=== PATIENT | female | born 1930 | race Caucasian/White ===

== ENCOUNTER → 2016-08-21 | Outpatient (CLI) | payer MEDICARE ==
[~2016-08-21] MED LIST: ALLO100T OR; EDARBI PO; FLON0.05; FOLITAB11 PO; GABAPOW41 PO; GLIMEPIRIDE PO; HYDROCORTISONE0.5 % EX; LASI40TA PO; LEVOTHYROID PO; METFORMIN PO; MULTIVIT PO; NIAC250T3 PO; OXYB5TAB5 PO; SPIRONOLACTONE/HCTZ PO; VIT D 2000 PO; VITAMIN B-12 PO; VITAMIN D PO; VITAMIN E PO; VITATAB38 PO; XALATAN OU
--- NOTE | 2016-08-21 17:20 | REPMRS ---
Patient History The patient states she had a clinical breast exam in 09/01 Patient has history of skin cancer at age 79. No known family history of cancer. Digital Woman Screen Mammo: August 21, 2016 - Exam #: [id number] Bilateral CC and MLO view(s) were taken. Technologist: Nila Bailey, Technologist Prior study comparison: August 21, 2015, digital woman screen mammo performed at [facility]. August 17, 2014, digital woman screen mammo performed at [facility]. August 16, 2013, digital woman screen mammo performed at [facility]. FINDINGS: There are scattered fibroglandular densities. There has been no change in the appearance of the mammogram from the prior studies. There is a mild amount of scattered fibroglandular density which is fairly symmetric. There is no interval development of dominant mass, architectural distortion, or clustered microcalcification suggestive of malignancy. ASSESSMENT: BI-RADS/ACR category 1 mammogram. Negative. Recommendation Routine screening mammogram in 1 year (for women over age 40). This mammogram was interpreted with the aid of an FDA-approved computer-aided dectection system. Electronically Signed By: Braulio Galarza MD 08/21/16 [id number]
== END ==
LOC: M WHC 12:45
PROVIDERS: ATTEND Nurse Practitioner Family
DX: Z01.419 Encounter for gynecological examination (general) (routine) without abnormal findings (principal); Z12.31 Encounter for screening mammogram for malignant neoplasm of breast; Z12.12 Encounter for screening for malignant neoplasm of rectum
CPT/HCPCS: 82270; G0101; G0202

== ENCOUNTER → 2016-11-30 | Outpatient (CLI) | payer MEDICARE ==
--- NOTE | 2016-11-30 12:56 | REP ---
CHEST, TWO VIEWS: HISTORY: Wheezing. COMPARISON: 09/03/2011 Peribronchial cuffing is present. The heart is upper limits of normal in size. The pulmonary vasculature is normal in appearance. The bony structure is intact. IMPRESSION: Findings consistent with asthma or bronchitis. Signed by Salinas Mancini MD 11/30/2016 12:57 P
== END ==
LOC: M WUC 11:52
PROVIDERS: ATTEND Physician Assistant
DX: R06.2 Wheezing (principal); R06.02 Shortness of breath

== ENCOUNTER → 2017-08-24 | Outpatient (CLI) | payer MEDICARE | LOC: M WHC 13:03 | DX: Z12.31 Encounter for screening mammogram for malignant neoplasm of breast (principal) | CPT/HCPCS: 77067 ==

== ENCOUNTER → 2018-08-13 | Outpatient (CLI) | payer MEDICARE ==
--- NOTE | 2018-08-13 11:04 | REP ---
Chest x-ray: Two views. History: Cough. Comparison study: November 30, 2016. Findings: Mitral annular calcification is noted. The heart is somewhat enlarged. The patient is status post its catheter aortic valve repair. The aorta is somewhat tortuous. There are degenerative changes in the thoracic spine. The lungs are symmetrically aerated and clear. Impression: No active disease. Electronically Signed by Maykel Galarza MD 08/13/2018 10:55 A
== END ==
LOC: M WUC 09:55
PROVIDERS: ATTEND Internal Medicine
DX: R05 Cough (principal); M51.24 Other intervertebral disc displacement, thoracic region

== ENCOUNTER → 2018-08-25 | Outpatient (CLI) | payer MEDICARE ==
--- NOTE | 2018-08-25 15:40 | REPMRS ---
Patient History The patient states she had a clinical breast exam in 08/2018. No known family history of cancer. Digital Woman Screen Mammo: August 25, 2018 - Exam #: [id number] Bilateral CC and MLO view(s) were taken. Technologist: Nila Bailey, Technologist Prior study comparison: August 24, 2017, digital woman screen mammo performed at [facility]. August 21, 2016, digital woman screen mammo performed at [facility]. August 21, 2015, digital woman screen mammo performed at [facility]. FINDINGS: There are scattered fibroglandular densities. There has been no change in the appearance of the mammogram from the prior studies. There is a mild amount of scattered fibroglandular density which is fairly symmetric. There is no interval development of dominant mass, architectural distortion, or clustered microcalcification suggestive of malignancy. 3-D tomosynthesis shows no additional findings. Assessment: BI-RADS/ACR category 1 mammogram. Negative Mammogram. Recommendation Routine screening mammogram of both breasts in 1 year (for women over age 40). This mammogram was interpreted with the aid of an FDA-approved computer-aided dectection system. Electronically Signed By: Braulio Galarza MD 08/25/18 [id number]
== END ==
LOC: M WHC 13:16
PROVIDERS: ATTEND Nurse Practitioner Family
DX: Z12.31 Encounter for screening mammogram for malignant neoplasm of breast (principal)
CPT/HCPCS: 77063; 77067; G0463

== ENCOUNTER → 2019-05-16 | Outpatient (CLI) | payer MEDICARE ==
--- NOTE | 2019-05-16 14:59 | REP ---
CT brain: 05/16/2019. Indication: Headache. Ataxia. Comparison: None. Technique: Unenhanced axial CT images of the brain were obtained from skull base to vertex with coronal reconstructions provided. Findings: There is no acute intracranial hemorrhage, acute cortical infarction, mass effect, hydrocephalus or acute calvarial fracture. Diffuse volume loss is present. Chronic-appearing left basal ganglia lacunar infarction is present. Intracranial atherosclerotic disease is present. Patchy areas of cerebral hemisphere white matter hypoattenuation are present. Impression: There is no acute intracranial process. Volume loss and sequelae of chronic microangiopathic ischemic disease. Electronically Signed by Flo Crews DO 05/16/2019 02:50 P
== END ==
LOC: M RAD 14:04
PROVIDERS: ATTEND Psychiatry & Neurology Neurology
DX: R29.6 Repeated falls (principal); R51 Headache; I67.2 Cerebral atherosclerosis

== ENCOUNTER → 2019-11-25 | Outpatient (CLI) | payer MEDICARE ==
[~2019-11-25] MED LIST changes: +**Note Patient Comment XX; +A-10CAP2 PO; +ACET650T61 PO; +ASPI-161 PO; +ATOR1TAB21 PO; +CALC1CAP31 PO; +COMB0.2S OU; +CYAN100050 PO; +D31000TA2 PO; +DICL1PAT6 TOP; +FLON1SPR; +FOLI0.4T PO; +FURO40TA2 PO; +GABA-845 PO; +GENT0.3S29 OU; +INSUNSD SC; +LATA0.0015 OU; +LEVO137T2 PO; +LIDO5DIS41 TD; +LIDO5DIS41 TOP; +LORA-622 PO; +LOSA100T50 PO; +MAGN400C2 PO; +MAGN400T3 PO; +META1POW PO; +MULT-90 PO; +OMEP-221 PO; +OXYB5TAB10 PO; +PHEN10TA PO; +PREDOPD OU; +PROAAER10 INH; +XALA0.007 OU; +ZYLO300T6 PO
== END ==
LOC: M LABSMTC 10:59
PROVIDERS: ATTEND Orthopaedic Surgery
DX: Z01.818 Encounter for other preprocedural examination (principal); Z11.59 Encounter for screening for other viral diseases

== ENCOUNTER 2020-03-07 16:07 | Observation (INO) | payer MEDICARE ==
[~2020-03-07] VITALS: Ht 157.5 cm; Wt 115.0 kg
[~2020-03-07 16:07] MED LIST changes: -**Note Patient Comment XX; -A-10CAP2 PO; -ACET650T61 PO; -ASPI-161 PO; -ATOR1TAB21 PO; -CALC1CAP31 PO; -COMB0.2S OU; -CYAN100050 PO; -D31000TA2 PO; -DICL1PAT6 TOP; -FLON1SPR; -FOLI0.4T PO; -FURO40TA2 PO; -GABA-845 PO; -GENT0.3S29 OU; -INSUNSD SC; -LATA0.0015 OU; -LEVO137T2 PO; -LIDO5DIS41 TD; -LIDO5DIS41 TOP; -LORA-622 PO; -LOSA100T50 PO; -MAGN400C2 PO; -MAGN400T3 PO; -META1POW PO; -MULT-90 PO; -OMEP-221 PO; -OXYB5TAB10 PO; -PHEN10TA PO; -PREDOPD OU; -PROAAER10 INH; -XALA0.007 OU; -ZYLO300T6 PO
[2020-03-07] MEDS ORDERED: LATA0.0015 OU (16:39)
[2020-03-07] MEDS ORDERED: OXYB5TAB10 PO (16:39)
[2020-03-07] MEDS ORDERED: LIDO5DIS41 TOP (16:39)
[2020-03-07] MEDS ORDERED: ATOR1TAB21 PO (16:39)
[2020-03-07] MEDS ORDERED: OMEP-221 PO (16:39)
[2020-03-07] MEDS ORDERED: PROAAER10 INH (16:39)
[2020-03-07] MEDS ORDERED: LOSA100T50 PO (16:39)
[2020-03-07] MEDS ORDERED: CALC1CAP31 PO (16:39)
[2020-03-07] MEDS ORDERED: COMB0.2S OU (16:39)
[2020-03-07] MEDS ORDERED: INSUNSD SC ×2 (16:39→19:05)
[2020-03-07] MEDS ORDERED: LEVO137T2 PO (16:39)
[2020-03-07] MEDS ORDERED: ZYLO300T6 PO (16:39)
[2020-03-07] MEDS ORDERED: FURO40TA2 PO ×2 (16:39→19:02)
[2020-03-07] MEDS ORDERED: GABA-845 PO (16:41)
[2020-03-07] MEDS ORDERED: MAGN400C2 PO (17:20)
--- NOTE | 2020-03-07 17:20 | REPVR ---
PROCEDURE INFORMATION: Exam: XR Chest, 1 View Exam date and time: 03/07/2020 5:12 PM Age: 89 years old Clinical indication: Chest pain; Additional info: Weakness TECHNIQUE: Imaging protocol: XR of the chest Views: Frontal portable sitting upright view of the chest. COMPARISON: CR CHEST 2 VIEW 11/30/2016 11:58 AM FINDINGS: Tubes, catheters and devices: EKG leads are present overlying the chest. Lungs: The lungs are clear bilaterally. The pulmonary vasculature is normal. Pleural space: No pleural effusion. No pneumothorax. Heart/Mediastinum: The heart is normal in size and contour. Mediastinum: Stable. Vasculature: Mild aortic arch atherosclerotic calcification without ectasia. Bones/joints: Stable. IMPRESSION: No acute cardiopulmonary abnormality identified. Electronically signed by: Malcom Spencer On 03/07/2020 17:20:08 PM
--- NOTE | 2020-03-07 17:21 | REPVR ---
PROCEDURE INFORMATION: Exam: CT Head Without Contrast Exam date and time: 03/07/2020 5:13 PM Age: 89 years old Clinical indication: Pain; Headache; Additional info: Slurred speech TECHNIQUE: Imaging protocol: Computed tomography of the head without contrast. Radiation optimization: All CT scans at this facility use at least one of these dose optimization techniques: automated exposure control; mA and/or kV adjustment per patient size (includes targeted exams where dose is matched to clinical indication); or iterative reconstruction. Other technique: STROKE PROTOCOL was implemented. COMPARISON: CT Head without contrast 05/16/2019 2:26 PM FINDINGS: Brain: Moderate hypoattenuating foci are noted in the posterior superior periatrial and anterior lateral ventricular periventricular white matter bilaterally. No intracranial hemorrhage. No mass or acute cortical infarction identified. Cerebral ventricles: Prominence of the ventricular system and subarachnoid spaces is consistent with the patient's age of 89 years. Bones/joints: No acute abnormality identified. No acute fracture. Paranasal sinuses: Visualized sinuses are unremarkable. No fluid levels. Mastoid air cells: Visualized mastoid air cells are well aerated. Orbital cavity: Bilateral prior cataract surgery with lens replacements. Vasculature: Atherosclerotic calcifications are present involving the carotid artery siphons bilaterally and the left vertebral artery. Soft tissues: Unremarkable. IMPRESSION: 1. Age appropriate supratentorial and infratentorial atrophy. 2. Moderate chronic white matter microvascular ischemic disease. 3. No acute intracranial abnormality identified. ASSESSMENT: ASPECTS ([place] Stroke Program Early CT Score) is 10. Electronically signed by: Malcom Spencer On 03/07/2020 17:21:50 PM
[2020-03-07 17:29] LABS: BASO % 0.3 % (0.0-1.0); EOS # 0.1 10^3/uL (0.0-0.5); EOS % 0.5 % (0.0-3.0); HEMATOCRIT 38.2 % (36.0-47.0); HEMOGLOBIN 12.4 g/dl (12.0-15.5); LYMPH # 1.6 10^3/uL (1.5-5.0); LYMPH % 13.8 % (24.0-44.0); MEAN CORPUSCULAR HEMOGLOBIN 35.5 pg (27.0-33.0); MEAN CORPUSCULAR HGB CONC 32.5 g/dl (32.0-36.5); MEAN CORPUSCULAR VOLUME 109.5 fl (80.0-96.0); MONO # 0.6 10^3/uL (0.0-0.8); MONO % 4.9 % (0.0-5.0); NEUTROPHILS # 9.1 10^3/uL (1.5-8.5); NEUTROPHILS % 79.9 % (36.0-66.0); PLATELET COUNT, AUTOMATED 163 10^3/uL (150-450); RED BLOOD COUNT 3.49 10^6/uL (4.00-5.40); WHITE BLOOD COUNT 11.3 10^3/uL (4.0-10.0)
[2020-03-07 17:44] LABS: CALCIUM LEVEL 8.9 MG/DL (8.8-10.2); CREATININE FOR GFR 1.49 MG/DL (0.55-1.30); GLOMERULAR FILTRATION RATE 35.2 (>32); POTASSIUM SERUM 3.8 MEQ/L (3.5-5.1)
[2020-03-07 17:45] LABS: CK-MB VALUE MASS 2.4 NG/ML (<3.6); MB/CK RELATIVE INDEX 1.68 (< OR =4); TROPONIN I 0.06 NG/ML (< 0.10)
[2020-03-07] MEDS ORDERED: DEXTROSE 50% 50 ML SYRINGE IV STA (17:51)
[2020-03-07] MEDS ORDERED: DEXTROSE 50% 50 ML SYRINGE As Ordered ONE (17:53)
[2020-03-07] MEDS ORDERED: DEXTROSE 50% 50 ML SYRINGE IV PRN (18:30)
[2020-03-07] MEDS ORDERED: GLUCAGON INJ 1MG VIAL SC PRN (18:30)
[2020-03-07] MEDS ORDERED: GLUCOSE 4GM CHEW TABLET PO PRN (18:30)
--- NOTE | 2020-03-07 18:58 | HPEPDOC ---
[facility] Medical History & Physical Date of Admission Mar 07, 2020 Date of Service: Mar 07, 2020 Attending Physician: CAMPBELL LYNN MD History and Physical CHIEF COMPLAINT: Hypoglycemia HISTORY OF PRESENT ILLNESS: Patient is an 89-year-old female who presents to the emergency department after being found down by a friend. Patient states that she woke up at about 11 AM this morning and took her thyroid medication and her eyedrops. About a half hour later, patient her blood sugar which was 93. Patient was cooking her breakfast in the microwave when she took her insulin. Patient says that she takes 90 units of her insulin in the morning and 30 units of insulin in the evening. Patient says that she was walking down the hallway with her walker and tried to reach down with a dustpan and ended up falling. Patient says that she slid down the wall. Patient was unable to get up and says that she fell asleep on the floor. Patient was trying to get up multiple times however, because she taken her insulin she believes that her blood sugar was low and was unable to get up. Patient says after being on the floor for a few hours, a friend came to check on her and found her where she was brought to the emergency department via EMS. Patient was found to have a low blood sugar and was given D50. Patient says that other than the pain in her upper back from the scrape, she does not have any other complaints. PAST MEDICAL HISTORY: 1. Diabetes. 2. Hypertension. 3. Hyperlipidemia. 4. Gout 5. Hypothyroidism PAST SURGICAL HISTORY: 1. Hysterectomy. 2. Toe surgery. 3. Tonsillectomy and adenoidectomy. 4. Multiple urolift surgeries SOCIAL HISTORY: Patient lives alone in an apartment. Patient smoked cigarettes for about 20 years but Back [place]. Patient occasionally drinks alcohol and does not use illicit drugs. 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 FAMILY HISTORY: Remote history of cancer ALLERGIES: Please see below. REVIEW OF SYSTEMS: General: Patient denies fevers HEENT: Patient denies headaches Cardiovascular: Patient denies chest pain Respiratory: Patient denies shortness of breath, cough GI: Patient denies abdominal pain, nausea, vomiting, diarrhea : Patient denies increased frequency or pain with urination Extremities: Patient denies swelling or pain in extremities Neurological: Patient denies numbness or tingling in legs Skin: Patient denies any new rashes or lesions. Hematologic: Patient denies any easy bruising. Lymphatic: Patient denies any lumps lumps or bumps in neck, axilla, or groin HOME MEDICATIONS: Please see below. PHYSICAL EXAMINATION: VITAL SIGNS: See below General: Alert and oriented female patient is sitting in a chair when I walked in. Patient did not appear to be in any acute distress. HEENT: Normocephalic, atraumatic, moist mucous membranes. Neck: No lymphadenopathy or thyromegaly Cardiac: Regular rate and rhythm, grade 2/6 systolic murmur heard loudest in the right second intercostal space, normal S1, normal S2 Pulm: Clear to auscultation bilaterally. No wheezes, rhonchi, rales Abd: Nondistended, nontender to palpation, normal bowel sounds Ext: Trace edema bilateral lower extremities. Skin: Patient has superficial abrasions in the midline of the upper back. No other rashes. LABORATORY DATA: See below. IMAGING: A CT head without contrast was performed on 03/07/2020 which is reported to show age-appropriate supratentorial and infratentorial atrophy, moderate chronic white matter microvascular ischemic disease, no acute intracranial abnormality identified Chest x-ray performed on 03/07/2020 was reported to show no acute cardiopulmonary abnormality identified. MICROBIOLOGY: Please see below. ASSESSMENT: 89-year-old female who presented to the hospital after a mechanical fall at home and was found to have hypoglycemia. PLAN: 1. Hypoglycemia, resolved at this time. Patient took her full dose of her morning insulin and was unable to get up after falling to eat. Patient was given an amp of D50 and was feeling better. Patient is coherent at this time. We will continue to monitor the patient's blood sugar I put her on a sliding scale. We can start the patient's insulin back on a lower dose than her home dose starting tomorrow morning. 2. Mechanical fall. Patient says that she was reaching down with a dustpan when she slid down the wall. Patient did not have any injury from her fall. We will work with physical therapy to evaluate her. Patient is also on gabapentin which we will hold at this time as this may be another cause for her fall/altered mental status. 3. Altered mental status, resolved. Patient is reported to have altered mental status when she arrived in the emergency department. This is most likely secondary to her hypoglycemia however, patient is also on gabapentin with chronic kidney disease which may also be the cause. 4. Type 2 diabetes. We'll continue to monitor the patient's blood sugars. We may have to adjust the patient's insulin regimen if she continues to have hypoglyce katherine. 5. Hypertension, patient's blood pressure is elevated and we will give her her hypertensive medications. Patient did not take her hypertensive medications at home due to what happened to her. 6. Hypothyroidism: Continue levothyroxine 7. DVT prophylaxis heparin subcutaneous. 8. CODE STATUS, full code Plan: Patient will be admitted to medical surgical floor with telemetry with plan to discharge in the next 24 hours Vital Signs Vital Signs Date Time Temp Pulse Resp B/P (MAP) Pulse Ox O2 Delivery O2 Flow Rate FiO2 03/07/20 16:52 57 97 03/07/20 16:37 Room Air 03/07/20 16:31 184/84 (117) 03/07/20 16:22 96.5 03/07/20 16:16 20 Laboratory Data Labs 24H Laboratory Tests 2 03/07/20 16:52: Immature Granulocyte % (Auto) 0.6, Neutrophils (%) (Auto) 79.9H, Lymphocytes (%) (Auto) 13.8L, Monocytes (%) (Auto) 4.9, Eosinophils (%) (Auto) 0.5, Basophils (%) (Auto) 0.3, Neutrophils # (Auto) 9.1H, Lymphocytes # (Auto) 1.6, Monocytes # (Auto) 0.6, Eosinophils # (Auto) 0.1, Basophils # (Auto) 0.0, Nucleated Red Blood Cells % (auto) 0.0, Anion Gap 6L, Glomerular Filtration Rate 35.2, Calcium Level 8.9, Total Creatine Kinase 143, Creatine Kinase MB 2.4, Creatine Kinase MB Relative Index 1.68, Troponin I 0.06 CBC/BMP Laboratory Tests 03/07/20 16:52 Home Medications Scheduled Acetaminophen (Tylenol Arthritis) 650 Mg Tablet.er, 650 MG PO BID Allopurinol (Zyloprim) 300 Mg Tablet, 300 MG PO DAILY Aspirin (Aspirin EC) 81 Mg Tablet.dr, 81 MG PO DAILY Atorvastatin Calcium (Atorvastatin Calcium) 20 Mg Tablet, 20 MG PO DAILY Brimonidine Tartrate/Timolol (Combigan 0.2%-0.5% Eye Drops) 5 Ml Drops, 1 DROP OU BID Calcitriol (Calcitriol) 0.25 Mcg Capsule, 0.25 MCG PO 5XW MON//THU//FRI Cholecalciferol (Vitamin D3) (Vitamin D3) 1,000 Unit Tablet, 1,000 UNITS PO QHS Cyanocobalamin (Vitamin B-12) (Vitamin B-12) 1,000 Mcg Tablet, 1,000 MCG PO QHS Furosemide (Furosemide) 40 Mg Tablet, 60 MG PO QAM Furosemide (Furosemide) 40 Mg Tablet, 40 MG PO QPM Gabapentin (Gabapentin) 400 Mg Capsule, 400 MG PO BID Gentamicin Sulfate (Gentamicin Sulfate) 0.3 % Drops, 1 DROP OU QID Insulin Human NPH (Humulin N) 100 Unit/1 Ml Vial, 70 UNITS SC QAM Insulin Human NPH (Humulin N) 100 Unit/1 Ml Vial, 20 UNITS SC QHS Latanoprost (Xalatan) 0.005% 2.5ML Drops, 1 DROP OU QHS Levothyroxine Sodium (Levothyroxine Sodium) 137 Mcg Tablet, 137 MCG PO DAILY Loratadine (Loratadine) 10 Mg Tablet, 10 MG PO DAILY Losartan Potassium (Losartan Potassium) 100 Mg Tablet, 50 MG PO DAILY Magnesium Oxide (Magnesium Oxide) 400 Mg Tablet, 400 MG PO QHS Multivitamin (Multivitamin) 1 Each Tablet, 1 TAB PO QHS Omeprazole (Omeprazole) 40 Mg Capsule.dr, 40 MG PO DAILY Oxybutynin Chloride (Oxybutynin Chloride) 5 Mg Tablet, 5 MG PO DAILY Prednisolone Acetate (Prednisolone Acetate 1% Opth Susp) 5 Ml Drops.susp, 1 DROP OU QID Vitamin A (Vitamin A) 10,000 Unit Capsule, 10,000 UNIT PO QHS Scheduled PRN Albuterol Sulfate (Proair Hfa) 8.5 Gm Hfa.aer.ad, 2 PUFFS INH QID PRN for SOB/WHEEZING Lidocaine (Lidoderm) 5% Adh..patch, 1 PATCH TD DAILY PRN for PAIN APPLIES TO KNEES/LOWER BACK Allergies Coded Allergies: butorphanol (Verified Allergy, Unknown, 03/07/20) GME ATTESTATION GME ATTESTATION My faculty preceptor for this patient encounter was physically present during the encounter and was fully available. All aspects of the patient interview, examination, medical decision making process, and medical care plan development were reviewed and approved by the faculty preceptor. The faculty preceptor is aware and concurs with the plan as stated in the body of this note and will at test to such by his/her cosignature. ATTENDING NOTE I, Campbell Lynn, have independently examined this patient and performed my own physical exam, as well as reviewed the documentation and edited where necessary. I have discussed in detail with the resident / student the findings and plan of treatment as documented by the resident / student and edited their note. I agree with their findings and treatment plan and have edited their documentation. I will continue to follow the patient during this hospital stay. GUILHERME MEHTA DO Mar 07, 2020 18:58 CAMPBELL LYNN MD Mar 09, 2020 07:47
[2020-03-07] MEDS ORDERED: XALA0.007 OU (19:05)
[2020-03-07] MEDS ORDERED: D31000TA2 PO (19:05)
[2020-03-07] MEDS ORDERED: ACET650T61 PO (19:05)
[2020-03-07] MEDS ORDERED: A-10CAP2 PO (19:05)
[2020-03-07] MEDS ORDERED: MAGN400T3 PO (19:05)
[2020-03-07] MEDS ORDERED: ALBUTEROL 90 MCG/ACT 8GM HFA INHALER INH PRN (19:15)
[2020-03-07] MEDS ORDERED: LIDOCAINE 5% (LIDODERM) PATCH TD PRN (19:15)
[2020-03-07] MEDS ORDERED: CYAN100050 PO (19:19)
[2020-03-07] MEDS ORDERED: MULT-90 PO (19:19)
[2020-03-07] MEDS ORDERED: LORA-622 PO (19:19)
[2020-03-07] MEDS ORDERED: ASPI-161 PO (19:19)
[2020-03-07] MEDS ORDERED: LIDO5DIS41 TD (19:19)
[2020-03-07] MEDS ORDERED: GENT0.3S29 OU (19:20)
[2020-03-07] MEDS ORDERED: PREDOPD OU (19:20)
[2020-03-07] MEDS: LOSARTAN 50MG TABLET PO SCH (20:50)
[2020-03-07] MEDS ORDERED: LATANOPROST 0.005% OPHTH SOLN 2.5 ML OU SCH (21:00)
[2020-03-07] MEDS ORDERED: HumaLOG INSULIN (NovoLOG) PER UNIT SC SCH (21:00)
[2020-03-07] MEDS ORDERED: **NOTE PATIENT COMMENT** MISC XX SCH (21:00)
[2020-03-07] MEDS ORDERED: VITAMIN A 10,000 INTERNATIONAL UNITS CAP PO SCH (21:00)
[2020-03-07] MEDS ORDERED: MAGNESIUM OXIDE 400 MG TAB (MAG-OX) PO SCH (21:00)
[2020-03-07] MEDS ORDERED: VITAMIN D 1,000 INTERNATIONAL UNITS TABLET PO SCH (21:00)
[2020-03-07] MEDS: GENTAMICIN 0.3% OPHTH SOL 5 ML BTL OU SCH (21:10)
[2020-03-07 22:17] VITALS: BP 152/83
[2020-03-07] MEDS: ACETAMINOPHEN 650MG ER TAB (TYLENOL ARTHRITIS) PO SCH (22:51)
[2020-03-07] MEDS: prednisoLONE ACET 1% OPHTH SUSP 5ML OU SCH (22:51)
--- NOTE | 2020-03-07 22:54 | ECGEPIP ---
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
[2020-03-08 06:00] VITALS: BP 156/62
[2020-03-08] MEDS ORDERED: LEVOTHYROXINE 137MCG TABLET (0.137MG) PO SCH (06:00)
[2020-03-08] MEDS: HEPARIN SOD (PORCINE) 5000UNITS/ML 1ML VIAL/SYRINGE SC SCH ×2 (06:19→13:54)
[2020-03-08 06:48] LABS: CREATININE FOR GFR 1.35 MG/DL (0.55-1.30); GLOMERULAR FILTRATION RATE 39.4 (>32); POTASSIUM SERUM 4.1 MEQ/L (3.5-5.1)
[2020-03-08 06:49] LABS: BILIRUBIN,TOTAL 0.4 MG/DL (0.2-1.0); TOTAL PROTEIN 7.2 GM/DL (6.4-8.2)
[2020-03-08 08:40] VITALS: BP 153/61
[2020-03-08] MEDS: LOSARTAN 50MG TABLET PO SCH (08:40)
[2020-03-08] MEDS: HumaLOG INSULIN (NovoLOG) PER UNIT SC SCH ×3 (08:42→12:30)
[2020-03-08] MEDS: ACETAMINOPHEN 650MG ER TAB (TYLENOL ARTHRITIS) PO SCH (08:43)
[2020-03-08] MEDS: prednisoLONE ACET 1% OPHTH SUSP 5ML OU SCH ×2 (08:43→12:29)
[2020-03-08] MEDS: GENTAMICIN 0.3% OPHTH SOL 5 ML BTL OU SCH ×2 (08:43→12:29)
[2020-03-08] MEDS ORDERED: HumuLIN N INSULIN (NovoLIN N) PER UNIT SC SCH ×2 (09:00→21:00)
[2020-03-08] MEDS ORDERED: ATORVASTATIN 20 MG TAB PO SCH (09:00)
[2020-03-08] MEDS ORDERED: allopurinoL 300 MG TAB PO SCH (09:00)
[2020-03-08] MEDS ORDERED: LORATADINE 10 MG TAB PO SCH (09:00)
[2020-03-08] MEDS ORDERED: oxyBUTYnin 5 MG TAB PO SCH (09:00)
[2020-03-08] MEDS ORDERED: ASPIRIN 81 MG ENTERIC TAB PO SCH (09:00)
[2020-03-08] MEDS ORDERED: FUROSEMIDE 20 MG TAB PO SCH (09:00)
[2020-03-08] MEDS ORDERED: GABA-845 PO (09:50)
[2020-03-08] MEDS ORDERED: INSUNSD SC ×2 (09:50)
--- NOTE | 2020-03-08 10:54 | DS.PDOC ---
Discharge Summary General Date of Admission Mar 07, 2020 at 16:08 Date of Discharge 03/08/2020 Attending Physician: CAMPBELL LYNN MD Discharge Summary PROCEDURES PERFORMED DURING STAY: None. ADMITTING/DISCHARGE DIAGNOSIS: 1. Hypoglycemia, resolved. 2. Mechanical fall. 3. Altered mental status, resolved. 4. Type 2 diabetes. 5. Hypertension 6. Hypothyroidism COMPLICATIONS/CHIEF COMPLAINT: Hypoglycemia. HISTORY OF PRESENT ILLNESS: Patient is an 89-year-old female who presented to the hospital after being found down for a couple hours. Patient says that she spilled some cornflakes on the ground while making breakfast and was on the way to go pick them up when she felt her knees get weak and she slowly lowered herself to the ground against a wall. Patient had taken her blood sugar early in the morning and found to be somewhat low however, she took her NPH insulin 90 units while making breakfast. Because patient fell, she was unable to get up off the ground to eat her breakfast so she became hypoglycemic. After a few hours, a friend came to check on her and found her on the ground. Patient was brought to the hospital via EMS. Patient received D50 while in the emergency room and her mentation and alertness was improved. Patient said that she had some pain in her lower back. Patient was admitted for observation overnight. HOSPITAL COURSE: Overnight patient did well. Patient has not had any more episodes of hypoglycemia. Patient's insulin was decreased to 70 units in the morning and 20 units at night. Patient did not receive any of her insulin overnight. Patient was placed on a sliding scale while here which manages her blood sugars. Patient worked with physical therapy and was at her baseline. Patient was deemed safe for discharge and was discharged home on 03/08/2020. DISCHARGE MEDICATIONS: Please see below. ALLERGIES: Please see below. PHYSICAL EXAMINATION ON DISCHARGE: VITAL SIGNS: Please see below. General: Alert and oriented female patient who is sitting in the chair when I walked into the room. Patient did not appear to be in any acute distress. HEENT: Normocephalic, atraumatic, moist mucous membranes. Neck: No lymphadenopathy or thyromegaly Cardiac: Regular rate and rhythm, grade 2/6 systolic murmur heard loudest at the right second intercostal space, normal S1, normal S2 Pulm: Clear to auscultation bilaterally. No wheezes, rhonchi, rales Abd: Nondistended, nontender to palpation, normal bowel sounds Ext: Trace pitting edema in the bilateral lower extremities LABORATORY DATA: Please see below. IMAGING: A CT of the head performed without contrast on 03/07/2020 was reported to show age-appropriate supratentorial and infratentorial atrophy. Moderate chronic white matter microvascular ischemic disease, no acute intracranial abnor mality identified. A chest x-ray performed on 03/07/2020 was reported to show no acute cardiopulmonary disease. PROGNOSIS: Fair ACTIVITY: As tolerated. DIET: Consistent carbohydrate DISCHARGE PLAN: Discharge home DISCHARGE INSTRUCTIONS: 1. Follow up with primary care provider within 3-5 days. 2. Decrease NPH insulin to 70 units in the morning and 20 units at night and 2 year follow-up with her primary care physician 3. Return to the ER if you experience any problems DISCHARGE CONDITION: Stable. TIME SPENT ON DISCHARGE: 20 minutes. Vital Signs/I&Os Vital Signs Date Time Temp Pulse Resp B/P (MAP) Pulse Ox O2 Delivery O2 Flow Rate FiO2 03/08/20 08:40 153/61 03/08/20 06:00 99.1 72 20 94 Room Air I&O- Last 24 Hours up to 6 AM 03/08/20 06:00 Intake Total 500 ml Output Total 300 ml Balance 200 ml Laboratory Data Labs 24H Laboratory Tests 2 03/07/20 16:52: Immature Granulocyte % (Auto) 0.6, Neutrophils (%) (Auto) 79.9H, Lymphocytes (%) (Auto) 13.8L, Monocytes (%) (Auto) 4.9, Eosinophils (%) (Auto) 0.5, Basophils (%) (Auto) 0.3, Neutrophils # (Auto) 9.1H, Lymphocytes # (Auto) 1.6, Monocytes # (Auto) 0.6, Eosinophils # (Auto) 0.1, Basophils # (Auto) 0.0, Nucleated Red Blood Cells % (auto) 0.0, Anion Gap 6L, Glomerular Filtration Rate 35.2, Calcium Level 8.9, Total Creatine Kinase 143, Creatine Kinase MB 2.4, Creatine Kinase MB Relative Index 1.68, Troponin I 0.06 03/07/20 18:49: Bedside Glucose (Misc Panel) 154H 03/07/20 22:36: Bedside Glucose (Misc Panel) 201H 03/08/20 06:15: Anion Gap 6L, Glomerular Filtration Rate 39.4, Calcium Level 9.0, Total Jose Alberto irubin 0.4, Aspartate Amino Transf (AST/SGOT) 26, Alanine Aminotransferase (ALT/SGPT) 26, Alkaline Phosphatase 74, Total Protein 7.2, Albumin 3.0L, Albumin/Globulin Ratio 0.7L CBC/BMP Laboratory Tests 03/07/20 16:52 03/08/20 06:15 FSBS Laboratory Tests Test 03/07/20 18:49 03/07/20 22:36 Range/Units Bedside Glucose (Misc Panel) 154 201 83-110 MG/DL Discharge Medications Scheduled Acetaminophen (Tylenol Arthritis) 650 Mg Tablet.er, 650 MG PO BID, (Reported) Allopurinol (Zyloprim) 300 Mg Tablet, 300 MG PO DAILY, (Reported) Aspirin (Aspirin EC) 81 Mg Tablet.dr, 81 MG PO DAILY, (Reported) Atorvastatin Calcium (Atorvastatin Calcium) 20 Mg Tablet, 20 MG PO DAILY, (Reported) Brimonidine Tartrate/Timolol (Combigan 0.2%-0.5% Eye Drops) 5 Ml Drops, 1 DROP OU BID, (Reported) Calcitriol (Calcitriol) 0.25 Mcg Capsule, 0.25 MCG PO 5XW, (Reported) THU//THU//FRI Cholecalciferol (Vitamin D3) (Vitamin D3) 1,000 Unit Tablet, 1,000 UNITS PO QHS, (Reported) Cyanocobalamin (Vitamin B-12) (Vitamin B-12) 1,000 Mcg Tablet, 1,000 MCG PO QHS, (Reported) Furosemide (Furosemide) 40 Mg Tablet, 60 MG PO QAM, (Reported) Furosemide (Furosemide) 40 Mg Tablet, 40 MG PO QPM, (Reported) Gabapentin (Gabapentin) 400 Mg Capsule, 400 MG PO BID Gentamicin Sulfate (Gentamicin Sulfate) 0.3 % Drops, 1 DROP OU QID, (Reported) Insulin Human NPH (Humulin N) 100 Unit/1 Ml Vial, 70 UNITS SC QAM Insulin Human NPH (Humulin N) 100 Unit/1 Ml Vial, 20 UNITS SC QHS Latanoprost (Xalatan) 0.005% 2.5ML Drops, 1 DROP OU QHS, (Reported) Levothyroxine Sodium (Levothyroxine Sodium) 137 Mcg Tablet, 137 MCG PO DAILY, (Reported) Loratadine (Loratadine) 10 Mg Tablet, 10 MG PO DAILY, (Reported) Losartan Potassium (Losartan Potassium) 100 Mg Tablet, 50 MG PO DAILY, (Reported) Magnesium Oxide (Magnesium Oxide) 400 Mg Tablet, 400 MG PO QHS, (Reported) Multivitamin (Multivitamin) 1 Each Tablet, 1 TAB PO QHS, (Reported) Omeprazole (Omeprazole) 40 Mg Capsule.dr, 40 MG PO DAILY, (Reported) Oxybutynin Chloride (Oxybutynin Chloride) 5 Mg Tablet, 5 MG PO DAILY, (Reported) Prednisolone Acetate (Prednisolone Acetate 1% Opth Susp) 5 Ml Drops.susp, 1 DROP OU QID, (Reported) Vitamin A (Vitamin A) 10,000 Unit Capsule, 10,000 UNIT PO QHS, (Reported) Scheduled PRN Albuterol Sulfate (Proair Hfa) 8.5 Gm Hfa.aer.ad, 2 PUFFS INH QID PRN for SOB/WHEEZING, (Reported) Lidocaine (Lidoderm) 5% Adh..patch, 1 PATCH TD DAILY PRN for PAIN, (Reported) APPLIES TO KNEES/LOWER BACK Allergies Coded Allergies: butorphanol (Verified Allergy, Unknown, 03/07/20) GME ATTESTATION GME ATTESTATION My faculty preceptor for this patient encounter was physically present during the encounter and was fully available. All aspects of the patient interview, examination, medical decision making process, and medical care plan development were reviewed and approved by the faculty preceptor. The faculty preceptor is aware and concurs with the plan as stated in the body of this note and will attest to such by his/her cosignature. ATTENDING NOTE I, Campbell Lynn, have independently examined this patient and performed my own physical exam, as well as reviewed the documentation and edited where necessary. I have discussed in detail with the resident / student the findings and plan of treatment as documented by the resident / student and edited their note. I agree with their findings and treatment plan and have edited their documentation. I will continue to follow the patient during this hospital stay. Time spent on discharge 20 minutes GUILHERME MEHTA DO Mar 08, 2020 10:54 CAMPBELL LYNN MD Mar 08, 2020 15:49
[2020-03-08] MEDS ORDERED: FUROSEMIDE 40 MG TAB PO SCH (17:00)
== END 2020-03-08 14:01 | disposition home or self-care (01) ==
LOC: EDBD 16:07 → M ED 16:07 → M ED INP 16:08 → ENRESERV 21:30 → M MSPAV 22:17
PROVIDERS: ADMIT Internal Medicine; ATTEND Internal Medicine
DX: E11.649 Type 2 diabetes mellitus with hypoglycemia without coma (principal); R41.82 Altered mental status, unspecified; Z91.81 History of falling; I10 Essential (primary) hypertension; E03.9 Hypothyroidism, unspecified; E78.5 Hyperlipidemia, unspecified; M10.9 Gout, unspecified; Z79.4 Long term (current) use of insulin; Z87.891 Personal history of nicotine dependence; Z79.899 Other long term (current) drug therapy; Z79.82 Long term (current) use of aspirin
CPT/HCPCS: 36415; 70450; 71045; 80048; 80053; 82550; 82553; 84484; 85025; 93005; 93041; 94760; 96374; 97161; 99285; G0378; J1644

== ENCOUNTER 2020-03-15 20:47 | Inpatient (IN) | payer MEDICARE ==
[~2020-03-15] VITALS: Ht 157.5 cm; Wt 113.2 kg
[~2020-03-15 20:47] MED LIST changes: +A-10CAP2 PO; +ACET650T61 PO; +ASPI-161 PO; +ATOR1TAB21 PO; +CALC1CAP31 PO; +COMB0.2S OU; +CYAN100050 PO; +D31000TA2 PO; +FURO40TA2 PO; +GABA-845 PO; +GENT0.3S29 OU; +INSUNSD SC; +LATA0.0015 OU; +LEVO137T2 PO; +LIDO5DIS41 TD; +LIDO5DIS41 TOP; +LORA-622 PO; +LOSA100T50 PO; +MAGN400C2 PO; +MAGN400T3 PO; +MULT-90 PO; +OMEP-221 PO; +OXYB5TAB10 PO; +PREDOPD OU; +PROAAER10 INH; +XALA0.007 OU; +ZYLO300T6 PO
[2020-03-15] MEDS ORDERED: DICLOFENAC EPOLAMINE 1.3 % PATCH TOP SCH (21:00)
--- NOTE | 2020-03-15 22:06 | REPVR ---
PROCEDURE INFORMATION: Exam: CT Head Without Contrast Exam date and time: 03/15/2020 9:25 PM Age: 89 years old Clinical indication: Injury or trauma; Fall; Blunt trauma (contusions or hematomas) TECHNIQUE: Imaging protocol: Computed tomography of the head without contrast. Radiation optimization: All CT scans at this facility use at least one of these dose optimization techniques: automated exposure control; mA and/or kV adjustment per patient size (includes targeted exams where dose is matched to clinical indication); or iterative reconstruction. COMPARISON: CT Head without contrast 03/07/2020 5:04 PM FINDINGS: Brain: There is mild to moderate age related parenchymal volume loss. White matter changes are demonstrated in the subcortical, centrum semiovale and periventricular white matter consistent with age related small vessel white matter ischemic changes. Diffuse cerebellar atrophy. Cerebral ventricles: The degree of ventricular dilatation is normal for age and/or degree of atrophy present. Bones/joints: Unremarkable. No acute fracture. Paranasal sinuses: Visualized sinuses are unremarkable. No fluid levels. Mastoid air cells: Visualized mastoid air cells are well aerated. Soft tissues: Unremarkable. IMPRESSION: 1. There is mild to moderate age related parenchymal volume loss. White matter changes are demonstrated in the subcortical, centrum semiovale and periventricular white matter consistent with age related small vessel white matter ischemic changes. 2. The degree of ventricular dilatation is normal for age and/or degree of atrophy present. 3. Diffuse cerebellar atrophy. 4. No acute intracranial findings. Electronically signed by: Jimi Guerrero On 03/15/2020 22:06:41 PM
[2020-03-15 22:08] LABS: HEMATOCRIT 37.9 % (36.0-47.0); MEAN CORPUSCULAR HEMOGLOBIN 34.7 pg (27.0-33.0); MEAN CORPUSCULAR HGB CONC 31.7 g/dl (32.0-36.5); MEAN CORPUSCULAR VOLUME 109.5 fl (80.0-96.0); PLATELET COUNT, AUTOMATED 167 10^3/uL (150-450); RED BLOOD COUNT 3.46 10^6/uL (4.00-5.40); WHITE BLOOD COUNT 7.6 10^3/uL (4.0-10.0)
--- NOTE | 2020-03-15 22:12 | REPVR ---
PROCEDURE INFORMATION: Exam: CT Cervical Spine Without Contrast Exam date and time: 03/15/2020 9:25 PM Age: 89 years old Clinical indication: Injury or trauma; Fall; Blunt trauma TECHNIQUE: Imaging protocol: Computed tomography images of the cervical spine without contrast. Radiation optimization: All CT scans at this facility use at least one of these dose optimization techniques: automated exposure control; mA and/or kV adjustment per patient size (includes targeted exams where dose is matched to clinical indication); or iterative reconstruction. COMPARISON: No relevant prior studies available. FINDINGS: Bones/joints: No acute fracture. Normal alignment. Discs/Spinal canal/Neural foramina: There are degenerative changes demonstrated in the atlantoaxial joint at C1-C2 with osteophytes and joint space narrowing. The transverse ligament is unremarkable. Disc space narrowing at C5-C6 and C6-C7 with intervertebral osteophytes. Moderate foraminal narrowing on the left at C2, moderate to severe foraminal narrowing on the right at C3, bilateral moderate foraminal narrowing at C4, severe bilateral foraminal narrowing at C5 and moderate bilateral foraminal narrowing at C6 secondary to uncinate joint hypertrophic changes. Posterior disc protrusion at C3-C4 and C4-C5 results in mild to moderate cord impingement, disc osteophyte complex at C5-C6 and C6-C7 effaces ventral subarachnoid space with moderate to severe cord impingement at C5-C6. Soft tissues: See "Discs/Spinal canal/Neural foramina" finding. Lungs: Lung apices are normal. IMPRESSION: Degenerative spondylosis. No acute findings. Electronically signed by: Jimi Guerrero On 03/15/2020 22:12:26 PM
--- NOTE | 2020-03-15 22:27 | REPVR ---
PROCEDURE INFORMATION: Exam: CT Chest Without Contrast Exam date and time: 03/15/2020 9:25 PM Age: 89 years old Clinical indication: Injury or trauma; Fall; Blunt trauma (contusions or hematomas); Additional info: Fall, left rib pain TECHNIQUE: Imaging protocol: Computed tomography of the chest without contrast. 3D rendering (Not supervised by radiologist): MIP and/or 3D reconstructed images were created by the technologist. Radiation optimization: All CT scans at this facility use at least one of these dose optimization techniques: automated exposure control; mA and/or kV adjustment per patient size (includes targeted exams where dose is matched to clinical indication); or iterative reconstruction. COMPARISON: CR Chest, 1 view 03/07/2020 5:12 PM FINDINGS: Lungs: Minimal bibasilar fibro-atelectatic change, greatest in the lower lobes. Pleural space: Unremarkable. No pneumothorax. No pleural effusion. Heart: Status post TAVR. Pulmonary arteries: The main pulmonary artery measures 32 mm. Aorta: The ascending thoracic aorta measures 33 mm. Lymph nodes: Calcified nodes are seen in the azygo-esophageal recess. Gallbladder and bile ducts: There is a gallstone in the gallbladder measuring 6 mm. Kidneys and ureters: Are right renal cysts measuring up to 5.2 cm with a Hounsfield measurement of -4 and a smaller hyperdense cyst measuring 2.0 cm. These appear to reflect simple cysts. No follow-up imaging is recommended. Small nonobstructing right renal calculus. Bones/joints: Mild degenerative changes of the thoracic spine with some areas of segmental ankylosis. Slightly displaced fracture of the left 11th rib posteriorly and nondisplaced fractures of the left transverse processes of L1-L3. Soft tissues: Unremarkable. IMPRESSION: 1. Fractures of the left 11th rib posteriorly and nondisplaced fractures of the left transverse processes of L1-L3. 2. Cholelithiasis. 3. Old granulomatous disease. 4. Small nonobstructing right renal calculus. 5. Status post TAVR. 6. Otherwise negative CT chest. Electronically signed by: Lalo Devine On 03/15/2020 22:26:56 PM
[2020-03-15 22:31] LABS: CALCIUM LEVEL 9.1 MG/DL (8.8-10.2); CREATININE FOR GFR 1.69 MG/DL (0.55-1.30); GLOMERULAR FILTRATION RATE 30.4 (>32); POTASSIUM SERUM 4.1 MEQ/L (3.5-5.1)
--- NOTE | 2020-03-15 23:16 | REPVR ---
PROCEDURE INFORMATION: Exam: CT Abdomen And Pelvis Without Contrast Exam date and time: 03/15/2020 11:00 PM Age: 89 years old Clinical indication: Injury or trauma; Fall; Blunt; Generalized; Additional info: Fall- l1, l2, l3 fracture TECHNIQUE: Imaging protocol: Computed tomography of the abdomen and pelvis without contrast. Radiation optimization: All CT scans at this facility use at least one of these dose optimization techniques: automated exposure control; mA and/or kV adjustment per patient size (includes targeted exams where dose is matched to clinical indication); or iterative reconstruction. COMPARISON: No relevant prior studies available. FINDINGS: Lungs: Minimal bibasilar fibro-atelectatic change. Calcified granuloma in the left lower lobe. Heart: Status post TAVR. Liver: The liver and spleen are grossly intact on this noncontrast scan. No perihepatic or perisplenic fluid collections are identified. Gallbladder and bile ducts: There is a gallstone in the gallbladder measuring 5 mm. Pancreas: Normal. No ductal dilation. Spleen: Normal. No splenomegaly. Adrenal glands: Normal. No mass. Kidneys and ureters: There are right renal cysts measuring up to 5.5 cm with a Hounsfield measurement of 31 which are likely benign. No follow-up imaging is recommended. Minimal nonobstructing right renal calculus in the lower pole. Stomach and bowel: Mild stool throughout much of the colon. Appendix: There are no changes of appendicitis. A normal appendix is not seen. Intraperitoneal space: Unremarkable. No free air. No significant fluid collection. Vasculature: There is mild calcification of the abdominal aorta with extension into the iliac arteries. Lymph nodes: Unremarkable. No enlarged lymph nodes. Urinary bladder: Unremarkable as visualized. Reproductive: Status post hysterectomy. Bones/joints: Slightly displaced fracture of the left 11th rib posteriorly. Nondisplaced or slightly displaced fractures of the left transverse processes of L1-L4. Soft tissues: Band of subcutaneous induration across left flank fat. IMPRESSION: 1. Fractures of the left 11th rib posteriorly and the left transverse processes of L1-L4 with overlying band of subcutaneous induration extending across the fat of the left flank. 2. Minimal cholelithiasis. 3. Minimal nonobstructing right renal calculus. 4. Status post hysterectomy. 5. Otherwise negative CT abdomen/pelvis. Electronically signed by: Lalo Devine On 03/15/2020 23:16:14 PM
[2020-03-16] MEDS ORDERED: ACETAMINOPHEN TAB 650MG DOSE (2X325MG) PO PRN (00:15)
[2020-03-16] MEDS ORDERED: MOM 30ML SUSPENSION UDC PO PRN (00:15)
[2020-03-16] MEDS ORDERED: MAALOX 30 ML SUSP *UDC PO PRN (00:15)
[2020-03-16] MEDS ORDERED: GLUCOSE 4GM CHEW TABLET PO PRN (00:15)
[2020-03-16] MEDS ORDERED: GLUCAGON INJ 1MG VIAL SC PRN (00:15)
[2020-03-16] MEDS ORDERED: DEXTROSE 50% 50 ML SYRINGE IV PRN (00:15)
--- NOTE | 2020-03-16 00:17 | HPEPDOC ---
[facility] Medical History & Physical Date of Admission Mar 16, 2020 Date of Service: Mar 16, 2020 Other Provider Igor Devine MD Attending Physician: SILAS WATSON MD History and Physical TIME OF SERVICE: 1200am CHIEF COMPLAINT: fall HISTORY OF PRESENT ILLNESS: This 89 year old female is admitted to the hospital on March 07 for management of hypoglycemia and discharged home on the . On March 15 she returned to the ER after having a fall. She reports catching her left toe on a recliner and falling into a magazine rack while walking to her living room with her walker. After falling, she was unable to get up on her own and her neighbor found her and called EMS for assistance. When EMS arrived she was c/o flank pain and and difficulties breathing when sitting up. At the time of my evaluation she her left flank pain was only present when she moved. She denied having low sugars over the last day, denied having chest pain, denied having shortness of breath that is worse than her baseline and denied having vomiting or diarrhea. 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 Chronic HTN DLP MITCH w periodic limb movement disorder CPAP 14 Gout CKD 3 Hypothyroidism Right sided hearing loss has hearing aid Vision loss uses glasses Nephrolithiasis Cholelithiasis Class 3 obesity Debility /unsteady gait, uses a walker TAVR Hysterectomy with ovarian preservation Toe surgery Tonsillectomy with adenoidectomy D&C Bladder suspension surgery Uterine suspension surgery Rectocele and cystocele repairs Cataract surgery Carpal tunnel surgery right wrist SOCIAL HISTORY: Former smoker Drink alcohol occasionally Lives on her own FAMILY HISTORY: Father - "fluid in the lungs" Mother - - septic shock Brother - Parkinson Daughter - DM ALLERGIES: Please see below. HOME MEDICATIONS: Please see below. PHYSICAL EXAMINATION: Vital Signs Date Time Temp Pulse Resp B/P (MAP) Pulse Ox O2 Delivery O2 Flow Rate FiO2 03/15/20 21:00 155/67 (96) 03/15/20 21:01 98.4 62 18 98 Room Air GEN: well-nourished / well developed/ NAD INTEGUMENT: mild bruising at the left flank HEENT: mask in place CVS: RRR/NMRG/ radial pulses intact / trance lower extremity edema LUNGS: able to speak full sentences without stopping to take a breath / no coug kwan / lungs are clear to auscultation bilaterally on room air ABDOMEN: Contour (obese ) /soft & not tender with palpation MSK/EXTREMITIES: NCAT / / she is able to reposition her self in the hospital bed without assistance / range of motion intact in all 4 extremities / left flank tender with palpation NEURO: CN 2-12 are grossly intact / speech is not dysarthric PSYCH: alert and oriented to person place and time/ able to understand and follow all commands LABORATORY DATA: 03/15/20 21:58 Nucleated Red Blood Cells % (auto) 0.0, Anion Gap 6L, Glomerular Filtration Rate 30.4L, Calcium Level 9.1 IMAGING: CT head "IMPRESSION: 1. There is mild to moderate age related parenchymal volume loss. White matter changes are demonstrated in the subcortical, centrum semiovale and periventricular white matter consistent with age related small vessel white matter ischemic changes. 2. The degree of ventricular dilatation is normal for age and/or degree of atrophy present. 3. Diffuse cerebellar atrophy. 4. No acute intracranial findings." CT chest " IMPRESSION: 1. Fractures of the left 11th rib posteriorly and nondisplaced fractures of the left transverse processes of L1-L3. 2. Cholelithiasis. 3. Old granulomatous disease. 4. Small nonobstructing right renal calculus. 5. Status post TAVR. 6. Otherwise negative CT chest." CT cervical spine "IMPRESSION: Degenerative spondylosis. No acute findings." CT abd/pelvis "IMPRESSION: 1. Fractures of the left 11th rib posteriorly and the left transverse processes of L1-L4 with overlying band of subcutaneous induration extending across the fat of the left flank. 2. Minimal cholelithiasis. 3. Minimal nonobstructing right renal calculus. 4. Status post hysterectomy. 5. Otherwise negative CT abdomen/pelvis. " MICROBIOLOGY: Please see below. ASSESSMENT: Ms. Brooke is an 89-year-old with IDDM with neuropathy, HTN, MITCH, gout, CKD 3, hypothyroidism, vision loss, unsteady gait that requires a walker who presented after having a fall resulting in 11th left rib and non-displaced fractures of the left transverse processes of L1-L3; she will be admitted for pain management and PT eval. PLAN: 1. Mechanical Fall Her poor vision, neuropathy, and unsteady gait (uses walker) predisposed her to tripping on recliner and falling CT of the head was unrevealing She already has home PT arranged Plan: Admit to medical floor/ fall precautions/ check orthostats / monitor sugars / PT consult to determine if she needs inpatient PT / hold loratadine which can cause drowsiness and somnolence 2. 11th left rib fx Plan: acetaminophen, Flector patch / incentive spirometry / unable to order opiates bc she has allergies to butorphanol 3. Non-displaced fractures of the left transverse processes of L1-L3 / Osteoporosis By definition bc of the vertebrae fx she has osteoporosis Plan: calcium w vitamin D / Flector patch & acetaminophen/ the day time team may consider consulting Ortho / she will need to f/u with her PCP to for a work- up to r/o secondary causes of osteoporosis, DEXA and start Prolia bc of her low GFR 4. 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 CKD 3 Plan: calcitriol / f/u BMP 6. Chronic HTN Plan: furosemide, losartan 7.Hypothyroidism Plan: levothyroxine 8. Gout Plan: allopurinol 9. MITCH w periodic limb movement disorder Plan: CPAP 14 cm H2O 10. Class 3 obesity She has a BMI of 46 with co-existing MITCH and DM which complicates care Plan: f/u w PCP to discuss diet and exercise recommendations DVT PROPHYLAXIS: lovenox DISPOSITION: home vs in pt rehab after more than 2 midnight's stay Home Medications Scheduled Acetaminophen (Tylenol Arthritis) 650 Mg Tablet.er, 650 MG PO BID Allopurinol (Zyloprim) 300 Mg Tablet, 300 MG PO DAILY Aspirin (Aspirin EC) 81 Mg Tablet.dr, 81 MG PO DAILY Atorvastatin Calcium (Atorvastatin Calcium) 20 Mg Tablet, 20 MG PO DAILY Brimonidine Tartrate/Timolol (Combigan 0.2%-0.5% Eye Drops) 5 Ml Drops, 1 DROP OU BID Calcitriol (Calcitriol) 0.25 Mcg Capsule, 0.25 MCG PO 5XW MON/TU/THU//THU Cholecalciferol (Vitamin D3) (Vitamin D3) 1,000 Unit Tablet, 1,000 UNITS PO QPM TAKES AT 1600 Cyanocobalamin (Vitamin B-12) (Vitamin B-12) 1,000 Mcg Tablet, 1,000 MCG PO QPM TAKES AT 1600 Folic Acid (Folic Acid) 0.4 Mg Tablet, 400 MCG PO QPM TAKES AT 1600 Furosemide (Furosemide) 40 Mg Tablet, 60 MG PO DAILY Furosemide (Furosemide) 40 Mg Tablet, 40 MG PO QPM TAKES AT 1600 Gabapentin (Gabapentin) 400 Mg Capsule, 400 MG PO BID Insulin Human NPH (Humulin N) 100 Unit/1 Ml Vial, 70 UNITS SC DAILY Insulin Human NPH (Humulin N) 100 Unit/1 Ml Vial, 20 UNITS SC QHS Latanoprost (Xalatan) 0.005% 2.5ML Drops, 1 DROP OU QHS Levothyroxine Sodium (Levothyroxine Sodium) 137 Mcg Tablet, 137 MCG PO DAILY Loratadine (Loratadine) 10 Mg Tablet, 10 MG PO DAILY Losartan Potassium (Losartan Potassium) 100 Mg Tablet, 50 MG PO DAILY Magnesium Oxide (Magnesium Oxide) 400 Mg Tablet, 400 MG PO QPM TAKES AT 1600 Multivitamin (Multivitamin) 1 Each Tablet, 1 TAB PO QPM TAKES AT 1600 Omeprazole (Omeprazole) 40 Mg Capsule.dr, 40 MG PO DAILY Oxybutynin Chloride (Oxybutynin Chloride) 5 Mg Tablet, 5 MG PO DAILY Prednisolone Acetate (Prednisolone Acetate 1% Opth Susp) 5 Ml Drops.susp, 1 DROP OU QID Vitamin A (Vitamin A) 10,000 Unit Capsule, 10,000 UNIT PO QPM TAKES AT 1600 Scheduled PRN Albuterol Sulfate (Proair Hfa) 8.5 Gm Hfa.aer.ad, 2 PUFFS INH Q4H PRN for SHORTNESS OF BREATH Fluticasone Propionate (Flonase Allergy Relief) 9.9 Ml [place].susp, 1 SPRAY NA QHS PRN for NASAL CONGESTION Lidocaine (Lidoderm) 5% Adh..patch, 1 PATCH TD DAILY PRN for PAIN APPLIES TO KNEES/LOWER BACK Phenylephrine HCl (Phenylephrine HCl) 10 Mg Tablet, 10 MG PO BID PRN for RUNNY NOSE Allergies Coded Allergies: butorphanol (Verified Allergy, Unknown, 03/07/20) A-FIB/CHADSVASC A-FIB History Current/History of A-Fib/PAF?: No Current PO Anticoag Therapy: No SILAS WATSON MD Mar 16, 2020 00:17
[2020-03-16] MEDS ORDERED: FLON1SPR (00:59)
[2020-03-16] MEDS ORDERED: FOLI0.4T PO (00:59)
[2020-03-16] MEDS ORDERED: GABA-845 PO (00:59)
[2020-03-16] MEDS ORDERED: INSUNSD SC ×2 (00:59)
[2020-03-16] MEDS ORDERED: PHEN10TA PO (00:59)
[2020-03-16 02:10] VITALS: BP 168/52
[2020-03-16] MEDS ORDERED: LIDOCAINE 5% (LIDODERM) PATCH TD PRN (02:45)
[2020-03-16] MEDS ORDERED: ALBUTEROL 90 MCG/ACT 8GM HFA INHALER INH PRN (02:45)
[2020-03-16] MEDS ORDERED: FLUTICASONE PROP 0.05% NASAL SPRAY 16 GM (FLONASE) PRN (02:45)
[2020-03-16 05:39] LABS: HEMATOCRIT 36.7 % (36.0-47.0); HEMOGLOBIN 12.2 g/dl (12.0-15.5); MEAN CORPUSCULAR HEMOGLOBIN 36.2 pg (27.0-33.0); MEAN CORPUSCULAR HGB CONC 33.2 g/dl (32.0-36.5); MEAN CORPUSCULAR VOLUME 108.9 fl (80.0-96.0); PLATELET COUNT, AUTOMATED 157 10^3/uL (150-450); RED BLOOD COUNT 3.37 10^6/uL (4.00-5.40); WHITE BLOOD COUNT 9.1 10^3/uL (4.0-10.0)
[2020-03-16 05:56] VITALS: BP 121/57
[2020-03-16 05:57] LABS: CALCIUM LEVEL 8.5 MG/DL (8.8-10.2); CREATININE FOR GFR 1.63 MG/DL (0.55-1.30); GLOMERULAR FILTRATION RATE 31.7 (>32); POTASSIUM SERUM 3.8 MEQ/L (3.5-5.1)
[2020-03-16] MEDS ORDERED: LEVOTHYROXINE 137MCG TABLET (0.137MG) PO SCH (06:00)
[2020-03-16 06:02] LABS: HEMOGLOBIN A1c 6.9 %
[2020-03-16] MEDS: HumaLOG INSULIN (NovoLOG) PER UNIT SC SCH ×2 (08:17→12:22)
[2020-03-16 08:18] VITALS: BP 121/57
[2020-03-16] MEDS: prednisoLONE ACET 1% OPHTH SUSP 5ML OU SCH ×2 (08:19→12:22)
[2020-03-16] MEDS ORDERED: oxyBUTYnin 5 MG TAB PO SCH (09:00)
[2020-03-16] MEDS ORDERED: LOSARTAN 50MG TABLET PO SCH (09:00)
[2020-03-16] MEDS ORDERED: ENTER DRUG NAME HERE (PATIENT'S OWN MED) OU SCH (09:00)
[2020-03-16] MEDS ORDERED: CALCIUM/VITAMIN D 500 MG TAB PO SCH (09:00)
[2020-03-16] MEDS ORDERED: OMEPRAZOLE 20 MG CAP PO SCH (09:00)
[2020-03-16] MEDS ORDERED: DICLOFENAC EPOLAMINE 1.3 % PATCH TOP SCH (09:00)
[2020-03-16] MEDS ORDERED: ASPIRIN 81 MG ENTERIC TAB PO SCH (09:00)
[2020-03-16] MEDS ORDERED: ENOXAPARIN 30MG/0.3ML SYRINGE (J1650 PER 10MG) SC SCH (09:00)
[2020-03-16] MEDS ORDERED: CALCITRIOL 0.25 MCG CAP (S0169) PO SCH (09:00)
[2020-03-16] MEDS ORDERED: FUROSEMIDE 20 MG TAB PO SCH (09:00)
[2020-03-16] MEDS ORDERED: BRIMONIDINE 0.15% OPHTH SOLN 5 ML OU SCH (09:00)
[2020-03-16] MEDS ORDERED: ENOXAPARIN 40MG/0.4ML SYRINGE (J1650 PER 10MG) SC SCH (09:00)
[2020-03-16] MEDS ORDERED: ATORVASTATIN 20 MG TAB PO SCH (09:00)
[2020-03-16] MEDS ORDERED: GABAPENTIN 400 MG CAP PO SCH (09:00)
[2020-03-16] MEDS ORDERED: TIMOLOL MALEATE 0.5% OPHTH SOLN 5 ML OU SCH (09:00)
[2020-03-16] MEDS ORDERED: allopurinoL 300 MG TAB PO SCH (09:00)
[2020-03-16] MEDS ORDERED: DICL1PAT6 TOP (12:56)
--- NOTE | 2020-03-16 13:21 | DS.PDOC ---
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 HOSPITAL COURSE: 89 year old female presented to the ER c/o mechanical fall at home, unable to get up with subsequent sob. EMS was called, and pt was evaluated in the ER. CT head neg ICH, CT abd/pelvis: 11th rib fracture, L1-L4 transverse processes fx, and CT Cervical Spine: negative for acute fracture. Pt was started on flector patch 2 patches q12hrs with tolerable pain. She ambulated and was found to be independent by physical therapy. Lab work was unremarkable. Pt requested to be discharge home with home services to be resumed. She is discharged in stable condition with pain controlled. DISCHARGE PHYSICAL EXAMINATION: VITAL SIGNS SEE BELOW GEN: obese no distress INTEGUMENT: mild bruising at the left flank HEENT: mask in place no racoon eyes CVS: S1S2 RRR no m/r/g LUNGS: lungs are clear to auscultation bilaterally on room air ABDOMEN: +BS ND obese soft & not tender with palpation EXT: left flank tender. b/l trace edema LE LABORATORY DATA: IMAGING STUDIES: CT ABD PELVIS Lungs: Minimal bibasilar fibro-atelectatic change. Calcified granuloma in the left lower lobe. Heart: Status post TAVR. Liver: The liver and spleen are grossly intact on this noncontrast scan. No perihepatic or perisplenic fluid collections are identified. Gallbladder and bile ducts: There is a gallstone in the gallbladder measuring 5 mm. Pancreas: Normal. No ductal dilation. Spleen: Normal. No splenomegaly. Adrenal glands: Normal. No mass. Kidneys and ureters: There are right renal cysts measuring up to 5.5 cm with a Hounsfield measurement of 31 which are likely benign. No follow-up imaging is recommended. Minimal nonobstructing right renal calculus in the lower pole. Stomach and bowel: Mild stool throughout much of the colon. Appendix: There are no changes of appendicitis. A normal appendix is not seen. Intraperitoneal space: Unremarkable. No free air. No significant fluid collection. Vasculature: There is mild calcification of the abdominal aorta with extension into the iliac arteries. Lymph nodes: Unremarkable. No enlarged lymph nodes. Urinary bladder: Unremarkable as visualized. Reproductive: Status post hysterectomy. Bones/joints: Slightly displaced fracture of the left 11th rib posteriorly. Nondisplaced or slightly displaced fractures of the left transverse processes of L1-L4. Soft tissues: Band of subcutaneous induration across left flank fat. IMPRESSION: 1. Fractures of the left 11th rib posteriorly and the left transverse processes of L1-L4 with overlying band of subcutaneous induration extending across the fat of the left flank. 2. Minimal cholelithiasis. 3. Minimal nonobstructing right renal calculus. 4. Status post hysterectomy. 5. Otherwise negative CT abdomen/pelvis. Electronically signed by: Lalo Devine On 03/15/2020 23:16:[address] CERVICAL SPINE Bones/joints: No acute fracture. Normal alignment. Discs/Spinal canal/Neural foramina: There are degenerative changes demonstrated in the atlantoaxial joint at C1-C2 with osteophytes and joint space narrowing. The transverse ligament is unremarkable. Disc space narrowing at C5-C6 and C6-C7 with intervertebral osteophytes. Moderate foraminal narrowing on the left at C2, moderate to severe foraminal narrowing on the right at C3, bilateral moderate foraminal narrowing at C4, severe bilateral foraminal narrowing at C5 and moderate bilateral foraminal narrowing at C6 secondary to uncinate joint hypertrophic changes. Posterior disc protrusion at C3-C4 and C4-C5 results in mild to moderate cord impingement, disc osteophyte complex at C5-C6 and C6-C7 effaces ventral subarachnoid space with moderate to severe cord impingement at C5-C6 Soft tissues: See "Discs/Spinal canal/Neural foramina" finding. Lungs: Lung apices are normal. IMPRESSION: Degenerative spondylosis. No acute findings. Electronically signed by: Jimi Guerrero On 03/15/2020 22:12:[address] CHEST Lungs: Minimal bibasilar fibro-atelectatic change, greatest in the lower lobes. Pleural space: Unremarkable. No pneumothorax. No pleural effusion. Heart: Status post TAVR. Pulmonary arteries: The main pulmonary artery measures 32 mm. Aorta: The ascending thoracic aorta measures 33 mm. Lymph nodes: Calcified nodes are seen in the azygo-esophageal recess. Gallbladder and bile ducts: There is a gallstone in the gallbladder measuring 6 mm. Kidneys and ureters: Are right renal cysts measuring up to 5.2 cm with a Hounsfield measurement of -4 and a smaller hyperdense cyst measuring 2.0 cm. These appear to reflect simple cysts. No follow-up imaging is recommended. Small nonobstructing right renal calculus. Bones/joints: Mild degenerative changes of the thoracic spine with some areas of segmental ankylosis. Slightly displaced fracture of the left 11th rib posteriorly and nondisplaced fractures of the left transverse processes of L1-L3. Soft tissues: Unremarkable. IMPRESSION: 1. Fractures of the left 11th rib posteriorly and nondisplaced fractures of the left transverse processes of L1-L3. 2. Cholelithiasis. 3. Old granulomatous disease. 4. Small nonobstructing right renal calculus. 5. Status post TAVR. 6. Otherwise negative CT chest. Electronically signed by: Lalo Devine On 03/15/2020 22:26:[address] HEAD WITHOUT CONTRAST Brain: There is mild to moderate age related parenchymal volume loss. White matter changes are demonstrated in the subcortical, centrum semiovale and periventricular white matter consistent with age related small vessel white matter ischemic changes. Diffuse cerebellar atrophy. Cerebral ventricles: The degree of ventricular dilatation is normal for age and/or degree of atrophy present. Bones/joints: Unremarkable. No acute fracture. Paranasal sinuses: Visualized sinuses are unremarkable. No fluid levels. Mastoid air cells: Visualized mastoid air cells are well aerated. Soft tissues: Unremarkable. IMPRESSION: 1. There is mild to moderate age related parenchymal volume loss. White matter changes are demonstrated in the subcortical, centrum semiovale and periventricular white matter consistent with age related small vessel white matter ischemic changes. 2. The degree of ventricular dilatation is normal for age and/or degree of atrophy present. 3. Diffuse cerebellar atrophy. 4. No acute intracranial findings. TIME SPENT ON DISCHARGE: 30 MIN. Vital Signs/I&Os Vital Signs Date Time Temp Pulse Resp B/P (MAP) Pulse Ox O2 Delivery O2 Flow Rate FiO2 03/16/20 08:18 121/57 03/16/20 05:56 97.0 68 20 96 Room Air I&O- Last 24 Hours up to 6 AM 03/16/20 06:00 Intake Total 300 ml Output Total 200 ml Balance 100 ml Laboratory Data Labs 24H Laboratory Tests 2 03/15/20 21:58: Nucleated Red Blood Cells % (auto) 0.0, Anion Gap 6L, Glomerular Filtration Rate 30.4L, Calcium Level 9.1 03/16/20 01:33: Troponin I < 0.02 03/16/20 02:19: Bedside Glucose (Misc Panel) 118H 03/16/20 05:20: Nucleated Red Blood Cells % (auto) 0.0, Anion Gap 6L, Glomerular Filtration Rate 31.7L, Calcium Level 8.5L, Estimated Mean Plasma Glucose 151H, Hemoglobin A1c 6.9 03/16/20 11:48: Bedside Glucose (Misc Panel) 192H CBC/BMP Laboratory Tests 03/15/20 21:58 03/16/20 05:20 FSBS Laboratory Tests Test 03/16/20 02:19 03/16/20 11:48 Range/Units Bedside Glucose (Misc Panel) 118 192 83-110 MG/DL Discharge Medications Scheduled Acetaminophen (Tylenol Arthritis) 650 Mg Tablet.er, 650 MG PO BID, (Reported) Allopurinol (Zyloprim) 300 Mg Tablet, 300 MG PO DAILY, (Reported) Aspirin (Aspirin EC) 81 Mg Tablet.dr, 81 MG PO DAILY, (Reported) Atorvastatin Calcium (Atorvastatin Calcium) 20 Mg Tablet, 20 MG PO DAILY, (R eported) Brimonidine Tartrate/Timolol (Combigan 0.2%-0.5% Eye Drops) 5 Ml Drops, 1 DROP OU BID, (Reported) Calcitriol (Calcitriol) 0.25 Mcg Capsule, 0.25 MCG PO 5XW, (Reported) MON//THU//FRI Cholecalciferol (Vitamin D3) (Vitamin D3) 1,000 Unit Tablet, 1,000 UNITS PO QPM, (Reported) TAKES AT 1600 Cyanocobalamin (Vitamin B-12) (Vitamin B-12) 1,000 Mcg Tablet, 1,000 MCG PO QPM, (Reported) TAKES AT 1600 Diclofenac Epolamine (Diclofenac Epolamine) 1 Each Patch.td12, 2 PATCH TOP Q12H Folic Acid (Folic Acid) 0.4 Mg Tablet, 400 MCG PO QPM, (Reported) TAKES AT 1600 Furosemide (Furosemide) 40 Mg Tablet, 60 MG PO DAILY, (Reported) Furosemide (Furosemide) 40 Mg Tablet, 40 MG PO QPM, (Reported) TAKES AT 1600 Gabapentin (Gabapentin) 400 Mg Capsule, 400 MG PO BID, (Reported) Insulin Human NPH (Humulin N) 100 Unit/1 Ml Vial, 70 UNITS SC DAILY, (Reported) Insulin Human NPH (Humulin N) 100 Unit/1 Ml Vial, 20 UNITS SC QHS, (Reported) Latanoprost (Xalatan) 0.005% 2.5ML Drops, 1 DROP OU QHS, (Reported) Levothyroxine Sodium (Levothyroxine Sodium) 137 Mcg Tablet, 137 MCG PO DAILY, (Reported) Loratadine (Loratadine) 10 Mg Tablet, 10 MG PO DAILY, (Reported) Losartan Potassium (Losartan Potassium) 100 Mg Tablet, 50 MG PO DAILY, (Reported) Magnesium Oxide (Magnesium Oxide) 400 Mg Tablet, 400 MG PO QPM, (Reported) TAKES AT 1600 Multivitamin (Multivitamin) 1 Each Tablet, 1 TAB PO QPM, (Reported) TAKES AT 1600 Omeprazole (Omeprazole) 40 Mg Capsule.dr, 40 MG PO DAILY, (Reported) Oxybutynin Chloride (Oxybutynin Chloride) 5 Mg Tablet, 5 MG PO DAILY, (Reported) Prednisolone Acetate (Prednisolone Acetate 1% Opth Susp) 5 Ml Drops.susp, 1 DROP OU QID, (Reported) Vitamin A (Vitamin A) 10,000 Unit Capsule, 10,000 UNIT PO QPM, (Reported) TAKES AT 1600 Scheduled PRN Albuterol Sulfate (Proair Hfa) 8.5 Gm Hfa.aer.ad, 2 PUFFS INH Q4H PRN for SHORTNESS OF BREATH, (Reported) Fluticasone Propionate (Flonase Allergy Relief) 9.9 Ml [place].susp, 1 SPRAY NA QHS PRN for NASAL CONGESTION, (Reported) Lidocaine (Lidoderm) 5% Adh..patch, 1 PATCH TD DAILY PRN for PAIN, (Reported) APPLIES TO KNEES/LOWER BACK Phenylephrine HCl (Phenylephrine HCl) 10 Mg Tablet, 10 MG PO BID PRN for RUNNY NOSE, (Reported) Allergies Coded Allergies: butorphanol (Verified Allergy, Unknown, 03/07/20) RICKI LANDA MD Mar 16, 2020 13:12
[2020-03-16] MEDS ORDERED: VITAMIN D 1,000 INTERNATIONAL UNITS TABLET PO SCH (16:00)
[2020-03-16] MEDS ORDERED: MAGNESIUM OXIDE 400 MG TAB (MAG-OX) PO SCH (16:00)
[2020-03-16] MEDS ORDERED: VITAMIN A 10,000 INTERNATIONAL UNITS CAP PO SCH (16:00)
[2020-03-16] MEDS ORDERED: FUROSEMIDE 40 MG TAB PO SCH (16:00)
[2020-03-16] MEDS ORDERED: HumaLOG INSULIN (NovoLOG) PER UNIT SC SCH (21:00)
[2020-03-16] MEDS ORDERED: LATANOPROST 0.005% OPHTH SOLN 2.5 ML OU SCH (21:00)
[2020-03-16] MEDS ORDERED: **NOTE PATIENT COMMENT** MISC XX SCH (21:00)
== END 2020-03-16 14:35 | disposition home health service (06) | DRG 206 ==
LOC: M ED 20:47 → M ED INP 03-16 00:04 → ENRESERV 03-16 01:29 → M MS5PR 03-16 02:00
PROVIDERS: ADMIT Internal Medicine; ATTEND General Practice
DX: S22.31XA Fracture of one rib, right side, initial encounter for closed fracture (principal); Z68.42 Body mass index [BMI] 45.0-49.9, adult; S32.029A Unspecified fracture of second lumbar vertebra, initial encounter for closed fracture; S32.049A Unspecified fracture of fourth lumbar vertebra, initial encounter for closed fracture; S32.039A Unspecified fracture of third lumbar vertebra, initial encounter for closed fracture; S32.019A Unspecified fracture of first lumbar vertebra, initial encounter for closed fracture; N18.30 Chronic kidney disease, stage 3 unspecified; E66.9 Obesity, unspecified; E11.40 Type 2 diabetes mellitus with diabetic neuropathy, unspecified; E03.9 Hypothyroidism, unspecified; M10.9 Gout, unspecified; G47.33 Obstructive sleep apnea (adult) (pediatric); I12.9 Hypertensive chronic kidney disease with stage 1 through stage 4 chronic kidney disease, or unspecified chronic kidney disease; N20.0 Calculus of kidney; K80.20 Calculus of gallbladder without cholecystitis without obstruction; R26.89 Other abnormalities of gait and mobility; W18.30XA Fall on same level, unspecified, initial encounter; Y92.009 Unspecified place in unspecified non-institutional (private) residence as the place of occurrence of the external cause; Z79.899 Other long term (current) drug therapy; Z79.82 Long term (current) use of aspirin; Z79.4 Long term (current) use of insulin; Z88.8 Allergy status to other drugs, medicaments and biological substances

== ENCOUNTER 2020-03-18 10:25 | Inpatient (IN) | payer MEDICARE ==
[~2020-03-18] VITALS: Ht 157.5 cm; Wt 113.2 kg
[~2020-03-18 10:25] MED LIST changes: +DICL1PAT6 TOP; +FLON1SPR; +FOLI0.4T PO; +PHEN10TA PO
[2020-03-18 11:27] LABS: BASO % 0.4 % (0.0-1.0); EOS # 0.2 10^3/uL (0.0-0.5); EOS % 1.9 % (0.0-3.0); HEMATOCRIT 36.6 % (36.0-47.0); HEMOGLOBIN 11.8 g/dl (12.0-15.5); LYMPH # 1.2 10^3/uL (1.5-5.0); MEAN CORPUSCULAR HEMOGLOBIN 34.9 pg (27.0-33.0); MEAN CORPUSCULAR HGB CONC 32.2 g/dl (32.0-36.5); MEAN CORPUSCULAR VOLUME 108.3 fl (80.0-96.0); MONO # 0.4 10^3/uL (0.0-0.8); MONO % 4.7 % (0.0-5.0); NEUTROPHILS # 7.1 10^3/uL (1.5-8.5); NEUTROPHILS % 79.7 % (36.0-66.0); PLATELET COUNT, AUTOMATED 160 10^3/uL (150-450); RED BLOOD COUNT 3.38 10^6/uL (4.00-5.40); WHITE BLOOD COUNT 8.9 10^3/uL (4.0-10.0)
--- NOTE | 2020-03-18 11:54 | REP ---
INDICATION: recent fall. COMPARISON: 03/15/2020, 03/07/2020 TECHNIQUE: Standard noncontrast CT brain protocol FINDINGS: Lateral ventricles are midline, symmetric and show [id number] dilatation without displacement. This is proportionate to the moderate diffuse cerebral atrophy. There are chronic periventricular subcortical and centrum semiovale white matter changes consistent with chronic small vessel white matter ischemic disease. There is no extra-axial mass or fluid collection. No intracranial hemorrhage evident. Single calcification in the right basal ganglia unchanged and normal for this age. Cerebellar hemispheres show diffuse stable atrophy with no posterior fossa mass or bleed. Basal cisterns are intact. Mastoids and IAC's symmetric and unremarkable his deviated septum towards the right and some minor mucosal thickening in some of the anterior ethmoid air cells the sphenoid maxillary sinuses invisible frontal sinuses are clear the calvarium is without fracture or focal lesion. IMPRESSION: 1. Chronic small-vessel white matter ischemic changes of aging with [id number] cerebral and cerebellar atrophy, all stable. No acute infarct, intracranial hemorrhage or mass 2. Skull base and calvarium without fracture or focal lesion. Only minor anterior ethmoid air cell mucosal thickening with the other visualized sinuses and mastoids clear. Stable exam. <Electronically signed by Hemant Tate > 03/18/20 [id number]
--- NOTE | 2020-03-18 11:55 | REP ---
INDICATION: fall. COMPARISON: Comparison is made with recent CT study of the cervical spine March 15, 2020.. TECHNIQUE: Helical scanning is acquired and overlapping 2 mm high resolution axial images were generated and reviewed at bone and soft tissue window settings. Coronal and sagittal multiplanar re-formations images are generated. FINDINGS: There is no evidence of cervical spine element fracture. No skull base fracture is seen. Cervical vertebral body heights are preserved. Alignment is normal. Facet joints are normally aligned bilaterally at each cervical level on multiplanar re-formations images. There is no evidence of intraspinal or paraspinal hematoma. No extra vertebral abnormality is seen. There is advanced degenerative disc disease at C5-6 and to a lesser extent C6-7. Some degenerative disc changes are seen at C4-5. Discogenic spurring is present at T1-2. Osteoarthritic facet changes are again noted in the mid cervical spine bilaterally. IMPRESSION: Degenerative spondylosis changes. Findings unchanged from March 15, 2020. No traumatic abnormality.. <Electronically signed by Braulio Galarza > 03/18/20 [id number]
[2020-03-18 12:20] LABS: ALBUMIN 3.5 GM/DL (3.2-5.2); ALT/SGPT 24 U/L (12-78); BILIRUBIN,DIRECT 0.2 MG/DL (0.0-0.2); BILIRUBIN,TOTAL 0.6 MG/DL (0.2-1.0); BLOOD UREA NITROGEN 40 MG/DL (7-18); CALCIUM LEVEL 8.9 MG/DL (8.8-10.2); CARBON DIOXIDE LEVEL 32 MEQ/L (21-32); CHLORIDE LEVEL 104 MEQ/L (98-107); CK-MB VALUE MASS 2.4 NG/ML (<3.6); CPK CREATINE PHOSPHOKINASE 196 U/L (26-192); CREATININE FOR GFR 1.44 MG/DL (0.55-1.30); GLOMERULAR FILTRATION RATE 36.6 (>32); GLUCOSE, FASTING 127 MG/DL (70-100); LIPASE 60 U/L (73-393); MB/CK RELATIVE INDEX 1.22 (< OR =4); POTASSIUM SERUM 4.1 MEQ/L (3.5-5.1); SODIUM LEVEL 140 MEQ/L (136-145); TOTAL PROTEIN 7.6 GM/DL (6.4-8.2); TROPONIN I < 0.02 NG/ML (< 0.10)
--- NOTE | 2020-03-18 13:08 | REP ---
INDICATION: rib fracture. COMPARISON: Comparison chest x-ray March 07, 2020.. TECHNIQUE: Single upright AP radiograph. FINDINGS: Monitoring electrodes are seen. The lungs are well inflated and no infiltrate is seen. Pleural angles are sharp. There is evidence of an aortic valve replacement. Heart size is borderline. Pulmonary vasculature is not increased. Pleural angles are sharp. IMPRESSION: Borderline heart size dad is post aortic valve replacement. No infiltrate, effusion, or edema seen. <Electronically signed by Braulio Galarza > 03/18/20 [id number]
--- NOTE | 2020-03-18 14:10 | HPEPDOC ---
[facility] Medical History & Physical Date of Admission Mar 18, 2020 Date of Service: Mar 18, 2020 History and Physical CHIEF COMPLAINT: fall HISTORY OF PRESENT ILLNESS: 89 yo F with a hx of IDDM, neuropathy, chronic HTN, MITCH on CPAP, CKD 3, gout, hypothryoid, TAVR, vision loss, presented to [facility] ED after sliding off her bed while reaching for remote and being unable to get up. She spent ~ 30 min on floor,managed to lift herself on one knee but was unable to rise. She requires a walker for ambulation, She has 2 recent prior admissions involving a form of fall. On 03/15 she was admitted for mechanical fall resulting in L rib 11 fracture, and fractures of L transverse processes of L1- L4. She lives alone, and has a son and zmvfzait-st-doc moving closer. She is hesitant to live alone and is worried about continued falls. In the ED CT head and c-spine showed no acute findings. EKG showed no ischemic changes or arrhythmias. Hgb 11.8. Hct 36.6. Cr 144. GFR 36.6. CK 196. PAST MEDICAL/SURGIAL HISTORY IDDM complicated by neuropathy Chronic HTN DLP MITCH w periodic limb movement disorder CPAP 14 Gout CKD 3 Hypothyroidism Right sided hearing loss has hearing aid Vision loss uses glasses Nephrolithiasis Cholelithiasis Class 3 obesity Debility /unsteady gait, uses a walker TAVR Hysterectomy with ovarian preservation Toe surgery Tonsillectomy with adenoidectomy D&C Bladder suspension surgery Uterine suspension surgery Rectocele and cystocele repairs Cataract surgery Carpal tunnel surgery right wrist Rib fracture 03/15/20 SOCIAL HISTORY: Former smoker Occasional etoh use Lives alone, daughter-in law moving close FAMILY HISTORY: Father - "fluid in the lungs" Mother - - septic shock Brother - Parkinson Daughter - DM ALLERGIES: Please see below. REVIEW OF SYSTEMS: CONSTITUTIONAL: patient denies fevers, chills HEENT: patient denies blurred vision, loss of vision, headache,. CARDIOVASCULAR: patient denies chest pain, palpitations. RESPIRATORY: patient denies shortness of breath, cough, hemoptysis. GASTROINTESTINAL: patient denies abdominal pain, n/v/d, blood in stool. GENITOURINARY: patient denies dysuria, discharge. SKIN: patient denies rashes. MUSCULOSKELETAL: patient denies joint pain, neck pain. NEUROLOGICAL: patient denies focal weakness, numbness, seizures. PSYCHIATRIC: patient denies SI/HI. ENDOCRINE: patient denies polyuria, heat intolerance, cold intolerance. HEMATOLOGIC/LYMPHATIC: patient denies easy bruising. HOME MEDICATIONS: Please see below. PHYSICAL EXAMINATION: VITAL SIGNS: please see below General: NAD, comfortable, obese HEENT: PERRLA, EOMI, sclerae clear Neck: supple, normal ROM, no JVD Respiratory: lungs CTAB, no wheeze, no rales, no crackles Skin: purple ecchymosies noted on left flank, left scapula, anterior lower abdomen CVS: RRR, normal S1, S2, no murmurs Abdo: soft, obese, no hepatosplenomegaly, BS+, no rebound tenderness Extremities: no edema, pulses 2+ MSK: no joint deformities, normal ROM Neuro: no focal neuro deficits, moving all 4 extremities, CN2-12 intact. Strength 5/5 in all 4 extremities. No nystagmus. Psych: calm, cooperative, AAO x 3 LABORATORY DATA: See below. IMAGING: CT head wo contrast 03/18/20: 1. Chronic small-vessel white matter ischemic changes of aging with [id number] cerebral and cerebellar atrophy, all stable. No acute infarct, intracranial hemorrhage or mass 2. Skull base and calvarium without fracture or focal lesion. Only minor anterior ethmoid air cell mucosal thickening with the other visualized sinuses and mastoids clear. Stable exam. CT C-spine 03/18/20: Degenerative spondylosis changes. Findings unchanged from March 15, 2020. No traumatic abnormality. CXR 03/18/20: Borderline heart size dad is post aortic valve replacement. No infiltrate, effusion, or edema seen. MICROBIOLOGY: Please see below. ASSESSMENT: 89-year-old with IDDM with neuropathy, HTN, MITCH, gout, CKD 3, hypothyroidism, vision loss, unsteady gait that requires a walker . PLAN: Mechanical fall: hx of frequent falls recent, sustained L 11th rib fx 03/15, non displaced L transverse process fx L1-L4. Has vision loss. Usnteady gait. walker for ambulation. Has home PT. Patient is concerned about ongoing falls. Consult PT/OT for possible subacute rehab. case management assistance appreciated. 11th L Rib fx: acetaminophen prn. avoid opiates. lidocaine patch, avoid PO NSAIDs given CKD3 L transverse process (nondisplaced) fx L1-L4: osteoporosis. calcitriol. calcium carbonate 500 mg bid. lidocaine patch. PT/OT. IDDM with neuropathy: last a1c. ISS. FSBS AC and HS. hypoglycemia precautions. Home insulin. Gabapentin. C/w ARB, asa, statin. CKD III: Cr appears at baseline. Calcitriol. Chronic HTN: c/w home meds, losartan. furosemide Hypothyroidism: c/w levothyroxine 137 mcg daily Gout: c/w allopurinol MITCH with periodic limb movement disorder: CPAP 14 cm H20 Class 3 obesity: BMI 45.8 and IDDM. Complicating care. Condominium Manager ra. Dispo: likely candidate for subacute rehab. Admission likely to span 2 midnights. Vital Signs Vital Signs Date Time Temp Pulse Resp B/P (MAP) Pulse Ox O2 Delivery O2 Flow Rate FiO2 03/18/20 13:25 93 96 03/18/20 11:25 134/62 (86) 03/18/20 10:39 97.2 18 Room Air Laboratory Data Labs 24H Laboratory Tests 2 03/18/20 11:11: Immature Granulocyte % (Auto) 0.3, Neutrophils (%) (Auto) 79.7H, Lymphocytes (%) (Auto) 13.0L, Monocytes (%) (Auto) 4.7, Eosinophils (%) (Auto) 1.9, Basophils (%) (Auto) 0.4, Neutrophils # (Auto) 7.1, Lymphocytes # (Auto) 1.2L, Monocytes # (Auto) 0.4, Eosinophils # (Auto) 0.2, Basophils # (Auto) 0.0, Nucleated Red Blood Cells % (auto) 0.0, Anion Gap 4L, Glomerular Filtration Rate 36.6, Calcium Level 8.9, Total Bilirubin 0.6, Direct Bilirubin 0.2, Aspartate Amino Transf (AST/SGOT) 27, Alanine Aminotransferase (ALT/SGPT) 24, Alkaline Phosphatase 72, Total Creatine Kinase 196H, Creatine Kinase MB 2.4, Creatine Kinase MB Relative Index 1.22, Troponin I < 0.02, Total Protein 7.6, Albumin 3.5, Albumin/Globulin Ratio 0.9L, Lipase 60L CBC/BMP Laboratory Tests 03/18/20 11:11 Microbiology Microbiology 03/18/20 Blood Culture, Received Pending Home Medications Scheduled Acetaminophen (Tylenol Arthritis) 650 Mg Tablet.er, 650 MG PO BID Allopurinol (Zyloprim) 300 Mg Tablet, 300 MG PO DAILY Aspirin (Aspirin EC) 81 Mg Tablet.dr, 81 MG PO DAILY Atorvastatin Calcium (Atorvastatin Calcium) 20 Mg Tablet, 20 MG PO DAILY Brimonidine Tartrate/Timolol (Combigan 0.2%-0.5% Eye Drops) 5 Ml Drops, 1 DROP OU BID Calcitriol (Calcitriol) 0.25 Mcg Capsule, 0.25 MCG PO 5XW MON//THU//FRI Cholecalciferol (Vitamin D3) (Vitamin D3) 1,000 Unit Tablet, 1,000 UNITS PO QPM TAKES AT 1600 Cyanocobalamin (Vitamin B-12) (Vitamin B-12) 1,000 Mcg Tablet, 1,000 MCG PO QPM TAKES AT 1600 Diclofenac Epolamine (Diclofenac Epolamine) 1 Each Patch.td12, 2 PATCH TOP Q12H Folic Acid (Folic Acid) 0.4 Mg Tablet, 400 MCG PO QPM TAKES AT 1600 Furosemide (Furosemide) 40 Mg Tablet, 60 MG PO DAILY Furosemide (Furosemide) 40 Mg Tablet, 40 MG PO QPM TAKES AT 1600 Gabapentin (Gabapentin) 400 Mg Capsule, 400 MG PO BID Insulin Human NPH (Humulin N) 100 Unit/1 Ml Vial, 70 UNITS SC DAILY Insulin Human NPH (Humulin N) 100 Unit/1 Ml Vial, 20 UNITS SC QHS Latanoprost (Xalatan) 0.005% 2.5ML Drops, 1 DROP OU QHS Levothyroxine Sodium (Levothyroxine Sodium) 137 Mcg Tablet, 137 MCG PO DAILY Loratadine (Loratadine) 10 Mg Tablet, 10 MG PO DAILY Losartan Potassium (Losartan Potassium) 100 Mg Tablet, 50 MG PO DAILY Magnesium Oxide (Magnesium Oxide) 400 Mg Tablet, 400 MG PO QPM TAKES AT 1600 Multivitamin (Multivitamin) 1 Each Tablet, 1 TAB PO QPM TAKES AT 1600 Omeprazole (Omeprazole) 40 Mg Capsule.dr, 40 MG PO DAILY Oxybutynin Chloride (Oxybutynin Chloride) 5 Mg Tablet, 5 MG PO DAILY Prednisolone Acetate (Prednisolone Acetate 1% Opth Susp) 5 Ml Drops.susp, 1 DROP OU QID Vitamin A (Vitamin A) 10,000 Unit Capsule, 10,000 UNIT PO QPM TAKES AT 1600 Scheduled PRN Albuterol Sulfate (Proair Hfa) 8.5 Gm Hfa.aer.ad, 2 PUFFS INH Q4H PRN for SHORTNESS OF BREATH Fluticasone Propionate (Flonase Allergy Relief) 9.9 Ml [place].susp, 1 SPRAY NA QHS PRN for NASAL CONGESTION Lidocaine (Lidoderm) 5% Adh..patch, 1 PATCH TD DAILY PRN for PAIN APPLIES TO RIBS/LOWER BACK Phenylephrine HCl (Phenylephrine HCl) 10 Mg Tablet, 10 MG PO BID PRN for RUNNY NOSE Allergies Coded Allergies: butorphanol (Verified Allergy, Unknown, 03/07/20) A-FIB/CHADSVASC A-FIB History Current/History of A-Fib/PAF?: No Current PO Anticoag Therapy: No JUAN JOSE DAVIES MD Mar 18, 2020 14:10
[2020-03-18] MEDS ORDERED: DICLOFENAC EPOLAMINE 1.3 % PATCH TOP SCH (14:15)
[2020-03-18 14:35] VITALS: BP 104/55
[2020-03-18] MEDS ORDERED: GLUCOSE 4GM CHEW TABLET PO PRN (15:00)
[2020-03-18] MEDS ORDERED: ALBUTEROL 90 MCG/ACT 8GM HFA INHALER INH PRN (15:00)
[2020-03-18] MEDS ORDERED: GLUCAGON INJ 1MG VIAL SC PRN (15:00)
[2020-03-18] MEDS ORDERED: DEXTROSE 50% 50 ML SYRINGE IV PRN (15:00)
[2020-03-18] MEDS: FOLIC ACID 1 MG TAB PO SCH (16:36)
[2020-03-18] MEDS: prednisoLONE ACET 1% OPHTH SUSP 5ML OU SCH ×2 (16:36→20:48)
[2020-03-18] MEDS: HumaLOG INSULIN (NovoLOG) PER UNIT SC SCH ×2 (18:13→20:48)
[2020-03-18] MEDS: ACETAMINOPHEN TAB 650MG DOSE (2X325MG) PO PRN (18:15)
[2020-03-18 18:19] LABS: CALCIUM LEVEL 9.2 MG/DL (8.8-10.2); CREATININE FOR GFR 1.42 MG/DL (0.55-1.30); GLOMERULAR FILTRATION RATE 37.2 (>32)
[2020-03-18] MEDS: MAGNESIUM OXIDE 400 MG TAB (MAG-OX) PO SCH (20:47)
[2020-03-18] MEDS: LATANOPROST 0.005% OPHTH SOLN 2.5 ML OU SCH (20:47)
[2020-03-18] MEDS: VITAMIN D 1,000 INTERNATIONAL UNITS TABLET PO SCH (20:47)
[2020-03-18] MEDS: DOCUSATE SODIUM 100 MG CAP PO SCH (20:47)
[2020-03-18] MEDS: GABAPENTIN 400 MG CAP PO SCH (20:47)
[2020-03-18] MEDS: VITAMIN A 10,000 INTERNATIONAL UNITS CAP PO SCH (20:47)
[2020-03-18] MEDS: CYANOCOBALAMIN 500 MCG TAB PO SCH (20:47)
[2020-03-18] MEDS: BRIMONIDINE 0.15% OPHTH SOLN 5 ML OU SCH (20:48)
[2020-03-18] MEDS: TIMOLOL MALEATE 0.5% OPHTH SOLN 5 ML OU SCH (20:48)
[2020-03-18] MEDS ORDERED: FLUTICASONE PROP 0.05% NASAL SPRAY 16 GM (FLONASE) PRN (21:00)
[2020-03-18] MEDS ORDERED: CALCIUM CARBONATE 500 MG CHEW U/D PO PRN (21:00)
[2020-03-18] MEDS: LIDOCAINE 5% (LIDODERM) PATCH TD PRN (21:32)
[2020-03-18 22:00] VITALS: BP 133/73
[2020-03-19 01:48] LABS: CALCIUM LEVEL 8.6 MG/DL (8.8-10.2); CREATININE FOR GFR 1.38 MG/DL (0.55-1.30); GLOMERULAR FILTRATION RATE 38.4 (>32); POTASSIUM SERUM 3.8 MEQ/L (3.5-5.1)
[2020-03-19] MEDS: LEVOTHYROXINE 137MCG TABLET (0.137MG) PO SCH (05:33)
[2020-03-19 06:00] VITALS: BP 150/57
[2020-03-19 06:28] LABS: BASO % 0.4 % (0.0-1.0); EOS # 0.2 10^3/uL (0.0-0.5); EOS % 2.9 % (0.0-3.0); HEMATOCRIT 35.3 % (36.0-47.0); HEMOGLOBIN 11.7 g/dl (12.0-15.5); LYMPH # 2.4 10^3/uL (1.5-5.0); LYMPH % 29.8 % (24.0-44.0); MEAN CORPUSCULAR HEMOGLOBIN 36.1 pg (27.0-33.0); MEAN CORPUSCULAR HGB CONC 33.1 g/dl (32.0-36.5); MONO # 0.7 10^3/uL (0.0-0.8); MONO % 8.1 % (0.0-5.0); NEUTROPHILS # 4.8 10^3/uL (1.5-8.5); NEUTROPHILS % 58.1 % (36.0-66.0); PLATELET COUNT, AUTOMATED 151 10^3/uL (150-450); RED BLOOD COUNT 3.24 10^6/uL (4.00-5.40); WHITE BLOOD COUNT 8.2 10^3/uL (4.0-10.0)
[2020-03-19 06:50] LABS: CALCIUM LEVEL 9.3 MG/DL (8.8-10.2); CREATININE FOR GFR 1.34 MG/DL (0.55-1.30); GLOMERULAR FILTRATION RATE 39.7 (>32); POTASSIUM SERUM 3.7 MEQ/L (3.5-5.1)
--- NOTE | 2020-03-19 07:49 | ECGEPIP ---
[facility] - ED Test Date: 2020-03-18 Pat Name: JAY BEGUM Department: Room: - Gender: Female Pick Up Man: : 1930 Requested By: NOLBERTO Hamilton Order Number: [id number] Reading MD: Kristina Adan Measurements Intervals Gerber Rate: 81 P: -41 IA: 264 QRS: -45 QRSD: 123 T: 66 QT: 410 QTc: 476 Interpretive Statements ATRIAL RHYTHM WITH FIRST DEGREE AV BLOCK WITH OCCASIONAL VENTRICULAR PREMATURE COMPLEXES MARKED LEFT AXIS DEVIATION MODERATE INTRAVENTRICULAR CONDUCTION DELAY PROLOMGED QTC INCREASED RATE 03/07/20 Electronically Signed on 03-19-2020 7:48:55 EST by Kristina Adan
[2020-03-19 08:18] VITALS: BP 154/88
--- NOTE | 2020-03-19 08:41 | IPNPDOC ---
Date Seen The patient was seen on 03/19/20. Progress Note SUBJECTIVE: Patient was seen and examined at bedside this morning. Doing well, no acute events overnight. Sitting upright in chair eating breakfast. This generalized weakness. Denies chest pain, shortness of breath, palpitations, nausea, vomiting, diarrhea or subjective fevers. OBJECTIVE PHYSICAL EXAMINATION: VITAL SIGNS: please see below General: NAD, comfortable, obese HEENT: PERRLA, EOMI, sclerae clear Neck: supple, normal ROM, no JVD Respiratory: lungs CTAB, no wheeze, no rales, no crackles Skin: purple ecchymosies noted on left flank, left scapula, anterior lower abdomen CVS: RRR, normal S1, S2, no murmurs Abdo: soft, obese, no hepatosplenomegaly, BS+, no rebound tenderness Extremities: no edema, pulses 2+ MSK: no joint deformities, normal ROM Neuro: no focal neuro deficits, moving all 4 extremities, CN2-12 intact. Strength 5/5 in all 4 extremities. No nystagmus. Psych: calm, cooperative, AAO x 3 LABORATORY DATA, IMAGING STUDIES, MICROBIOLOGY: Please see below. DVT prophylaxis ordered?: Yes, Lovenox Mechanical fall: hx of frequent falls recent, sustained L 11th rib fx 03/15, non displaced L transverse process fx L1-L4. Has vision loss. Usnteady gait. walker for ambulation. Has home PT. Patient is concerned about ongoing falls. Consult PT/OT for possible subacute rehab. case management assistance appreciated. 11th L Rib fx: acetaminophen prn. avoid opiates. lidocaine patch, avoid PO NSAIDs given CKD3 L transverse process (nondisplaced) fx L1-L4: osteoporosis. calcitriol. calcium carbonate 500 mg bid. lidocaine patch. PT/OT. IDDM with neuropathy: last a1c. ISS. FSBS AC and HS. hypoglycemia precautions. Home insulin. Gabapentin. C/w ARB, asa, statin. CKD III: Cr appears at baseline. Calcitriol. Chronic HTN: c/w home meds, losartan. furosemide Hypothyroidism: c/w levothyroxine 137 mcg daily Gout: c/w allopurinol MITCH with periodic limb movement disorder: CPAP 14 cm H20 Class 3 obesity: BMI 45.8 and IDDM. Complicating care. Epidemiology Internship ra. DVT ppx: lovenox. Dispo: likely candidate for subacute rehab. Admission likely to span 2 midnights. VS, I&O, 24H, [facility] Vital Signs/I&O Vital Signs Date Time Temp Pulse Resp B/P (MAP) Pulse Ox O2 Delivery O2 Flow Rate FiO2 03/19/20 06:00 97.2 67 18 150/57 (88) 95 Room Air I&O- Last 24 Hours up to 6 AM 03/19/20 06:00 Intake Total 1560 ml Output Total 750 ml Balance 810 ml Laboratory Data 24H LABS Laboratory Tests 2 03/18/20 11:11: Immature Granulocyte % (Auto) 0.3, Neutrophils (%) (Auto) 79.7H, Lymphocytes (%) (Auto) 13.0L, Monocytes (%) (Auto) 4.7, Eosinophils (%) (Auto) 1.9, Basophils (%) (Auto) 0.4, Neutrophils # (Auto) 7.1, Lymphocytes # (Auto) 1.2L, Monocytes # (Auto) 0.4, Eosinophils # (Auto) 0.2, Basophils # (Auto) 0.0, Nucleated Red Blood Cells % (auto) 0.0, Anion Gap 4L, Glomerular Filtration Rate 36.6, Calcium Level 8.9, Total Bilirubin 0.6, Direct Bilirubin 0.2, Aspartate Amino Transf (AST/SGOT) 27, Alanine Aminotransferase (ALT/SGPT) 24, Alkaline Phosphatase 72, Total Creatine Kinase 196H, Creatine Kinase MB 2.4, Creatine Kinase MB Relative Index 1.22, Troponin I < 0.02, Total Protein 7.6, Albumin 3.5, Albumin/Globulin Ratio 0.9L, Lipase 60L 03/18/20 13:43: Urine Color YELLOW, Urine Appearance HAZY, Urine pH 5.0, Urine Specific [place] 1.017, Urine Protein NEGATIVE, Urine Glucose (UA) NEGATIVE, Urine Ketones NEGATIVE, Urine Blood NEGATIVE, Urine Nitrite NEGATIVE, Urine Bilirubin NEGAT YOHANNES, Urine Urobilinogen 0.2, Urine Leukocyte Esterase NEGATIVE, Urine WBC (Auto) 2, Urine RBC (Auto) 0, Urine Hyaline Casts (Auto) 4, Urine Bacteria (Auto) 1+H, Urine Squamous Epithelial Cells 2, Urine Mucus (Auto) SMALL, Urine Sperm (Auto) 03/18/20 17:33: Anion Gap 4L, Glomerular Filtration Rate 37.2, Calcium Level 9.2 03/18/20 18:01: Bedside Glucose (Misc Panel) 157H 03/18/20 19:37: Bedside Glucose (Misc Panel) 205H 03/19/20 01:08: Anion Gap 7L, Glomerular Filtration Rate 38.4, Calcium Level 8.6L 03/19/20 05:46: Anion Gap 6L, Glomerular Filtration Rate 39.7, Calcium Level 9.3, Immature G ranulocyte % (Auto) 0.7, Neutrophils (%) (Auto) 58.1, Lymphocytes (%) (Auto) 29.8, Monocytes (%) (Auto) 8.1H, Eosinophils (%) (Auto) 2.9, Basophils (%) (Auto) 0.4, Neutrophils # (Auto) 4.8, Lymphocytes # (Auto) 2.4, Monocytes # (Auto) 0.7, Eosinophils # (Auto) 0.2, Basophils # (Auto) 0.0, Nucleated Red Blood Cells % (auto) 0.0, Magnesium Level 2.3 CBC/BMP Laboratory Tests 03/18/20 11:11 03/18/20 17:33 03/19/20 01:08 03/19/20 05:46 Microbiology Microbiology 03/18/20 Blood Culture, Received Pending 03/18/20 Blood Culture, Received Pending JUAN JOSE DAVIES MD Mar 19, 2020 08:41
[2020-03-19] MEDS: HumaLOG INSULIN (NovoLOG) PER UNIT SC SCH ×4 (08:49→20:59)
[2020-03-19] MEDS: HumuLIN N INSULIN (NovoLIN N) PER UNIT SC SCH (08:50)
[2020-03-19] MEDS: oxyBUTYnin 5 MG TAB PO SCH (08:50)
[2020-03-19] MEDS: PANTOPRAZOLE 40MG TAB (PROTONIX) PO SCH (08:50)
[2020-03-19] MEDS: ASPIRIN 81 MG ENTERIC TAB PO SCH (08:50)
[2020-03-19] MEDS: FUROSEMIDE 40 MG TAB PO SCH (08:51)
[2020-03-19] MEDS: LORATADINE 10 MG TAB PO SCH (08:51)
[2020-03-19] MEDS: GABAPENTIN 400 MG CAP PO SCH ×2 (08:51→20:10)
[2020-03-19] MEDS: LOSARTAN 50MG TABLET PO SCH (08:51)
[2020-03-19] MEDS: allopurinoL 300 MG TAB PO SCH (08:51)
[2020-03-19] MEDS: DOCUSATE SODIUM 100 MG CAP PO SCH ×2 (08:51→20:11)
[2020-03-19] MEDS: CALCITRIOL 0.25 MCG CAP (S0169) PO SCH (08:51)
[2020-03-19] MEDS: ATORVASTATIN 20 MG TAB PO SCH (08:51)
[2020-03-19] MEDS: BRIMONIDINE 0.15% OPHTH SOLN 5 ML OU SCH ×2 (08:52→20:08)
[2020-03-19] MEDS: prednisoLONE ACET 1% OPHTH SUSP 5ML OU SCH ×4 (08:52→20:08)
[2020-03-19] MEDS: ENOXAPARIN 30MG/0.3ML SYRINGE (J1650 PER 10MG) SC SCH (08:53)
[2020-03-19] MEDS: TIMOLOL MALEATE 0.5% OPHTH SOLN 5 ML OU SCH ×2 (08:54→20:09)
[2020-03-19] MEDS ORDERED: MAALOX 30 ML SUSP *UDC PO PRN (09:00)
[2020-03-19] MEDS ORDERED: MOM 30ML SUSPENSION UDC PO PRN (09:00)
[2020-03-19 14:00] VITALS: BP 138/53
[2020-03-19 15:38] LABS: CALCIUM LEVEL 9.5 MG/DL (8.8-10.2); CREATININE FOR GFR 1.35 MG/DL (0.55-1.30); GLOMERULAR FILTRATION RATE 39.4 (>32); POTASSIUM SERUM 3.7 MEQ/L (3.5-5.1)
[2020-03-19] MEDS: FOLIC ACID 1 MG TAB PO SCH (16:17)
[2020-03-19] MEDS: ACETAMINOPHEN TAB 650MG DOSE (2X325MG) PO PRN (16:18)
[2020-03-19] MEDS: LIDOCAINE 5% (LIDODERM) PATCH TD PRN (16:18)
[2020-03-19 20:08] LABS: CALCIUM LEVEL 8.4 MG/DL (8.8-10.2); CREATININE FOR GFR 1.5 MG/DL (0.55-1.30); GLOMERULAR FILTRATION RATE 34.9 (>32); POTASSIUM SERUM 3.7 MEQ/L (3.5-5.1)
[2020-03-19] MEDS: LATANOPROST 0.005% OPHTH SOLN 2.5 ML OU SCH (20:08)
[2020-03-19] MEDS: VITAMIN A 10,000 INTERNATIONAL UNITS CAP PO SCH (20:11)
[2020-03-19] MEDS: MAGNESIUM OXIDE 400 MG TAB (MAG-OX) PO SCH (20:11)
[2020-03-19] MEDS: VITAMIN D 1,000 INTERNATIONAL UNITS TABLET PO SCH (20:11)
[2020-03-19] MEDS: CYANOCOBALAMIN 500 MCG TAB PO SCH (20:12)
[2020-03-19] MEDS ORDERED: **NOTE PATIENT COMMENT** MISC XX SCH (21:00)
[2020-03-19 22:00] VITALS: BP 153/57
[2020-03-20 01:47] LABS: CALCIUM LEVEL 8.3 MG/DL (8.8-10.2); CREATININE FOR GFR 1.58 MG/DL (0.55-1.30); GLOMERULAR FILTRATION RATE 32.9 (>32); POTASSIUM SERUM 3.9 MEQ/L (3.5-5.1)
[2020-03-20] MEDS: ACETAMINOPHEN TAB 650MG DOSE (2X325MG) PO PRN (04:36)
[2020-03-20] MEDS: LEVOTHYROXINE 137MCG TABLET (0.137MG) PO SCH (05:32)
[2020-03-20 06:00] VITALS: BP 138/54
[2020-03-20 06:52] LABS: BASO % 0.5 % (0.0-1.0); EOS # 0.3 10^3/uL (0.0-0.5); EOS % 4.9 % (0.0-3.0); HEMATOCRIT 34.6 % (36.0-47.0); LYMPH % 30.7 % (24.0-44.0); MEAN CORPUSCULAR HGB CONC 31.8 g/dl (32.0-36.5); MEAN CORPUSCULAR VOLUME 110.2 fl (80.0-96.0); MONO # 0.6 10^3/uL (0.0-0.8); MONO % 9.3 % (0.0-5.0); NEUTROPHILS # 3.6 10^3/uL (1.5-8.5); NEUTROPHILS % 54.3 % (36.0-66.0); PLATELET COUNT, AUTOMATED 136 10^3/uL (150-450); RED BLOOD COUNT 3.14 10^6/uL (4.00-5.40); WHITE BLOOD COUNT 6.6 10^3/uL (4.0-10.0)
[2020-03-20 07:09] LABS: CALCIUM LEVEL 8.6 MG/DL (8.8-10.2); CREATININE FOR GFR 1.47 MG/DL (0.55-1.30); GLOMERULAR FILTRATION RATE 35.7 (>32)
[2020-03-20] MEDS: HumaLOG INSULIN (NovoLOG) PER UNIT SC SCH ×3 (08:37→17:09)
[2020-03-20] MEDS: HumuLIN N INSULIN (NovoLIN N) PER UNIT SC SCH (08:37)
[2020-03-20 08:38] VITALS: BP 138/54
[2020-03-20] MEDS: PANTOPRAZOLE 40MG TAB (PROTONIX) PO SCH (08:38)
[2020-03-20] MEDS: DOCUSATE SODIUM 100 MG CAP PO SCH (08:38)
[2020-03-20] MEDS: oxyBUTYnin 5 MG TAB PO SCH (08:38)
[2020-03-20] MEDS: allopurinoL 300 MG TAB PO SCH (08:38)
[2020-03-20] MEDS: LOSARTAN 50MG TABLET PO SCH (08:38)
[2020-03-20] MEDS: FUROSEMIDE 40 MG TAB PO SCH (08:39)
[2020-03-20] MEDS: LORATADINE 10 MG TAB PO SCH (08:39)
[2020-03-20] MEDS: CALCITRIOL 0.25 MCG CAP (S0169) PO SCH (08:39)
[2020-03-20] MEDS: ATORVASTATIN 20 MG TAB PO SCH (08:39)
[2020-03-20] MEDS: GABAPENTIN 400 MG CAP PO SCH (08:39)
[2020-03-20] MEDS: ASPIRIN 81 MG ENTERIC TAB PO SCH (08:39)
[2020-03-20] MEDS: prednisoLONE ACET 1% OPHTH SUSP 5ML OU SCH ×3 (08:41→16:19)
[2020-03-20] MEDS: TIMOLOL MALEATE 0.5% OPHTH SOLN 5 ML OU SCH (08:41)
[2020-03-20] MEDS: BRIMONIDINE 0.15% OPHTH SOLN 5 ML OU SCH (08:41)
[2020-03-20] MEDS: ENOXAPARIN 30MG/0.3ML SYRINGE (J1650 PER 10MG) SC SCH (08:42)
--- NOTE | 2020-03-20 12:19 | DS.PDOC ---
Discharge Summary General Date of Admission Mar 18, 2020 at 13:27 Date of Discharge 03/20/20 Attending Physician: Izabel Marin MD Discharge Summary HISTORY OF PRESENT ILLNESS: 89 yo F with a hx of IDDM, neuropathy, chronic HTN, MITCH on CPAP, CKD 3, gout, hypothryoid, TAVR, vision loss, presented to [facility] ED after sliding off her bed while reaching for remote and being unable to get up. She spent ~ 30 min on floor,managed to lift herself on one knee but was unable to rise. She requires a walker for ambulation, She has 2 recent prior admissions involving a form of fall. On 03/15 she was admitted for mechanical fall resulting in L rib 11 fracture, and fractures of L transverse processes of L1- L4. She lives alone, and has a son and lfokeihj-av-lwd moving closer. She is hesitant to live alone and is worried about continued falls. In the ED CT head and c-spine showed no acute findings. EKG showed no ischemic changes or arrhythmias. Hgb 11.8. Hct 36.6. Cr 144. GFR 36.6. CK 196. HOSPITAL COURSE: Pain was controlled with multiple fractures. Patient was evaluated further and PT recommended continued rehabilitation. Labs were unremarkable and appeared to be at baseline, she remained hemodynamically stable. On 03/20/20, patient was evaluated for ARU and found to be good candidate. Prior to discharge, patient denied chest pain, n/v/d, fevers, chills, shortness of breath. 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 Chronic HTN DLP MITCH w periodic limb movement disorder CPAP 14 Gout CKD 3 Hypothyroidism Right sided hearing loss has hearing aid Vision loss uses glasses Nephrolithiasis Cholelithiasis Class 3 obesity Debility /unsteady gait, uses a walker TAVR Hysterectomy with ovarian preservation Toe surgery Tonsillectomy with adenoidectomy D&C Bladder suspension surgery Uterine suspension surgery Rectocele and cystocele repairs Cataract surgery Carpal tunnel surgery right wrist Rib fracture 03/15/20 SOCIAL HISTORY: Former smoker Occasional etoh use Lives alone, daughter-in law moving close FAMILY HISTORY: Father - "fluid in the lungs" Mother - - septic shock Brother - Parkinson Daughter - DM ALLERGIES: Please see below. DISCHARGE MEDICATIONS: Please see below. PHYSICAL EXAMINATION: VITAL SIGNS: please see below General: NAD, comfortable, obese HEENT: PERRLA, EOMI, sclerae clear Neck: supple, normal ROM, no JVD Respiratory: lungs CTAB, no wheeze, no rales, no crackles Skin: purple ecchymosies noted on left flank, left scapula, anterior lower abdomen CVS: RRR, normal S1, S2, no murmurs Abdo: soft, obese, no hepatosplenomegaly, BS+, no rebound tenderness Extremities: no edema, pulses 2+ MSK: no joint deformities, normal ROM Neuro: no focal neuro deficits, moving all 4 extremities, CN2-12 intact. Strength 5/5 in all 4 extremities. No nystagmus. Psych: calm, cooperative, AAO x 3 LABORATORY DATA, IMAGING STUDIES, MICROBIOLOGY: CT head wo contrast 03/18/20: 1. Chronic small-vessel white matter ischemic changes of aging with [id number]-wbnbgfbi cerebral and cerebellar atrophy, all stable. No acute infarct, intracranial hemorrhage or mass 2. Skull base and calvarium without fracture or focal lesion. Only minor anterior ethmoid air cell mucosal thickening with the other visualized sinuses and mastoids clear. Stable exam. CT C-spine 03/18/20: Degenerative spondylosis changes. Findings unchanged from March 15, 2020. No traumatic abnormality. CXR 03/18/20: Borderline heart size dad is post aortic valve replacement. No infiltrate, effusion, or edema seen. ASSESSMENT: 89 y/o F with PMH of recurrent mechanical falls, rib fx to be discharged today to ARU to continue rehabilitation. PLAN: #Mechanical fall, hx of frequent falls. Most recent 03/15/2020. L 11th rib fx 03/15, non displaced L transverse process fx L1-L4. Has vision loss. Unsteady gait. walker for ambulation. Had home PT previously. PT suggesting continued rehab currently. ARU today. #11th L Rib fx s/p fall. Acetaminophen prn. Avoid opiates. lidocaine patch, avoid PO NSAIDs given CKD Stage III #L transverse process (nondisplaced) fx L1-L4: osteoporosis. calcitriol. calcium carbonate 500 mg bid. lidocaine patch. PT/OT. #IDDM with neuropathy: last a1c. ISS. FSBS AC and HS. hypoglycemia precautions. Home insulin. Gabapentin. C/w ARB, asa, statin. #CKD III: Cr appears at baseline. Calcitriol. #Chronic HTN: c/w home meds, losartan. furosemide #Hypothyroidism: c/w levothyroxine 137 mcg daily #Gout: c/w allopurinol #MITCH with periodic limb movement disorder: CPAP 14 cm H20 #Class 3 obesity: BMI 45.8 and IDDM. Complicating care. DISPOSITION: Discharge from inpatient today to ARU. TIME SPENT ON DISCHARGE: Greater than 30 minutes. Vital Signs/I&Os Vital Signs Date Time Temp Pulse Resp B/P (MAP) Pulse Ox O2 Delivery O2 Flow Rate FiO2 03/20/20 08:38 138/54 03/20/20 06:00 98.4 66 18 94 Room Air I&O- Last 24 Hours up to 6 AM 03/20/20 06:00 Intake Total 1290 ml Output Total 400 ml Balance 890 ml Laboratory Data Labs 24H Laboratory Tests 2 03/19/20 13:18: Anion Gap 6L, Glomerular Filtration Rate 39.4, Calcium Level 9.5 03/19/20 17:08: Bedside Glucose (Misc Panel) 208H 03/19/20 19:26: Anion Gap 7L, Glomerular Filtration Rate 34.9, Calcium Level 8.4L 03/19/20 20:03: Bedside Glucose (Misc Panel) 207H 03/20/20 01:00: Anion Gap 7L, Glomerular Filtration Rate 32.9, Calcium Level 8.3L 03/20/20 06:32: Anion Gap 4L, Glomerular Filtration Rate 35.7, Calcium Level 8.6L, Immature Granulocyte % (Auto) 0.3, Neutrophils (%) (Auto) 54.3, Lymphocytes (%) (Auto) 30.7, Monocytes (%) (Auto) 9.3H, Eosinophils (%) (Auto) 4.9H, Basophils (%) (Auto) 0.5, Neutrophils # (Auto) 3.6, Lymphocytes # (Auto) 2.0, Monocytes # (Auto) 0.6, Eosinophils # (Auto) 0.3, Basophils # (Auto) 0.0, Nucleated Red Blood Cells % (auto) 0.0, Magnesium Level 2.0 03/20/20 11:46: Bedside Glucose (Misc Panel) 132H CBC/BMP Laboratory Tests 03/19/20 13:18 03/19/20 19:26 03/20/20 01:00 03/20/20 06:32 FSBS Laboratory Tests Test 03/19/20 17:08 03/19/20 20:03 03/20/20 11:46 Range/Units Bedside Glucose (Misc Panel) 208 207 132 83-110 MG/DL Microbiology Microbiology 03/19/20 Blood Culture, Received Pending 03/18/20 Blood Culture - Preliminary, Resulted No growth after 24 hours . All specim... 03/18/20 Blood Culture - Preliminary, Resulted Discharge Medications Scheduled Acetaminophen (Tylenol Arthritis) 650 Mg Tablet.er, 650 MG PO BID, (Reported) Allopurinol (Zyloprim) 300 Mg Tablet, 300 MG PO DAILY, (Reported) Aspirin (Aspirin EC) 81 Mg Tablet.dr, 81 MG PO DAILY, (Reported) Atorvastatin Calcium (Atorvastatin Calcium) 20 Mg Tablet, 20 MG PO DAILY, (Reported) Brimonidine Tartrate/Timolol (Combigan 0.2%-0.5% Eye Drops) 5 Ml Drops, 1 DROP OU BID, (Reported) Calcitriol (Calcitriol) 0.25 Mcg Capsule, 0.25 MCG PO 5XW, (Reported) MON//THU//FRI Cholecalciferol (Vitamin D3) (Vitamin D3) 1,000 Unit Tablet, 1,000 UNITS PO QPM, (Reported) TAKES AT 1600 Cyanocobalamin (Vitamin B-12) (Vitamin B-12) 1,000 Mcg Tablet, 1,000 MCG PO QPM, (Reported) TAKES AT 1600 Diclofenac Epolamine (Diclofenac Epolamine) 1 Each Patch.td12, 2 PATCH TOP Q12H Folic Acid (Folic Acid) 0.4 Mg Tablet, 400 MCG PO QPM, (Reported) TAKES AT 1600 Furosemide (Furosemide) 40 Mg Tablet, 60 MG PO DAILY, (Reported) Furosemide (Furosemide) 40 Mg Tablet, 40 MG PO QPM, (Reported) TAKES AT 1600 Gabapentin (Gabapentin) 400 Mg Capsule, 400 MG PO BID, (Reported) Insulin Human NPH (Humulin N) 100 Unit/1 Ml Vial, 70 UNITS SC DAILY, (Reported) Insulin Human NPH (Humulin N) 100 Unit/1 Ml Vial, 20 UNITS SC QHS, (Reported) Latanoprost (Xalatan) 0.005% 2.5ML Drops, 1 DROP OU QHS, (Reported) Levothyroxine Sodium (Levothyroxine Sodium) 137 Mcg Tablet, 137 MCG PO DAILY, (Reported) Loratadine (Loratadine) 10 Mg Tablet, 10 MG PO DAILY, (Reported) Losartan Potassium (Losartan Potassium) 100 Mg Tablet, 50 MG PO DAILY, (Reported) Magnesium Oxide (Magnesium Oxide) 400 Mg Tablet, 400 MG PO QPM, (Reported) TAKES AT 1600 Multivitamin (Multivitamin) 1 Each Tablet, 1 TAB PO QPM, (Reported) TAKES AT 1600 Omeprazole (Omeprazole) 40 Mg Capsule.dr, 40 MG PO DAILY, (Reported) Oxybutynin Chloride (Oxybutynin Chloride) 5 Mg Tablet, 5 MG PO DAILY, (Reported) Prednisolone Acetate (Prednisolone Acetate 1% Opth Susp) 5 Ml Drops.susp, 1 DROP OU QID, (Reported) Vitamin A (Vitamin A) 10,000 Unit Capsule, 10,000 UNIT PO QPM, (Reported) TAKES AT 1600 Scheduled PRN Albuterol Sulfate (Proair Hfa) 8.5 Gm Hfa.aer.ad, 2 PUFFS INH Q4H PRN for SHORTNESS OF BREATH, (Reported) Fluticasone Propionate (Flonase Allergy Relief) 9.9 Ml [place].susp, 1 SPRAY NA QHS PRN for NASAL CONGESTION, (Reported) Lidocaine (Lidoderm) 5% Adh..patch, 1 PATCH TD DAILY PRN for PAIN, (Reported) APPLIES TO RIBS/LOWER BACK Phenylephrine HCl (Phenylephrine HCl) 10 Mg Tablet, 10 MG PO BID PRN for RUNNY NOSE, (Reported) Allergies Coded Allergies: butorphanol (Verified Allergy, Unknown, 03/07/20) Izabel Marin MD Mar 20, 2020 12:19
[2020-03-20 14:00] VITALS: BP 132/49
[2020-03-20] MEDS: FOLIC ACID 1 MG TAB PO SCH (16:18)
== END 2020-03-20 17:25 | disposition home or self-care (01) | DRG 92 ==
LOC: M ED 10:25 → EDBD 10:25 → M ED INP 13:27 → ENRESERV 14:00 → M MSPAV 14:25
PROVIDERS: ADMIT Family Medicine; ATTEND Internal Medicine
DX: R29.6 Repeated falls (principal); Z68.42 Body mass index [BMI] 45.0-49.9, adult; N18.30 Chronic kidney disease, stage 3 unspecified; E11.40 Type 2 diabetes mellitus with diabetic neuropathy, unspecified; I11.0 Hypertensive heart disease with heart failure; G47.33 Obstructive sleep apnea (adult) (pediatric); E03.9 Hypothyroidism, unspecified; M10.9 Gout, unspecified; E66.9 Obesity, unspecified; Z87.891 Personal history of nicotine dependence; Z79.899 Other long term (current) drug therapy; Z79.82 Long term (current) use of aspirin; Z79.4 Long term (current) use of insulin; Z88.8 Allergy status to other drugs, medicaments and biological substances; R26.89 Other abnormalities of gait and mobility

== ENCOUNTER 2020-03-20 15:27 | Inpatient (IN) | payer MEDICARE ==
[~2020-03-20] VITALS: Ht 157.5 cm; Wt 118.7 kg
[2020-03-20] MEDS: CALCITRIOL 0.25 MCG CAP (S0169) PO SCH (09:00)
[2020-03-20 18:00] VITALS: BP 164/38
[2020-03-20 20:00] VITALS: BP 148/58
[2020-03-20] MEDS: DICLOFENAC EPOLAMINE 1.3 % PATCH TOP SCH (20:16)
[2020-03-20] MEDS ORDERED: ALBUTEROL 90 MCG/ACT 8GM HFA INHALER INH PRN (21:00)
[2020-03-20] MEDS ORDERED: FLUTICASONE PROP 0.05% NASAL SPRAY 16 GM (FLONASE) PRN (21:00)
[2020-03-20] MEDS: VITAMIN A 10,000 INTERNATIONAL UNITS CAP PO SCH (22:16)
[2020-03-20] MEDS: VITAMIN D 1,000 INTERNATIONAL UNITS TABLET PO SCH (22:16)
[2020-03-20] MEDS: MAGNESIUM OXIDE 400 MG TAB (MAG-OX) PO SCH (22:16)
[2020-03-20] MEDS: ACETAMINOPHEN 650MG ER TAB (TYLENOL ARTHRITIS) PO SCH (22:16)
[2020-03-20] MEDS: DOCUSATE SODIUM 100 MG CAP PO SCH (22:16)
[2020-03-20] MEDS: GABAPENTIN 400 MG CAP PO SCH (22:16)
[2020-03-20] MEDS: HumuLIN N INSULIN (NovoLIN N) PER UNIT SC SCH (22:18)
[2020-03-20] MEDS: LATANOPROST 0.005% OPHTH SOLN 2.5 ML OU SCH (22:19)
[2020-03-20] MEDS: **NOTE PATIENT COMMENT** MISC XX SCH (22:19)
[2020-03-20] MEDS: prednisoLONE ACET 1% OPHTH SUSP 5ML OU SCH (22:19)
[2020-03-20 23:20] LABS: APPEARANCE, URINE CLEAR (CLEAR); BACTERIA, URINE AUTO NEGATIVE (NEGATIVE); BILIRUBIN, URINE AUTO NEGATIVE (NEGATIVE); BLOOD, URINE BLOOD NEGATIVE (NEGATIVE); COLOR, URINE YELLOW (YELLOW); GLUCOSE, URINE (UA) AUTO NEGATIVE (NEGATIVE); KETONE, URINE AUTO NEGATIVE (NEGATIVE); LEUKOCYTE ESTERASE, URINE AUTO TRACE (NEGATIVE); NITRITE, URINE AUTO NEGATIVE (NEGATIVE); PROTEIN, URINE AUTO NEGATIVE (NEGATIVE); RBC, URINE AUTO 0 /HPF (0-3); SPECIFIC GRAVITY URINE AUTO 1.011 (1.002-1.035); SQUAMOUS EPITHELIAL CELL UR AU 1 /HPF (0-6); UROBILINOGEN, URINE AUTO 0.2 mg/dL (0.0-2.0); WBC, URINE AUTO 4 /HPF (0-3)
[2020-03-21] MEDS ORDERED: PNEUMOCOCCAL VACCINE 0.5ML SYRINGE (PNEUMOVAX 23) IM ONE (06:00)
[2020-03-21] MEDS: LEVOTHYROXINE 137MCG TABLET (0.137MG) PO SCH (06:02)
[2020-03-21 06:05] VITALS: BP 146/68
[2020-03-21 06:26] LABS: BASO % 0.6 % (0.0-1.0); EOS # 0.4 10^3/uL (0.0-0.5); EOS % 5.6 % (0.0-3.0); HEMATOCRIT 35.4 % (36.0-47.0); HEMOGLOBIN 11.7 g/dl (12.0-15.5); LYMPH # 2.2 10^3/uL (1.5-5.0); LYMPH % 31.4 % (24.0-44.0); MEAN CORPUSCULAR HEMOGLOBIN 36.4 pg (27.0-33.0); MEAN CORPUSCULAR HGB CONC 33.1 g/dl (32.0-36.5); MEAN CORPUSCULAR VOLUME 110.3 fl (80.0-96.0); MONO # 0.5 10^3/uL (0.0-0.8); MONO % 7.6 % (0.0-5.0); NEUTROPHILS # 3.9 10^3/uL (1.5-8.5); NEUTROPHILS % 54.7 % (36.0-66.0); PLATELET COUNT, AUTOMATED 141 10^3/uL (150-450); RED BLOOD COUNT 3.21 10^6/uL (4.00-5.40); WHITE BLOOD COUNT 7.1 10^3/uL (4.0-10.0)
--- NOTE | 2020-03-21 08:15 | HPEPDOC ---
Computational Geneticist Note DATE OF ADMISSION: 03.20.2020 DATE OF SERVICE: 03.20.2020 TIME OF ADMISSION: Please refer to physician's admission order. SOURCE OF ADMISSION INFORMATION: patient and chart ADMITTING DIAGNOSES: Left #11 rib fracture. Left transverse process nondisplaced fractures L1-4. Osteoporosis. ID DM with neuropathy. Class III obesity. Glaucoma with Visual impairment CHIEF COMPLAINT: . 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 She was admitted to hospital 03/15 with finding of rib fracture #11 on the left, fracture of the left transverse processes L1-4. Patient lives alone with family nearby. She has a history of repeated falls, including one where she hit her head previously, and one where she fractured her left fibula previously. 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 Workup this most recent admission included CT head and C- spine negative. EKG negative. Vital signs and labs remained stable and patient is being referred for comprehensive rehabilitation to work on gait training, balance retraining, safety issues and pain management. REVIEW OF SYSTEMS: The following is a completed review of systems and has been reviewed. PAIN: back pain. EYES: Visual impairment. EARS, NOSE, & THROAT: No throat pain, or dysphagia, or rhinorrhea. CARDIOVASCULAR: Denies chest pain or palpitations. PULMONARY: Denies shortness of breath. GASTROINTESTINAL: Moved bowels 3 times today after 5 days of no movement GENITOURINARY: s/p bladder suspension surgeries MUSCULOSKELETAL: back pain NEUROLOGICAL:.peripheral neuropathy, numbness distal extremities with altered sensation HEMATOLOGICAL: . SKIN: intact PSYCHIATRIC: Unremarkable. All other review of systems found to be negative. 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 MEDICATIONS: Please see below. SOCIAL HISTORY: Former smoker Occasional etoh use Lives alone FAMILY HISTORY: Father - "fluid in the lungs" Mother - - septic shock Brother - Parkinson Daughter - DM DIET: regular. PHYSICAL EXAMINATION: VITAL SIGNS: Please see below. GENERAL: Pleasant and cooperative. No acute distress. Alert and oriented times three. HEENT: PERRL. Extraocular movements intact. Clear conjunctiva, no adenopathy or thyromegaly. Full cervical range of motion without tenderness or spasm. CARDIOVASCULAR: S1,S2 III/ SM CHEST: Lungs clear to auscultation bilaterally. No wheezes. No rhonchi. Large tangential linear ecchymoses encircling mid and lower thoracic regions on left with tenderness on bilateral chest wall compression, no tenderness on AP compression. Minimal tenderness thoracolumbar lumbosacral regions. ABDOMEN: Soft, obese. Positive normal active bowel sounds. NEUROLOGICAL: Alert and oriented times three. Cranial nerves II through XII intact hearing aids with decreased hearing, left worse than right. Sensation diminished stocking glove distribution bilateral lower extremities below knee, intact above knee, intact hands. Reflexes 1 + bilateral brachial radialis, absent bilateral biceps, triceps, patellar, Achilles tendon jerks. 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 SKIN: intact, ecchymoses around trunk as described . LABORATORY DATA: Please see below. IMAGING: CT head wo contrast 03/18/20: 1. Chronic small-vessel white matter ischemic changes of aging with [id number] cerebral and cerebellar atrophy, all stable. No acute infarct, intracranial hemorrhage or mass 2. Skull base and calvarium without fracture or focal lesion. Only minor anterior ethmoid air cell mucosal thickening with the other visualized sinuses and mastoids clear. Stable exam. CT C-spine 03/18/20: Degenerative spondylosis changes. Findings unchanged from March 15, 2020. No traumatic abnormality. CXR 03/18/20: Borderline heart size dad is post aortic valve replacement. No infiltrate, effusion, or edema seen. FUNCTIONAL STATUS: Premorbid: Independent with all activities of daily life as well as mobility. On Admission: Ambulated 25 feet with CGA and RW, complains of weakness in lower extremities. GOALS: Optimal safe mobility and self-care skills ASSESSMENT this is an 89-year-old hypertensive diabetic lady with past medical history of polyneuropathy, visual impairment, repeated falls, who is status post mechanical fall March 15 2020 with fracture, left #11 rib, L1-4 transverse processes, severe pain, increased risk of repeated falls. She is medical complex needing coordination and management of hypertension, diabetes, hypothyroidism, gout, MITCH with periodic limb movement disorder, class III obesity. PLAN: Rehab- PT/OT advance gait and ADls, strengthen/stretch/maintain ROM all 4 limbs, We'll continue to work on timing pain medication with therapy interventions to optimize possible capacity to participate. MSK-proper bracing or taping to keep area stabilized and reduce pain while working on mobility training, optimal pain medication management Continue Gout medication allopurinol Ca Vit D Mg for osteoporosis Endo-NIDDM, optimize medications, hypothyroid continue usual home regimen c/w levothyroxine 137 mcg daily CVD-S/P prior TAVR, HTN, HLD, monitor BP, maintain optimal medication management, cw , losartan. furosemide Neuro-MITCH with RLS, neuropathy, proprioceptive sensory abnormalities, pain, balance optimizing medication management with CKD -hx multiple procedures, CKD, monitor output, usual bladder training protocols GI-PPX, usual bowel program Class 3 obesity: BMI 45.8 and IDDM. Complicating care. Resp -incentive spirometry, monitor for infection, increased risk due to mm splinting related to rib fx. MITCH with periodic limb movement disorder: CPAP 14 cm H20 encouraged to have device brought in from home. POST ADMISSION PHYSICIAN EVALUATION: Medical and functional status: Description of medical status, medical assessment: As above. Rehabilitation diagnosis and current and prior cold morbid medical conditions as above. Risk of complications and plans to mitigate them as above. Description of functional status current status is as above. Prior status as above. Status compared to preadmission: There are no clinically significant differences between the patient's current status and the information described on the preadmission screening document. Treatment plan anticipated: Treatment plan is as described above. Required disciplines including physical therapy, occupational therapy, others as noted above. Intensity of services: 3 hours a day, 6-7 days a week. Special considerations: There are no specific special or safety considerations that would likely preclude immediate implementation of an intensive rehabilitation program or subsequently influence the plan of care. ATTESTATION: Considering all the information above, it is my best judgment that this patient requires intensive rehabilitation therapy as described above and an inpatient hospital environment due to the complexity of nursing, medical, and rehabilitation needs required by the patient. Furthermore, this patient can reasonably be expected to participate in and benefit from an inpatient rehabilitation stay with an interdisciplinary team approach to the delivery of rehabilitation care under the direction and supervision of rehabilitation physician. PROGNOSIS: Excellent. ESTIMATED LENGTH OF STAY:10-14 days. PROJECTED DISCHARGE DESTINATION: Home with family support and any durable medical equipment required to increase functional safety and mobility. TIME SPENT COUNSELING AND COORDINATING INITIAL CARE: Greater than 70 minutes. This document is generated using speech recognition software which may result in grammatical, typographical and individual word errors. Vital Signs BP 167/73 P 67 PAo2 100% on Room Air Home Medications Scheduled Acetaminophen (Tylenol Arthritis) 650 Mg Tablet.er, 650 MG PO BID, (Reported) Allopurinol (Zyloprim) 300 Mg Tablet, 300 MG PO DAILY, (Reported) Aspirin (Aspirin EC) 81 Mg Tablet.dr, 81 MG PO DAILY, (Reported) Atorvastatin Calcium (Atorvastatin Calcium) 20 Mg Tablet, 20 MG PO DAILY, (Reported) Brimonidine Tartrate/Timolol (Combigan 0.2%-0.5% Eye Drops) 5 Ml Drops, 1 DROP O U BID, (Reported) Calcitriol (Calcitriol) 0.25 Mcg Capsule, 0.25 MCG PO 5XW, (Reported) MON//THU//FRI Cholecalciferol (Vitamin D3) (Vitamin D3) 1,000 Unit Tablet, 1,000 UNITS PO QPM, (Reported) TAKES AT 1600 Cyanocobalamin (Vitamin B-12) (Vitamin B-12) 1,000 Mcg Tablet, 1,000 MCG PO QPM, (Reported) TAKES AT 1600 Diclofenac Epolamine (Diclofenac Epolamine) 1 Each Patch.td12, 2 PATCH TOP Q12H Folic Acid (Folic Acid) 0.4 Mg Tablet, 400 MCG PO QPM, (Reported) TAKES AT 1600 Furosemide (Furosemide) 40 Mg Tablet, 60 MG PO DAILY, (Reported) Furosemide (Furosemide) 40 Mg Tablet, 40 MG PO QPM, (Reported) TAKES AT 1600 Gabapentin (Gabapentin) 400 Mg Capsule, 400 MG PO BID, (Reported) Insulin Human NPH (Humulin N) 100 Unit/1 Ml Vial, 70 UNITS SC DAILY, (Reported) Insulin Human NPH (Humulin N) 100 Unit/1 Ml Vial, 20 UNITS SC QHS, (Reported) Latanoprost (Xalatan) 0.005% 2.5ML Drops, 1 DROP OU QHS, (Reported) Levothyroxine Sodium (Levothyroxine Sodium) 137 Mcg Tablet, 137 MCG PO DAILY, (Reported) Loratadine (Loratadine) 10 Mg Tablet, 10 MG PO DAILY, (Reported) Losartan Potassium (Losartan Potassium) 100 Mg Tablet, 50 MG PO DAILY, (Reported) Magnesium Oxide (Magnesium Oxide) 400 Mg Tablet, 400 MG PO QPM, (Reported) TAKES AT 1600 Multivitamin (Multivitamin) 1 Each Tablet, 1 TAB PO QPM, (Reported) TAKES AT 1600 Omeprazole (Omeprazole) 40 Mg Capsule.dr, 40 MG PO DAILY, (Reported) Oxybutynin Chloride (Oxybutynin Chloride) 5 Mg Tablet, 5 MG PO DAILY, (Reported) Prednisolone Acetate (Prednisolone Acetate 1% Opth Susp) 5 Ml Drops.susp, 1 DROP OU QID, (Reported) Vitamin A (Vitamin A) 10,000 Unit Capsule, 10,000 UNIT PO QPM, (Reported) TAKES AT 1600 Scheduled PRN Albuterol Sulfate (Proair Hfa) 8.5 Gm Hfa.aer.ad, 2 PUFFS INH Q4H PRN for SHORTNESS OF BREATH, (Reported) Fluticasone Propionate (Flonase Allergy Relief) 9.9 Ml [place].susp, 1 SPRAY NA QHS PRN for NASAL CONGESTION, (Reported) Lidocaine (Lidoderm) 5% Adh..patch, 1 PATCH TD DAILY PRN for PAIN, (Reported) APPLIES TO RIBS/LOWER BACK Phenylephrine HCl (Phenylephrine HCl) 10 Mg Tablet, 10 MG PO BID PRN for RUNNY NOSE, (Reported) Allergies Coded Allergies: butorphanol (Verified Allergy, Unknown, 03/07/20) A-FIB/CHADSVASC A-FIB History Current/History of A-Fib/PAF?: No Current PO Anticoag Therapy: Yes Age/Risk Factor Scoring CHADSVASC: CHADSVASC Response (Comments) Value Age Risk Factor Age >/= 75 years old 2 Total 2 CODY WALKER MD Mar 20, 2020 18:24
[2020-03-21] MEDS: DOCUSATE SODIUM 100 MG CAP PO SCH ×2 (08:18→20:44)
[2020-03-21] MEDS: MULTIVITAMINS/MINERALS THERAP 1 TAB PO SCH (08:18)
[2020-03-21] MEDS: CALCITRIOL 0.25 MCG CAP (S0169) PO SCH (08:18)
[2020-03-21] MEDS: FUROSEMIDE 40 MG TAB PO SCH (08:19)
[2020-03-21] MEDS: ATORVASTATIN 20 MG TAB PO SCH (08:19)
[2020-03-21] MEDS: LORATADINE 10 MG TAB PO SCH (08:19)
[2020-03-21] MEDS: allopurinoL 300 MG TAB PO SCH (08:19)
[2020-03-21] MEDS: oxyBUTYnin 5 MG TAB PO SCH (08:19)
[2020-03-21] MEDS: GABAPENTIN 400 MG CAP PO SCH ×2 (08:19→20:45)
[2020-03-21] MEDS: ASPIRIN 81 MG ENTERIC TAB PO SCH (08:19)
[2020-03-21] MEDS: HumuLIN N INSULIN (NovoLIN N) PER UNIT SC SCH ×2 (08:20→20:46)
[2020-03-21] MEDS: LOSARTAN 50MG TABLET PO SCH (08:20)
[2020-03-21] MEDS: PANTOPRAZOLE 40MG TAB (PROTONIX) PO SCH (08:20)
[2020-03-21] MEDS: prednisoLONE ACET 1% OPHTH SUSP 5ML OU SCH ×4 (08:20→20:48)
[2020-03-21] MEDS: ACETAMINOPHEN 650MG ER TAB (TYLENOL ARTHRITIS) PO SCH ×2 (08:20→20:45)
[2020-03-21] MEDS: DICLOFENAC EPOLAMINE 1.3 % PATCH TOP SCH ×2 (08:23→20:47)
--- NOTE | 2020-03-21 12:07 | HPEPDOC ---
[facility] Medical History & Physical Date of Admission Mar 20, 2020 Date of Service: Mar 21, 2020 Attending Physician: Izabel Marin MD History and Physical HISTORY OF PRESENT ILLNESS: Patient is an 89 yo F with a hx of IDDM, neuropathy, chronic HTN, MITCH on CPAP, CKD 3, gout, hypothryoid, TAVR, vision loss who initially presented to [facility] 03/15/20 after sliding off her bed while reaching for remote and being unable to get up. She spent ~ 30 min on floor, managed to lift herself on one knee but was unable to rise. She required a walker for ambulation at baseline and has 2 recent prior admissions involving a form of fall. On 03/15 she was admitted for mechanical fall with L rib 11 fracture, and fractures of L transverse processes of L1-L4. She is hesitant to live alone and is worried about continued falls. In the ED CT head and c-spine showed no acute findings. EKG showed no ischemic changes or arrhythmias. Hgb 11.8. Hct 36.6. Cr 144. GFR 36.6. CK 196. After admission, pain was controlled with multiple fractures. Patient was evaluated further and PT recommended continued rehabilitation. Labs were unremarkable and appeared to be at baseline, she remained hemodynamically stable. On 03/20/20, patient was evaluated for ARU and found to be good candidate. On assessment today for consult, patient denies any lightheadedness, increased pain, chest pain, shortness of breath, n/v/d. Stated that physical therapy went well this AM. She admits to increased weakness in the lower extremities but this is not new and states this is chronic. 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 Chronic HTN DLP MITCH w periodic limb movement disorder CPAP 14 Gout CKD 3 Hypothyroidism Right sided hearing loss has hearing aid Vision loss uses glasses Nephrolithiasis Cholelithiasis Class 3 obesity Debility /unsteady gait, uses a walker TAVR Hysterectomy with ovarian preservation Toe surgery Tonsillectomy with adenoidectomy D&C Bladder suspension surgery Uterine suspension surgery Rectocele and cystocele repairs Cataract surgery Carpal tunnel surgery right wrist Rib fracture 03/15/20 SOCIAL HISTORY: Former smoker Occasional etoh use Lives alone, daughter-in law moving close FAMILY HISTORY: Father - "fluid in the lungs" Mother - - septic shock Brother - Parkinson Daughter - DM ALLERGIES: Please see below. CURRENT MEDICATIONS: Please see below. PHYSICAL EXAMINATION: VITAL SIGNS: please see below General: NAD, comfortable, obese HEENT: PERRLA, EOMI, sclerae clear Neck: supple, normal ROM, no JVD Respiratory: lungs CTAB, no wheeze, no rales, no crackles Skin: purple ecchymosies noted on left flank, left scapula, anterior lower abdomen CVS: RRR, normal S1, S2, no murmurs Abdo: soft, obese, no hepatosplenomegaly, BS+, no rebound tenderness Extremities: no edema, pulses 2+ MSK: no joint deformities, normal ROM Neuro: no focal neuro deficits, moving all 4 extremities, CN2-12 intact. reflexes wnl in upper and lower ext. Strength 5/5 in all 4 extremities. No nystagmus. Psych: calm, cooperative, AAO x 3 LABORATORY DATA, IMAGING STUDIES: CT head wo contrast 03/18/20: 1. Chronic small-vessel white matter ischemic changes of aging with smgu-[id number] cerebral and cerebellar atrophy, all stable. No acute infarct, intracranial hemorrhage or mass 2. Skull base and calvarium without fracture or focal lesion. Only minor anterior ethmoid air cell mucosal thickening with the other visualized sinuses and mastoids clear. Stable exam. CT C-spine 03/18/20: Degenerative spondylosis changes. Findings unchanged from March 15, 2020. No traumatic abnormality. CXR 03/18/20: Borderline heart size dad is post aortic valve replacement. No infiltrate, e ffusion, or edema seen. ASSESSMENT: 89 y/o F with PMH of recurrent mechanical falls, rib fx admitted to ARU 03/20/20 to continue rehabilitation. PLAN: #Physical deconditioning with recent mechanical fall, hx of frequent falls. -Complicated by L 11th rib fx 03/15, non displaced L transverse process fx L1- L4, vision loss, baseline deconditioning with already existing peripheral neuropathy -C/w PT/OT, pain medication, nutritional optimization -Goal is home #11th L Rib fx s/p fall -Pain currently controlled. -C/w current pain regimen, avoid NSAIDS. #L transverse process (nondisplaced) fx L1-L4, likely 2/2 to osteoporosis -C/w current treatment -PT/OT calcitriol. #IDDM with neuropathy -C/w current treatment, FSBS AC and HS. -Hypoglycemia precaution -C/w insulin, gabapentin. C/w ARB, asa, statin. #CKD III -Cr appears at baseline. #Chronic HTN -Stable -c/w home meds #Hypothyroidism - c/w levothyroxine 137 mcg daily #Gout - c/w allopurinol #MITCH with periodic limb movement disorder - CPAP 14 cm H20 #Class 3 obesity - BMI 45.8 and IDDM. Complicating care. DISPOSITION: Thank you kindly for consult for this patient. Will continue to follow during her rehab stay. Please call at any time. Vital Signs Vital Signs Date Time Temp Pulse Resp B/P (MAP) Pulse Ox O2 Delivery O2 Flow Rate FiO2 03/21/20 08:20 146/68 03/21/20 06:05 97.8 66 17 95 Room Air Laboratory Data Labs 24H Laboratory Tests 2 03/20/20 20:50: Bedside Glucose (Misc Panel) 169H 03/20/20 23:08: Urine Color YELLOW, Urine Appearance CLEAR, Urine pH 5.0, Urine Specific [place] 1.011, Urine Protein NEGATIVE, Urine Glucose (Auto)(UA) NEGATIVE, Urine Ketones (Auto) NEGATIVE, Urine Blood NEGATIVE, Urine Nitrite NEGATIVE, Urine Bilirubin NEGATIVE, Urine Urobilinogen 0.2, Urine Leukocyte Esterase (Auto) TRACEH, Urine WBC (Auto) 4H, Urine RBC (Auto) 0, Urine Hyaline Casts (Auto) 8, Urine Bacteria (Auto) NEGATIVE, Urine Squamous Epithelial Cells 1, Urine Sperm (Auto) 03/21/20 05:24: Bedside Glucose (Misc Panel) 121H 03/21/20 06:09: Immature Granulocyte % (Auto) 0.1, Neutrophils (%) (Auto) 54.7, Lymphocytes (%) (Auto) 31.4, Monocytes (%) (Auto) 7.6H, Eosinophils (%) (Auto) 5.6H, Basophils (%) (Auto) 0.6, Neutrophils # (Auto) 3.9, Lymphocytes # (Auto) 2.2, Monocytes # (Auto) 0.5, Eosinophils # (Auto) 0.4, Basophils # (Auto) 0.0, Nucleated Red Blood Cells % (auto) 0.0 03/21/20 11:55: CBC/BMP Laboratory Tests 03/21/20 06:09 Home Medications Scheduled Acetaminophen (Tylenol Arthritis) 650 Mg Tablet.er, 650 MG PO BID Allopurinol (Zyloprim) 300 Mg Tablet, 300 MG PO DAILY Aspirin (Aspirin EC) 81 Mg Tablet.dr, 81 MG PO DAILY Atorvastatin Calcium (Atorvastatin Calcium) 20 Mg Tablet, 20 MG PO DAILY Brimonidine Tartrate/Timolol (Combigan 0.2%-0.5% Eye Drops) 5 Ml Drops, 1 DROP OU BID Calcitriol (Calcitriol) 0.25 Mcg Capsule, 0.25 MCG PO 5XW MON//THU//FRI Cholecalciferol (Vitamin D3) (Vitamin D3) 1,000 Unit Tablet, 1,000 UNITS PO QPM TAKES AT 1600 Cyanocobalamin (Vitamin B-12) (Vitamin B-12) 1,000 Mcg Tablet, 1,000 MCG PO QPM TAKES AT 1600 Diclofenac Epolamine (Diclofenac Epolamine) 1 Each Patch.td12, 2 PATCH TOP Q12H Folic Acid (Folic Acid) 0.4 Mg Tablet, 400 MCG PO QPM TAKES AT 1600 Furosemide (Furosemide) 40 Mg Tablet, 60 MG PO DAILY Furosemide (Furosemide) 40 Mg Tablet, 40 MG PO QPM TAKES AT 1600 Gabapentin (Gabapentin) 400 Mg Capsule, 400 MG PO BID Insulin Human NPH (Humulin N) 100 Unit/1 Ml Vial, 70 UNITS SC DAILY Insulin Human NPH (Humulin N) 100 Unit/1 Ml Vial, 20 UNITS SC QHS Latanoprost (Xalatan) 0.005% 2.5ML Drops, 1 DROP OU QHS Levothyroxine Sodium (Levothyroxine Sodium) 137 Mcg Tablet, 137 MCG PO DAILY Loratadine (Loratadine) 10 Mg Tablet, 10 MG PO DAILY Losartan Potassium (Losartan Potassium) 100 Mg Tablet, 50 MG PO DAILY Magnesium Oxide (Magnesium Oxide) 400 Mg Tablet, 400 MG PO QPM TAKES AT 1600 Multivitamin (Multivitamin) 1 Each Tablet, 1 TAB PO QPM TAKES AT 1600 Omeprazole (Omeprazole) 40 Mg Capsule.dr, 40 MG PO DAILY Oxybutynin Chloride (Oxybutynin Chloride) 5 Mg Tablet, 5 MG PO DAILY Prednisolone Acetate (Prednisolone Acetate 1% Opth Susp) 5 Ml Drops.susp, 1 DROP OU QID Vitamin A (Vitamin A) 10,000 Unit Capsule, 10,000 UNIT PO QPM TAKES AT 1600 Scheduled PRN Albuterol Sulfate (Proair Hfa) 8.5 Gm Hfa.aer.ad, 2 PUFFS INH Q4H PRN for SHORTNESS OF BREATH Fluticasone Propionate (Flonase Allergy Relief) 9.9 Ml [place].susp, 1 SPRAY NA QHS PRN for NASAL CONGESTION Lidocaine (Lidoderm) 5% Adh..patch, 1 PATCH TD DAILY PRN for PAIN APPLIES TO RIBS/LOWER BACK Phenylephrine HCl (Phenylephrine HCl) 10 Mg Tablet, 10 MG PO BID PRN for RUNNY NOSE Allergies Coded Allergies: butorphanol (Verified Allergy, Unknown, 03/07/20) A-FIB/CHADSVASC A-FIB History Current/History of A-Fib/PAF?: No Current PO Anticoag Therapy: No Age/Risk Factor Scoring CHADSVASC: CHADSVASC Response (Comments) Value Age Risk Factor Age >/= 75 years old 2 Gender Risk Factor Female 1 Hx of CHF No 0 Hx of HTN Yes 1 Hx of Stroke/TIA/or VTE No 0 Hx of Diabetes Yes 1 Hx of Vascular Disease Yes 1 Total 6 Treatment Treatment ordered: NONE Other anticoagulant ordered: teds, scd, ambulation Izabel Marin MD Mar 21, 2020 12:07
[2020-03-21 14:00] VITALS: BP 114/78
--- NOTE | 2020-03-21 14:21 | IPNPDOC ---
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 She was admitted to hospital 03/15 with finding of rib fracture #11 on the left, fracture of the left transverse processes L1-4. Patient lives alone with family nearby. She has a history of repeated falls, including one where she hit her head previously, and one where she fractured her left fibula previously. 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 Workup this most recent admission included CT head and C-spine negative. EKG negative. Vital signs and labs remained stable and patient now here for comprehensive rehabilitation to work on gait training, balance retraining, safety issues and pain management. She slept well her first night, concerned about finding her hearing aid batteries. REVIEW OF SYSTEMS: The following is a completed review of systems and has been reviewed. PAIN: back pain. EYES: Visual impairment. EARS, NOSE, & THROAT: No throat pain, or dysphagia, or rhinorrhea. CARDIOVASCULAR: Denies chest pain or palpitations. PULMONARY: Denies shortness of breath. GASTROINTESTINAL: Moved bowels 3 times today after 5 days of no movement GENITOURINARY: s/p bladder suspension surgeries MUSCULOSKELETAL: back pain NEUROLOGICAL:.peripheral neuropathy, numbness distal extremities with altered sensation HEMATOLOGICAL: . SKIN: intact PSYCHIATRIC: Unremarkable. All other review of systems found to be negative. 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 MEDICATIONS: Please see below. SOCIAL HISTORY: Former smoker Occasional etoh use Lives alone FAMILY HISTORY: Father - "fluid in the lungs" Mother - - septic shock Brother - Parkinson Daughter - DM DIET: regular. PHYSICAL EXAMINATION: VITAL SIGNS: Please see below. GENERAL: Pleasant and cooperative. No acute distress. Alert and oriented times three. HEENT: PERRL. Extraocular movements intact. Clear conjunctiva, no adenopathy or thyromegaly. Full cervical range of motion without tenderness or spasm. CARDIOVASCULAR: S1,S2 III/ SM CHEST: Lungs clear to auscultation bilaterally. No wheezes. No rhonchi. Large tangential linear ecchymoses encircling mid and lower thoracic regions on left with tenderness on bilateral chest wall compression, no tenderness on AP compression. Minimal tenderness thoracolumbar lumbosacral regions. ABDOMEN: Soft, obese. Positive normal active bowel sounds. NEUROLOGICAL: Alert and oriented times three. Cranial nerves II through XII intact hearing aids with decreased hearing, left worse than right. Sensation diminished stocking glove distribution bilateral lower extremities below knee, intact above knee, intact hands. Reflexes 1 + bilateral brachial radialis, absent bilateral biceps, triceps, patellar, Achilles tendon jerks. EXTREMITIES: 5/5 press tender incendiary grenade, bilatearl elbow flexion, elbow extension, knee extension, foot dorsiflexion, plantar flexion. SKIN: intact, ecchymoses around trunk as described . LABORATORY DATA: Please see below. FBS 151, H/H 11.7/35.4 IMAGING: CT head wo contrast 03/18/20: 1. Chronic small-vessel white matter ischemic changes of aging with mild-to- moderate cerebral and cerebellar atrophy, all stable. No acute infarct, intracranial hemorrhage or mass 2. Skull base and calvarium without fracture or focal lesion. Only minor anterior ethmoid air cell mucosal thickening with the other visualized sinuses and mastoids clear. Stable exam. CT C-spine 03/18/20: Degenerative spondylosis changes. Findings unchanged from March 15, 2020. No traumatic abnormality. CXR 03/18/20: Borderline heart size dad is post aortic valve replacement. No infiltrate, effusion, or edema seen. FUNCTIONAL STATUS: Premorbid: Independent with all activities of daily life as well as mobility. Today ambulated 100 feet with CGA and RW, complains of sense of weakness in lower extremities, needs cues and education for safety. Complains of increasing knee pain with increased weight bearing. GOALS: Optimal safe mobility and self-care skills ASSESSMENT Left #11 rib fracture. Left transverse process nondisplaced fractures L1-4 Contusions trunk and back Osteoporosis. ID DM with neuropathy. Class III obesity. Glaucoma with Visual impairment Hearing impairment This is an 89-year-old hypertensive diabetic lady with past medical history of polyneuropathy, visual impairment, repeated falls, who is status post mechanical fall March 15 2020 with fracture, left #11 rib, L1-4 transverse processes, severe pain, increased risk of repeated falls. She is medical complex needing coordination and management of hypertension, diabetes, hypothyroidism, gout, MITCH with periodic limb movement disorder, class III obesity. Pain management, safety, compensatory strategies for proprioceptive difficulties will be implemented as part of her rehabilitation program. PLAN: Rehab- PT/OT advance gait and ADls, strengthen/stretch/maintain ROM all 4 limbs, We'll continue to work on timing pain medication with therapy interventions to optimize possible capacity to participate. MSK-proper bracing or taping to keep area stabilized and reduce pain while working on mobility training, optimal pain medication management Continue Gout medication allopurinol Ca Vit D Mg for osteoporosis Endo-NIDDM, optimize medications, hypothyroid continue usual home regimen c/w levothyroxine 137 mcg daily CVD-S/P prior TAVR, HTN, HLD, monitor BP, maintain optimal medication management, c/w losartan. furosemide.ASA Neuro-MITCH with RLS, neuropathy, proprioceptive sensory abnormalities, pain, hearing loss, balance optimizing medication management with CKD, replace hearing aid batteries -hx multiple procedures, CKD, monitor output, usual bladder training protocols GI-PPX, usual bowel program Class 3 obesity: BMI 45.8 and IDDM. Complicating care. Resp -incentive spirometry, monitor for infection, increased risk due to mm splinting related to rib fx. MITCH with periodic limb movement disorder: CPAP 14 cm H20, encouraged to have device brought in from home. PROGNOSIS: Excellent. ESTIMATED LENGTH OF STAY:10-14 days. PROJECTED DISCHARGE DESTINATION: Home with family support and any durable medical equipment required to increase functional safety and mobility. TIME SPENT CHART REVIEW, EXAMINATION AND COORDINATING CARE: 35 minutes. This document is generated using speech recognition software which may result in grammatical, typographical and individual word errors. Allergies Coded Allergies: butorphanol (Verified Allergy, Unknown, 10/21/20) Vital Signs Vital Signs Date Time Temp Pulse Resp B/P (MAP) Pulse Ox O2 Delivery O2 Flow Rate FiO2 03/21/20 06:05 97.8 66 17 146/68 (94) 95 Room Air Laboratory Data CBC/BMP Laboratory Tests 03/21/20 06:09 Labs 24H Laboratory Tests 2 03/20/20 20:50: Bedside Glucose (Misc Panel) 169H 03/20/20 23:08: Urine Color YELLOW, Urine Appearance CLEAR, Urine pH 5.0, Urine Specific [place] 1.011, Urine Protein NEGATIVE, Urine Glucose (Auto)(UA) NEGATIVE, Urine Ketones (Auto) NEGATIVE, Urine Blood NEGATIVE, Urine Nitrite NEGATIVE, Urine Bilirubin NEGATIVE, Urine Urobilinogen 0.2, Urine Leukocyte Esterase (Auto) TRACEH, Urine WBC (Auto) 4H, Urine RBC (Auto) 0, Urine Hyaline Casts (Auto) 8, Urine Bacteria (Auto) NEGATIVE, Urine Squamous Epithelial Cells 1, Urine Sperm (Auto) 03/21/20 05:24: Bedside Glucose (Misc Panel) 121H 03/21/20 06:09: Immature Granulocyte % (Auto) 0.1, Neutrophils (%) (Auto) 54.7, Lymphocytes (%) (Auto) 31.4, Monocytes (%) (Auto) 7.6H, Eosinophils (%) (Auto) 5.6H, Basophils (%) (Auto) 0.6, Neutrophils # (Auto) 3.9, Lymphocytes # (Auto) 2.2, Monocytes # (Auto) 0.5, Eosinophils # (Auto) 0.4, Basophils # (Auto) 0.0, Nucleated Red Blood Cells % (auto) 0.0 Current Medications Current Medications Current Medications Medications (Trade) Dose Ordered Sig/Salo Route PRN Reason Start Time Stop Time Status Last Admin Dose Admin Acetaminophen (Tylenol Arthritis Er) 650 mg BID PO 03/20/20 21:00 03/20/20 22:16 Acetaminophen (Tylenol Tab) 1,000 mg Q6HP PRN PO MILD PAIN (PS 1-4) 03/20/20 15:45 Albuterol Sulfate (Proventil, Ventolin Hfa) 2 puff Q4H PRN INH SHORTNESS OF BREATH 03/20/20 21:00 Allopurinol (Zyloprim) 300 mg DAILY PO 03/21/20 09:00 Aspirin (Ecotrin) 81 mg DAILY PO 03/21/20 09:00 Atorvastatin Calcium (Lipitor) 20 mg DAILY PO 03/21/20 09:00 Calcitriol (Rocaltrol) 0.25 mcg MoTuWeThFr PO 03/20/20 09:00 Diclofenac Epolamine (Flector 1.3%) 2 patch Q12H TOP 03/20/20 19:30 03/20/20 20:16 Docusate Sodium (Colace) 100 mg BID PO 03/20/20 21:00 03/20/20 22:16 Fluticasone Propionate (Flonase 0.05% Nasal [place]) 1 spray QHS PRN NA NASAL CONGESTION 03/20/20 21:00 Furosemide (Lasix) 60 mg DAILY PO 03/21/20 09:00 Gabapentin (Neurontin) 400 mg BID PO 03/20/20 21:00 03/20/20 22:16 Home Med (Med Rec Complete!) ASDIRECTED XX 03/20/20 18:15 03/20/20 18:12 DC Insulin Human NPH (HumuLIN NPH INSULIN) 20 units QHS SC 03/20/20 21:00 03/20/20 22:18 Insulin Human NPH (HumuLIN NPH INSULIN) 70 units DAILY SC 03/21/20 09:00 Latanoprost (Xalatan 0.005% Op Soln) 1 drop QHS OU 03/20/20 21:00 03/20/20 22:19 Levothyroxine Sodium (Synthroid) 137 mcg DAILY@0600 PO 03/21/20 06:00 03/21/20 06:02 Lidocaine (Lidoderm Patch) 1 patch DAILY PRN TD PAIN 03/20/20 09:00 Loratadine (Claritin) 10 mg DAILY PO 03/21/20 09:00 Losartan Potassium (Cozaar) 50 mg DAILY PO 03/21/20 09:00 Magnesium Oxide (Mag-Ox) 400 mg QPM PO 03/20/20 21:00 03/20/20 22:16 Multivitamins (Theragram-M) 1 tab DAILY PO 03/21/20 09:00 Non-Formulary Medication ( See Comment Field Below ) REMOVE LIDODERM PATCH DAILY@21 XX 03/20/20 21:00 Oxybutynin Chloride (Ditropan) 5 mg DAILY PO 03/21/20 09:00 Pantoprazole Sodium (Protonix) 40 mg DAILY PO 03/21/20 09:00 Prednisolone Acetate (Predforte 1% Ophth Susp) 1 drop QID OU 03/20/20 21:00 03/20/20 22:19 Vitamin A (Vitamin A) 10,000 units QPM PO 03/20/20 21:00 03/20/20 22:16 Vitamin D (Vitamin D) 1,000 units QPM PO 03/20/20 21:00 03/20/20 22:16 CODY WALKER MD Mar 21, 2020 08:37
[2020-03-21 20:00] VITALS: BP 136/62
[2020-03-21] MEDS: MAGNESIUM OXIDE 400 MG TAB (MAG-OX) PO SCH (20:44)
[2020-03-21] MEDS: VITAMIN A 10,000 INTERNATIONAL UNITS CAP PO SCH (20:45)
[2020-03-21] MEDS: VITAMIN D 1,000 INTERNATIONAL UNITS TABLET PO SCH (20:45)
[2020-03-21] MEDS: **NOTE PATIENT COMMENT** MISC XX SCH ×2 (20:48→20:59)
[2020-03-21] MEDS: LATANOPROST 0.005% OPHTH SOLN 2.5 ML OU SCH (20:48)
[2020-03-21] MEDS: ACETAMINOPHEN 500 MG TAB PO PRN (22:51)
[2020-03-22] MEDS: LEVOTHYROXINE 137MCG TABLET (0.137MG) PO SCH (05:57)
[2020-03-22 06:00] VITALS: BP 147/63
[2020-03-22] MEDS: DICLOFENAC EPOLAMINE 1.3 % PATCH TOP SCH (07:30)
[2020-03-22] MEDS: DOCUSATE SODIUM 100 MG CAP PO SCH ×2 (09:00→21:18)
[2020-03-22] MEDS: HumuLIN N INSULIN (NovoLIN N) PER UNIT SC SCH ×2 (09:02→21:19)
[2020-03-22] MEDS: ASPIRIN 81 MG ENTERIC TAB PO SCH (09:03)
[2020-03-22] MEDS: FUROSEMIDE 40 MG TAB PO SCH (09:04)
[2020-03-22] MEDS: prednisoLONE ACET 1% OPHTH SUSP 5ML OU SCH ×4 (09:05→21:20)
[2020-03-22] MEDS: MULTIVITAMINS/MINERALS THERAP 1 TAB PO SCH (09:07)
[2020-03-22] MEDS: GABAPENTIN 400 MG CAP PO SCH ×2 (09:07→21:17)
[2020-03-22] MEDS: PANTOPRAZOLE 40MG TAB (PROTONIX) PO SCH (09:07)
[2020-03-22] MEDS: CALCITRIOL 0.25 MCG CAP (S0169) PO SCH (09:08)
[2020-03-22] MEDS: LORATADINE 10 MG TAB PO SCH (09:08)
[2020-03-22] MEDS: ATORVASTATIN 20 MG TAB PO SCH (09:08)
[2020-03-22] MEDS: allopurinoL 300 MG TAB PO SCH (09:08)
[2020-03-22] MEDS: ACETAMINOPHEN 650MG ER TAB (TYLENOL ARTHRITIS) PO SCH ×2 (09:08→21:17)
[2020-03-22] MEDS: oxyBUTYnin 5 MG TAB PO SCH (09:08)
[2020-03-22] MEDS: LOSARTAN 50MG TABLET PO SCH (09:09)
[2020-03-22] MEDS: ACETAMINOPHEN 500 MG TAB PO PRN (10:32)
[2020-03-22] MEDS: LIDOCAINE 5% (LIDODERM) PATCH TD PRN (10:33)
--- NOTE | 2020-03-22 13:48 | IPNPDOC ---
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 She was admitted to hospital 03/15 with finding of rib fracture #11 on the left, fracture of the left transverse processes L1-4. Patient lives alone with family nearby. She has a history of repeated falls, including one where she hit her head previously, and one where she fractured her left fibula previously. This is probably related to peripheral polyneuropathy, now possibly compounded by polyradiculopathy. Workup this most recent admission included CT head and C-spine negative. EKG negative. Vital signs and labs remained stable and patient now in comprehensive rehabilitation to work on gait training, balance retraining, safety issues and pain management. She has adjusted well, has concerns about finding her hearing aid batteries. REVIEW OF SYSTEMS: The following is a completed review of systems and has been reviewed. PAIN: back pain. EYES: Visual impairment. EARS, NOSE, & THROAT: No throat pain, or dysphagia, or rhinorrhea. CARDIOVASCULAR: Denies chest pain or palpitations. PULMONARY: Denies shortness of breath. GASTROINTESTINAL: Moving bowels regularly GENITOURINARY: s/p bladder suspension surgeries MUSCULOSKELETAL: back pain NEUROLOGICAL:.peripheral neuropathy, numbness distal extremities with altered sensory perception HEMATOLOGICAL: .bruising SKIN: intact PSYCHIATRIC: Unremarkable. All other review of systems found to be negative. 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 MEDICATIONS: Please see below. SOCIAL HISTORY: Former smoker Occasional etoh use Lives alone FAMILY HISTORY: Father - "fluid in the lungs" Mother - - septic shock Brother - Parkinson Daughter - DM DIET: regular. PHYSICAL EXAMINATION: VITAL SIGNS: Please see below. GENERAL: Pleasant and cooperative. No acute distress. Alert and oriented times three. HEENT: PERRL. Extraocular movements intact. Clear conjunctiva, no adenopathy or thyromegaly. Full cervical range of motion without tenderness or spasm. CARDIOVASCULAR: S1,S2 III/ SM CHEST: Lungs clear to auscultation bilaterally. No wheezes. No rhonchi. Large tangential linear ecchymoses encircling mid and lower thoracic regions on left with tenderness on bilateral chest wall compression, no tenderness on AP compression. Minimal tenderness thoracolumbar lumbosacral regions. ABDOMEN: Soft, obese. Positive normal active bowel sounds. NEUROLOGICAL: Alert and oriented times three. Cranial nerves II through XII intact hearing aids with decreased hearing, left worse than right. Sensation diminished stocking glove distribution bilateral lower extremities below knee, intact above knee, intact hands. Reflexes 1 + bilateral brachial radialis, absent bilateral biceps, triceps, patellar, Achilles tendon jerks. EXTREMITIES: 5/5 data processing auditor, bilatearl elbow flexion, elbow extension, knee extension, foot dorsiflexion, plantar flexion. SKIN: intact, ecchymoses around trunk as described . LABORATORY DATA: Please see below. IMAGING: CT head wo contrast 03/18/20: 1. Chronic small-vessel white matter ischemic changes of aging with [id number] cerebral and cerebellar atrophy, all stable. No acute infarct, intracranial hemorrhage or mass 2. Skull base and calvarium without fracture or focal lesion. Only minor anterior ethmoid air cell mucosal thickening with the other visualized sinuses and mastoids clear. Stable exam. CT C-spine 03/18/20: Degenerative spondylosis changes. Findings unchanged from March 15, 2020. No traumatic abnormality. CXR 03/18/20: Borderline heart size dad is post aortic valve replacement. No infiltrate, effusion, or edema seen. FUNCTIONAL STATUS: Premorbid: Independent with all activities of daily life as well as mobility. Today ambulated >100 feet with supervision and RW, complains of sense of weakness in lower extremities, needs cues and education for safety. Complains of increasing knee pain with increased weight bearing. PT did a variety of testing and visual deficits again noted. GOALS: Optimal safe mobility and self-care skills ASSESSMENT Left #11 rib fracture. Left transverse process nondisplaced fractures L1-4 Contusions trunk and back Osteoporosis. ID DM with neuropathy. Class III obesity. Glaucoma with Visual impairment Hearing impairment This is an 89-year-old hypertensive diabetic lady with past medical history of polyneuropathy, visual impairment, repeated falls, who is status post mechanical fall March 15 2020 with fracture, left #11 rib, L1-4 transverse processes, severe pain, increased risk of repeated falls. She is medically complex needing coordination and management of hypertension, diabetes, hypothyroidism, gout, MITCH with periodic limb movement disorder, class III obesity and visual impairment. Pain management, safety, compensatory strategies for proprioceptive difficulties implemented as part of her rehabilitation program. PLAN: Rehab- PT/OT advance gait and ADls, strengthen/stretch/maintain ROM all 4 limbs, We'll continue to work on timing pain medication with therapy interventions to optimize possible capacity to participate. MSK-proper bracing or taping to keep area stabilized and reduce pain while working on mobility training, optimal pain medication management Continue Gout medication allopurinol Ca Vit D Mg for osteoporosis Endo-NIDDM, optimize medications, hypothyroid continue usual home regimen c/w levothyroxine 137 mcg daily CVD-S/P prior TAVR, HTN, HLD, monitor BP, maintain optimal medication management, c/w losartan. furosemide. ASA Neuro-MITCH with RLS, neuropathy, proprioceptive sensory abnormalities, pain, hearing loss, balance optimizing medication management with CKD, replace hearing aid batteries -hx multiple procedures, CKD, monitor output, usual bladder training protocols GI-PPX, usual bowel program Class 3 obesity: BMI 45.8 and IDDM. Complicating care. Resp -incentive spirometry, monitor for infection, increased risk due to mm splinting related to rib fx. MITCH with periodic limb movement disorder: CPAP 14 cm H20, encouraged to have device brought in from home. PROGNOSIS: Excellent. ESTIMATED LENGTH OF STAY:10-14 days. PROJECTED DISCHARGE DESTINATION: Home with family support and any durable medical equipment required to increase functional safety and mobility. TIME SPENT CHART REVIEW, EXAMINATION AND COORDINATING CARE: 35 minutes. Allergies Coded Allergies: butorphanol (Verified Allergy, Unknown, 03/07/20) Vital Signs Vital Signs Date Time Temp Pulse Resp B/P (MAP) Pulse Ox O2 Delivery O2 Flow Rate FiO2 03/22/20 09:09 140/68 03/22/20 06:00 97.7 62 18 95 Room Air Laboratory Data Labs 24H Laboratory Tests 2 03/21/20 16:45: Bedside Glucose (Misc Panel) 130H 03/21/20 20:26: Bedside Glucose (Misc Panel) 208H 03/22/20 06:36: Bedside Glucose (Misc Panel) 91 03/22/20 11:12: Bedside Glucose (Misc Panel) 161H Current Medications Current Medications Current Medications Medications (Trade) Dose Ordered Sig/Salo Route PRN Reason Start Time Stop Time Status Last Admin Dose Admin Acetaminophen (Tylenol Arthritis Er) 650 mg BID PO 03/20/20 21:00 03/22/20 09:08 Acetaminophen (Tylenol Tab) 1,000 mg Q6HP PRN PO MILD PAIN (PS 1-4) 03/20/20 15:45 03/22/20 10:32 Albuterol Sulfate (Proventil, Ventolin Hfa) 2 puff Q4H PRN INH SHORTNESS OF BREATH 03/20/20 21:00 Allopurinol (Zyloprim) 300 mg DAILY PO 03/21/20 09:00 03/22/20 09:08 Aspirin (Ecotrin) 81 mg DAILY PO 03/21/20 09:00 03/22/20 09:03 Atorvastatin Calcium (Lipitor) 20 mg DAILY PO 03/21/20 09:00 03/22/20 09:08 Calcitriol (Rocaltrol) 0.25 mcg MoTuWeThFr PO 03/20/20 09:00 03/22/20 09:08 Diclofenac Epolamine (Flector 1.3%) 2 patch Q12H TOP 03/20/20 19:30 03/22/20 11:42 DC 03/21/20 20:47 Docusate Sodium (Colace) 100 mg BID PO 03/20/20 21:00 03/21/20 20:44 Fluticasone Propionate (Flonase 0.05% Nasal [place]) 1 spray QHS PRN NA NASAL CONGESTION 03/20/20 21:00 Furosemide (Lasix) 60 mg DAILY PO 03/21/20 09:00 03/22/20 09:04 Gabapentin (Neurontin) 400 mg BID PO 03/20/20 21:00 03/22/20 09:07 Home Med (Med Rec Complete!) ASDIRECTED XX 03/20/20 18:15 03/20/20 18:12 DC Insulin Human NPH (HumuLIN NPH INSULIN) 20 units QHS SC 03/20/20 21:00 03/21/20 20:46 Insulin Human NPH (HumuLIN NPH INSULIN) 70 units DAILY SC 03/21/20 09:00 03/22/20 09:02 Latanoprost (Xalatan 0.005% Op Soln) 1 drop QHS OU 03/20/20 21:00 03/21/20 20:48 Levothyroxine Sodium (Synthroid) 137 mcg DAILY@0600 PO 03/21/20 06:00 03/22/20 05:57 Lidocaine (Lidoderm Patch) 1 patch DAILY PRN TD PAIN 03/20/20 09:00 03/22/20 10:33 Loratadine (Claritin) 10 mg DAILY PO 03/21/20 09:00 03/22/20 09:08 Losartan Potassium (Cozaar) 50 mg DAILY PO 03/21/20 09:00 03/22/20 09:09 Magnesium Oxide (Mag-Ox) 400 mg QPM PO 03/20/20 21:00 03/21/20 20:44 Multivitamins (Theragram-M) 1 tab DAILY PO 03/21/20 09:00 03/22/20 09:07 Non-Formulary Medication ( See Comment Field Below ) REMOVE LIDODERM PATCH DAILY@21 XX 03/20/20 21:00 03/21/20 20:59 Oxybutynin Chloride (Ditropan) 5 mg DAILY PO 03/21/20 09:00 03/22/20 09:08 Pantoprazole Sodium (Protonix) 40 mg DAILY PO 03/21/20 09:00 03/22/20 09:07 Prednisolone Acetate (Predforte 1% Ophth Susp) 1 drop QID OU 03/20/20 21:00 03/22/20 13:14 Vitamin A (Vitamin A) 10,000 units QPM PO 03/20/20 21:00 03/21/20 20:45 Vitamin D (Vitamin D) 1,000 units QPM PO 03/20/20 21:00 03/21/20 20:45 CODY WALKER MD Mar 22, 2020 13:48
[2020-03-22 14:00] VITALS: BP 161/70
[2020-03-22 20:20] VITALS: BP 150/75
[2020-03-22] MEDS: VITAMIN A 10,000 INTERNATIONAL UNITS CAP PO SCH (21:17)
[2020-03-22] MEDS: VITAMIN D 1,000 INTERNATIONAL UNITS TABLET PO SCH (21:17)
[2020-03-22] MEDS: MAGNESIUM OXIDE 400 MG TAB (MAG-OX) PO SCH (21:18)
[2020-03-22] MEDS: **NOTE PATIENT COMMENT** MISC XX SCH (21:20)
[2020-03-22] MEDS: LATANOPROST 0.005% OPHTH SOLN 2.5 ML OU SCH (21:20)
[2020-03-23] MEDS: LEVOTHYROXINE 137MCG TABLET (0.137MG) PO SCH (05:21)
[2020-03-23 05:49] VITALS: BP 138/80
[2020-03-23] MEDS: ACETAMINOPHEN 650MG ER TAB (TYLENOL ARTHRITIS) PO SCH ×2 (07:33→21:52)
[2020-03-23] MEDS: ASPIRIN 81 MG ENTERIC TAB PO SCH (07:33)
[2020-03-23] MEDS: GABAPENTIN 400 MG CAP PO SCH ×2 (07:33→21:48)
[2020-03-23] MEDS: HumuLIN N INSULIN (NovoLIN N) PER UNIT SC SCH ×3 (07:33→22:03)
[2020-03-23] MEDS: LOSARTAN 50MG TABLET PO SCH (07:34)
[2020-03-23] MEDS: PANTOPRAZOLE 40MG TAB (PROTONIX) PO SCH (07:34)
[2020-03-23] MEDS: CALCITRIOL 0.25 MCG CAP (S0169) PO SCH (07:34)
[2020-03-23] MEDS: allopurinoL 300 MG TAB PO SCH (07:34)
[2020-03-23] MEDS: FUROSEMIDE 40 MG TAB PO SCH (07:35)
[2020-03-23] MEDS: oxyBUTYnin 5 MG TAB PO SCH (07:35)
[2020-03-23] MEDS: ATORVASTATIN 20 MG TAB PO SCH (07:35)
[2020-03-23] MEDS: LORATADINE 10 MG TAB PO SCH (07:35)
[2020-03-23] MEDS: MULTIVITAMINS/MINERALS THERAP 1 TAB PO SCH (07:36)
[2020-03-23] MEDS: prednisoLONE ACET 1% OPHTH SUSP 5ML OU SCH ×4 (07:36→21:00)
[2020-03-23] MEDS: DOCUSATE SODIUM 100 MG CAP PO SCH ×2 (07:37→21:48)
--- NOTE | 2020-03-23 08:58 | IPNPDOC ---
PM&R Progress Note DATE OF SERVICE: Mar 23, 2020 [employer] Progress Note DATE OF ADMISSION: Mar 20, 2020 at 17:25 INPATIENT REHABILITATION ADMISSION DAY: #4 CHIEF COMPLAINT: . 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 She was admitted to hospital 03/15 with finding of rib fracture #11 on the left, fracture of the left transverse processes L1-4. Patient lives alone with family nearby. She has a history of repeated falls, including one where she hit her head previously, and one where she fractured her left fibula previously. This is probably related to peripheral polyneuropathy, now possibly compounded by polyradiculopathy. Workup this most recent admission included CT head and C-spine negative. EKG negative. Vital signs and labs remained stable and patient now in comprehensive rehabilitation to work on gait training, balance retraining, safety issues and pain management. She has adjusted well, has concerns about finding her hearing aid batteries and now her eyedrops for visual challenges. She feels the addition of abdominal binder is helpful for transtional movements, may use as needed. REVIEW OF SYSTEMS: The following is a completed review of systems and has been reviewed. PAIN: back pain. EYES: Visual impairment. EARS, NOSE, & THROAT: No throat pain, or dysphagia, or rhinorrhea. CARDIOVASCULAR: Denies chest pain or palpitations. PULMONARY: Denies shortness of breath. GASTROINTESTINAL: Large hard BM, notes usually uses Fiber at home GENITOURINARY: s/p bladder suspension surgeries MUSCULOSKELETAL: back pain NEUROLOGICAL:.peripheral neuropathy, numbness distal extremities with altered sensory perception HEMATOLOGICAL: .bruising SKIN: intact PSYCHIATRIC: Unremarkable. All other review of systems found to be negative. 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 MEDICATIONS: Please see below. SOCIAL HISTORY: Former smoker Occasional etoh use Lives alone FAMILY HISTORY: Father - "fluid in the lungs" Mother - - septic shock Brother - Parkinson Daughter - DM DIET: regular. PHYSICAL EXAMINATION: VITAL SIGNS: Please see below. GENERAL: Pleasant and cooperative. No acute distress. Alert and oriented times three. HEENT: PERRL. Extraocular movements intact. Clear conjunctiva, no adenopathy or thyromegaly. Full cervical range of motion without tenderness or spasm. CARDIOVASCULAR: S1,S2 III/ SM CHEST: Lungs clear to auscultation bilaterally. No wheezes. No rhonchi. Large tangential linear ecchymoses encircling mid and lower thoracic regions on left. Minimal tenderness thoracolumbar lumbosacral regions. ABDOMEN: Soft, obese. Positive normal active bowel sounds. NEUROLOGICAL: Alert and oriented times three. EXTREMITIES: 5/5 grossly all 4 extremities SKIN: intact, ecchymoses around trunk as described . LABORATORY DATA: Please see below. FBS tight at 104 IMAGING: CT head wo contrast 03/18/20: 1. Chronic small-vessel white matter ischemic changes of aging with [id number] cerebral and cerebellar atrophy, all stable. No acute infarct, intracranial hemorrhage or mass 2. Skull base and calvarium without fracture or focal lesion. Only minor anterior ethmoid air cell mucosal thickening with the other visualized sinuses and mastoids clear. Stable exam. CT C-spine 03/18/20: Degenerative spondylosis changes. Findings unchanged from March 15, 2020. No traumatic abnormality. CXR 03/18/20: Borderline heart size dad is post aortic valve replacement. No infiltrate, effusion, or edema seen. FUNCTIONAL STATUS: Premorbid: Independent with all activities of daily life as well as mobility. Complains of sense of weakness in lower extremities, needs cues and education for safety, continue work on strength and endurance. Using binder as form of spine/msk stabilization. Complains of increasing knee pain with increased weight bearing. Working on compensatory strategies around visual and hearing impairments. GOALS: Optimal safe mobility and self-care skills ASSESSMENT Left #11 rib fracture. Left transverse process nondisplaced fractures L1-4 Contusions trunk and back Osteoporosis. ID DM with neuropathy. Class III obesity. Glaucoma with Visual impairment Hearing impairment This is an 89-year-old hypertensive diabetic lady with past medical history of polyneuropathy, visual impairment, repeated falls, who is status post mechanical fall March 15 2020 with fracture, left #11 rib, L1-4 transverse processes, severe pain, increased risk of repeated falls. She is medically complex needing coordination and management of hypertension, diabetes, hypothyroidism, gout, MITCH with periodic limb movement disorder, class III obesity and visual impairment. Pain management, safety, compensatory strategies for proprioceptive difficulties implemented as part of her rehabilitation program. PLAN: Rehab- PT/OT advance gait and ADls, strengthen/stretch/maintain ROM all 4 limbs, We'll continue to work on timing pain medication with therapy interventions to optimize possible capacity to participate. MSK-using abdominal binder to help keep area stabilized and reduce pain while working on mobility training, optimal pain medication management Continue Gout medication allopurinol Ca Vit D Mg for osteoporosis Endo-NIDDM, optimized medications, BS tight control, hypothyroid continue usual home regimen c/w levothyroxine 137 mcg daily CVD-S/P prior TAVR, HTN, HLD, monitor BP, maintain optimal medication management, c/w losartan. furosemide. ASA Neuro-MITCH with RLS, neuropathy, proprioceptive sensory abnormalities, pain, hearing loss, balance optimizing medication management with CKD, replace hearing aid batteries, added Brimonidine and timolol to med list, need clarity on prednisolone drops. -hx multiple procedures, CKD, monitor output, usual bladder training protocols GI-PPX, usual bowel program Class 3 obesity: BMI 45.8 and IDDM. Complicating care. Resp -incentive spirometry, monitor for infection, increased risk due to mm splinting related to rib fx. MITCH with periodic limb movement disorder: CPAP 14 cm H20, encouraged to use device from home. PROGNOSIS: Excellent. ESTIMATED LENGTH OF STAY:10-14 days. PROJECTED DISCHARGE DESTINATION: Home with family support and any durable medical equipment required to increase functional safety and mobility. TIME SPENT CHART REVIEW, EXAMINATION AND COORDINATING CARE: 35 minutes. Allergies Coded Allergies: butorphanol (Verified Allergy, Unknown, 03/07/20) Vital Signs Vital Signs Date Time Temp Pulse Resp B/P (MAP) Pulse Ox O2 Delivery O2 Flow Rate FiO2 03/23/20 07:34 132/68 03/23/20 05:49 97.9 62 17 96 Room Air Laboratory Data Labs 24H Laboratory Tests 2 03/22/20 11:12: Bedside Glucose (Misc Panel) 161H 11/5/20 16:08: Bedside Glucose (Misc Panel) 161H 03/22/20 20:43: Bedside Glucose (Misc Panel) 227H 03/23/20 05:10: Bedside Glucose (Misc Panel) 104 Current Medications Current Medications Current Medications Medications (Trade) Dose Ordered Sig/Salo Route PRN Reason Start Time Stop Time Status Last Admin Dose Admin Acetaminophen (Tylenol Arthritis Er) 650 mg BID PO 03/20/20 21:00 03/23/20 07:33 Acetaminophen (Tylenol Tab) 1,000 mg Q6HP PRN PO MILD PAIN (PS 1-4) 03/20/20 15:45 03/22/20 10:32 Albuterol Sulfate (Proventil, Ventolin Hfa) 2 puff Q4H PRN INH SHORTNESS OF BREATH 03/20/20 21:00 Allopurinol (Zyloprim) 300 mg DAILY PO 03/21/20 09:00 03/23/20 07:34 Aspirin (Ecotrin) 81 mg DAILY PO 03/21/20 09:00 03/23/20 07:33 Atorvastatin Calcium (Lipitor) 20 mg DAILY PO 03/21/20 09:00 03/23/20 07:35 Calcitriol (Rocaltrol) 0.25 mcg MoTuWeThFr PO 03/20/20 09:00 03/23/20 07:34 Diclofenac Epolamine (Flector 1.3%) 2 patch Q12H TOP 03/20/20 19:30 03/22/20 11:42 DC 03/21/20 20:47 Docusate Sodium (Colace) 100 mg BID PO 03/20/20 21:00 03/23/20 07:37 Fluticasone Propionate (Flonase 0.05% Nasal [place]) 1 spray QHS PRN NA NASAL CONGESTION 03/20/20 21:00 Furosemide (Lasix) 60 mg DAILY PO 03/21/20 09:00 03/23/20 07:35 Gabapentin (Neurontin) 400 mg BID PO 03/20/20 21:00 03/23/20 07:33 Home Med (Med Rec Complete!) ASDIRECTED XX 03/20/20 18:15 03/20/20 18:12 DC Insulin Human NPH (HumuLIN NPH INSULIN) 20 units QHS SC 03/20/20 21:00 11/5/20 21:19 Insulin Human NPH (HumuLIN NPH INSULIN) 70 units DAILY SC 03/21/20 09:00 03/23/20 07:33 Latanoprost (Xalatan 0.005% Op Soln) 1 drop QHS OU 03/20/20 21:00 03/22/20 21:20 Levothyroxine Sodium (Synthroid) 137 mcg DAILY@0600 PO 03/21/20 06:00 03/23/20 05:21 Lidocaine (Lidoderm Patch) 1 patch DAILY PRN TD PAIN 03/20/20 09:00 03/22/20 10:33 Loratadine (Claritin) 10 mg DAILY PO 03/21/20 09:00 03/23/20 07:35 Losartan Potassium (Cozaar) 50 mg DAILY PO 03/21/20 09:00 03/23/20 07:34 Magnesium Oxide (Mag-Ox) 400 mg QPM PO 03/20/20 21:00 03/22/20 21:18 Multivitamins (Theragram-M) 1 tab DAILY PO 03/21/20 09:00 03/23/20 07:36 Non-Formulary Medication ( See Comment Field Below ) REMOVE LIDODERM PATCH DAILY@21 XX 03/20/20 21:00 03/22/20 21:20 Oxybutynin Chloride (Ditropan) 5 mg DAILY PO 03/21/20 09:00 03/23/20 07:35 Pantoprazole Sodium (Protonix) 40 mg DAILY PO 03/21/20 09:00 03/23/20 07:34 Prednisolone Acetate (Predforte 1% Ophth Susp) 1 drop QID OU 03/20/20 21:00 03/23/20 07:36 Vitamin A (Vitamin A) 10,000 units QPM PO 03/20/20 21:00 03/22/20 21:17 Vitamin D (Vitamin D) 1,000 units QPM PO 03/20/20 21:00 03/22/20 21:17 CODY WALKER MD Mar 23, 2020 08:58
[2020-03-23] MEDS ORDERED: BRIMONIDINE 0.1% OPHTH SOLN 5 ML OU SCH (09:00)
[2020-03-23] MEDS: TIMOLOL MALEATE 0.5% OPHTH SOLN 5 ML OU SCH ×2 (09:53→21:49)
[2020-03-23] MEDS: BRIMONIDINE 0.15% OPHTH SOLN 5 ML OU SCH ×2 (11:08→21:50)
[2020-03-23] MEDS: METAMUCIL (PSYLLIUM) PACKET PO SCH (11:08)
[2020-03-23 14:00] VITALS: BP 118/53
[2020-03-23 21:00] VITALS: BP 131/66
[2020-03-23] MEDS: **NOTE PATIENT COMMENT** MISC XX SCH (21:00)
[2020-03-23] MEDS: VITAMIN D 1,000 INTERNATIONAL UNITS TABLET PO SCH (21:48)
[2020-03-23] MEDS: MAGNESIUM OXIDE 400 MG TAB (MAG-OX) PO SCH (21:48)
[2020-03-23] MEDS: LATANOPROST 0.005% OPHTH SOLN 2.5 ML OU SCH (21:50)
[2020-03-23] MEDS: VITAMIN A 10,000 INTERNATIONAL UNITS CAP PO SCH (21:52)
[2020-03-24] MEDS: LEVOTHYROXINE 137MCG TABLET (0.137MG) PO SCH (05:46)
[2020-03-24 06:00] VITALS: BP 156/82
[2020-03-24] MEDS: HumuLIN N INSULIN (NovoLIN N) PER UNIT SC SCH (08:31)
[2020-03-24] MEDS: METAMUCIL (PSYLLIUM) PACKET PO SCH (09:17)
[2020-03-24] MEDS: MULTIVITAMINS/MINERALS THERAP 1 TAB PO SCH (09:17)
[2020-03-24] MEDS: DOCUSATE SODIUM 100 MG CAP PO SCH ×2 (09:18→21:00)
[2020-03-24] MEDS: ACETAMINOPHEN 650MG ER TAB (TYLENOL ARTHRITIS) PO SCH ×2 (09:18→21:10)
[2020-03-24] MEDS: allopurinoL 300 MG TAB PO SCH (09:18)
[2020-03-24] MEDS: GABAPENTIN 400 MG CAP PO SCH ×2 (09:18→21:09)
[2020-03-24] MEDS: ASPIRIN 81 MG ENTERIC TAB PO SCH (09:18)
[2020-03-24] MEDS: oxyBUTYnin 5 MG TAB PO SCH (09:18)
[2020-03-24] MEDS: ATORVASTATIN 20 MG TAB PO SCH (09:18)
[2020-03-24] MEDS: LORATADINE 10 MG TAB PO SCH (09:18)
[2020-03-24] MEDS: PANTOPRAZOLE 40MG TAB (PROTONIX) PO SCH (09:19)
[2020-03-24] MEDS: FUROSEMIDE 40 MG TAB PO SCH (09:19)
[2020-03-24] MEDS: BRIMONIDINE 0.15% OPHTH SOLN 5 ML OU SCH ×2 (09:20→21:13)
[2020-03-24] MEDS: prednisoLONE ACET 1% OPHTH SUSP 5ML OU SCH ×4 (09:20→21:13)
[2020-03-24] MEDS: TIMOLOL MALEATE 0.5% OPHTH SOLN 5 ML OU SCH ×2 (09:20→21:13)
[2020-03-24] MEDS: LOSARTAN 50MG TABLET PO SCH (09:34)
[2020-03-24 14:00] VITALS: BP 130/59
[2020-03-24 19:57] VITALS: BP 165/76
[2020-03-24] MEDS: VITAMIN D 1,000 INTERNATIONAL UNITS TABLET PO SCH (21:09)
[2020-03-24] MEDS: **NOTE PATIENT COMMENT** MISC XX SCH (21:10)
[2020-03-24] MEDS: VITAMIN A 10,000 INTERNATIONAL UNITS CAP PO SCH (21:10)
[2020-03-24] MEDS: MAGNESIUM OXIDE 400 MG TAB (MAG-OX) PO SCH (21:10)
[2020-03-24] MEDS: LATANOPROST 0.005% OPHTH SOLN 2.5 ML OU SCH (21:13)
[2020-03-25] MEDS: LEVOTHYROXINE 137MCG TABLET (0.137MG) PO SCH (05:56)
[2020-03-25 06:36] VITALS: BP 152/84
[2020-03-25] MEDS: ASPIRIN 81 MG ENTERIC TAB PO SCH (08:54)
[2020-03-25] MEDS: GABAPENTIN 400 MG CAP PO SCH ×2 (08:54→20:39)
[2020-03-25] MEDS: LIDOCAINE 5% (LIDODERM) PATCH TD PRN (08:54)
[2020-03-25] MEDS: METAMUCIL (PSYLLIUM) PACKET PO SCH (08:54)
[2020-03-25] MEDS: MULTIVITAMINS/MINERALS THERAP 1 TAB PO SCH (08:58)
[2020-03-25] MEDS: allopurinoL 300 MG TAB PO SCH (08:58)
[2020-03-25] MEDS: HumuLIN N INSULIN (NovoLIN N) PER UNIT SC SCH (08:58)
[2020-03-25] MEDS: ACETAMINOPHEN 650MG ER TAB (TYLENOL ARTHRITIS) PO SCH ×2 (08:58→20:39)
[2020-03-25] MEDS: LORATADINE 10 MG TAB PO SCH (08:58)
[2020-03-25] MEDS: oxyBUTYnin 5 MG TAB PO SCH (08:58)
[2020-03-25] MEDS: PANTOPRAZOLE 40MG TAB (PROTONIX) PO SCH (08:59)
[2020-03-25] MEDS: DOCUSATE SODIUM 100 MG CAP PO SCH ×2 (08:59→20:39)
[2020-03-25] MEDS: ATORVASTATIN 20 MG TAB PO SCH (08:59)
[2020-03-25] MEDS: LOSARTAN 50MG TABLET PO SCH (08:59)
[2020-03-25] MEDS: FUROSEMIDE 40 MG TAB PO SCH (08:59)
[2020-03-25] MEDS: TIMOLOL MALEATE 0.5% OPHTH SOLN 5 ML OU SCH ×2 (09:00→20:40)
[2020-03-25] MEDS: prednisoLONE ACET 1% OPHTH SUSP 5ML OU SCH ×4 (09:00→20:41)
[2020-03-25] MEDS: BRIMONIDINE 0.15% OPHTH SOLN 5 ML OU SCH ×2 (09:00→20:40)
[2020-03-25 14:00] VITALS: BP 140/77
[2020-03-25] MEDS: VITAMIN D 1,000 INTERNATIONAL UNITS TABLET PO SCH (20:39)
[2020-03-25] MEDS: MAGNESIUM OXIDE 400 MG TAB (MAG-OX) PO SCH (20:39)
[2020-03-25] MEDS: VITAMIN A 10,000 INTERNATIONAL UNITS CAP PO SCH (20:39)
[2020-03-25] MEDS: LATANOPROST 0.005% OPHTH SOLN 2.5 ML OU SCH (20:40)
[2020-03-25] MEDS: **NOTE PATIENT COMMENT** MISC XX SCH (20:41)
[2020-03-25 21:00] VITALS: BP 162/67
[2020-03-25 22:32] VITALS: BP 142/58
[2020-03-26] MEDS: LEVOTHYROXINE 137MCG TABLET (0.137MG) PO SCH (05:22)
[2020-03-26 05:23] VITALS: BP 140/62
[2020-03-26] MEDS: HumuLIN N INSULIN (NovoLIN N) PER UNIT SC SCH (08:11)
[2020-03-26] MEDS: oxyBUTYnin 5 MG TAB PO SCH (08:11)
[2020-03-26] MEDS: FUROSEMIDE 40 MG TAB PO SCH (08:12)
[2020-03-26] MEDS: ACETAMINOPHEN 650MG ER TAB (TYLENOL ARTHRITIS) PO SCH ×2 (08:12→20:51)
[2020-03-26] MEDS: MULTIVITAMINS/MINERALS THERAP 1 TAB PO SCH (08:12)
[2020-03-26] MEDS: CALCITRIOL 0.25 MCG CAP (S0169) PO SCH (08:12)
[2020-03-26] MEDS: ASPIRIN 81 MG ENTERIC TAB PO SCH (08:12)
[2020-03-26] MEDS: DOCUSATE SODIUM 100 MG CAP PO SCH ×2 (08:12→20:52)
[2020-03-26] MEDS: allopurinoL 300 MG TAB PO SCH (08:12)
[2020-03-26] MEDS: PANTOPRAZOLE 40MG TAB (PROTONIX) PO SCH (08:13)
[2020-03-26] MEDS: LOSARTAN 50MG TABLET PO SCH (08:13)
[2020-03-26] MEDS: METAMUCIL (PSYLLIUM) PACKET PO SCH (08:13)
[2020-03-26] MEDS: LORATADINE 10 MG TAB PO SCH (08:13)
[2020-03-26] MEDS: ATORVASTATIN 20 MG TAB PO SCH (08:13)
[2020-03-26] MEDS: GABAPENTIN 400 MG CAP PO SCH ×2 (08:13→20:52)
[2020-03-26] MEDS: BRIMONIDINE 0.15% OPHTH SOLN 5 ML OU SCH ×2 (08:18→20:53)
[2020-03-26] MEDS: TIMOLOL MALEATE 0.5% OPHTH SOLN 5 ML OU SCH ×2 (08:19→20:53)
[2020-03-26] MEDS: prednisoLONE ACET 1% OPHTH SUSP 5ML OU SCH ×4 (08:19→20:53)
[2020-03-26 14:00] VITALS: BP 154/67
[2020-03-26] MEDS ORDERED: GLUCOSE 4GM CHEW TABLET PO PRN (15:45)
[2020-03-26] MEDS ORDERED: DEXTROSE 50% 50 ML SYRINGE IV PRN (15:45)
[2020-03-26] MEDS ORDERED: HumaLOG INSULIN (NovoLOG) PER UNIT SC SCH (15:45)
[2020-03-26] MEDS ORDERED: GLUCAGON INJ 1MG VIAL SC PRN (15:45)
[2020-03-26] MEDS: HumaLOG INSULIN (NovoLOG) PER UNIT SC SCH (17:12)
[2020-03-26 20:30] VITALS: BP 150/65
[2020-03-26] MEDS: VITAMIN D 1,000 INTERNATIONAL UNITS TABLET PO SCH (20:51)
[2020-03-26] MEDS: VITAMIN A 10,000 INTERNATIONAL UNITS CAP PO SCH (20:51)
[2020-03-26] MEDS: MAGNESIUM OXIDE 400 MG TAB (MAG-OX) PO SCH (20:52)
[2020-03-26] MEDS: LATANOPROST 0.005% OPHTH SOLN 2.5 ML OU SCH (20:53)
[2020-03-26] MEDS: **NOTE PATIENT COMMENT** MISC XX SCH (20:54)
[2020-03-27 05:48] VITALS: BP 140/77
[2020-03-27] MEDS: LEVOTHYROXINE 137MCG TABLET (0.137MG) PO SCH (06:12)
[2020-03-27] MEDS: ACETAMINOPHEN 650MG ER TAB (TYLENOL ARTHRITIS) PO SCH ×2 (07:23→20:16)
[2020-03-27] MEDS: CALCITRIOL 0.25 MCG CAP (S0169) PO SCH (07:23)
[2020-03-27] MEDS: FUROSEMIDE 40 MG TAB PO SCH (07:23)
[2020-03-27] MEDS: ASPIRIN 81 MG ENTERIC TAB PO SCH (07:23)
[2020-03-27] MEDS: GABAPENTIN 400 MG CAP PO SCH ×2 (07:24→20:16)
[2020-03-27] MEDS: DOCUSATE SODIUM 100 MG CAP PO SCH ×2 (07:24→20:15)
[2020-03-27] MEDS: allopurinoL 300 MG TAB PO SCH (07:24)
[2020-03-27] MEDS: MULTIVITAMINS/MINERALS THERAP 1 TAB PO SCH (07:24)
[2020-03-27] MEDS: METAMUCIL (PSYLLIUM) PACKET PO SCH (07:24)
[2020-03-27] MEDS: LOSARTAN 50MG TABLET PO SCH (07:24)
[2020-03-27] MEDS: PANTOPRAZOLE 40MG TAB (PROTONIX) PO SCH (07:24)
[2020-03-27] MEDS: ATORVASTATIN 20 MG TAB PO SCH (07:24)
[2020-03-27] MEDS: LORATADINE 10 MG TAB PO SCH (07:24)
[2020-03-27] MEDS: oxyBUTYnin 5 MG TAB PO SCH (07:24)
[2020-03-27] MEDS: HumaLOG INSULIN (NovoLOG) PER UNIT SC SCH ×2 (07:25→17:08)
[2020-03-27] MEDS: TIMOLOL MALEATE 0.5% OPHTH SOLN 5 ML OU SCH ×2 (07:29→20:18)
[2020-03-27] MEDS: HumuLIN N INSULIN (NovoLIN N) PER UNIT SC SCH (07:29)
[2020-03-27] MEDS: BRIMONIDINE 0.15% OPHTH SOLN 5 ML OU SCH ×2 (07:29→20:18)
[2020-03-27] MEDS: prednisoLONE ACET 1% OPHTH SUSP 5ML OU SCH ×4 (07:29→20:18)
--- NOTE | 2020-03-27 09:14 | IPNPDOC ---
PM&R Progress Note DATE OF SERVICE: Mar 27, 2020 [employer] Progress Note DATE OF ADMISSION: Mar 20, 2020 at 17:25 INPATIENT REHABILITATION ADMISSION DAY: #8 CHIEF COMPLAINT: . 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 She was admitted to hospital 03/15 with finding of rib fracture #11 on the left, fracture of the left transverse processes L1-4. Patient lives alone with family nearby. She has a history of repeated falls, including one where she hit her head previously, and one where she fractured her left fibula previously. Vital signs and labs remained stable and patient making excellent progress in comprehensive rehabilitation to work on gait training, balance retraining, safety issues and pain management. She feels the addition of abdominal binder is helpful for transtional movements, uses as needed. Desires additional education and suggestions on managing Diabetes, apparently has received variety of input regarding Insulin doses, and recent spike in BC warranted full sliding scale coverage Will encourage her participation in the process with nursing education to optimize carryover in the home environment. REVIEW OF SYSTEMS: The following is a completed review of systems. PAIN: back pain. EYES: Visual impairment. EARS, NOSE, & THROAT: No throat pain, or dysphagia, or rhinorrhea, notes hearing deficits. CARDIOVASCULAR: Denies chest pain or palpitations. PULMONARY: Denies shortness of breath. GASTROINTESTINAL: regular, inclusion of Fiber simulating dietary habits at home GENITOURINARY: s/p bladder suspension surgeries MUSCULOSKELETAL: back pain NEUROLOGICAL:.peripheral neuropathy, numbness distal upper and lower extremities with altered sensory perception HEMATOLOGICAL: .bruising SKIN: intact PSYCHIATRIC: Unremarkable. All other review of systems found to be negative. 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 MEDICATIONS: Please see below. SOCIAL HISTORY: Former smoker Occasional etoh use Lives alone FAMILY HISTORY: Father - "fluid in the lungs" Mother - - septic shock Brother - Parkinson Daughter - DM DIET: regular. PHYSICAL EXAMINATION: VITAL SIGNS: Please see below. GENERAL: Pleasant and cooperative. No acute distress. Alert and oriented times three. HEENT: PERRL. Extraocular movements intact. CARDIOVASCULAR: S1,S2 III/ SM CHEST: Lungs clear to auscultation bilaterally. No wheezes. No rhonchi. Fading tangential linear ecchymoses encircling mid and lower thoracic regions on left. Minimal tenderness thoracolumbar lumbosacral regions, less spasm. Symmetric expansion during respiratory cycle. ABDOMEN: Soft, obese. Positive normal active bowel sounds. NEUROLOGICAL: Alert and oriented times three. Sensation decreased to pinprick bilateral forelegs below knee worse L5, more intact S1 distribution. Decreased bilateral hands glove distribution. Proprioception equivocal right toes. EXTREMITIES: 5/5 all 4 extremities SKIN: intact, ecchymoses around trunk as described . LABORATORY DATA: Please see below. FBS 149 slight improvement over 184 yesterday IMAGING: CT head wo contrast 03/18/20: 1. Chronic small-vessel white matter ischemic changes of aging with [id number] cerebral and cerebellar atrophy, all stable. No acute infarct, intracranial hemorrhage or mass 2. Skull base and calvarium without fracture or focal lesion. Only minor anterior ethmoid air cell mucosal thickening with the other visualized sinuses and mastoids clear. Stable exam. CT C-spine 03/18/20: Degenerative spondylosis changes. Findings unchanged from March 15, 2020. No traumatic abnormality. CXR 03/18/20: Borderline heart size dad is post aortic valve replacement. No infiltrate, effusion, or edema seen. FUNCTIONAL STATUS: Premorbid: Independent with all activities of daily life as well as mobility. Case to be discussed in team rounds. Doing well with room privileges. Making excellent progress in building endurance, gait pattern, stability, speed, distance, now progressing to walk without assistive device. GOALS: Optimal safe mobility and self-care skills ASSESSMENT Left #11 rib fracture. Left transverse process nondisplaced fractures L1-4 Contusions trunk and back Osteoporosis. ID DM with neuropathy. Class III obesity. Glaucoma with Visual impairment Hearing impairment This is an 89-year-old hypertensive diabetic lady with past medical history of polyneuropathy, visual impairment, repeated falls, who is status post mechanical fall March 15 2020 with fracture, left #11 rib, L1-4 transverse processes, severe pain, increased risk of repeated falls. She is medically complex needing coordination and management of hypertension, diabetes, hypothyroidism, gout, MITCH with periodic limb movement disorder, class III obesity and visual impairment. Pain management, safety, compensatory strategies for proprioceptive difficulties implemented as part of her rehabilitation program. PLAN: Rehab- PT/OT advance gait and ADls, strengthen/stretch/maintain ROM all 4 limbs, We'll continue to work on timing pain medication with therapy interventions to optimize possible capacity to participate. MSK-using abdominal binder to help keep area stabilized and reduce pain while working on mobility training, optimal pain medication management Continue Gout medication allopurinol Ca Vit D Mg for osteoporosis Endo-NIDDM, optimized medications, BS losing prior tight control, patient education, adjustment of meds, hypothyroid continue usual home regimen c/w levothyroxine 137 mcg daily CVD-S/P prior TAVR, HTN, HLD, monitor BP, maintain optimal medication management, c/w losartan. furosemide. ASA Neuro-MITCH with RLS, neuropathy, proprioceptive sensory abnormalities, pain, hearing loss, balance optimizing medication management with CKD, replace hearing aid batteries, added Brimonidine and timolol to med list, need clarity on prednisolone drops. -hx multiple procedures, CKD, monitor output, usual bladder training protocols GI-PPX, usual bowel program Class 3 obesity: BMI 45.8 and IDDM. Complicating care. Resp -incentive spirometry, monitor for infection, increased risk due to mm splinting related to rib fx, stable thus far. MITCH with periodic limb movement disorder: CPAP 14 cm H20, encouraged to use device from home. PROGNOSIS: Excellent. ESTIMATED LENGTH OF STAY:10-14 days. PROJECTED DISCHARGE DESTINATION: Home with family support and any durable medical equipment required to increase functional safety and mobility. TIME SPENT CHART REVIEW, EXAMINATION AND COORDINATING CARE: 35 minutes. Allergies Coded Allergies: butorphanol (Verified Allergy, Unknown, 03/07/20) Vital Signs Vital Signs Date Time Temp Pulse Resp B/P (MAP) Pulse Ox O2 Delivery O2 Flow Rate FiO2 03/27/20 07:24 140/77 03/27/20 05:48 98.4 65 18 95 Room Air Laboratory Data Labs 24H Laboratory Tests 2 03/26/20 16:45: Bedside Glucose (Misc Panel) 137H 03/27/20 05:57: Bedside Glucose (Misc Panel) 149H Current Medications Current Medications Current Medications Medications (Trade) Dose Ordered Sig/Salo Route PRN Reason Start Time Stop Time Status Last Admin Dose Admin Acetaminophen (Tylenol Arthritis Er) 650 mg BID PO 03/20/20 21:00 03/27/20 07:23 Acetaminophen (Tylenol Tab) 1,000 mg Q6HP PRN PO MILD PAIN (PS 1-4) 03/20/20 15:45 03/22/20 10:32 Albuterol Sulfate (Proventil, Ventolin Hfa) 2 puff Q4H PRN INH SHORTNESS OF BREATH 03/20/20 21:00 Allopurinol (Zyloprim) 300 mg DAILY PO 03/21/20 09:00 03/27/20 07:24 Aspirin (Ecotrin) 81 mg DAILY PO 03/21/20 09:00 03/27/20 07:23 Atorvastatin Calcium (Lipitor) 20 mg DAILY PO 03/21/20 09:00 03/27/20 07:24 Brimonidine Tartrate (Alphagan P 0.15%) 1 drop BID OU 03/23/20 09:00 03/27/20 07:29 Brimonidine Tartrate (Alphagan P 0.1%) 1 drop DAILY OU 03/23/20 09:00 UNV Calcitriol (Rocaltrol) 0.25 mcg MoTuWeThFr PO 03/20/20 09:00 03/27/20 07:23 Dextrose (Dextrose 50%) 25 ml ASDIRECTED PRN IV SEE LABEL COMMENTS 03/26/20 15:45 Diclofenac Epolamine (Flector 1.3%) 2 patch Q12H TOP 03/20/20 19:30 03/22/20 11:42 DC 03/21/20 20:47 Docusate Sodium (Colace) 100 mg BID PO 03/20/20 21:00 03/27/20 07:24 Fluticasone Propionate (Flonase 0.05% Nasal [place]) 1 spray QHS PRN NA NASAL CONGESTION 03/20/20 21:00 Furosemide (Lasix) 60 mg DAILY PO 03/21/20 09:00 03/27/20 07:23 Gabapentin (Neurontin) 400 mg BID PO 03/20/20 21:00 03/27/20 07:24 Glucagon (Glucagon) 1 mg ASDIRECTED PRN SC SEE LABEL COMMENTS 03/26/20 15:45 Glucose (Glucose) 16 GM ASDIRECTED PRN PO SEE LABEL COMMENTS 03/26/20 15:45 Home Med (Med Rec Complete!) ASDIRECTED XX 03/20/20 18:15 03/20/20 18:12 DC Insulin Human Lispro (HumaLOG INSULIN) SEE PROTOCOL TAB... ASDIRECTED SC 03/26/20 15:45 03/26/20 16:16 DC Insulin Human Lispro (HumaLOG INSULIN) SEE PROTOCOL TAB... BID@[id number],[id number] DE 03/26/20 17:30 03/27/20 07:25 Insulin Human NPH (HumuLIN NPH INSULIN) 20 units QHS SC 03/20/20 21:00 03/24/20 10:39 DC 03/23/20 22:03 Insulin Human NPH (HumuLIN NPH INSULIN) 50 units DAILY SC 03/25/20 09:00 03/27/20 07:29 Insulin Human NPH (HumuLIN NPH INSULIN) 70 units DAILY SC 03/21/20 09:00 03/24/20 10:39 DC 03/23/20 07:33 Latanoprost (Xalatan 0.005% Op Soln) 1 drop QHS OU 03/20/20 21:00 03/26/20 20:53 Levothyroxine Sodium (Synthroid) 137 mcg DAILY@0600 PO 03/21/20 06:00 03/27/20 06:12 Lidocaine (Lidoderm Patch) 1 patch DAILY PRN TD PAIN 03/20/20 09:00 03/25/20 08:54 Loratadine (Claritin) 10 mg DAILY PO 03/21/20 09:00 03/27/20 07:24 Losartan Potassium (Cozaar) 50 mg DAILY PO 03/21/20 09:00 03/27/20 07:24 Magnesium Oxide (Mag-Ox) 400 mg QPM PO 03/20/20 21:00 03/26/20 20:52 Multivitamins (Theragram-M) 1 tab DAILY PO 03/21/20 09:00 03/27/20 07:24 Non-Formulary Medication ( See Comment Field Below ) REMOVE LIDODERM PATCH DAILY@21 XX 03/20/20 21:00 03/26/20 20:54 Oxybutynin Chloride (Ditropan) 5 mg DAILY PO 03/21/20 09:00 03/27/20 07:24 Pantoprazole Sodium (Protonix) 40 mg DAILY PO 03/21/20 09:00 03/27/20 07:24 Prednisolone Acetate (Predforte 1% Ophth Susp) 1 drop QID OU 03/20/20 21:00 03/27/20 07:29 Psyllium Hydrophilic Mucilloid (Metamucil) 1 pkt DAILY PO 03/23/20 09:00 03/27/20 07:24 Timolol Maleate (Timoptic 0.5% Ophth [place]) 1 drop BID OU 03/23/20 09:00 03/27/20 07:29 Vitamin A (Vitamin A) 10,000 units QPM PO 03/20/20 21:00 03/26/20 20:51 Vitamin D (Vitamin D) 1,000 units QPM PO 03/20/20 21:00 03/26/20 20:51 CODY WALKER MD Mar 27, 2020 09:14
[2020-03-27 11:11] LABS: CREATININE FOR GFR 1.4 MG/DL (0.55-1.30); GLOMERULAR FILTRATION RATE 37.8 (>32); POTASSIUM SERUM 4.9 MEQ/L (3.5-5.1)
[2020-03-27 11:12] LABS: CALCIUM LEVEL 9.2 MG/DL (8.8-10.2)
[2020-03-27 14:00] VITALS: BP 151/66
[2020-03-27 20:00] VITALS: BP 163/70
[2020-03-27] MEDS: VITAMIN A 10,000 INTERNATIONAL UNITS CAP PO SCH (20:15)
[2020-03-27] MEDS: MAGNESIUM OXIDE 400 MG TAB (MAG-OX) PO SCH (20:15)
[2020-03-27] MEDS: VITAMIN D 1,000 INTERNATIONAL UNITS TABLET PO SCH (20:16)
[2020-03-27] MEDS: **NOTE PATIENT COMMENT** MISC XX SCH (20:17)
[2020-03-27] MEDS: LATANOPROST 0.005% OPHTH SOLN 2.5 ML OU SCH (20:18)
[2020-03-28] MEDS: LEVOTHYROXINE 137MCG TABLET (0.137MG) PO SCH (05:15)
[2020-03-28 06:00] VITALS: BP 170/70
[2020-03-28] MEDS ORDERED: lisinopriL 5 MG TAB PO SCH (09:00)
[2020-03-28] MEDS: DOCUSATE SODIUM 100 MG CAP PO SCH ×2 (09:00→21:43)
[2020-03-28] MEDS: BRIMONIDINE 0.15% OPHTH SOLN 5 ML OU SCH ×2 (09:11→21:43)
[2020-03-28] MEDS: TIMOLOL MALEATE 0.5% OPHTH SOLN 5 ML OU SCH ×2 (09:12→21:43)
[2020-03-28] MEDS: prednisoLONE ACET 1% OPHTH SUSP 5ML OU SCH ×4 (09:12→21:44)
[2020-03-28] MEDS: HumaLOG INSULIN (NovoLOG) PER UNIT SC SCH ×2 (09:12→17:08)
[2020-03-28] MEDS: GABAPENTIN 400 MG CAP PO SCH ×2 (09:13→21:43)
[2020-03-28] MEDS: HumuLIN N INSULIN (NovoLIN N) PER UNIT SC SCH (09:13)
[2020-03-28] MEDS: FUROSEMIDE 40 MG TAB PO SCH (09:13)
[2020-03-28] MEDS: CALCITRIOL 0.25 MCG CAP (S0169) PO SCH (09:13)
[2020-03-28] MEDS: ATORVASTATIN 20 MG TAB PO SCH (09:13)
[2020-03-28] MEDS: ACETAMINOPHEN 650MG ER TAB (TYLENOL ARTHRITIS) PO SCH ×2 (09:14→21:43)
[2020-03-28] MEDS: MULTIVITAMINS/MINERALS THERAP 1 TAB PO SCH (09:14)
[2020-03-28] MEDS: allopurinoL 300 MG TAB PO SCH (09:14)
[2020-03-28] MEDS: LOSARTAN 50MG TABLET PO SCH (09:14)
[2020-03-28] MEDS: ASPIRIN 81 MG ENTERIC TAB PO SCH (09:14)
[2020-03-28] MEDS: oxyBUTYnin 5 MG TAB PO SCH (09:14)
[2020-03-28] MEDS: LORATADINE 10 MG TAB PO SCH (09:14)
[2020-03-28] MEDS: PANTOPRAZOLE 40MG TAB (PROTONIX) PO SCH (09:14)
[2020-03-28] MEDS: LIDOCAINE 5% (LIDODERM) PATCH TD PRN (09:16)
[2020-03-28] MEDS: METAMUCIL (PSYLLIUM) PACKET PO SCH (09:18)
[2020-03-28] MEDS ORDERED: **Note Patient Comment XX (09:28)
[2020-03-28] MEDS ORDERED: META1POW PO (09:28)
[2020-03-28] MEDS ORDERED: INSUNSD SC (09:28)
[2020-03-28 14:00] VITALS: BP 128/86
--- NOTE | 2020-03-28 15:03 | IPNPDOC ---
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 She was admitted to hospital 03/15 with finding of rib fracture #11 on the left, fracture of the left transverse processes L1-4. Patient lives alone with family nearby. She has a history of repeated falls, including one where she hit her head previously, and one where she fractured her left fibula previously. Vital signs and labs remained stable and patient making excellent progress in comprehensive rehabilitation to work on gait training, balance retraining, safety issues and pain management. She feels the addition of abdominal binder is helpful for transtional movements, uses as needed. Desires additional education and suggestions on managing Diabetes, apparently has received variety of input regarding Insulin doses, and recent spike in BC warranted full sliding scale coverage Will encourage her participation in the process with nursing education to optimize carryover in the home environment. REVIEW OF SYSTEMS: The following is a completed review of systems. PAIN: back pain. EYES: Visual impairment. EARS, NOSE, & THROAT: No throat pain, or dysphagia, or rhinorrhea, notes hearing deficits. CARDIOVASCULAR: Denies chest pain or palpitations. PULMONARY: Denies shortness of breath. GASTROINTESTINAL: regular, inclusion of Fiber simulating dietary habits at home GENITOURINARY: s/p bladder suspension surgeries MUSCULOSKELETAL: back pain NEUROLOGICAL:.peripheral neuropathy, numbness distal upper and lower extremities with altered sensory perception HEMATOLOGICAL: .bruising SKIN: intact PSYCHIATRIC: Unremarkable. All other review of systems found to be negative. ALLERGIES: Please see below. MEDICATIONS: Please see below. DIET: regular. PHYSICAL EXAMINATION: VITAL SIGNS: Please see below. BP slightly better this afternoon than this morning 1602-170s, dropped to 128. Need to monitor orthostatics. GENERAL: Pleasant and cooperative. No acute distress. Alert and oriented times three. HEENT: PERRL. Extraocular movements intact. CARDIOVASCULAR: S1,S2 III/ SM CHEST: Lungs clear to auscultation bilaterally. No wheezes. No rhonchi. Fading tangential linear ecchymoses encircling mid and lower thoracic regions on left. Minimal tenderness thoracolumbar lumbosacral regions, less spasm. Symmetric expansion during respiratory cycle. ABDOMEN: Soft, obese. Positive normal active bowel sounds. NEUROLOGICAL: Alert and oriented times three. EXTREMITIES: 5/5 all 4 extremities SKIN: intact, ecchymoses around trunk as described . LABORATORY DATA: Please see below. FBS 149 slight improvement over 184 yesterday IMAGING: CT head wo contrast 03/18/20: 1. Chronic small-vessel white matter ischemic changes of aging with [id number] cerebral and cerebellar atrophy, all stable. No acute infarct, intracranial hemorrhage or mass 2. Skull base and calvarium without fracture or focal lesion. Only minor anterior ethmoid air cell mucosal thickening with the other visualized sinuses and mastoids clear. Stable exam. CT C-spine 03/18/20: Degenerative spondylosis changes. Findings unchanged from March 15, 2020. No traumatic abnormality. CXR 03/18/20: Borderline heart size dad is post aortic valve replacement. No infiltrate, effusion, or edema seen. FUNCTIONAL STATUS: Premorbid: Independent with all activities of daily life as well as mobility. Doing well with room privileges. Making excellent progress in building endurance, gait pattern, stability, speed, distance, now progressing to walk without assistive device. Working on functional activities simulating grocery shopping, navigating uneven surfaces, thresholds and on and off curbs using the wheeled walker. Problem solving strategies rehearsed. GOALS: Optimal safe mobility and self-care skills ASSESSMENT Left #11 rib fracture. Left transverse process nondisplaced fractures L1-4 Contusions trunk and back Osteoporosis. ID DM with neuropathy. Class III obesity. Glaucoma with Visual impairment Hearing impairment This is an 89-year-old hypertensive diabetic lady with past medical history of polyneuropathy, visual impairment, repeated falls, who is status post mechanical fall March 15 2020 with fracture, left #11 rib, L1-4 transverse processes, severe pain, increased risk of repeated falls. She is medically complex needing coordination and management of hypertension, diabetes, hypothyroidism, gout, MITCH with periodic limb movement disorder, class III obesity and visual impairment. Pain management, safety, compensatory strategies for proprioceptive difficulties implemented as part of her rehabilitation program. PLAN: Rehab- PT/OT advance gait and ADls, strengthen/stretch/maintain ROM all 4 limbs, We'll continue to work on higher order ADLs and transition to complete independence in her home environment. MSK-work on consistently using abdominal binder to help keep area stabilized and reduce pain while working on mobility training, optimal pain medication management Continue Gout medication allopurinol Ca Vit D Mg for osteoporosis Endo-NIDDM, optimized medications, BS losing prior tight control, FBS 182, slight drop in sodium to 134, continue patient education, adjustment of meds, hypothyroid continue usual home regimen c/w levothyroxine 137 mcg daily CVD-S/P prior TAVR, HTN, HLD, monitor BP, maintain optimal medication management, c/w losartan. furosemide. ASA Neuro-MITCH with RLS, neuropathy, proprioceptive sensory abnormalities, pain, he aring loss, balance optimizing medication management with CKD, replace hearing aid batteries, added Brimonidine and timolol to med list, need clarity on prednisolone drops. Will need to follow up with operational trainer as an outpatient. -hx multiple procedures, CKD, monitor output, usual bladder training protocols GI-PPX, usual bowel program Class 3 obesity: BMI 45.8 and IDDM. Complicating care. Resp -incentive spirometry, monitor for infection, increased risk due to mm splinting related to rib fx, stable thus far. MITCH with periodic limb movement disorder: CPAP 14 cm H20, encouraged to use device from home. PROGNOSIS: Excellent. TOTAL ESTIMATED LENGTH OF STAY:10-14 days. PROJECTED DISCHARGE DESTINATION: Home with family support and any durable medica l equipment required to increase functional safety and mobility. TIME SPENT CHART REVIEW, EXAMINATION AND COORDINATING CARE: 35 minutes. Allergies Coded Allergies: butorphanol (Verified Allergy, Unknown, 03/07/20) Vital Signs Vital Signs Date Time Temp Pulse Resp B/P (MAP) Pulse Ox O2 Delivery O2 Flow Rate FiO2 03/28/20 14:00 97.7 71 18 128/86 (100) 96 Room Air Laboratory Data Labs 24H Laboratory Tests 2 03/27/20 16:28: Bedside Glucose (Misc Panel) 210H 03/28/20 06:58: Bedside Glucose (Misc Panel) 137H Current Medications Current Medications Current Medications Medications (Trade) Dose Ordered Sig/Salo Route PRN Reason Start Time Stop Time Status Last Admin Dose Admin Acetaminophen (Tylenol Arthritis Er) 650 mg BID PO 03/20/20 21:00 03/28/20 09:14 Acetaminophen (Tylenol Tab) 1,000 mg Q6HP PRN PO MILD PAIN (PS 1-4) 03/20/20 15:45 03/22/20 10:32 Albuterol Sulfate (Proventil, Ventolin Hfa) 2 puff Q4H PRN INH SHORTNESS OF BREATH 03/20/20 21:00 Allopurinol (Zyloprim) 300 mg DAILY PO 03/21/20 09:00 03/28/20 09:14 Aspirin (Ecotrin) 81 mg DAILY PO 03/21/20 09:00 03/28/20 09:14 Atorvastatin Calcium (Lipitor) 20 mg DAILY PO 03/21/20 09:00 03/28/20 09:13 Brimonidine Tartrate (Alphagan P 0.15%) 1 drop BID OU 03/23/20 09:00 03/28/20 09:11 Brimonidine Tartrate (Alphagan P 0.1%) 1 drop DAILY OU 03/23/20 09:00 UNV Calcitriol (Rocaltrol) 0.25 mcg MoTuWeThFr PO 03/20/20 09:00 03/28/20 09:13 Dextrose (Dextrose 50%) 25 ml ASDIRECTED PRN IV SEE LABEL COMMENTS 03/26/20 15:45 Diclofenac Epolamine (Flector 1.3%) 2 patch Q12H TOP 03/20/20 19:30 03/22/20 11:42 DC 03/21/20 20:47 Docusate Sodium (Colace) 100 mg BID PO 03/20/20 21:00 03/27/20 20:15 Fluticasone Propionate (Flonase 0.05% Nasal [place]) 1 spray QHS PRN NA NASAL CONGESTION 03/20/20 21:00 Furosemide (Lasix) 60 mg DAILY PO 03/21/20 09:00 03/28/20 09:13 Gabapentin (Neurontin) 400 mg BID PO 03/20/20 21:00 03/28/20 09:13 Glucagon (Glucagon) 1 mg ASDIRECTED PRN SC SEE LABEL COMMENTS 03/26/20 15:45 Glucose (Glucose) 16 GM ASDIRECTED PRN PO SEE LABEL COMMENTS 03/26/20 15:45 Home Med (Med Rec Complete!) ASDIRECTED XX 03/20/20 18:15 03/20/20 18:12 DC Insulin Human Lispro (HumaLOG INSULIN) SEE PROTOCOL TAB... ASDIRECTED [place] 03/26/20 15:45 03/26/20 16:16 DC Insulin Human Lispro (HumaLOG INSULIN) SEE PROTOCOL TAB... BID@5781,2810 [place] 03/26/20 17:30 03/28/20 09:12 Insulin Human NPH (HumuLIN NPH INSULIN) 20 units QHS SC 03/20/20 21:00 03/24/20 10:39 DC 03/23/20 22:03 Insulin Human NPH (HumuLIN NPH INSULIN) 50 units DAILY SC 03/25/20 09:00 03/28/20 09:13 Insulin Human NPH (HumuLIN NPH INSULIN) 70 units DAILY SC 03/21/20 09:00 03/24/20 10:39 DC 03/23/20 07:33 Latanoprost (Xalatan 0.005% Op Soln) 1 drop QHS OU 03/20/20 21:00 03/27/20 20:18 Levothyroxine Sodium (Synthroid) 137 mcg DAILY@0600 PO 03/21/20 06:00 03/28/20 05:15 Lidocaine (Lidoderm Patch) 1 patch DAILY PRN TD PAIN 03/20/20 09:00 03/28/20 09:16 Lisinopril (Prinivil) 5 mg DAILY PO 03/28/20 09:00 03/28/20 07:58 DC Loratadine (Claritin) 10 mg DAILY PO 03/21/20 09:00 03/28/20 09:14 Losartan Potassium (Cozaar) 50 mg DAILY PO 03/21/20 09:00 03/28/20 09:14 Magnesium Oxide (Mag-Ox) 400 mg QPM PO 03/20/20 21:00 03/27/20 20:15 Multivitamins (Theragram-M) 1 tab DAILY PO 03/21/20 09:00 03/28/20 09:14 Non-Formulary Medication ( See Comment Field Below ) REMOVE LIDODERM PATCH DAILY@21 XX 03/20/20 21:00 03/27/20 20:17 Oxybutynin Chloride (Ditropan) 5 mg DAILY PO 03/21/20 09:00 03/28/20 09:14 Pantoprazole Sodium (Protonix) 40 mg DAILY PO 03/21/20 09:00 03/28/20 09:14 Prednisolone Acetate (Predforte 1% Ophth Susp) 1 drop QID OU 03/20/20 21:00 03/28/20 12:53 Psyllium Hydrophilic Mucilloid (Metamucil) 1 pkt DAILY PO 03/23/20 09:00 03/28/20 09:18 Timolol Maleate (Timoptic 0.5% Ophth [place]) 1 drop BID OU 03/23/20 09:00 03/28/20 09:12 Vitamin A (Vitamin A) 10,000 units QPM PO 03/20/20 21:00 03/27/20 20:15 Vitamin D (Vitamin D) 1,000 units QPM PO 03/20/20 21:00 03/27/20 20:16 CODY WALKER MD Mar 28, 2020 15:03
[2020-03-28 19:24] VITALS: BP 134/56
[2020-03-28] MEDS: VITAMIN D 1,000 INTERNATIONAL UNITS TABLET PO SCH (21:43)
[2020-03-28] MEDS: VITAMIN A 10,000 INTERNATIONAL UNITS CAP PO SCH (21:43)
[2020-03-28] MEDS: LATANOPROST 0.005% OPHTH SOLN 2.5 ML OU SCH (21:43)
[2020-03-28] MEDS: MAGNESIUM OXIDE 400 MG TAB (MAG-OX) PO SCH (21:43)
[2020-03-28] MEDS: **NOTE PATIENT COMMENT** MISC XX SCH (21:44)
[2020-03-29] MEDS: LEVOTHYROXINE 137MCG TABLET (0.137MG) PO SCH (05:37)
[2020-03-29 06:00] VITALS: BP 165/70
[2020-03-29] MEDS: METAMUCIL (PSYLLIUM) PACKET PO SCH (09:01)
[2020-03-29] MEDS: DOCUSATE SODIUM 100 MG CAP PO SCH (09:02)
[2020-03-29] MEDS: FUROSEMIDE 40 MG TAB PO SCH (09:02)
[2020-03-29] MEDS: LORATADINE 10 MG TAB PO SCH (09:02)
[2020-03-29] MEDS: ASPIRIN 81 MG ENTERIC TAB PO SCH (09:02)
[2020-03-29] MEDS: GABAPENTIN 400 MG CAP PO SCH (09:02)
[2020-03-29] MEDS: CALCITRIOL 0.25 MCG CAP (S0169) PO SCH (09:02)
[2020-03-29] MEDS: PANTOPRAZOLE 40MG TAB (PROTONIX) PO SCH (09:02)
[2020-03-29] MEDS: ATORVASTATIN 20 MG TAB PO SCH (09:02)
[2020-03-29] MEDS: MULTIVITAMINS/MINERALS THERAP 1 TAB PO SCH (09:02)
[2020-03-29] MEDS: oxyBUTYnin 5 MG TAB PO SCH (09:02)
[2020-03-29 09:07] VITALS: BP 148/60
[2020-03-29] MEDS: LOSARTAN 50MG TABLET PO SCH (09:07)
[2020-03-29] MEDS: allopurinoL 300 MG TAB PO SCH (09:07)
[2020-03-29] MEDS: ACETAMINOPHEN 650MG ER TAB (TYLENOL ARTHRITIS) PO SCH (09:07)
[2020-03-29] MEDS: HumaLOG INSULIN (NovoLOG) PER UNIT SC SCH (09:08)
[2020-03-29] MEDS: HumuLIN N INSULIN (NovoLIN N) PER UNIT SC SCH (09:08)
[2020-03-29] MEDS: prednisoLONE ACET 1% OPHTH SUSP 5ML OU SCH ×2 (09:09→13:05)
[2020-03-29] MEDS: TIMOLOL MALEATE 0.5% OPHTH SOLN 5 ML OU SCH (09:09)
[2020-03-29] MEDS: BRIMONIDINE 0.15% OPHTH SOLN 5 ML OU SCH (09:09)
--- NOTE | 2020-03-29 09:17 | DS.PDOC ---
PM&R Discharge Summary Materials Tech Discharge Note DATE OF ADMISSION: Mar 20, 2020 at 17:25 DATE OF DISCHARGE: 03.29.2020 ADMITTING DIAGNOSES: Left #11 rib fracture. Left transverse process nondisplaced fractures L1-4. Osteoporosis. ID DM with neuropathy. Class III obesity. Glaucoma with Visual impairment CHIEF COMPLAINT: . 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 She was admitted to hospital 03/15 with finding of rib fracture #11 on the left, fracture of the left transverse processes L1-4. Patient lives alone with family nearby. She has a history of repeated falls, including one where she hit her head previously, and one where she fractured her left fibula previously. 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 Workup this most recent admission included CT head and C- spine negative. EKG negative. atient transferred for comprehensive rehabilitation on 03.20.2020 to work on gait training, balance retraining, safety issues and pain management. Diabetes remained loosely controlled, patient education and meal planning were part of overall rehabilitation interventions. Slight hyponatremia to 134 noted. Hospital course noted for some initial pain issues and balance issues, improved with education and repetition. REVIEW OF SYSTEMS: The following is a completed review of systems and has been reviewed. PAIN: back pain. EYES: Visual impairment. EARS, NOSE, & THROAT: No throat pain, or dysphagia, or rhinorrhea. CARDIOVASCULAR: Denies chest pain or palpitations. PULMONARY: Denies shortness of breath. GASTROINTESTINAL: Moved bowels 3 times today after 5 days of no movement GENITOURINARY: s/p bladder suspension surgeries MUSCULOSKELETAL: back pain NEUROLOGICAL:.peripheral neuropathy, numbness distal extremities with altered sensation HEMATOLOGICAL: . SKIN: intact PSYCHIATRIC: Unremarkable. All other review of systems found to be negative. 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 MEDICATIONS: Please see below. PHYSICAL EXAMINATION: VITAL SIGNS: Please see below. GENERAL: Pleasant and cooperative. No acute distress. Alert and oriented times three. HEENT: PERRL. Extraocular movements intact. Clear conjunctiva, no adenopathy or thyromegaly. Full cervical range of motion without tenderness or spasm. CARDIOVASCULAR: S1,S2 III/ SM CHEST: Lungs clear to auscultation bilaterally. No wheezes. No rhonchi. Large tangential linear ecchymoses encircling mid and lower thoracic regions on left with tenderness on bilateral chest wall compression, no tenderness on AP compression. Minimal tenderness thoracolumbar lumbosacral regions. ABDOMEN: Soft, obese. Positive normal active bowel sounds. NEUROLOGICAL: Alert and oriented times three. Cranial nerves II through XII intact hearing aids with decreased hearing, left worse than right. Sensation di minished stocking glove distribution bilateral lower extremities below knee, intact above knee, intact hands. Reflexes 1 + bilateral brachial radialis, absent bilateral biceps, triceps, patellar, Achilles tendon jerks. EXTREMITIES: 5/5 rod straightener, bilatearl elbow flexion, elbow extension, knee extension , foot dorsiflexion, plantar flexion. SKIN: intact, ecchymoses around trunk as described . LABORATORY DATA: Please see below. IMAGING: CT head wo contrast 03/18/20: 1. Chronic small-vessel white matter ischemic changes of aging with [id number] cerebral and cerebellar atrophy, all stable. No acute infarct, intracranial hemorrhage or mass 2. Skull base and calvarium without fracture or focal lesion. Only minor anterior ethmoid air cell mucosal thickening with the other visualized sinuses and mastoids clear. Stable exam. CT C-spine 03/18/20: Degenerative spondylosis changes. Findings unchanged from March 15, 2020. No traumatic abnormality. CXR 03/18/20: Borderline heart size dad is post aortic valve replacement. No infiltrate, effusion, or edema seen. FUNCTIONAL STATUS: Premorbid: Independent with all activities of daily life as well as mobility. Ambulated 25 feet with CGA and RW, Mod I with all self care activities and mobility with RW, needs to pay close attention to lock rolling seat walker. PROJECTED DISCHARGE DESTINATION: Home with family support and any durable medical equipment required to increase functional safety and mobility. TIME SPENT COUNSELING AND COORDINATING DC Plan: Greater than 70 minutes. This document is generated using speech recognition software which may result in grammatical, typographical and individual word errors. Vital Signs/I&O Vital Sign - Last 24 Hours 03/28/20 03/28/20 03/29/20 03/29/20 14:00 19:24 06:00 09:07 Temp 97.7 98.2 98.1 Pulse 71 66 18 Resp 18 18 60 B/P (MAP) 128/86 (100) 134/56 (82) 165/70 (101) 148/60 Pulse Ox 96 93 96 O2 Delivery Room Air Room Air Room Air I&O- Last 24 Hours up to 6 AM 03/29/20 06:00 Intake Total 1500 ml Balance 1500 ml Laboratory Data CBC/BMP Laboratory Tests 03/27/20 10:16 Labs 48H Laboratory Tests 03/27/20 10:16: Sodium Level 138, Potassium Level 4.9, Chloride Level 102, Carbon Dioxide Level 30, Anion Gap 6L, Blood Urea Nitrogen 35H, Creatinine 1.40H, Glomerular Filtration Rate 37.8, Fasting Glucose 154H, Calcium Level 9.2 03/27/20 16:28: Bedside Glucose (Misc Panel) 210H 03/28/20 06:58: Bedside Glucose (Misc Panel) 137H 03/28/20 16:42: Bedside Glucose (Misc Panel) 156H 03/29/20 06:14: Bedside Glucose (Misc Panel) 159H FSBS Laboratory Tests Test 03/28/20 16:42 03/29/20 06:14 Range/Units Bedside Glucose (Misc Panel) 156 159 83-110 MG/DL Medications Medications Current Medications Medications (Trade) Dose Ordered Sig/Salo Route PRN Reason Start Time Stop Time Status Last Admin Dose Admin Acetaminophen (Tylenol Arthritis Er) 650 mg BID PO 03/20/20 21:00 03/29/20 09:07 Acetaminophen (Tylenol Tab) 1,000 mg Q6HP PRN PO MILD PAIN (PS 1-4) 03/20/20 15:45 03/22/20 10:32 Albuterol Sulfate (Proventil, Ventolin Hfa) 2 puff Q4H PRN INH SHORTNESS OF BREATH 03/20/20 21:00 Allopurinol (Zyloprim) 300 mg DAILY PO 03/21/20 09:00 03/29/20 09:07 Aspirin (Ecotrin) 81 mg DAILY PO 03/21/20 09:00 03/29/20 09:02 Atorvastatin Calcium (Lipitor) 20 mg DAILY PO 03/21/20 09:00 03/29/20 09:02 Brimonidine Tartrate (Alphagan P 0.15%) 1 drop BID OU 03/23/20 09:00 03/29/20 09:09 Brimonidine Tartrate (Alphagan P 0.1%) 1 drop DAILY OU 03/23/20 09:00 UNV Calcitriol (Rocaltrol) 0.25 mcg MoTuWeThFr PO 03/20/20 09:00 03/29/20 09:02 Dextrose (Dextrose 50%) 25 ml ASDIRECTED PRN IV SEE LABEL COMMENTS 03/26/20 15:45 Diclofenac Epolamine (Flector 1.3%) 2 patch Q12H TOP 03/20/20 19:30 03/22/20 11:42 DC 03/21/20 20:47 Docusate Sodium (Colace) 100 mg BID PO 03/20/20 21:00 03/29/20 09:02 Fluticasone Propionate (Flonase 0.05% Nasal [place]) 1 spray QHS PRN NA NASAL CONGESTION 03/20/20 21:00 Furosemide (Lasix) 60 mg DAILY PO 03/21/20 09:00 03/29/20 09:02 Gabapentin (Neurontin) 400 mg BID PO 03/20/20 21:00 03/29/20 09:02 Glucagon (Glucagon) 1 mg ASDIRECTED PRN SC SEE LABEL COMMENTS 03/26/20 15:45 Glucose (Glucose) 16 GM ASDIRECTED PRN PO SEE LABEL COMMENTS 03/26/20 15:45 Home Med (Med Rec Complete!) ASDIRECTED XX 03/20/20 18:15 03/20/20 18:12 DC Insulin Human Lispro (HumaLOG INSULIN) SEE PROTOCOL TAB... ASDIRECTED [place] 03/26/20 15:45 03/26/20 16:16 DC Insulin Human Lispro (HumaLOG INSULIN) SEE PROTOCOL TAB... BID@5660,0361 [place] 03/26/20 17:30 03/29/20 09:08 Insulin Human NPH (HumuLIN NPH INSULIN) 20 units QHS SC 03/20/20 21:00 03/24/20 10:39 DC 03/23/20 22:03 Insulin Human NPH (HumuLIN NPH INSULIN) 50 units DAILY SC 03/25/20 09:00 03/29/20 09:08 Insulin Human NPH (HumuLIN NPH INSULIN) 70 units DAILY SC 03/21/20 09:00 03/24/20 10:39 DC 03/23/20 07:33 Latanoprost (Xalatan 0.005% Op Soln) 1 drop QHS OU 03/20/20 21:00 03/28/20 21:43 Levothyroxine Sodium (Synthroid) 137 mcg DAILY@0600 PO 03/21/20 06:00 03/29/20 05:37 Lidocaine (Lidoderm Patch) 1 patch DAILY PRN TD PAIN 03/20/20 09:00 03/28/20 09:16 Lisinopril (Prinivil) 5 mg DAILY PO 03/28/20 09:00 03/28/20 07:58 DC Loratadine (Claritin) 10 mg DAILY PO 03/21/20 09:00 03/29/20 09:02 Losartan Potassium (Cozaar) 50 mg DAILY PO 03/21/20 09:00 03/29/20 09:07 Magnesium Oxide (Mag-Ox) 400 mg QPM PO 03/20/20 21:00 03/28/20 21:43 Multivitamins (Theragram-M) 1 tab DAILY PO 03/21/20 09:00 03/29/20 09:02 Non-Formulary Medication ( See Comment Field Below ) REMOVE LIDODERM PATCH DAILY@21 XX 03/20/20 21:00 03/28/20 21:44 Oxybutynin Chloride (Ditropan) 5 mg DAILY PO 03/21/20 09:00 03/29/20 09:02 Pantoprazole Sodium (Protonix) 40 mg DAILY PO 03/21/20 09:00 03/29/20 09:02 Prednisolone Acetate (Predforte 1% Ophth Susp) 1 drop QID OU 03/20/20 21:00 03/29/20 09:09 Psyllium Hydrophilic Mucilloid (Metamucil) 1 pkt DAILY PO 11/6/20 09:00 03/29/20 09:01 Timolol Maleate (Timoptic 0.5% Ophth [place]) 1 drop BID OU 03/23/20 09:00 03/29/20 09:09 Vitamin A (Vitamin A) 10,000 units QPM PO 03/20/20 21:00 03/28/20 21:43 Vitamin D (Vitamin D) 1,000 units QPM PO 03/20/20 21:00 03/28/20 21:43 Scheduled Acetaminophen (Tylenol Arthritis) 650 Mg Tablet.er, 650 MG PO BID, (Reported) Allopurinol (Zyloprim) 300 Mg Tablet, 300 MG PO DAILY, (Reported) Aspirin (Aspirin EC) 81 Mg Tablet.dr, 81 MG PO DAILY, (Reported) Atorvastatin Calcium (Atorvastatin Calcium) 20 Mg Tablet, 20 MG PO DAILY, (Reported) Brimonidine Tartrate/Timolol (Combigan 0.2%-0.5% Eye Drops) 5 Ml Drops, 1 DROP OU BID, (Reported) Calcitriol (Calcitriol) 0.25 Mcg Capsule, 0.25 MCG PO 5XW, (Reported) MON//THU//FRI Cholecalciferol (Vitamin D3) (Vitamin D3) 1,000 Unit Tablet, 1,000 UNITS PO QPM, (Reported) TAKES AT 1600 Cyanocobalamin (Vitamin B-12) (Vitamin B-12) 1,000 Mcg Tablet, 1,000 MCG PO QPM, (Reported) TAKES AT 1600 Diclofenac Epolamine (Diclofenac Epolamine) 1 Each Patch.td12, 2 PATCH TOP Q12H Folic Acid (Folic Acid) 0.4 Mg Tablet, 400 MCG PO QPM, (Reported) TAKES AT 1600 Furosemide (Furosemide) 40 Mg Tablet, 60 MG PO DAILY, (Reported) Gabapentin (Gabapentin) 400 Mg Capsule, 400 MG PO BID, (Reported) Insulin Human NPH (Humulin N) 100 Unit/1 Ml Vial, 20 UNITS SC QHS, (Reported) Insulin Human NPH (Humulin N) 100 Unit/1 Ml Vial, 50 UNITS SC DAILY Latanoprost (Xalatan) 0.005% 2.5ML Drops, 1 DROP OU QHS, (Reported) Levothyroxine Sodium (Levothyroxine Sodium) 137 Mcg Tablet, 137 MCG PO DAILY, (Reported) Loratadine (Loratadine) 10 Mg Tablet, 10 MG PO DAILY, (Reported) Losartan Potassium (Losartan Potassium) 100 Mg Tablet, 50 MG PO DAILY, (Reported) Magnesium Oxide (Magnesium Oxide) 400 Mg Tablet, 400 MG PO QPM, (Reported) TAKES AT 1600 Multivitamin (Multivitamin) 1 Each Tablet, 1 TAB PO QPM, (Reported) TAKES AT 1600 Omeprazole (Omeprazole) 40 Mg Capsule.dr, 40 MG PO DAILY, (Reported) Oxybutynin Chloride (Oxybutynin Chloride) 5 Mg Tablet, 5 MG PO DAILY, (Reported) Prednisolone Acetate (Prednisolone Acetate 1% Opth Susp) 5 Ml Drops.susp, 1 DROP OU QID, (Reported) Psyllium Husk/Aspartame (Metamucil Fiber Singles Packet) 3.4 Gm Powd.pack, 1 PKT PO DAILY Vitamin A (Vitamin A) 10,000 Unit Capsule, 10,000 UNIT PO QPM, (Reported) TAKES AT 1600 [Note Patient Comment] MISC, 0 XX DAILY@21 Scheduled PRN Albuterol Sulfate (Proair Hfa) 8.5 Gm Hfa.aer.ad, 2 PUFFS INH Q4H PRN for SHORTNESS OF BREATH, (Reported) Fluticasone Propionate (Flonase Allergy Relief) 9.9 Ml [place].susp, 1 SPRAY NA QHS PRN for NASAL CONGESTION, (Reported) Lidocaine (Lidoderm) 5% Adh..patch, 1 PATCH TD DAILY PRN for PAIN, (Reported) APPLIES TO RIBS/LOWER BACK Phenylephrine HCl (Phenylephrine HCl) 10 Mg Tablet, 10 MG PO BID PRN for RUNNY NOSE, (Reported) Allergies Coded Allergies: butorphanol (Verified Allergy, Unknown, 03/07/20) CDOY WALKER MD Mar 29, 2020 09:17
== END 2020-03-29 13:45 | disposition home health service (06) | DRG 561 ==
LOC: M PM&R 17:25
PROVIDERS: ADMIT Physical Medicine & Rehabilitation; ATTEND Physical Medicine & Rehabilitation
DX: S22.32XD Fracture of one rib, left side, subsequent encounter for fracture with routine healing (principal); S32.018D Other fracture of first lumbar vertebra, subsequent encounter for fracture with routine healing; M81.0 Age-related osteoporosis without current pathological fracture; E11.40 Type 2 diabetes mellitus with diabetic neuropathy, unspecified; S32.028D Other fracture of second lumbar vertebra, subsequent encounter for fracture with routine healing; S32.038D Other fracture of third lumbar vertebra, subsequent encounter for fracture with routine healing; S32.048D Other fracture of fourth lumbar vertebra, subsequent encounter for fracture with routine healing; R26.9 Unspecified abnormalities of gait and mobility; E66.9 Obesity, unspecified; H40.9 Unspecified glaucoma; I12.9 Hypertensive chronic kidney disease with stage 1 through stage 4 chronic kidney disease, or unspecified chronic kidney disease; E78.5 Hyperlipidemia, unspecified; G47.33 Obstructive sleep apnea (adult) (pediatric); M10.9 Gout, unspecified; N18.30 Chronic kidney disease, stage 3 unspecified; E03.9 Hypothyroidism, unspecified; H54.7 Unspecified visual loss; H91.91 Unspecified hearing loss, right ear; R26.81 Unsteadiness on feet; R53.81 Other malaise; Z87.891 Personal history of nicotine dependence; Z79.82 Long term (current) use of aspirin; Z79.899 Other long term (current) drug therapy; Z79.4 Long term (current) use of insulin; Z79.52 Long term (current) use of systemic steroids; Z88.8 Allergy status to other drugs, medicaments and biological substances; W06.XXXD Fall from bed, subsequent encounter; Y92.013 Bedroom of single-family (private) house as the place of occurrence of the external cause; Z98.49 Cataract extraction status, unspecified eye

== ENCOUNTER → 2020-04-20 | Outpatient (CLI) | payer MEDICARE ==
[~2020-04-20] MED LIST changes: +**Note Patient Comment XX; -FOLI0.4T PO; +FOLI0.4T5 PO; +META1POW PO
== END ==
LOC: M LABSMTC 09:50
PROVIDERS: ATTEND Ophthalmology Retina Specialist
DX: Z20.828 Contact with and (suspected) exposure to other viral communicable diseases (principal)

== ENCOUNTER 2020-05-17 08:45 | Inpatient (IN) | payer MEDICARE ==
[~2020-05-17] VITALS: Ht 157.5 cm; Wt 117.5 kg
[2020-05-17] MEDS: ACETAMINOPHEN 650MG ER TAB (TYLENOL ARTHRITIS) PO SCH ×2 (09:00→20:57)
[2020-05-17] MEDS: METAMUCIL (PSYLLIUM) PACKET PO SCH (09:00)
[2020-05-17 10:09] LABS: ALBUMIN 3.3 GM/DL (3.2-5.2); BILIRUBIN,DIRECT 0.1 MG/DL (0.0-0.2); BILIRUBIN,TOTAL 0.6 MG/DL (0.2-1.0); CALCIUM LEVEL 8.9 MG/DL (8.8-10.2); CK-MB VALUE MASS 6.2 NG/ML (<3.6); CREATININE FOR GFR 1.44 MG/DL (0.55-1.30); GLOMERULAR FILTRATION RATE 36.5 (>32); MB/CK RELATIVE INDEX 0.82 (< OR =4); POTASSIUM SERUM 3.9 MEQ/L (3.5-5.1); THYROID STIMULATING HORMONE 1.02 uIU/ML (0.358-3.740); TOTAL PROTEIN 8.5 GM/DL (6.4-8.2); TROPONIN I 0.03 NG/ML (< 0.10)
[2020-05-17 10:46] LABS: INR 0.96
[2020-05-17 10:46] LABS: C REACTIVE PROTEIN QUANTITATIV 2.35 MG/DL (0.00-0.30); MAGNESIUM LEVEL 2.1 MG/DL (1.8-2.4)
[2020-05-17 10:47] LABS: FIBRINOGEN 273 MG/DL (221-452)
--- NOTE | 2020-05-17 11:04 | REP ---
INDICATION: DYSPNEA/COUGH COMPARISON: 03/18/2020 TECHNIQUE: Portable AP view of the chest FINDINGS: The mediastinum and cardiac silhouette are stable and within normal limits for portable technique. The lung nieto demonstrate chronic interstitial changes and superimposed elements of atelectasis cannot be excluded. No discrete focal consolidation. No effusion. No pneumothorax. Skeletal structures stable. IMPRESSION: Chronic stable changes. Cannot exclude subtle superimposed atelectasis. No focal consolidation or effusion. <Electronically signed by Pavan Orourke > 05/17/20 [id number]
[2020-05-17 11:08] LABS: D-DIMER QUANT > 4000.0 ng/ml (<500)
[2020-05-17] MEDS ORDERED: NS 1,000 ML IV SCH (11:15)
[2020-05-17 11:23] LABS: BASO % 0.3 % (0.0-1.0); EOS # 0.1 10^3/uL (0.0-0.5); EOS % 0.8 % (0.0-3.0); HEMATOCRIT 38.3 % (36.0-47.0); HEMOGLOBIN 12.2 g/dl (12.0-15.5); LYMPH # 1.5 10^3/uL (1.5-5.0); MEAN CORPUSCULAR HEMOGLOBIN 34.5 pg (27.0-33.0); MEAN CORPUSCULAR HGB CONC 31.9 g/dl (32.0-36.5); MEAN CORPUSCULAR VOLUME 108.2 fl (80.0-96.0); MONO # 0.5 10^3/uL (0.0-0.8); MONO % 8.8 % (0.0-5.0); NEUTROPHILS % 64.8 % (36.0-66.0); RED BLOOD COUNT 3.54 10^6/uL (4.00-5.40); WHITE BLOOD COUNT 6.2 10^3/uL (4.0-10.0)
[2020-05-17 11:44] LABS: PLATELET COUNT, AUTOMATED 96 10^3/uL (150-450)
[2020-05-17] MEDS ORDERED: DICL1PAT6 TD (12:23)
[2020-05-17] MEDS ORDERED: LOSA50TA88 PO (12:23)
[2020-05-17] MEDS ORDERED: FURO20TA2 PO (12:26)
[2020-05-17] MEDS ORDERED: DICLOFENAC EPOLAMINE 1.3 % PATCH TD PRN (12:30)
[2020-05-17] MEDS ORDERED: FLUTICASONE PROP 0.05% NASAL SPRAY 16 GM (FLONASE) PRN (12:30)
--- NOTE | 2020-05-17 13:37 | ECGEPIP ---
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
[2020-05-17 13:42] LABS: HEPATITIS B SURFACE ANTIGEN NEGATIVE (NEGATIVE); HIV 1&2 SCREEN CENTAUR NEGATIVE (NEGATIVE)
[2020-05-17] MEDS: ASPIRIN 81 MG ENTERIC TAB PO SCH (14:44)
[2020-05-17] MEDS: GABAPENTIN 400 MG CAP PO SCH ×2 (14:45→20:57)
[2020-05-17] MEDS: LOSARTAN 25 MG TAB PO SCH (14:46)
[2020-05-17] MEDS: MULTIVITAMINS/MINERALS THERAP 1 TAB PO SCH (14:47)
[2020-05-17] MEDS: OMEPRAZOLE 20 MG CAP PO SCH (14:47)
[2020-05-17] MEDS: methylPREDNISolone 40MG 1ML VIAL IV SCH ×2 (14:47→20:51)
[2020-05-17] MEDS: ATORVASTATIN 20 MG TAB PO SCH (14:47)
[2020-05-17] MEDS: CALCITRIOL 0.25 MCG CAP (S0169) PO SCH (14:47)
[2020-05-17] MEDS: ALBUTEROL 90 MCG/ACT 8GM HFA INHALER INH SCH ×2 (15:21→20:00)
[2020-05-17 16:00] VITALS: BP 169/78
[2020-05-17] MEDS: HumaLOG INSULIN (NovoLOG) PER UNIT SC SCH ×2 (17:41→21:24)
[2020-05-17] MEDS: oxyBUTYnin 5 MG TAB PO SCH (17:42)
[2020-05-17] MEDS: allopurinoL 300 MG TAB PO SCH (17:42)
[2020-05-17] MEDS: HumuLIN N INSULIN (NovoLIN N) PER UNIT SC SCH (17:42)
[2020-05-17] MEDS: LORATADINE 10 MG TAB PO SCH (17:42)
--- NOTE | 2020-05-17 18:26 | HPEPDOC ---
[facility] Medical History & Physical Date of Admission May 17, 2020 Date of Service: May 17, 2020 History and Physical Chief complaint: Who presented to the ER after she had slipped off her recliner and was unable to get up History of present illness: Patient is an 89-year-old female who presented to the emergency room brought in by EMS after she had slipped off her recliner and couldnt get up. Patient remain on the ground for proximally 2 hours until she was able to call 911. Patient denies any chest pain, shortness breath or palpitations. Does report a cough thats been going on for about 1 week. Reports some phlegm production described as clear, with some streaky blood. Patient has reported fevers at home. She noted that electric pile driver operator had measured her temperature at 101F. Patient denies any nausea, vomiting, abdominal pain, constipation, diarrhea, or urinary discomfort. Patient reports her appetite is been fairly normal, but does report a slight decrease in her weight. Patient lives alone; has reported that on 05/09 her family visited her on 05/11 she went to her grandsons home for breakfast. Patient was again visited by her family on 05/15. 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) HTN DLP IDDM2 Hypothyroidism MITCH on CPAP Gout CKD3 Neuropathy Cholelithiasis Obesity Past Surgical History: Hysterectomy with ovarian preservation Toe surgery Tonsillectomy with adenoidectomy D&C Bladder suspension surgery Uterine suspension surgery Rectocele and cystocele repairs Cataract surgery Carpal tunnel surgery right wrist Rib fracture 03/15/20 Allergies: See below Medications: See below Family History: - Father with a history of fluid in lungs and mother with a history of septic shock, both - No history of malignancies Social History: - Denies the use of alcohol or illicit drugs; patient reports that she was a quit smoking in the 1970s but was a smoker of 20 years at 1PPD - Denies recent travel or sick contacts - Lives alone - 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; 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 Review of Systems: 10 point review of systems complete, all negative otherwise stated in HPI Physical exam: - Vitals: BP , HR , RR , Sat , Temp - General: Lying in bed, No acute distress, Speaking in full sentences, AAOx3 - HEENT: NC, AT, PERRLA, EOMI - CVS: RRR, +S1S2, - Murmurs / rubs / gallops - Lungs: Fair air entry bilaterally, Clear to auscultation, No appreciable wheezing / rales / rhonchi - Abdomen: Soft, Non-distended, Non-tender, + Bowel sounds x 4 - Extremities: + PPx4, No lower extremity edema, No calf tenderness - Neuro: No focal motor or sensory deficit - Skin: No visible rashes Labs: See below Imaging: See below EKG: See below Assessment and Plan: Weakness / Debility - Patient reported that she had slid out of her recliner and couldnt get up because she was weak - Patient denied any trauma or loss of consciousness - Physical does not reveal any focal neurologic deficits - Patient was able to get up and move to commode, but required a lot of assistance - Will c/w PT and OT COVID19 infection - Patient was incidentally found to be COVID positive while in the emergency room - Patient is currently hemodialysis medically stable and saturating well on room air - Physical reveals mild wheezing; however patient uses inhaled therapy at home - Inflammatory markers are slightly elevated - CXR 04/17: Chronic stable changes. Cannot exclude subtle superimposed atelectasis. No focal consolidation or effusion. 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 HTN - BP well controlled - c/w Losartan - Will hold Furosemide DLP - c/w Atorvastatin IDDM2 - Will c/w NPH insulin and ISS Hypothyroidism - c/w Levothyroxine MITCH on CPAP - May allow home CPAP use while inpatient Gout - c/w Allopurinol CKD3 - Cr baseline of 1.3-1.5 - Cr currently is at baseline Neuropathy - c/w Gabapentin Cholelithiasis Overactive bladder - c/w Oxybutynin Obesity - BMI of 45.8 - Complicating medical care GERD - c/w Omeprazole from outpatient setting DVT prophylaxis - Will start TEDs/Sequentials (re: Thrombocytopenia) Vital Signs Vital Signs Date Time Temp Pulse Resp B/P (MAP) Pulse Ox O2 Delivery O2 Flow Rate FiO2 05/17/20 14:46 160/70 05/17/20 13:15 79 16 94 Room Air 05/17/20 09:00 100.4 Laboratory Data Labs 24H Laboratory Tests 2 05/17/20 08:52: Prothrombin Time 13.0, Prothromb Time International Ratio 0.96, Activated Partial Thromboplast Time 20.0L, Fibrinogen 273, D-Dimer, Quantitative > 4000.0H, Procalcitonin <0.05 05/17/20 09:00: Anion Gap 6L, Glomerular Filtration Rate 36.5, Lactic Acid Level 1.7, Calcium Level 8.9, Magnesium Level 2.1, Ferritin 318H, Total Bilirubin 0.6, Direct Bilirubin 0.1, Aspartate Amino Transf (AST/SGOT) 52H, Alanine Aminotransferase (ALT/SGPT) 29, Alkaline Phosphatase 84, Lactate Dehydrogenase 417H, Total Creatine Kinase 752H, Creatine Kinase MB 6.2H, Creatine Kinase MB Relative Index 0.82, Troponin I 0.03, C-Reactive Protein, Quantitative 2.35H, YT-Jug-K-Type Natriuretic Peptide 931H, Total Protein 8.5H, Albumin 3.3, Albumin/Globulin Ratio 0.6L, Thyroid Stimulating Hormone (TSH) 1.020, Hepatitis B Surface Antigen NEGATIVE, HIV Antigen/Antibody Combo Qual NEGATIVE 05/17/20 09:50: Urine Color YELLOW, Urine Appearance CLEAR, Urine pH 5.0, Urine Specific [place] 1.015, Urine Protein 1+H, Urine Glucose (UA) NEGATIVE, Urine Ketones NEGATIVE, Urine Blood NEGATIVE, Urine Nitrite NEGATIVE, Urine Bilirubin NEGATIVE, Urine Urobilinogen 0.2, Urine Leukocyte Esterase NEGATIVE, Urine WBC (Auto) 1, Urine RBC (Auto) 0, Urine Hyaline Casts (Auto) 1, Urine Bacteria (Auto) 1+H, Urine Squamous Epithelial Cells 0, Urine Sperm (Auto) 05/17/20 11:13: Immature Granulocyte % (Auto) 0.3, Neutrophils (%) (Auto) 64.8, Lymphocytes (%) (Auto) 25.0, Monocytes (%) (Auto) 8.8H, Eosinophils (%) (Auto) 0.8, Basophils (%) (Auto) 0.3, Neutrophils # (Auto) 4.0, Lymphocytes # (Auto) 1.5, Monocytes # (Auto) 0.5, Eosinophils # (Auto) 0.1, Basophils # (Auto) 0.0, Nucleated Red Blood Cells % (auto) 0.0, Immature Platelet Fraction 3.5 CBC/BMP Laboratory Tests 05/17/20 09:00 05/17/20 11:13 Microbiology Microbiology 05/17/20 Blood Culture, Received Pending 05/17/20 Respiratory Virus Panel (PCR) (TRISH) - Final, Complete SARS-CoV-2 (COVID 19) 05/17/20 Blood Culture, Received Pending Home Medications Scheduled Acetaminophen (Tylenol Arthritis) 650 Mg Tablet.er, 650 MG PO BID Allopurinol (Zyloprim) 300 Mg Tablet, 300 MG PO DAILY Aspirin (Aspirin EC) 81 Mg Tablet.dr, 81 MG PO DAILY Atorvastatin Calcium (Atorvastatin Calcium) 20 Mg Tablet, 20 MG PO DAILY Brimonidine Tartrate/Timolol (Combigan 0.2%-0.5% Eye Drops) 5 Ml Drops, 1 DROP OU BID Calcitriol (Calcitriol) 0.25 Mcg Capsule, 0.25 MCG PO 5XW MON//THU//FRI Cholecalciferol (Vitamin D3) (Vitamin D3) 1,000 Unit Tablet, 1,000 UNITS PO QPM TAKES AT 1600 Cyanocobalamin (Vitamin B-12) (Vitamin B-12) 1,000 Mcg Tablet, 1,000 MCG PO QPM TAKES AT 1600 Folic Acid (Folic Acid) 0.4 Mg Tablet, 400 MCG PO QPM TAKES AT 1600 Furosemide (Furosemide) 40 Mg Tablet, 60 MG PO DAILY Furosemide (Furosemide) 20 Mg Tablet, 20 MG PO QHS Gabapentin (Gabapentin) 400 Mg Capsule, 400 MG PO BID Insulin Human NPH (Humulin N) 100 Unit/1 Ml Vial, 20 UNITS SC QHS Insulin Human NPH (Humulin N) 100 Unit/1 Ml Vial, 50 UNITS SC DAILY Latanoprost (Xalatan) 0.005% 2.5ML Drops, 1 DROP OU QHS Levothyroxine Sodium (Levothyroxine Sodium) 137 Mcg Tablet, 137 MCG PO DAILY Loratadine (Loratadine) 10 Mg Tablet, 10 MG PO DAILY Losartan Potassium (Losartan Potassium) 50 Mg Tablet, 25 MG PO DAILY Magnesium Oxide (Magnesium Oxide) 400 Mg Tablet, 400 MG PO QPM TAKES AT 1600 Multivitamin (Multivitamin) 1 Each Tablet, 1 TAB PO QPM TAKES AT 1600 Omeprazole (Omeprazole) 40 Mg Capsule.dr, 40 MG PO DAILY Oxybutynin Chloride (Oxybutynin Chloride) 5 Mg Tablet, 5 MG PO DAILY Psyllium Husk/Aspartame (Metamucil Fiber Singles Packet) 3.4 Gm Powd.pack, 1 PKT PO DAILY Vitamin A (Vitamin A) 10,000 Unit Capsule, 10,000 UNIT PO QPM TAKES AT 1600 Scheduled PRN Albuterol Sulfate (Proair Hfa) 8.5 Gm Hfa.aer.ad, 2 PUFFS INH Q4H PRN for SHORTNESS OF BREATH Diclofenac Epolamine (Diclofenac Epolamine) 1 Each Patch.td12, 2 EACH TD Q12H PRN for PAIN Fluticasone Propionate (Flonase Allergy Relief) 9.9 Ml [place].susp, 1 SPRAY NA QHS PRN for NASAL CONGESTION Phenylephrine HCl (Phenylephrine HCl) 10 Mg Tablet, 10 MG PO BID PRN for RUNNY NOSE Allergies Coded Allergies: butorphanol (Verified Allergy, Unknown, 03/07/20) QIANA LYNN MD May 17, 2020 18:26
[2020-05-17 20:00] VITALS: BP 160/67
[2020-05-17] MEDS: BRIMONIDINE 0.15% OPHTH SOLN 5 ML OU SCH (20:54)
[2020-05-17] MEDS: LATANOPROST 0.005% OPHTH SOLN 2.5 ML OU SCH (20:54)
[2020-05-17] MEDS: TIMOLOL MALEATE 0.5% OPHTH SOLN 5 ML OU SCH (20:54)
[2020-05-17] MEDS: CYANOCOBALAMIN 500 MCG TAB PO SCH (20:56)
[2020-05-17] MEDS: VITAMIN A 10,000 INTERNATIONAL UNITS CAP PO SCH (20:56)
[2020-05-17] MEDS: VITAMIN D 1,000 INTERNATIONAL UNITS TABLET PO SCH (20:56)
[2020-05-17] MEDS: MAGNESIUM OXIDE 400 MG TAB (MAG-OX) PO SCH (20:57)
[2020-05-17] MEDS: FOLIC ACID 1 MG TAB PO SCH (20:57)
[2020-05-17] MEDS ORDERED: ENOXAPARIN 30MG/0.3ML SYRINGE (J1650 PER 10MG) SC SCH ×2 (21:00)
[2020-05-18 04:00] VITALS: BP 130/56
[2020-05-18] MEDS: LEVOTHYROXINE 137MCG TABLET (0.137MG) PO SCH (05:02)
[2020-05-18] MEDS: methylPREDNISolone 40MG 1ML VIAL IV SCH (05:02)
[2020-05-18 07:11] LABS: BASO % 0.2 % (0.0-1.0); HEMATOCRIT 35.9 % (36.0-47.0); HEMOGLOBIN 11.4 g/dl (12.0-15.5); LYMPH # 1.1 10^3/uL (1.5-5.0); LYMPH % 18.7 % (24.0-44.0); MEAN CORPUSCULAR HEMOGLOBIN 34.5 pg (27.0-33.0); MEAN CORPUSCULAR HGB CONC 31.8 g/dl (32.0-36.5); MEAN CORPUSCULAR VOLUME 108.8 fl (80.0-96.0); MONO # 0.2 10^3/uL (0.0-0.8); MONO % 2.7 % (0.0-5.0); NEUTROPHILS # 4.4 10^3/uL (1.5-8.5); NEUTROPHILS % 77.9 % (36.0-66.0); WHITE BLOOD COUNT 5.6 10^3/uL (4.0-10.0)
[2020-05-18] MEDS: ALBUTEROL 90 MCG/ACT 8GM HFA INHALER INH SCH ×4 (07:13→20:59)
[2020-05-18 07:22] LABS: PLATELET COUNT, AUTOMATED 94 10^3/uL (150-450)
[2020-05-18 07:42] LABS: INR 1.02; PARTIAL THROMBOPLASTIN TIME 30.9 SECONDS (24.2-38.5); PROTHROMBIN TIME 13.6 SECONDS (12.5-14.3)
[2020-05-18 07:51] LABS: ALBUMIN 2.8 GM/DL (3.2-5.2); BILIRUBIN,DIRECT 0.1 MG/DL (0.0-0.2); BILIRUBIN,TOTAL 0.4 MG/DL (0.2-1.0); CALCIUM LEVEL 8.7 MG/DL (8.8-10.2); CREATININE FOR GFR 1.64 MG/DL (0.55-1.30); GLOMERULAR FILTRATION RATE 31.4 (>32); MAGNESIUM LEVEL 2.2 MG/DL (1.8-2.4); POTASSIUM SERUM 4.4 MEQ/L (3.5-5.1)
[2020-05-18 08:00] VITALS: O2SAT 95
[2020-05-18 08:45] LABS: C REACTIVE PROTEIN QUANTITATIV 5.56 MG/DL (0.00-0.30)
[2020-05-18] MEDS ORDERED: FUROSEMIDE 40 MG TAB PO SCH (09:00)
[2020-05-18] MEDS: HumuLIN N INSULIN (NovoLIN N) PER UNIT SC SCH ×2 (09:27→17:33)
[2020-05-18] MEDS: LOSARTAN 25 MG TAB PO SCH (09:28)
[2020-05-18] MEDS: ASPIRIN 81 MG ENTERIC TAB PO SCH (09:28)
[2020-05-18] MEDS: OMEPRAZOLE 20 MG CAP PO SCH (09:28)
[2020-05-18] MEDS: CALCITRIOL 0.25 MCG CAP (S0169) PO SCH (09:28)
[2020-05-18] MEDS: HumaLOG INSULIN (NovoLOG) PER UNIT SC SCH ×4 (09:28→21:19)
[2020-05-18] MEDS: ATORVASTATIN 20 MG TAB PO SCH (09:29)
[2020-05-18] MEDS: GABAPENTIN 400 MG CAP PO SCH ×2 (09:29→21:16)
[2020-05-18] MEDS: ACETAMINOPHEN 650MG ER TAB (TYLENOL ARTHRITIS) PO SCH ×2 (09:29→21:16)
[2020-05-18] MEDS: oxyBUTYnin 5 MG TAB PO SCH (09:29)
[2020-05-18] MEDS: MULTIVITAMINS/MINERALS THERAP 1 TAB PO SCH (09:29)
[2020-05-18] MEDS: LORATADINE 10 MG TAB PO SCH (09:29)
[2020-05-18] MEDS: METAMUCIL (PSYLLIUM) PACKET PO SCH (09:29)
[2020-05-18] MEDS: allopurinoL 300 MG TAB PO SCH (09:29)
[2020-05-18] MEDS: TIMOLOL MALEATE 0.5% OPHTH SOLN 5 ML OU SCH ×2 (09:30→21:17)
[2020-05-18] MEDS: BRIMONIDINE 0.15% OPHTH SOLN 5 ML OU SCH ×2 (09:30→21:17)
[2020-05-18] MEDS: predniSONE 20 MG TAB PO SCH (11:10)
--- NOTE | 2020-05-18 11:38 | IPNPDOC ---
Text Note Date of Service The patient was seen on 05/18/20. NOTE Subjective: Patient is an 89-year-old female who presented to the emergency room brought in by EMS after she had slipped off her recliner and couldnt get up. Patient remain on the ground for proximally 2 hours until she was able to call 911. Patient denies any chest pain, shortness breath or palpitations. Does report a cough thats been going on for about 1 week. Reports some phlegm production described as clear, with some streaky blood. Patient has reported fevers at home. She noted that ambulance driver paramedic had measured her temperature at 101F. Patient was admitted to the hospital service for further evaluation and treatment. Patient was seen and examined at the bedside. Currently was sitting up in a chair and eating breakfast. She denied any CP, SOB or palpitations. Denies any abdominal pain, C/D or urinary discomfort. Patient was working with physical therapy today. Objective: Vitals (See below) General: Sitting up in chair is in no acute distress, is comfortable, AAOx3 HEENT: NC, AT CVS: +S1S2 Lungs: Fair air entry b/l, no auscultated rhonchi, crackles or wheezing Abdomen: Soft, nondistended and nontender Extremities: No edema of lower extremities, - Calf tenderness Assessment and plan: Weakness / Debility - Patient reported that she had slid out of her recliner and couldnt get up because she was weak - Patient denied any trauma or loss of consciousness - Will start PT and OT today COVID19 infection - Patient was incidentally found to be COVID positive while in the ER (Positive date of 05/17/2020) - Hemodynamically stable / Mild febrile episodes noted - Physical without any adventitious lung sounds - Inflammatory markers are slightly elevated - CXR 04/17: Chronic stable changes. Cannot exclude subtle superimposed atelectasis. No focal consolidation or effusion. 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 HTN - BP well controlled - c/w Losartan - Will resume Furosemide today DLP - c/w Atorvastatin IDDM2 with Hyperglycemia - likely 2/2 corticosteroids - c/w NPH insulin and ISS Hypothyroidism - c/w Levothyroxine MITCH on CPAP - May allow home CPAP use while inpatient Gout - c/w Allopurinol CKD3 - Cr baseline of 1.3-1.5 - Cr slightly elevated from baseline Neuropathy - c/w Gabapentin Cholelithiasis Overactive bladder - c/w Oxybutynin Obesity - BMI of 45.8 - Complicating medical care GERD - c/w Omeprazole from outpatient setting DVT prophylaxis - c/w TEDs/Sequentials (re: Thrombocytopenia) Disposition: - Anticipate DC within 24-48 hours VS,Fishbone, I+O VS, Fishbone, I+O Laboratory Tests 05/18/20 06:49 Vital Signs Date Time Temp Pulse Resp B/P (MAP) Pulse Ox O2 Delivery O2 Flow Rate FiO2 05/18/20 09:28 130/56 05/18/20 08:00 95 Room Air 05/18/20 04:00 96.3 65 18 I&O- Last 24 Hours up to 6 AM 05/18/20 06:00 Intake Total 1620 ml Output Total 900 ml Balance 720 ml QIANA LYNN MD May 18, 2020 11:38
[2020-05-18 12:00] VITALS: BP 142/62; O2SAT 94
[2020-05-18 16:00] VITALS: O2SAT 94
[2020-05-18 20:00] VITALS: O2SAT 94
[2020-05-18] MEDS: MAGNESIUM OXIDE 400 MG TAB (MAG-OX) PO SCH (21:16)
[2020-05-18] MEDS: VITAMIN A 10,000 INTERNATIONAL UNITS CAP PO SCH (21:16)
[2020-05-18] MEDS: VITAMIN D 1,000 INTERNATIONAL UNITS TABLET PO SCH (21:16)
[2020-05-18] MEDS: FOLIC ACID 1 MG TAB PO SCH (21:16)
[2020-05-18] MEDS: CYANOCOBALAMIN 500 MCG TAB PO SCH (21:17)
[2020-05-18] MEDS: LATANOPROST 0.005% OPHTH SOLN 2.5 ML OU SCH (21:17)
[2020-05-18 22:00] VITALS: BP 128/58
[2020-05-19] VITALS (14 sets, daily range): BP systolic 104–202; BP diastolic 56–93; O2SAT 87–95
[2020-05-19] MEDS: ALBUTEROL 90 MCG/ACT 8GM HFA INHALER INH PRN (04:28)
[2020-05-19] MEDS ORDERED: FUROSEMIDE 40MG/4ML VIAL (J1940) IV ONE ×2 (04:45→12:00)
[2020-05-19] MEDS ORDERED: IPRATROPIUM 0.5MG/ALBUTEROL 2.5MG INH SOL UD 3ML (DUONEB) NEB ONE (04:45)
--- NOTE | 2020-05-19 05:56 | REPVR ---
PROCEDURE INFORMATION: Exam: XR Chest, 1 View Exam date and time: 05/19/2020 5:05 AM Age: 89 years old Clinical indication: Shortness of breath TECHNIQUE: Imaging protocol: XR of the chest Views: 1 view. COMPARISON: CR PORTABLE CHEST X-RAY 2020-05-17 10:31 FINDINGS: Tubes, catheters and devices: Evidence of previous trans catheter aortic valve replacement. Lungs: There is a pulmonary parenchymal calcification consistent with remote granulomatous organism exposure. Slightly increased interstitial and airspace opacities, correlate for infection or edema. Pleural space: Unremarkable. No pleural effusion. No pneumothorax. Heart/Mediastinum: Cardiac enlargement. Bones/joints: Unremarkable. IMPRESSION: There is a pulmonary parenchymal calcification consistent with remote granulomatous organism exposure. Slightly increased interstitial and airspace opacities, correlate for infection or edema. Electronically signed by: Javi Sandoval On 05/19/2020 05:56:05 AM
[2020-05-19 06:16] LABS: ABG BASE EXCESS 1.9 (-2.0-2.0); ABG HCO3 26.6 MEQ/L (22.0-26.0); ABG O2 SATURATION 98.2 % (95.0-99.0); ABG PARTIAL PRESSURE CO2 41.9 mmHg (35.0-45.0); ABG PARTIAL PRESSURE O2 120.9 mmHg (75.0-100.0); ABG STANDARD HCO3 26.2 MEQ/L (22.0-26.0); ABG TOTAL CO2 27.9 MEQ/L (23.0-31.0)
[2020-05-19] MEDS ORDERED: hydrALAZINE 20MG/ML 1ML VIAL (J0360 PER 20MG) IV ONE (06:30)
[2020-05-19] MEDS: LEVOTHYROXINE 137MCG TABLET (0.137MG) PO SCH (06:59)
[2020-05-19 07:11] LABS: BASO % 0.1 % (0.0-1.0); EOS % 0.1 % (0.0-3.0); HEMATOCRIT 35.7 % (36.0-47.0); HEMOGLOBIN 11.5 g/dl (12.0-15.5); LYMPH # 0.9 10^3/uL (1.5-5.0); LYMPH % 8.2 % (24.0-44.0); MEAN CORPUSCULAR HEMOGLOBIN 34.4 pg (27.0-33.0); MEAN CORPUSCULAR HGB CONC 32.2 g/dl (32.0-36.5); MEAN CORPUSCULAR VOLUME 106.9 fl (80.0-96.0); MONO # 0.3 10^3/uL (0.0-0.8); MONO % 2.9 % (0.0-5.0); NEUTROPHILS # 9.4 10^3/uL (1.5-8.5); PLATELET COUNT, AUTOMATED 122 10^3/uL (150-450); RED BLOOD COUNT 3.34 10^6/uL (4.00-5.40); WHITE BLOOD COUNT 10.7 10^3/uL (4.0-10.0)
[2020-05-19 07:30] LABS: INR 1.02; PROTHROMBIN TIME 13.6 SECONDS (12.5-14.3)
[2020-05-19 07:31] LABS: PARTIAL THROMBOPLASTIN TIME 25.3 SECONDS (24.2-38.5)
[2020-05-19 07:44] LABS: ALBUMIN 3.1 GM/DL (3.2-5.2); BILIRUBIN,DIRECT 0.2 MG/DL (0.0-0.2); BILIRUBIN,TOTAL 0.4 MG/DL (0.2-1.0); C REACTIVE PROTEIN QUANTITATIV 4.1 MG/DL (0.00-0.30); CALCIUM LEVEL 8.9 MG/DL (8.8-10.2); CREATININE FOR GFR 1.47 MG/DL (0.55-1.30); GLOMERULAR FILTRATION RATE 35.6 (>32); POTASSIUM SERUM 4.1 MEQ/L (3.5-5.1); TOTAL PROTEIN 7.2 GM/DL (6.4-8.2)
[2020-05-19] MEDS: GABAPENTIN 400 MG CAP PO SCH ×2 (08:48→21:42)
[2020-05-19] MEDS: ACETAMINOPHEN 650MG ER TAB (TYLENOL ARTHRITIS) PO SCH ×2 (08:48→21:42)
[2020-05-19] MEDS: predniSONE 20 MG TAB PO SCH (08:49)
[2020-05-19] MEDS: ASPIRIN 81 MG ENTERIC TAB PO SCH (08:49)
[2020-05-19] MEDS: oxyBUTYnin 5 MG TAB PO SCH (08:49)
[2020-05-19] MEDS: ATORVASTATIN 20 MG TAB PO SCH (08:49)
[2020-05-19] MEDS: LORATADINE 10 MG TAB PO SCH (08:49)
[2020-05-19] MEDS: OMEPRAZOLE 20 MG CAP PO SCH (08:49)
[2020-05-19] MEDS: MULTIVITAMINS/MINERALS THERAP 1 TAB PO SCH (08:50)
[2020-05-19] MEDS: METAMUCIL (PSYLLIUM) PACKET PO SCH (08:50)
[2020-05-19] MEDS: allopurinoL 300 MG TAB PO SCH (08:50)
[2020-05-19] MEDS: LOSARTAN 25 MG TAB PO SCH (08:50)
[2020-05-19] MEDS: HumuLIN N INSULIN (NovoLIN N) PER UNIT SC SCH ×2 (08:51→18:16)
[2020-05-19] MEDS: HumaLOG INSULIN (NovoLOG) PER UNIT SC SCH ×4 (08:51→21:44)
[2020-05-19] MEDS: BRIMONIDINE 0.15% OPHTH SOLN 5 ML OU SCH ×2 (08:52→21:43)
[2020-05-19] MEDS: TIMOLOL MALEATE 0.5% OPHTH SOLN 5 ML OU SCH ×2 (08:52→21:43)
[2020-05-19] MEDS: ALBUTEROL 90 MCG/ACT 8GM HFA INHALER INH SCH ×4 (09:36→20:11)
--- NOTE | 2020-05-19 11:01 | REP ---
INDICATION: SOB COMPARISON: 05/17/2020, 05/19/2020 TECHNIQUE: Portable AP view of the chest FINDINGS: The mediastinum and cardiac silhouette are stable and within normal limits for portable technique. Aortic stent again noted. The lung nieto demonstrate chronic changes without focal consolidation, effusion, or pneumothorax. Subtle basilar atelectasis cannot be excluded. Skeletal structures are intact. IMPRESSION: Stable chronic changes. Subtle basilar atelectasis cannot be excluded. <Electronically signed by Pavan Orourke > 05/19/20 [id number]
--- NOTE | 2020-05-19 13:53 | IPNPDOC ---
Text Note Date of Service The patient was seen on 05/19/20. NOTE Subjective: Patient is an 89-year-old female who presented to the emergency room brought in by EMS after she had slipped off her recliner and couldnt get up. Patient remain on the ground for proximally 2 hours until she was able to call 911. Patient denies any chest pain, shortness breath or palpitations. Does report a cough thats been going on for about 1 week. Reports some phlegm production described as clear, with some streaky blood. Patient has reported fevers at home. She noted that fork truck driver had measured her temperature at 101F. Patient was admitted to the hospital service for further evaluation and treatment. Patient was seen and examined at the bedside. Overnight patient has had some difficulty with breathing and was placed on CPAP. Patient was noted to be hypertensive and transitioned to PCU; she was given IV Furosemide and IV hydralazine. She was started on telemetry monitoring. Currently patient denies any chest pain, palpitations, nausea, vomiting, abdominal pain, diarrhea, or urinary discomfort. Patient was able to be transitioned off of CPAP and placed on nasal cannula oxygen. Objective: Vitals (See below) General: Sitting up in bed, appears to be comfortable, is awake, alert and or iented 3 HEENT: NC, AT CVS: +S1S2 Lungs: There appears to be fair air entry bilaterally. There is no appreciable wheezing. Very faint crackles can be appreciated at bilateral lower bases Abdomen: Abdomen remains soft without any distention or tenderness Extremities: LE are without any edema, - Calf tenderness Assessment and plan: Acute hypoxic respirator failure - possibly 2/2 fluid overload - Currently patient reports that her breathing is doing relatively better than it was earlier this morning - A she was placed on a CPAP device early this morning - Saturating well on nasal cannula 1 L - CXR 1/2: There is a pulmonary parenchymal calcification consistent with remote granulomatous organism exposure. Slightly increased interstitial and airspace opacities, correlate for infection or edema. - CXR 1/2: Stable chronic changes. Subtle basilar atelectasis cannot be excluded. - s/p Furosemide IV; has been diuresing appropriately since that point - Will re-evaluate volume status and provide Lasix tomorrow morning COVID19 infection - Patient was incidentally found to be COVID positive while in the ER (Positive date of 05/17/2020) - Hemodynamically stable / Mild febrile episodes noted - Physical without any adventitious lung sounds - Inflammatory markers continue to be downtrending - CXR 04/17: Chronic stable changes. Cannot exclude subtle superimposed ate lectasis. No focal consolidation or effusion. 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 HTN - BP has improved - s/p Hydralazine IV - c/w Losartan / Furosemide DLP - c/w Atorvastatin IDDM2 with Hyperglycemia - likely 2/2 corticosteroids - c/w NPH insulin and ISS Hypothyroidism - c/w Levothyroxine MITCH on CPAP - May allow home CPAP use while inpatient Gout - c/w Allopurinol CKD3 - Cr baseline of 1.3-1.5 - Cr remains at baseline Neuropathy - c/w Gabapentin Cholelithiasis Overactive bladder - c/w Oxybutynin Obesity - BMI of 45.8 - Complicating medical care GERD - c/w Omeprazole from outpatient setting DVT prophylaxis - c/w TEDs/Sequentials (re: Thrombocytopenia) Disposition: - Anticipate DC within 24-48 hours VS,Fishbone, I+O VS, Fishbone, I+O Laboratory Tests 05/19/20 05:50 Vital Signs Date Time Temp Pulse Resp B/P (MAP) Pulse Ox O2 Delivery O2 Flow Rate FiO2 05/19/20 12:45 100.0 94 18 122/93 (103) 91 Nasal Cannula 1.0 05/19/20 04:30 50 I&O- Last 24 Hours up to 6 AM 05/19/20 06:00 Intake Total 1170 ml Output Total 1100 ml Balance 70 ml QIANA LYNN MD May 19, 2020 13:53
[2020-05-19] MEDS ORDERED: ACETAMINOPHEN TAB 650MG DOSE (2X325MG) PO PRN (14:15)
[2020-05-19] MEDS: VITAMIN A 10,000 INTERNATIONAL UNITS CAP PO SCH (21:41)
[2020-05-19] MEDS: CYANOCOBALAMIN 500 MCG TAB PO SCH (21:42)
[2020-05-19] MEDS: MAGNESIUM OXIDE 400 MG TAB (MAG-OX) PO SCH (21:42)
[2020-05-19] MEDS: FOLIC ACID 1 MG TAB PO SCH (21:42)
[2020-05-19] MEDS: LATANOPROST 0.005% OPHTH SOLN 2.5 ML OU SCH (21:43)
[2020-05-19] MEDS: VITAMIN D 1,000 INTERNATIONAL UNITS TABLET PO SCH (21:43)
[2020-05-20] VITALS (9 sets, daily range): BP systolic 122–171; BP diastolic 56–75; O2SAT 88–95
[2020-05-20] MEDS: LEVOTHYROXINE 137MCG TABLET (0.137MG) PO SCH (04:54)
[2020-05-20 07:52] LABS: BASO % 0.1 % (0.0-1.0); HEMOGLOBIN 11.4 g/dl (12.0-15.5); LYMPH # 0.9 10^3/uL (1.5-5.0); LYMPH % 9.6 % (24.0-44.0); MEAN CORPUSCULAR HEMOGLOBIN 34.4 pg (27.0-33.0); MEAN CORPUSCULAR HGB CONC 31.7 g/dl (32.0-36.5); MEAN CORPUSCULAR VOLUME 108.8 fl (80.0-96.0); MONO # 0.3 10^3/uL (0.0-0.8); MONO % 3.7 % (0.0-5.0); NEUTROPHILS # 7.8 10^3/uL (1.5-8.5); NEUTROPHILS % 85.6 % (36.0-66.0); PLATELET COUNT, AUTOMATED 129 10^3/uL (150-450); RED BLOOD COUNT 3.31 10^6/uL (4.00-5.40); WHITE BLOOD COUNT 9.2 10^3/uL (4.0-10.0)
[2020-05-20 08:07] LABS: INR 1.04; PARTIAL THROMBOPLASTIN TIME 27.8 SECONDS (24.2-38.5); PROTHROMBIN TIME 13.8 SECONDS (12.5-14.3)
[2020-05-20 08:28] LABS: ALBUMIN 3.1 GM/DL (3.2-5.2); BILIRUBIN,DIRECT 0.2 MG/DL (0.0-0.2); BILIRUBIN,TOTAL 0.7 MG/DL (0.2-1.0); C REACTIVE PROTEIN QUANTITATIV 13.4 MG/DL (0.00-0.30); CALCIUM LEVEL 8.8 MG/DL (8.8-10.2); CREATININE FOR GFR 1.52 MG/DL (0.55-1.30); GLOMERULAR FILTRATION RATE 34.3 (>32); MAGNESIUM LEVEL 2.2 MG/DL (1.8-2.4); POTASSIUM SERUM 4.4 MEQ/L (3.5-5.1); TOTAL PROTEIN 7.7 GM/DL (6.4-8.2)
[2020-05-20] MEDS: ALBUTEROL 90 MCG/ACT 8GM HFA INHALER INH SCH ×4 (08:42→18:59)
[2020-05-20] MEDS: ASPIRIN 81 MG ENTERIC TAB PO SCH (09:07)
[2020-05-20] MEDS: METAMUCIL (PSYLLIUM) PACKET PO SCH (09:07)
[2020-05-20] MEDS: oxyBUTYnin 5 MG TAB PO SCH (09:07)
[2020-05-20] MEDS: GABAPENTIN 400 MG CAP PO SCH ×2 (09:07→20:10)
[2020-05-20] MEDS: OMEPRAZOLE 20 MG CAP PO SCH (09:07)
[2020-05-20] MEDS: LORATADINE 10 MG TAB PO SCH (09:07)
[2020-05-20] MEDS: LOSARTAN 25 MG TAB PO SCH (09:07)
[2020-05-20] MEDS: predniSONE 20 MG TAB PO SCH (09:07)
[2020-05-20] MEDS: ACETAMINOPHEN 650MG ER TAB (TYLENOL ARTHRITIS) PO SCH ×2 (09:08→20:11)
[2020-05-20] MEDS: MULTIVITAMINS/MINERALS THERAP 1 TAB PO SCH (09:08)
[2020-05-20] MEDS: HumaLOG INSULIN (NovoLOG) PER UNIT SC SCH ×4 (09:08→20:13)
[2020-05-20] MEDS: ATORVASTATIN 20 MG TAB PO SCH (09:08)
[2020-05-20] MEDS: allopurinoL 300 MG TAB PO SCH (09:08)
[2020-05-20] MEDS: HumuLIN N INSULIN (NovoLIN N) PER UNIT SC SCH ×2 (09:09→17:26)
[2020-05-20] MEDS: TIMOLOL MALEATE 0.5% OPHTH SOLN 5 ML OU SCH ×2 (09:09→20:12)
[2020-05-20] MEDS: BRIMONIDINE 0.15% OPHTH SOLN 5 ML OU SCH ×2 (09:09→20:12)
[2020-05-20] MEDS ORDERED: FUROSEMIDE 20MG/2ML VIAL (J1940) IV ONE (10:00)
--- NOTE | 2020-05-20 10:26 | IPNPDOC ---
Text Note Date of Service The patient was seen on 05/20/20. NOTE Subjective: Patient is an 89-year-old female who presented to the emergency room brought in by EMS after she had slipped off her recliner and couldnt get up. Patient remain on the ground for proximally 2 hours until she was able to call 911. Patient denies any chest pain, shortness breath or palpitations. Does report a cough thats been going on for about 1 week. Reports some phlegm production described as clear, with some streaky blood. Patient has reported fevers at home. She noted that speedboat driver had measured her temperature at 101F. Patient was admitted to the hospital service for further evaluation and treatment. Patient was seen and examined at the bedside. Patient was seen sitting up in bed with nasal cannula oxygen. Patient denies any chest pain or palpitations. Patient is still noting a cough. Denies any significant shortness of breath. Reports some nausea without vomiting. Denies any abdominal pain, diarrhea, or urinary discomfort. Objective: Vitals (See below) General: Patient appears to be sitting up in bed, appears to be comfortable without any distress, is awake, alert and oriented 3 HEENT: NC, AT CVS: +S1S2 Lungs: Air entry appears to be fair bilaterally; faint crackles at bases, no a ppreciable rhonchi or wheezing Abdomen: Abdomen remains soft without any distention or tenderness Extremities: Lower extremities reveal trace edema, - Calf tenderness Assessment and plan: Acute hypoxic respirator failure - possibly 2/2 fluid overload - Patient is currently saturating well on nasal cannula 1 L; she has been using her CPAP device at night - Saturating well on nasal cannula 1 L - CXR 1/2: There is a pulmonary parenchymal calcification consistent with remote granulomatous organism exposure. Slightly increased interstitial and airspace opacities, correlate for infection or edema. - CXR 1/2: Stable chronic changes. Subtle basilar atelectasis cannot be excluded. - Will provide additional dose of Furosemide IV today - has had adequate diuresis yesterday COVID19 infection - Patient was incidentally found to be COVID positive while in the ER (Positive date of 05/17/2020) - Hemodynamically stable / Febrile episode this morning - Inflammatory markers are elevated today; will continue to follow - CXR 04/17: Chronic stable changes. Cannot exclude subtle superimposed atelectasis. No focal consolidation or effusion. 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 HTN - BP elevated this morning - s/p Hydralazine IV - c/w Losartan / Furosemide DLP - c/w Atorvastatin IDDM2 with Hyperglycemia - likely 2/2 corticosteroids - c/w NPH insulin and ISS Hypothyroidism - c/w Levothyroxine MITCH on CPAP - May allow home CPAP use while inpatient Gout - c/w Allopurinol CKD3 - Cr baseline of 1.3-1.5 - Cr remains at baseline - Will monitor closely with diuretic therapy Neuropathy - c/w Gabapentin Cholelithiasis Overactive bladder - c/w Oxybutynin Obesity - BMI of 45.8 - Complicating medical care GERD - c/w Omeprazole from outpatient setting DVT prophylaxis - c/w TEDs/Sequentials (re: Thrombocytopenia) Disposition: - Anticipate DC within 24-48 hours VS,Fishbone, I+O VS, Fishbone, I+O Laboratory Tests 05/20/20 07:11 Vital Signs Date Time Temp Pulse Resp B/P (MAP) Pulse Ox O2 Delivery O2 Flow Rate FiO2 05/20/20 09:07 171/75 05/20/20 08:00 88 Nasal Cannula 1.0 05/20/20 08:00 102.7 78 24 05/19/20 04:30 50 I&O- Last 24 Hours up to 6 AM 05/20/20 06:00 Intake Total 1360 ml Output Total 2300 ml Balance -940 ml QIANA LYNN MD May 20, 2020 10:26
[2020-05-20] MEDS: cefTRIAXone SOD 1 GM in D5W MINI-BAG PLUS 50 ML IV SCH (11:14)
--- NOTE | 2020-05-20 11:50 | REP ---
INDICATION: Fever COMPARISON: 05/19/2020 TECHNIQUE: Portable AP view of the chest FINDINGS: Mediastinum and cardiac silhouette are stable. Lung nieto demonstrate chronic changes and suspected subtle superimposed bilateral airspace disease. No discrete consolidation small right effusion cannot be excluded. No pneumothorax. Skeletal structures intact. IMPRESSION: Superimposed airspace disease and possible small right pleural effusion cannot be excluded. <Electronically signed by Pavan Orourke > 05/20/20 1140
[2020-05-20] MEDS: DOXYCYCLINE HYCLATE 100 MG in D5W MINI-BAG PLUS 100 ML IV SCH ×2 (12:10→22:00)
[2020-05-20] MEDS: MAGNESIUM OXIDE 400 MG TAB (MAG-OX) PO SCH (20:10)
[2020-05-20] MEDS: FOLIC ACID 1 MG TAB PO SCH (20:10)
[2020-05-20] MEDS: CYANOCOBALAMIN 500 MCG TAB PO SCH (20:11)
[2020-05-20] MEDS: LATANOPROST 0.005% OPHTH SOLN 2.5 ML OU SCH (20:12)
[2020-05-20] MEDS: VITAMIN D 1,000 INTERNATIONAL UNITS TABLET PO SCH (21:59)
[2020-05-20] MEDS: VITAMIN A 10,000 INTERNATIONAL UNITS CAP PO SCH (21:59)
[2020-05-21] VITALS (13 sets, daily range): BP systolic 124–190; BP diastolic 67–89; O2SAT 90–95
[2020-05-21] MEDS: LEVOTHYROXINE 137MCG TABLET (0.137MG) PO SCH (04:37)
[2020-05-21] MEDS: ALBUTEROL 90 MCG/ACT 8GM HFA INHALER INH SCH ×4 (07:39→20:13)
[2020-05-21 07:57] LABS: BASO % 0.2 % (0.0-1.0); EOS % 0.2 % (0.0-3.0); HEMATOCRIT 35.8 % (36.0-47.0); HEMOGLOBIN 11.4 g/dl (12.0-15.5); LYMPH # 0.7 10^3/uL (1.5-5.0); LYMPH % 8.3 % (24.0-44.0); MEAN CORPUSCULAR HEMOGLOBIN 34.1 pg (27.0-33.0); MEAN CORPUSCULAR HGB CONC 31.8 g/dl (32.0-36.5); MEAN CORPUSCULAR VOLUME 107.2 fl (80.0-96.0); MONO # 0.3 10^3/uL (0.0-0.8); MONO % 3.4 % (0.0-5.0); NEUTROPHILS # 7.1 10^3/uL (1.5-8.5); NEUTROPHILS % 86.7 % (36.0-66.0); PLATELET COUNT, AUTOMATED 129 10^3/uL (150-450); RED BLOOD COUNT 3.34 10^6/uL (4.00-5.40); WHITE BLOOD COUNT 8.2 10^3/uL (4.0-10.0)
[2020-05-21 08:09] LABS: INR 1.12; PROTHROMBIN TIME 14.6 SECONDS (12.5-14.3)
[2020-05-21 08:10] LABS: FIBRINOGEN 632 MG/DL (221-452); PARTIAL THROMBOPLASTIN TIME 30.5 SECONDS (24.2-38.5)
[2020-05-21 08:24] LABS: ALBUMIN 2.6 GM/DL (3.2-5.2); BILIRUBIN,DIRECT 0.2 MG/DL (0.0-0.2); BILIRUBIN,TOTAL 0.4 MG/DL (0.2-1.0); CALCIUM LEVEL 8.7 MG/DL (8.8-10.2); CREATININE FOR GFR 1.59 MG/DL (0.55-1.30); GLOMERULAR FILTRATION RATE 32.5 (>32); MAGNESIUM LEVEL 2.3 MG/DL (1.8-2.4); POTASSIUM SERUM 4.4 MEQ/L (3.5-5.1); TOTAL PROTEIN 7.8 GM/DL (6.4-8.2)
[2020-05-21] MEDS: HumuLIN N INSULIN (NovoLIN N) PER UNIT SC SCH ×2 (09:36→18:22)
[2020-05-21] MEDS: cefTRIAXone SOD 1 GM in D5W MINI-BAG PLUS 50 ML IV SCH (09:37)
[2020-05-21] MEDS: DOXYCYCLINE HYCLATE 100 MG in D5W MINI-BAG PLUS 100 ML IV SCH ×2 (09:37→21:33)
[2020-05-21] MEDS: HumaLOG INSULIN (NovoLOG) PER UNIT SC SCH ×4 (09:37→23:26)
[2020-05-21] MEDS: METAMUCIL (PSYLLIUM) PACKET PO SCH (09:38)
[2020-05-21] MEDS: ASPIRIN 81 MG ENTERIC TAB PO SCH (09:38)
[2020-05-21] MEDS: GABAPENTIN 400 MG CAP PO SCH ×2 (09:38→20:28)
[2020-05-21] MEDS: BRIMONIDINE 0.15% OPHTH SOLN 5 ML OU SCH ×2 (09:38→20:26)
[2020-05-21] MEDS: TIMOLOL MALEATE 0.5% OPHTH SOLN 5 ML OU SCH ×2 (09:38→20:26)
[2020-05-21] MEDS: LOSARTAN 25 MG TAB PO SCH (09:39)
[2020-05-21] MEDS: allopurinoL 300 MG TAB PO SCH (09:39)
[2020-05-21] MEDS: OMEPRAZOLE 20 MG CAP PO SCH (09:39)
[2020-05-21] MEDS: oxyBUTYnin 5 MG TAB PO SCH (09:39)
[2020-05-21] MEDS: MULTIVITAMINS/MINERALS THERAP 1 TAB PO SCH (09:39)
[2020-05-21] MEDS: ACETAMINOPHEN 650MG ER TAB (TYLENOL ARTHRITIS) PO SCH ×2 (09:39→20:28)
[2020-05-21] MEDS: dexameTHASONE 4 MG/ML 1ML VIAL (J1100 PER 1MG) IV SCH (09:40)
[2020-05-21] MEDS: ATORVASTATIN 20 MG TAB PO SCH (09:40)
[2020-05-21] MEDS: LORATADINE 10 MG TAB PO SCH (09:40)
[2020-05-21] MEDS: CALCITRIOL 0.25 MCG CAP (S0169) PO SCH (09:40)
[2020-05-21] MEDS: ALBUTEROL 90 MCG/ACT 8GM HFA INHALER INH PRN (09:54)
[2020-05-21 10:03] LABS: D-DIMER QUANT > 4000 ng/ml (<500)
[2020-05-21 12:15] LABS: ABG BASE EXCESS 3.1 (-2.0-2.0); ABG HCO3 27.4 MEQ/L (22.0-26.0); ABG O2 SATURATION 92.3 % (95.0-99.0); ABG PARTIAL PRESSURE CO2 40.8 mmHg (35.0-45.0); ABG PARTIAL PRESSURE O2 53.9 mmHg (75.0-100.0); ABG STANDARD HCO3 27.1 MEQ/L (22.0-26.0); ABG TOTAL CO2 28.7 MEQ/L (23.0-31.0); ABG pH (ARTERIAL) 7.445 UNITS (7.350-7.450)
--- NOTE | 2020-05-21 12:16 | REP ---
INDICATION: SOB COMPARISON: 05/20/2020 TECHNIQUE: Portable AP view of the chest FINDINGS: Perihilar and lower lobe opacities appear increased from prior examination. No effusion. No pneumothorax. Mediastinum and cardiac silhouette normal. IMPRESSION: Increased bilateral perihilar and lower lobe infiltrates. <Electronically signed by Pavan Orourke > 05/21/20 [id number]
[2020-05-21] MEDS ORDERED: FUROSEMIDE 20MG/2ML VIAL (J1940) IV ONE (12:30)
--- NOTE | 2020-05-21 12:36 | IPNPDOC ---
Text Note Date of Service The patient was seen on 05/21/20. NOTE Subjective: Patient is an 89-year-old female who presented to the emergency room brought in by EMS after she had slipped off her recliner and couldnt get up. Patient remain on the ground for proximally 2 hours until she was able to call 911. Patient denies any chest pain, shortness breath or palpitations. Does report a cough thats been going on for about 1 week. Reports some phlegm production described as clear, with some streaky blood. Patient has reported fevers at home. She noted that utility worker driver had measured her temperature at 101F. Patient was admitted to the hospital service for further evaluation and treatment. Patient was seen and examined at the bedside. Currently patient reports that she is fatigued. Denies any chest pain or palpitations. Reports that her breathing is doing relatively well. Reports a mild cough. Denies any nausea, abdominal pain, diarrhea. Patient has a Miranda catheter in place. Objective: Vitals (See below) General: Sitting up in bed, does not appear to be in any distress with NC in place, is awake, alert and oriented 3 HEENT: NC, AT CVS: +S1S2 Lungs: Air entry bilaterally, appears to be fair, crackles or bilaterally appreciated. No rhonchi or wheezing Abdomen: Soft without any distention or tenderness. Obese Extremities: Again, trace pitting edema is appreciated bilaterally, - Calf tenderness Imaging: CXR 1/2: There is a pulmonary parenchymal calcification consistent with remote granulomatous organism exposure. Slightly increased interstitial and airspace opacities, correlate for infection or edema. CXR 1/2: Stable chronic changes. Subtle basilar atelectasis cannot be excluded. CXR 1/3: Superimposed airspace disease and possible small right pleural effusion cannot be excluded. CXR 1/4: Increased bilateral perihilar and lower lobe infiltrates. Assessment and plan: Acute hypoxic respirator failure - possibly 2/2 fluid overload, possibly 2/2 bacterial pneumonia (coverage for aspiration), possibly 2/2 COVID19 infection - Has been on CPAP at night; will c/w nasal cannula oxygen during the day - Patient was incidentally found to be COVID19 positive while in the ER (Positive date of 05/17/2020) - Inflammatory markers continue to trend upward - Procalcitonin slightly elevated - Imaging noted above - Strict ins/outs, daily weights, fluid restriction - Will check duplex US of bilateral LE - Will check ECHO / EKG / Troponin trend - Will start Dexamethasone; will DC Prednisone - c/w Doxycycline (Atypical coverage); will stop Ceftriaxone and start Unasyn (Anaerobic coverage) - Will increase DVT prophylaxis to weight based prophylaxis - Will again provide a low dose Furosemide to induce more diuresis - Discussed with pulmonology Suspected history of COPD - c/w inhaled therapy as ordered Weakness / Debility - Patient reported that she had slid out of her recliner and couldnt get up because she was weak - Patient denied any trauma or loss of consciousness - c/w PT and OT as tolerated 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 HTN - BP elevated this morning - s/p Hydralazine IV - c/w Losartan / Furosemide DLP - c/w Atorvastatin IDDM2 with Hyperglycemia - likely 2/2 corticosteroids - c/w NPH insulin and ISS Hypothyroidism - c/w Levothyroxine MITCH on CPAP - May allow home CPAP use while inpatient Gout - c/w Allopurinol CKD3 - Cr baseline of 1.3-1.5 - Cr remains at baseline - Will monitor closely with diuretic therapy Neuropathy - c/w Gabapentin Cholelithiasis Overactive bladder - c/w Oxybutynin - Has Miranda Catheter in place now for critical monitoring Obesity - BMI of 45.8 - Complicating medical care GERD - c/w Omeprazole from outpatient setting DVT prophylaxis - Will start weight based Lovenox prophylactic dosing Disposition: - Awaiting clinical improvement VSAlcira, I+O VSAlcira I+O Laboratory Tests 05/21/20 06:54 Vital Signs Date Time Temp Pulse Resp B/P (MAP) Pulse Ox O2 Delivery O2 Flow Rate FiO2 05/21/20 09:39 190/81 05/21/20 08:00 103.2 89 36 92 Nasal Cannula 2.0 05/19/20 04:30 50 I&O- Last 24 Hours up to 6 AM 05/21/20 06:00 Intake Total 1020 ml Output Total 1475 ml Balance -455 ml QIANA LYNN MD May 21, 2020 12:36
[2020-05-21 12:37] LABS: CK-MB VALUE MASS 1.4 NG/ML (<3.6); MB/CK RELATIVE INDEX 0.83 (< OR =4); TROPONIN I 0.29 NG/ML (< 0.10)
[2020-05-21] MEDS ORDERED: VANCOMYCIN HCL 1,000 MG, VIAL MATE ADAPTER 1 EACH in D5W 250 ML IV ONE (13:00)
[2020-05-21 13:06] LABS: MYCOPLASMA PNEUMONIAE IgG 418 U/mL (0-99); MYCOPLASMA PNEUMONIAE IgM <770 U/mL (0-769)
[2020-05-21] MEDS: ENOXAPARIN 60MG/0.6ML SYRINGE (J1650 PER 10MG) SC SCH ×2 (13:07→20:27)
[2020-05-21] MEDS ORDERED: VANCOMYCIN HCL 500 MG in D5W MINI-BAG PLUS 100 ML IV ONE (14:00)
[2020-05-21] MEDS ORDERED: AMPICILLIN SOD/SULBACTAM SOD 3 GM in D5W MINI-BAG PLUS 100 ML IV SCH (14:00)
[2020-05-21 14:43] LABS: CK-MB VALUE MASS 1.2 NG/ML (<3.6); MB/CK RELATIVE INDEX 0.77 (< OR =4); TROPONIN I 0.33 NG/ML (< 0.10)
[2020-05-21] MEDS ORDERED: VANCOMYCIN INTERMITTENT/PULSE DOSING BY CLINICAL PHARMACIST PER DOSING PROTOCOL XX SCH (15:30)
[2020-05-21 18:10] LABS: BODY FLUID CULTURE Not indicated. (.); LEGIONELLA ANTIGEN URINE Negative (Negative); ORGANISM ID Not indicated. (.); SPECIMEN SOURCE Urine (.); URINE STREP PNEUMONIAE ANTIGEN Negative (Negative)
[2020-05-21] MEDS: AMPICILLIN SOD/SULBACTAM SOD 3 GM in D5W MINI-BAG PLUS 100 ML IV SCH (19:33)
[2020-05-21] MEDS: LATANOPROST 0.005% OPHTH SOLN 2.5 ML OU SCH (20:26)
[2020-05-21] MEDS: CYANOCOBALAMIN 500 MCG TAB PO SCH (20:28)
[2020-05-21] MEDS: VITAMIN D 1,000 INTERNATIONAL UNITS TABLET PO SCH (20:28)
[2020-05-21] MEDS: FOLIC ACID 1 MG TAB PO SCH (20:28)
[2020-05-21] MEDS: VITAMIN A 10,000 INTERNATIONAL UNITS CAP PO SCH (20:28)
[2020-05-21] MEDS: MAGNESIUM OXIDE 400 MG TAB (MAG-OX) PO SCH (20:28)
[2020-05-21 20:39] LABS: CK-MB VALUE MASS 1.6 NG/ML (<3.6); MB/CK RELATIVE INDEX 1.21 (< OR =4); TROPONIN I 0.25 NG/ML (< 0.10)
--- NOTE | 2020-05-21 20:42 | REPVR ---
PROCEDURE INFORMATION: Exam: US Duplex Lower Extremity Veins, Bilateral Exam date and time: 05/21/2020 8:24 PM Age: 89 years old Clinical indication: Abnormal findings; Abnormal lab test; Elevated d-dimer; Additional info: Persistently elevated d-dimers TECHNIQUE: Imaging protocol: Real-time duplex ultrasound of the extremities with 2-D hancock scale, color Doppler flow and spectral waveform analysis with image documentation. Complete exam focused on the bilateral lower extremity veins. COMPARISON: No relevant prior studies available. FINDINGS: Right deep veins: Unremarkable. The common femoral, femoral, proximal profunda femoral and popliteal veins are patent without thrombus. Normal Doppler waveforms. Normal compressibility and/or augmentation response. Right superficial veins: Saphenofemoral junction is patent without thrombus. Left deep veins: Unremarkable. The common femoral, femoral, proximal profunda femoral and popliteal veins are patent without thrombus. Normal Doppler waveforms. Normal compressibility and/or augmentation response. Left superficial veins: Saphenofemoral junction is patent without thrombus. Soft tissues: Unremarkable. IMPRESSION: No evidence of deep vein thrombosis. Electronically signed by: Jimi Guerrero On 05/21/2020 20:42:42 PM
--- NOTE | 2020-05-21 23:48 | ECGEPIP ---
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 No remarkable changes Electronically Signed on 05-21-2020 23:48:28 EST by Jaden Wells
[2020-05-22] VITALS (8 sets, daily range): BP systolic 135–177; BP diastolic 61–85; O2SAT 89–96
[2020-05-22] MEDS: LEVOTHYROXINE 137MCG TABLET (0.137MG) PO SCH (05:27)
[2020-05-22] MEDS: AMPICILLIN SOD/SULBACTAM SOD 3 GM in D5W MINI-BAG PLUS 100 ML IV SCH (05:27)
[2020-05-22] MEDS: HumaLOG INSULIN (NovoLOG) PER UNIT SC SCH ×4 (05:50→21:58)
[2020-05-22 06:30] LABS: BASO % 0.1 % (0.0-1.0); HEMATOCRIT 33.8 % (36.0-47.0); HEMOGLOBIN 10.9 g/dl (12.0-15.5); LYMPH # 0.5 10^3/uL (1.5-5.0); LYMPH % 5.1 % (24.0-44.0); MEAN CORPUSCULAR HEMOGLOBIN 34.3 pg (27.0-33.0); MEAN CORPUSCULAR HGB CONC 32.2 g/dl (32.0-36.5); MEAN CORPUSCULAR VOLUME 106.3 fl (80.0-96.0); MONO # 0.4 10^3/uL (0.0-0.8); MONO % 3.9 % (0.0-5.0); NEUTROPHILS % 89.8 % (36.0-66.0); PLATELET COUNT, AUTOMATED 151 10^3/uL (150-450); RED BLOOD COUNT 3.18 10^6/uL (4.00-5.40); WHITE BLOOD COUNT 8.9 10^3/uL (4.0-10.0)
[2020-05-22 06:57] LABS: INR 1.12; PROTHROMBIN TIME 14.6 SECONDS (12.5-14.3)
[2020-05-22 06:58] LABS: PARTIAL THROMBOPLASTIN TIME 36.3 SECONDS (24.2-38.5)
[2020-05-22 07:10] LABS: ALBUMIN 2.3 GM/DL (3.2-5.2); BILIRUBIN,DIRECT 0.2 MG/DL (0.0-0.2); BILIRUBIN,TOTAL 0.4 MG/DL (0.2-1.0); C REACTIVE PROTEIN QUANTITATIV 15.2 MG/DL (0.00-0.30); CALCIUM LEVEL 8.4 MG/DL (8.8-10.2); CREATININE FOR GFR 1.42 MG/DL (0.55-1.30); GLOMERULAR FILTRATION RATE 37.1 (>32); MAGNESIUM LEVEL 2.6 MG/DL (1.8-2.4); POTASSIUM SERUM 4.6 MEQ/L (3.5-5.1); TOTAL PROTEIN 6.6 GM/DL (6.4-8.2)
--- NOTE | 2020-05-22 07:38 | ECHO ---
DATE OF PROCEDURE: 05/21/2020 Age: 89 Gender: Female Height: 157 cm Weight: 108 kg REFERRING PHYSICIAN: Campbell Munroe M.D. INDICATION: Dyspnea. MEASUREMENTS: IVS 1.5 cm LV 3.4 cm LVPW 1.4 cm LA 4.4 cm RV 3.6 cm IVC 2.6 cm Mitral E wave velocity 166 cm/s Mitral A wave 191 cm/s E prime septal 8.1 cm/s E prime lateral 7.8 cm/s Left atrial volume index 40 FINDINGS: This study is of fair technical quality with challenging visualization. Underlying what appears to be sinus rhythm with very frequent ventricular ectopy and wide QRS complex. Left ventricle is normal size and likely hyperdynamic contractility. I estimate overall LVEF around 70%. I certainly cannot rule out segmental wall motion abnormality with any degree of certainty. Right ventricle appears dilated and hypokinetic. Left atrium is severely enlarged. Right atrium is enlarged as well. There is a bioprosthesis in the aortic position that was poorly visualized and I cannot comment on its structure. Mitral valve appears heavily sclerotic with very prominent mitral annular calcifications and some restrictions of mitral leaflet mobility. Tricuspid valve appears normal. Pulmonic valve was not well seen. No pericardial effusion is noted. Inferior vena cava is markedly dilated without appreciable collapse with inspiration indicative of very high central venous pressure. Aortic root is normal. Aortic arch and abdominal aorta were not well seen. Doppler interrogation of the aortic valve reveals no insufficiency and mean gradient 11 mmHg, which is within normal limits for bioprosthetic valve. There is [id number] mitral stenosis with mean gradient 5 mmHg and trace mitral insufficiency. Mild tricuspid insufficiency is seen. Calculated pulmonary artery pressure is in minimum in the 40s corresponding to moderate pulmonary hypertension. Evaluation of diastolic function is inconclusive due to underlying mitral valvular disease that skews mitral inflow velocities. CONCLUSIONS: 1. Study is of fair technical quality with difficult visualization. Underlying sinus rhythm with frequent ventricular ectopy and wide QRS complex. 2. Normal LV size with [id number]-[id number] LVH, hyperdynamic LV systolic function. 3. 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 4. Gsdg-[id number] mitral stenosis. 5. Very high central venous pressure and at least moderate pulmonary hypertension. MTDD
[2020-05-22] MEDS: ALBUTEROL 90 MCG/ACT 8GM HFA INHALER INH SCH ×4 (08:16→21:56)
[2020-05-22] MEDS: METAMUCIL (PSYLLIUM) PACKET PO SCH (08:17)
[2020-05-22] MEDS: BRIMONIDINE 0.15% OPHTH SOLN 5 ML OU SCH ×2 (08:17→20:00)
[2020-05-22] MEDS: TIMOLOL MALEATE 0.5% OPHTH SOLN 5 ML OU SCH ×2 (08:17→20:00)
[2020-05-22] MEDS: CALCITRIOL 0.25 MCG CAP (S0169) PO SCH (08:18)
[2020-05-22] MEDS: GABAPENTIN 400 MG CAP PO SCH ×2 (08:18→19:59)
[2020-05-22] MEDS: ASPIRIN 81 MG ENTERIC TAB PO SCH (08:18)
[2020-05-22] MEDS: ENOXAPARIN 60MG/0.6ML SYRINGE (J1650 PER 10MG) SC SCH ×2 (08:18→19:59)
[2020-05-22] MEDS: OMEPRAZOLE 20 MG CAP PO SCH (08:18)
[2020-05-22] MEDS: allopurinoL 300 MG TAB PO SCH (08:19)
[2020-05-22] MEDS: ATORVASTATIN 20 MG TAB PO SCH (08:19)
[2020-05-22] MEDS: LOSARTAN 25 MG TAB PO SCH (08:19)
[2020-05-22] MEDS: oxyBUTYnin 5 MG TAB PO SCH (08:19)
[2020-05-22] MEDS: dexameTHASONE 4 MG/ML 1ML VIAL (J1100 PER 1MG) IV SCH (08:20)
[2020-05-22] MEDS: ACETAMINOPHEN 650MG ER TAB (TYLENOL ARTHRITIS) PO SCH ×2 (08:20→20:00)
[2020-05-22] MEDS: MULTIVITAMINS/MINERALS THERAP 1 TAB PO SCH (08:21)
[2020-05-22] MEDS: LORATADINE 10 MG TAB PO SCH (08:21)
[2020-05-22] MEDS: DOXYCYCLINE HYCLATE 100 MG in D5W MINI-BAG PLUS 100 ML IV SCH (10:28)
[2020-05-22] MEDS: HumuLIN N INSULIN (NovoLIN N) PER UNIT SC SCH ×2 (10:29→18:43)
[2020-05-22] MEDS: LevoFLOXacin 750 MG TABLET PO SCH (18:42)
--- NOTE | 2020-05-22 19:51 | IPNPDOC ---
Text Note Date of Service The patient was seen on 05/22/20. NOTE Subjective: -Persistent mild cough. Denies any nausea, abdominal pain, diarrhea. Objective: Vitals: HDS, afebrile, on 3L NC this AM General: Sitting up in bed, does not appear to be in any distress with NC in place, is awake, alert and oriented 3 HEENT: NC, AT CVS: RRR, +S1S2 Lungs: Air entry bilaterally, appears to be fair, crackles or bilaterally appreciated. No rhonchi or wheezing Abdomen: Soft without any distention or tenderness. Obese Extremities: No LE edema appreciated, WWP Labs: Reviewed Imaging: CXR 1/2: There is a pulmonary parenchymal calcification consistent with remote granulomatous organism exposure. Slightly increased interstitial and airspace opacities, correlate for infection or edema. CXR 1/2: Stable chronic changes. Subtle basilar atelectasis cannot be excluded. CXR 1/3: Superimposed airspace disease and possible small right pleural effusion cannot be excluded. CXR 1/4: Increased bilateral perihilar and lower lobe infiltrates. Assessment and plan: Acute hypoxic respiratory failure - possibly 2/2 fluid overload, possibly 2/2 bacterial pneumonia (coverage for aspiration), possibly 2/2 COVID19 infection - Has been on CPAP at night; will c/w nasal cannula oxygen during the day, now down to 1L this afternoon - Patient was incidentally found to be COVID19 positive while in the ER (Positive date of 05/17/2020) - Inflammatory markers continue uptrending, however she is now clinically improving with improving O2 requirements - Procalcitonin mildly elevated - Imaging noted above - Strict ins/outs, daily weights, fluid restriction - no DVTs per LE doppler US - -Troponin negative - DVT prophylaxis to weight based prophylaxis given high Ddimer >4000 Suspected history of COPD - c/w inhaled therapy as ordered Weakness / Debility - Patient reported that she had slid out of her recliner and couldnt get up because she was weak - Patient denied any trauma or loss of consciousness - c/w PT and OT as tolerated 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 HTN - BP elevated this morning - s/p Hydralazine IV - c/w Losartan / Furosemide DLP - c/w Atorvastatin IDDM2 with Hyperglycemia - likely 2/2 corticosteroids - c/w NPH insulin and ISS Hypothyroidism - c/w Levothyroxine MITCH on CPAP - May allow home CPAP use while inpatient Gout - c/w Allopurinol CKD3 - Cr baseline of 1.3-1.5 - Cr remains at baseline - Will monitor closely with diuretic therapy Neuropathy - c/w Gabapentin Cholelithiasis Overactive bladder - c/w Oxybutynin - Has Miranda Catheter in place now for critical monitoring Obesity - BMI of 45.8 - Complicating medical care GERD - c/w Omeprazole from outpatient setting DVT prophylaxis - weight based Lovenox prophylactic dosing Disposition: - Pending clinical improvement VS,Alcira, I+O VS, Alcira, I+O Laboratory Tests 05/22/20 05:45 Vital Signs Date Time Temp Pulse Resp B/P (MAP) Pulse Ox O2 Delivery O2 Flow Rate FiO2 05/22/20 16:00 99.1 67 18 177/72 (107) 92 Nasal Cannula 1.0 05/19/20 04:30 50 I&O- Last 24 Hours up to 6 AM 05/22/20 06:00 Intake Total 1150 ml Output Total 1800 ml Balance -650 ml SHANTAL GOMEZ MD May 22, 2020 19:51
[2020-05-22] MEDS: CYANOCOBALAMIN 500 MCG TAB PO SCH (19:58)
[2020-05-22] MEDS: VITAMIN D 1,000 INTERNATIONAL UNITS TABLET PO SCH (19:59)
[2020-05-22] MEDS: VITAMIN A 10,000 INTERNATIONAL UNITS CAP PO SCH (19:59)
[2020-05-22] MEDS: FOLIC ACID 1 MG TAB PO SCH (20:00)
[2020-05-22] MEDS: MAGNESIUM OXIDE 400 MG TAB (MAG-OX) PO SCH (20:00)
[2020-05-22] MEDS: LATANOPROST 0.005% OPHTH SOLN 2.5 ML OU SCH (20:00)
[2020-05-22] MEDS ORDERED: GLUCOSE 4GM CHEW TABLET PO PRN (21:00)
[2020-05-22] MEDS ORDERED: GLUCAGON INJ 1MG VIAL SC PRN (21:00)
[2020-05-22] MEDS ORDERED: DEXTROSE 50% 50 ML SYRINGE IV PRN (21:00)
[2020-05-23] VITALS (7 sets, daily range): BP systolic 136–180; BP diastolic 68–81; O2SAT 90–93
[2020-05-23] MEDS: LEVOTHYROXINE 137MCG TABLET (0.137MG) PO SCH (05:02)
[2020-05-23] MEDS: ALBUTEROL 90 MCG/ACT 8GM HFA INHALER INH SCH ×4 (07:02→20:00)
[2020-05-23] MEDS: HumuLIN N INSULIN (NovoLIN N) PER UNIT SC SCH ×2 (07:30→17:56)
[2020-05-23 07:45] LABS: BASO % 0.1 % (0.0-1.0); EOS % 0.1 % (0.0-3.0); HEMATOCRIT 34.7 % (36.0-47.0); HEMOGLOBIN 11.1 g/dl (12.0-15.5); LYMPH # 0.5 10^3/uL (1.5-5.0); LYMPH % 5.6 % (24.0-44.0); MEAN CORPUSCULAR HEMOGLOBIN 34.2 pg (27.0-33.0); MEAN CORPUSCULAR VOLUME 106.8 fl (80.0-96.0); MONO # 0.4 10^3/uL (0.0-0.8); MONO % 4.6 % (0.0-5.0); NEUTROPHILS # 7.1 10^3/uL (1.5-8.5); NEUTROPHILS % 88.2 % (36.0-66.0); PLATELET COUNT, AUTOMATED 180 10^3/uL (150-450); RED BLOOD COUNT 3.25 10^6/uL (4.00-5.40); WHITE BLOOD COUNT 8.1 10^3/uL (4.0-10.0)
[2020-05-23 08:18] LABS: INR 1.16; PROTHROMBIN TIME 15.1 SECONDS (12.5-14.3)
[2020-05-23 08:19] LABS: PARTIAL THROMBOPLASTIN TIME 35.5 SECONDS (24.2-38.5)
[2020-05-23 08:22] LABS: D-DIMER QUANT 3200.84 ng/ml (<500)
[2020-05-23 08:31] LABS: ALBUMIN 2.2 GM/DL (3.2-5.2); BILIRUBIN,DIRECT 0.2 MG/DL (0.0-0.2); BILIRUBIN,TOTAL 0.5 MG/DL (0.2-1.0); C REACTIVE PROTEIN QUANTITATIV 13.3 MG/DL (0.00-0.30); CALCIUM LEVEL 8.7 MG/DL (8.8-10.2); CREATININE FOR GFR 1.28 MG/DL (0.55-1.30); GLOMERULAR FILTRATION RATE 41.8 (>32); POTASSIUM SERUM 4.7 MEQ/L (3.5-5.1); TOTAL PROTEIN 6.8 GM/DL (6.4-8.2); TROPONIN I 0.07 NG/ML (< 0.10)
[2020-05-23] MEDS: ENOXAPARIN 60MG/0.6ML SYRINGE (J1650 PER 10MG) SC SCH ×2 (09:20→21:08)
[2020-05-23] MEDS: METAMUCIL (PSYLLIUM) PACKET PO SCH (09:20)
[2020-05-23] MEDS: OMEPRAZOLE 20 MG CAP PO SCH (09:20)
[2020-05-23] MEDS: ACETAMINOPHEN 650MG ER TAB (TYLENOL ARTHRITIS) PO SCH ×2 (09:20→21:06)
[2020-05-23] MEDS: oxyBUTYnin 5 MG TAB PO SCH (09:21)
[2020-05-23] MEDS: GABAPENTIN 400 MG CAP PO SCH ×2 (09:21→21:06)
[2020-05-23] MEDS: dexameTHASONE 4 MG/ML 1ML VIAL (J1100 PER 1MG) IV SCH (09:21)
[2020-05-23] MEDS: allopurinoL 300 MG TAB PO SCH (09:22)
[2020-05-23] MEDS: LOSARTAN 25 MG TAB PO SCH (09:22)
[2020-05-23] MEDS: ATORVASTATIN 20 MG TAB PO SCH (09:22)
[2020-05-23] MEDS: MULTIVITAMINS/MINERALS THERAP 1 TAB PO SCH (09:22)
[2020-05-23] MEDS: TIMOLOL MALEATE 0.5% OPHTH SOLN 5 ML OU SCH ×2 (09:22→21:09)
[2020-05-23] MEDS: CALCITRIOL 0.25 MCG CAP (S0169) PO SCH (09:22)
[2020-05-23] MEDS: LORATADINE 10 MG TAB PO SCH (09:22)
[2020-05-23] MEDS: BRIMONIDINE 0.15% OPHTH SOLN 5 ML OU SCH ×2 (09:23→21:09)
[2020-05-23] MEDS: HumaLOG INSULIN (NovoLOG) PER UNIT SC SCH ×4 (09:24→21:08)
[2020-05-23] MEDS: ASPIRIN 81 MG ENTERIC TAB PO SCH (09:25)
--- NOTE | 2020-05-23 13:48 | IPNPDOC ---
Text Note Date of Service The patient was seen on 05/23/20. NOTE Subjective: Was doing ok this morning. On 1L. This afternoon having a low grade fever and mildly more hypoxic Denies any nausea, abdominal pain, diarrhea. Objective: Vitals: HDS, afebrile, on 3L NC this AM General: Sitting up in bed, does not appear to be in any distress with NC in place, is awake, alert and oriented 3 HEENT: NC, AT CVS: RRR, +S1S2 Lungs: Air entry bilaterally fair, trace bibasilar crackles appreciated. No rhonchi or wheezing Abdomen: Soft without any distention or tenderness. Obese Extremities: No LE edema appreciated, WWP Labs: Reviewed Imaging: CXR 1/2: There is a pulmonary parenchymal calcification consistent with remote granulomatous organism exposure. Slightly increased interstitial and airspace opacities, correlate for infection or edema. CXR 1/2: Stable chronic changes. Subtle basilar atelectasis cannot be excluded. CXR 3: Superimposed airspace disease and possible small right pleural effusion cannot be excluded. CXR 4: Increased bilateral perihilar and lower lobe infiltrates. Assessment and plan: Acute hypoxic respiratory failure - possibly 2/2 fluid overload, possibly 2/2 bacterial pneumonia (coverage for aspiration), possibly 2/2 COVID19 infection - Nocturnal CPAP and now on 3L nasal cannula while awake - Patient was incidentally found to be COVID19 positive while in the ER (Positive date of 05/17/2020) - Inflammatory markers now starting to downtrend - Procalcitonin mildly elevated - Imaging noted above - Strict ins/outs, daily weights, fluid restriction - no DVTs per LE doppler US - DVT prophylaxis to weight based prophylaxis given high Ddimer >4000 -f/u covid labs Suspected history of COPD - c/w inhaled therapy as ordered Weakness / Debility - Patient reported that she had slid out of her recliner and couldnt get up because she was weak - Patient denied any trauma or loss of consciousness - c/w PT and OT as tolerated --> back to [facility] with homecare services vs. 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 HTN - BP elevated this morning - s/p Hydralazine IV - c/w Losartan / Furosemide DLP - c/w Atorvastatin IDDM2 with Hyperglycemia - likely 2/2 corticosteroids - c/w NPH insulin and ISS Hypothyroidism - c/w Levothyroxine MITCH on CPAP - May allow home CPAP use while inpatient Gout - c/w Allopurinol CKD3 - Cr baseline of 1.3-1.5 - Cr remains at baseline - Will monitor closely with diuretic therapy Neuropathy - c/w Gabapentin Cholelithiasis Overactive bladder - c/w Oxybutynin - Has Miranda Catheter in place now for critical monitoring Obesity - BMI of 45.8 - Complicating medical care GERD - c/w Omeprazole from outpatient setting DVT prophylaxis - weight based Lovenox prophylactic dosing Disposition: - Pending clinical improvement. c/w PT and OT as tolerated --> back to [facility] with homecare services vs. STR per PFS rounds, will await final recs VS,Alcira, I+O VS, Alcira, I+O Laboratory Tests 05/23/20 07:31 Vital Signs Date Time Temp Pulse Resp B/P (MAP) Pulse Ox O2 Delivery O2 Flow Rate FiO2 05/23/20 08:00 100.2 74 16 180/77 (111) 90 Nasal Cannula 1.0 05/19/20 04:30 50 I&O- Last 24 Hours up to 6 AM 05/23/20 06:00 Intake Total 1090 ml Output Total 1425 ml Balance -335 ml SHANTAL GOMEZ MD May 23, 2020 09:55
--- NOTE | 2020-05-23 13:49 | IPNPDOC ---
Text Note Date of Service The patient was seen on 05/23/20. NOTE duplicate note, entered in error VS,Alcira, I+O VS, Alcira, I+O Laboratory Tests 05/23/20 07:31 Vital Signs Date Time Temp Pulse Resp B/P (MAP) Pulse Ox O2 Delivery O2 Flow Rate FiO2 05/23/20 04:16 99.3 74 17 152/81 (104) 93 Nasal Cannula 1.0 05/19/20 04:30 50 I&O- Last 24 Hours up to 6 AM 05/23/20 06:00 Intake Total 1090 ml Output Total 1425 ml Balance -335 ml SHANTAL GOMEZ MD May 23, 2020 11:21
[2020-05-23 14:59] LABS: D-DIMER QUANT 3279.75 ng/ml (<500)
[2020-05-23 15:13] LABS: C REACTIVE PROTEIN QUANTITATIV 11.1 MG/DL (0.00-0.30); CK-MB VALUE MASS 1.2 NG/ML (<3.6); MB/CK RELATIVE INDEX 1.62 (< OR =4); TROPONIN I 0.07 NG/ML (< 0.10)
[2020-05-23] MEDS: VITAMIN D 1,000 INTERNATIONAL UNITS TABLET PO SCH (21:06)
[2020-05-23] MEDS: CYANOCOBALAMIN 500 MCG TAB PO SCH (21:06)
[2020-05-23] MEDS: FOLIC ACID 1 MG TAB PO SCH (21:06)
[2020-05-23] MEDS: VITAMIN A 10,000 INTERNATIONAL UNITS CAP PO SCH (21:06)
[2020-05-23] MEDS: MAGNESIUM OXIDE 400 MG TAB (MAG-OX) PO SCH (21:07)
[2020-05-23] MEDS: LATANOPROST 0.005% OPHTH SOLN 2.5 ML OU SCH (21:09)
[2020-05-24] VITALS: O2SAT 92
[2020-05-24 02:05] LABS: BASO % 0.1 % (0.0-1.0); HEMATOCRIT 34.5 % (36.0-47.0); HEMOGLOBIN 10.8 g/dl (12.0-15.5); LYMPH # 0.5 10^3/uL (1.5-5.0); LYMPH % 7.1 % (24.0-44.0); MEAN CORPUSCULAR HEMOGLOBIN 34.1 pg (27.0-33.0); MEAN CORPUSCULAR HGB CONC 31.3 g/dl (32.0-36.5); MEAN CORPUSCULAR VOLUME 108.8 fl (80.0-96.0); MONO # 0.3 10^3/uL (0.0-0.8); MONO % 4.6 % (0.0-5.0); NEUTROPHILS # 6.5 10^3/uL (1.5-8.5); NEUTROPHILS % 86.5 % (36.0-66.0); PLATELET COUNT, AUTOMATED 194 10^3/uL (150-450); RED BLOOD COUNT 3.17 10^6/uL (4.00-5.40); WHITE BLOOD COUNT 7.5 10^3/uL (4.0-10.0)
[2020-05-24 02:30] LABS: INR 1.08; PROTHROMBIN TIME 14.2 SECONDS (12.5-14.3)
[2020-05-24 02:31] LABS: PARTIAL THROMBOPLASTIN TIME 34.9 SECONDS (24.2-38.5)
[2020-05-24 02:34] LABS: D-DIMER QUANT 2726.24 ng/ml (<500)
[2020-05-24 02:42] LABS: C REACTIVE PROTEIN QUANTITATIV 9.34 MG/DL (0.00-0.30); TROPONIN I 0.05 NG/ML (< 0.10)
[2020-05-24 04:00] VITALS: BP 140/60
[2020-05-24] MEDS: LEVOTHYROXINE 137MCG TABLET (0.137MG) PO SCH (06:12)
[2020-05-24] MEDS: LevoFLOXacin 750 MG TABLET PO SCH (06:12)
[2020-05-24 07:39] LABS: BASO % 0.1 % (0.0-1.0); EOS % 0.1 % (0.0-3.0); HEMATOCRIT 35.8 % (36.0-47.0); HEMOGLOBIN 11.7 g/dl (12.0-15.5); LYMPH # 0.6 10^3/uL (1.5-5.0); LYMPH % 7.2 % (24.0-44.0); MEAN CORPUSCULAR HGB CONC 32.7 g/dl (32.0-36.5); MEAN CORPUSCULAR VOLUME 107.2 fl (80.0-96.0); MONO # 0.4 10^3/uL (0.0-0.8); MONO % 4.6 % (0.0-5.0); NEUTROPHILS # 7.6 10^3/uL (1.5-8.5); NEUTROPHILS % 85.5 % (36.0-66.0); PLATELET COUNT, AUTOMATED 201 10^3/uL (150-450); RED BLOOD COUNT 3.34 10^6/uL (4.00-5.40); WHITE BLOOD COUNT 8.9 10^3/uL (4.0-10.0)
[2020-05-24] MEDS: ALBUTEROL 90 MCG/ACT 8GM HFA INHALER INH SCH ×4 (07:51→20:06)
[2020-05-24 07:55] LABS: INR 1.09; PROTHROMBIN TIME 14.3 SECONDS (12.5-14.3)
[2020-05-24 07:56] LABS: PARTIAL THROMBOPLASTIN TIME 34.3 SECONDS (24.2-38.5)
[2020-05-24 07:59] LABS: D-DIMER QUANT 2893.26 ng/ml (<500)
[2020-05-24 08:00] VITALS: O2SAT 93
[2020-05-24 08:08] LABS: ALBUMIN 2.3 GM/DL (3.2-5.2); BILIRUBIN,DIRECT 0.2 MG/DL (0.0-0.2); BILIRUBIN,TOTAL 0.5 MG/DL (0.2-1.0); CALCIUM LEVEL 8.8 MG/DL (8.8-10.2); CREATININE FOR GFR 1.25 MG/DL (0.55-1.30); MAGNESIUM LEVEL 2.5 MG/DL (1.8-2.4); POTASSIUM SERUM 4.8 MEQ/L (3.5-5.1); TOTAL PROTEIN 6.9 GM/DL (6.4-8.2)
[2020-05-24] MEDS ORDERED: FUROSEMIDE 40MG/4ML VIAL (J1940) IV ONE (09:00)
[2020-05-24] MEDS: METAMUCIL (PSYLLIUM) PACKET PO SCH (09:16)
[2020-05-24] MEDS: ENOXAPARIN 60MG/0.6ML SYRINGE (J1650 PER 10MG) SC SCH ×2 (09:17→21:28)
[2020-05-24] MEDS: dexameTHASONE 4 MG/ML 1ML VIAL (J1100 PER 1MG) IV SCH (09:17)
[2020-05-24] MEDS: HumuLIN N INSULIN (NovoLIN N) PER UNIT SC SCH ×2 (09:18→18:25)
[2020-05-24] MEDS: HumaLOG INSULIN (NovoLOG) PER UNIT SC SCH ×4 (09:19→21:29)
[2020-05-24] MEDS: ASPIRIN 81 MG ENTERIC TAB PO SCH (09:20)
[2020-05-24] MEDS: oxyBUTYnin 5 MG TAB PO SCH (09:20)
[2020-05-24] MEDS: LORATADINE 10 MG TAB PO SCH (09:20)
[2020-05-24] MEDS: GABAPENTIN 400 MG CAP PO SCH ×2 (09:20→21:34)
[2020-05-24] MEDS: ACETAMINOPHEN 650MG ER TAB (TYLENOL ARTHRITIS) PO SCH ×2 (09:20→21:29)
[2020-05-24] MEDS: allopurinoL 300 MG TAB PO SCH (09:20)
[2020-05-24] MEDS: ATORVASTATIN 20 MG TAB PO SCH (09:20)
[2020-05-24] MEDS: MULTIVITAMINS/MINERALS THERAP 1 TAB PO SCH (09:20)
[2020-05-24] MEDS: CALCITRIOL 0.25 MCG CAP (S0169) PO SCH (09:20)
[2020-05-24] MEDS: OMEPRAZOLE 20 MG CAP PO SCH (09:20)
[2020-05-24] MEDS: LOSARTAN 25 MG TAB PO SCH (09:23)
[2020-05-24] MEDS: TIMOLOL MALEATE 0.5% OPHTH SOLN 5 ML OU SCH ×2 (09:23→21:30)
[2020-05-24] MEDS: BRIMONIDINE 0.15% OPHTH SOLN 5 ML OU SCH ×2 (09:34→21:30)
[2020-05-24 12:00] VITALS: BP 158/72; O2SAT 92
--- NOTE | 2020-05-24 15:03 | IPNPDOC ---
Text Note Date of Service The patient was seen on 05/24/20. NOTE Subjective: Doing ok this morning. On 1L. Denies any nausea, abdominal pain, diarrhea. No acute issues overnight Objective: Vitals: HDS, afebrile, on 1L NC this AM General: Sitting up in bed, no acute distress with NC in place, is awake, alert and oriented 3 HEENT: NC, AT CVS: RRR, +S1S2 Lungs: Air entry bilaterally fair, trace bibasilar crackles appreciated. No rhonchi or wheezing Abdomen: Soft without any distention or tenderness. Obese Extremities: No LE edema appreciated, WWP Labs: Reviewed. See below for details AST 109 ALT 108 proBNP 3467 CRP 9.34 Imaging: CXR 1/2: There is a pulmonary parenchymal calcification consistent with remote granulomatous organism exposure. Slightly increased interstitial and airspace opacities, correlate for infection or edema. CXR 1/2: Stable chronic changes. Subtle basilar atelectasis cannot be excluded. CXR /3: Superimposed airspace disease and possible small right pleural effusion cannot be excluded. CXR /4: Increased bilateral perihilar and lower lobe infiltrates. Assessment and plan: Acute hypoxic respiratory failure - possibly 2/2 fluid overload as well as 2/2 COVID19 PNA - Nocturnal CPAP and now on 1L nasal cannula while awake - Patient was incidentally found to be COVID19 positive while in the ER (Po sitive date of 05/17/2020) - Inflammatory markers now starting to downtrend - f/u Procalcitonin - Imaging noted above - Strict ins/outs, daily weights, fluid restriction - no DVTs per LE doppler US - DVT prophylaxis to weight based prophylaxis given high Ddimer >4000 -f/u covid labs -will give 1 dose of lasix IV 40mg today given the elevated proBNP Suspected history of COPD - c/w inhaled therapy as ordered Weakness / Debility - Patient reported that she had slid out of her recliner and couldnt get up because she was weak - Patient denied any trauma or loss of consciousness - c/w PT and OT as tolerated --> back to [facility] with homecare services vs. 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 HTN - BP elevated this morning - s/p Hydralazine IV - c/w Losartan / Furosemide DLP - c/w Atorvastatin IDDM2 with Hyperglycemia - likely 2/2 corticosteroids - c/w NPH insulin and ISS Hypothyroidism - c/w Levothyroxine MITCH on CPAP - May allow home CPAP use while inpatient Gout - c/w Allopurinol CKD3 - Cr baseline of 1.3-1.5 - Cr remains at baseline - Will monitor closely with diuretic therapy Neuropathy - c/w Gabapentin Cholelithiasis Overactive bladder - c/w Oxybutynin - Has Miranda Catheter in place now for critical monitoring Obesity - BMI of 45.8 - Complicating medical care GERD - c/w Omeprazole from outpatient setting DVT prophylaxis - weight based Lovenox prophylactic dosing Disposition: - Pending clinical improvement. c/w PT and OT as tolerated --> back to [facility] with homecare services vs. STR per PFS rounds, will await final recs VS,Fishbone, I+O VS, Fishbone, I+O Laboratory Tests 05/24/20 01:47 05/24/20 07:14 Vital Signs Date Time Temp Pulse Resp B/P (MAP) Pulse Ox O2 Delivery O2 Flow Rate FiO2 05/24/20 04:00 98.9 68 20 140/60 (86) 98 Nasal Cannula 1.0 05/19/20 04:30 50 I&O- Last 24 Hours up to 6 AM 05/24/20 05:59 Intake Total 1850 ml Output Total 1800 ml Balance 50 ml SHANTAL GOMEZ MD May 24, 2020 08:43
[2020-05-24 15:25] LABS: C REACTIVE PROTEIN QUANTITATIV 8.15 MG/DL (0.00-0.30); TROPONIN I 0.04 NG/ML (< 0.10)
[2020-05-24 16:00] VITALS: O2SAT 91
[2020-05-24 20:00] VITALS: BP 150/67; O2SAT 94
[2020-05-24] MEDS: VITAMIN A 10,000 INTERNATIONAL UNITS CAP PO SCH (21:29)
[2020-05-24] MEDS: VITAMIN D 1,000 INTERNATIONAL UNITS TABLET PO SCH (21:29)
[2020-05-24] MEDS: MAGNESIUM OXIDE 400 MG TAB (MAG-OX) PO SCH (21:29)
[2020-05-24] MEDS: CYANOCOBALAMIN 500 MCG TAB PO SCH (21:29)
[2020-05-24] MEDS: FOLIC ACID 1 MG TAB PO SCH (21:30)
[2020-05-24] MEDS: LATANOPROST 0.005% OPHTH SOLN 2.5 ML OU SCH (21:30)
[2020-05-25 06:21] VITALS: BP 161/70
[2020-05-25] MEDS: LEVOTHYROXINE 137MCG TABLET (0.137MG) PO SCH (06:22)
[2020-05-25 07:22] LABS: BASO % 0.1 % (0.0-1.0); EOS % 0.1 % (0.0-3.0); HEMATOCRIT 34.6 % (36.0-47.0); HEMOGLOBIN 11.3 g/dl (12.0-15.5); LYMPH # 0.8 10^3/uL (1.5-5.0); LYMPH % 8.4 % (24.0-44.0); MEAN CORPUSCULAR HGB CONC 32.7 g/dl (32.0-36.5); MEAN CORPUSCULAR VOLUME 107.1 fl (80.0-96.0); MONO # 0.3 10^3/uL (0.0-0.8); MONO % 3.7 % (0.0-5.0); NEUTROPHILS # 7.5 10^3/uL (1.5-8.5); NEUTROPHILS % 83.7 % (36.0-66.0); PLATELET COUNT, AUTOMATED 195 10^3/uL (150-450); RED BLOOD COUNT 3.23 10^6/uL (4.00-5.40)
[2020-05-25 07:44] LABS: INR 1.12; PARTIAL THROMBOPLASTIN TIME 31.1 SECONDS (24.2-38.5); PROTHROMBIN TIME 14.6 SECONDS (12.5-14.3)
[2020-05-25 07:53] LABS: D-DIMER QUANT 2217.95 ng/ml (<500)
[2020-05-25 07:57] LABS: ALBUMIN 2.2 GM/DL (3.2-5.2); BILIRUBIN,DIRECT 0.1 MG/DL (0.0-0.2); BILIRUBIN,TOTAL 0.4 MG/DL (0.2-1.0); C REACTIVE PROTEIN QUANTITATIV 5.26 MG/DL (0.00-0.30); CALCIUM LEVEL 8.7 MG/DL (8.8-10.2); CREATININE FOR GFR 1.27 MG/DL (0.55-1.30); GLOMERULAR FILTRATION RATE 42.2 (>32); MAGNESIUM LEVEL 2.4 MG/DL (1.8-2.4); POTASSIUM SERUM 4.9 MEQ/L (3.5-5.1)
[2020-05-25] MEDS: ALBUTEROL 90 MCG/ACT 8GM HFA INHALER INH SCH ×4 (08:03→20:18)
[2020-05-25] MEDS: HumuLIN N INSULIN (NovoLIN N) PER UNIT SC SCH ×2 (09:08→17:28)
[2020-05-25] MEDS: ENOXAPARIN 60MG/0.6ML SYRINGE (J1650 PER 10MG) SC SCH ×2 (09:09→21:22)
[2020-05-25] MEDS: HumaLOG INSULIN (NovoLOG) PER UNIT SC SCH ×4 (09:09→21:29)
[2020-05-25] MEDS: dexameTHASONE 4 MG/ML 1ML VIAL (J1100 PER 1MG) IV SCH (09:09)
[2020-05-25] MEDS: ACETAMINOPHEN 650MG ER TAB (TYLENOL ARTHRITIS) PO SCH ×2 (09:09→21:22)
[2020-05-25] MEDS: oxyBUTYnin 5 MG TAB PO SCH (09:09)
[2020-05-25] MEDS: MULTIVITAMINS/MINERALS THERAP 1 TAB PO SCH (09:09)
[2020-05-25] MEDS: METAMUCIL (PSYLLIUM) PACKET PO SCH (09:09)
[2020-05-25] MEDS: ASPIRIN 81 MG ENTERIC TAB PO SCH (09:09)
[2020-05-25] MEDS: LORATADINE 10 MG TAB PO SCH (09:10)
[2020-05-25] MEDS: ATORVASTATIN 20 MG TAB PO SCH (09:10)
[2020-05-25] MEDS: GABAPENTIN 400 MG CAP PO SCH ×2 (09:10→21:21)
[2020-05-25] MEDS: allopurinoL 300 MG TAB PO SCH (09:10)
[2020-05-25] MEDS: OMEPRAZOLE 20 MG CAP PO SCH (09:10)
[2020-05-25] MEDS: CALCITRIOL 0.25 MCG CAP (S0169) PO SCH (09:10)
[2020-05-25] MEDS: LOSARTAN 25 MG TAB PO SCH (09:10)
[2020-05-25] MEDS: BRIMONIDINE 0.15% OPHTH SOLN 5 ML OU SCH ×2 (09:11→21:22)
[2020-05-25] MEDS: TIMOLOL MALEATE 0.5% OPHTH SOLN 5 ML OU SCH ×2 (09:11→21:23)
--- NOTE | 2020-05-25 13:20 | IPNPDOC ---
Text Note Date of Service The patient was seen on 05/25/20. NOTE Subjective: -Doing ok this morning. -Continues to be on 1L. -Denies any nausea, abdominal pain, diarrhea. -No acute issues overnight Objective: Vitals: HDS, afebrile, on 1L NC this AM General: Sitting up in bed, no acute distress with NC in place, is awake, alert and oriented 3 HEENT: NC, AT CVS: RRR, +S1S2 Lungs: Air entry bilaterally fair, trace bibasilar crackles continue to be appreciated. No rhonchi or wheezing Abdomen: Soft without any distention or tenderness. Obese Extremities: No LE edema appreciated, WWP Labs: Reviewed. See below for details Imaging: CXR 1/2: There is a pulmonary parenchymal calcification consistent with remote granulomatous organism exposure. Slightly increased interstitial and airspace opacities, correlate for infection or edema. CXR 1/2: Stable chronic changes. Subtle basilar atelectasis cannot be excluded. CXR 3: Superimposed airspace disease and possible small right pleural effusion cannot be excluded. CXR 4: Increased bilateral perihilar and lower lobe infiltrates. Assessment and plan: Acute hypoxic respiratory failure - possibly 2/2 fluid overload as well as 2/2 COVID19 PNA - Nocturnal CPAP and now on 1L nasal cannula while awake - Patient was incidentally found to be COVID19 positive while in the ER (Pos itive date of 05/17/2020) - Inflammatory markers now starting to downtrend - f/u Procalcitonin - Imaging noted above - Strict ins/outs, daily weights, fluid restriction - no DVTs per LE doppler US - DVT prophylaxis to weight based prophylaxis given high Ddimer >4000 -f/u covid labs Suspected history of COPD - c/w inhaled therapy as ordered Weakness / Debility - Patient reported that she had slid out of her recliner and couldnt get up because she was weak - Patient denied any trauma or loss of consciousness - c/w PT and OT as tolerated, otherwise at this time is medically stable for potential discharge with some supplemental O2 likely for the next few weeks --> per PFS rounds, likely to be discharged to [facility] on 05/27/2020 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 HTN - BP elevated this morning - s/p Hydralazine IV - c/w Losartan / Furosemide DLP - c/w Atorvastatin IDDM2 with Hyperglycemia - likely 2/2 corticosteroids - c/w NPH insulin and ISS Hypothyroidism - c/w Levothyroxine MITCH on CPAP - May allow home CPAP use while inpatient Gout - c/w Allopurinol CKD3 - Cr baseline of 1.3-1.5 - Cr remains at baseline - Will monitor closely with diuretic therapy Neuropathy - c/w Gabapentin Cholelithiasis Overactive bladder - c/w Oxybutynin - Has Miranda Catheter in place now for critical monitoring Obesity - BMI of 45.8 - Complicating medical care GERD - c/w Omeprazole from outpatient setting DVT prophylaxis - weight based Lovenox prophylactic dosing Disposition: c/w PT and OT as tolerated, otherwise at this time is medically stable for potential discharge with some supplemental O2 likely for the next few weeks --> per PFS rounds, likely to be discharged to [facility] on 05/27/2020 -Being transferred to regular medical floor VS,Alcira, I+O VS, Alcira, I+O Laboratory Tests 05/25/20 06:42 Vital Signs Date Time Temp Pulse Resp B/P (MAP) Pulse Ox O2 Delivery O2 Flow Rate FiO2 05/25/20 06:21 96.1 61 18 161/70 (100) 94 Nasal Cannula 1.0 05/19/20 04:30 50 I&O- Last 24 Hours up to 6 AM 05/25/20 06:00 Intake Total 1140 ml Output Total 850 ml Balance 290 ml SHANTAL GOMEZ MD May 25, 2020 09:15
[2020-05-25 16:56] VITALS: O2SAT 92
--- NOTE | 2020-05-25 18:41 | REP ---
INDICATION: right leg pain COMPARISON: None. TECHNIQUE: AP, lateral, bilateral oblique views. FINDINGS: Osteopenia and age-related degenerative changes are appreciated along with findings to suggest old malleolar fractures. Diffuse soft tissue swelling is appreciated. No subcutaneous emphysema or foreign body identified. IMPRESSION: Osteopenia and degenerative changes with evidence for old injuries. Soft tissue swelling. No acute fracture or dislocation. <Electronically signed by Pavan Orourke > 05/25/20 [id number]
--- NOTE | 2020-05-25 18:42 | REP ---
INDICATION: right foot pain COMPARISON: None. TECHNIQUE: AP, lateral, bilateral oblique views right. FINDINGS: Osteopenia and age-related degenerative changes are appreciated. Overlying soft tissue swelling. No acute fracture or dislocation. No subcutaneous emphysema or foreign body.. IMPRESSION: Soft tissue swelling. Osteopenia and degenerative changes. No acute fracture or dislocation. <Electronically signed by Pavan Orourke > 05/25/20 [id number]
[2020-05-25 21:16] VITALS: BP 177/75
[2020-05-25] MEDS: VITAMIN A 10,000 INTERNATIONAL UNITS CAP PO SCH (21:21)
[2020-05-25] MEDS: FOLIC ACID 1 MG TAB PO SCH (21:21)
[2020-05-25] MEDS: VITAMIN D 1,000 INTERNATIONAL UNITS TABLET PO SCH (21:21)
[2020-05-25] MEDS: MAGNESIUM OXIDE 400 MG TAB (MAG-OX) PO SCH (21:21)
[2020-05-25] MEDS: CYANOCOBALAMIN 500 MCG TAB PO SCH (21:22)
[2020-05-25] MEDS: LATANOPROST 0.005% OPHTH SOLN 2.5 ML OU SCH (21:23)
[2020-05-25 21:30] VITALS: BP 144/70; O2SAT 95
[2020-05-26 05:00] VITALS: BP 170/66
[2020-05-26] MEDS: LEVOTHYROXINE 137MCG TABLET (0.137MG) PO SCH (05:00)
[2020-05-26 06:00] VITALS: O2SAT 92
[2020-05-26 06:37] VITALS: BP 148/70
[2020-05-26 08:00] VITALS: BP 138/63
[2020-05-26] MEDS: ALBUTEROL 90 MCG/ACT 8GM HFA INHALER INH SCH ×4 (08:21→18:17)
[2020-05-26 09:49] LABS: BASO % 0.3 % (0.0-1.0); EOS % 0.4 % (0.0-3.0); HEMATOCRIT 36.4 % (36.0-47.0); HEMOGLOBIN 11.6 g/dl (12.0-15.5); LYMPH % 9.8 % (24.0-44.0); MEAN CORPUSCULAR HEMOGLOBIN 33.8 pg (27.0-33.0); MEAN CORPUSCULAR HGB CONC 31.9 g/dl (32.0-36.5); MEAN CORPUSCULAR VOLUME 106.1 fl (80.0-96.0); MONO # 0.3 10^3/uL (0.0-0.8); NEUTROPHILS # 8.6 10^3/uL (1.5-8.5); NEUTROPHILS % 81.8 % (36.0-66.0); PLATELET COUNT, AUTOMATED 252 10^3/uL (150-450); RED BLOOD COUNT 3.43 10^6/uL (4.00-5.40); WHITE BLOOD COUNT 10.6 10^3/uL (4.0-10.0)
[2020-05-26] MEDS: HumaLOG INSULIN (NovoLOG) PER UNIT SC SCH ×4 (09:59→20:41)
[2020-05-26] MEDS: dexameTHASONE 4 MG/ML 1ML VIAL (J1100 PER 1MG) IV SCH (10:00)
[2020-05-26] MEDS: ASPIRIN 81 MG ENTERIC TAB PO SCH (10:00)
[2020-05-26] MEDS: OMEPRAZOLE 20 MG CAP PO SCH (10:00)
[2020-05-26] MEDS: GABAPENTIN 400 MG CAP PO SCH ×2 (10:00→20:42)
[2020-05-26] MEDS: ENOXAPARIN 60MG/0.6ML SYRINGE (J1650 PER 10MG) SC SCH ×2 (10:00→20:42)
[2020-05-26] MEDS: oxyBUTYnin 5 MG TAB PO SCH (10:01)
[2020-05-26] MEDS: allopurinoL 300 MG TAB PO SCH (10:01)
[2020-05-26] MEDS: ACETAMINOPHEN 650MG ER TAB (TYLENOL ARTHRITIS) PO SCH ×2 (10:01→20:44)
[2020-05-26] MEDS: ATORVASTATIN 20 MG TAB PO SCH (10:01)
[2020-05-26] MEDS: LORATADINE 10 MG TAB PO SCH (10:01)
[2020-05-26] MEDS: MULTIVITAMINS/MINERALS THERAP 1 TAB PO SCH (10:01)
[2020-05-26] MEDS: TIMOLOL MALEATE 0.5% OPHTH SOLN 5 ML OU SCH ×2 (10:02→20:46)
[2020-05-26] MEDS: LOSARTAN 25 MG TAB PO SCH (10:02)
[2020-05-26] MEDS: BRIMONIDINE 0.15% OPHTH SOLN 5 ML OU SCH ×2 (10:02→20:46)
[2020-05-26] MEDS: METAMUCIL (PSYLLIUM) PACKET PO SCH (10:08)
[2020-05-26 10:10] LABS: INR 0.99; PROTHROMBIN TIME 13.3 SECONDS (12.5-14.3)
[2020-05-26 10:15] LABS: D-DIMER QUANT 1759.22 ng/ml (<500)
[2020-05-26 10:23] LABS: ALBUMIN 2.4 GM/DL (3.2-5.2); BILIRUBIN,DIRECT 0.2 MG/DL (0.0-0.2); BILIRUBIN,TOTAL 0.5 MG/DL (0.2-1.0); C REACTIVE PROTEIN QUANTITATIV 3.04 MG/DL (0.00-0.30); CALCIUM LEVEL 8.6 MG/DL (8.8-10.2); CREATININE FOR GFR 1.15 MG/DL (0.55-1.30); GLOMERULAR FILTRATION RATE 47.3 (>32); MAGNESIUM LEVEL 2.2 MG/DL (1.8-2.4); TOTAL PROTEIN 6.7 GM/DL (6.4-8.2)
[2020-05-26 12:23] VITALS: BP 154/60
[2020-05-26] MEDS: HumuLIN N INSULIN (NovoLIN N) PER UNIT SC SCH ×2 (12:46→18:57)
--- NOTE | 2020-05-26 14:59 | IPNPDOC ---
Text Note Date of Service The patient was seen on 05/26/20. NOTE Subjective: -Doing ok this morning. -Continues to be on 1L. -Denies any nausea, abdominal pain, diarrhea. -Yesterday Dr. Alegria had asked for her to be transferred to the general medical floor but on discussion with nursing and Zora Guerrier, decision was made to keep her on the covid floor because she is likely not yet out of the 14 day window since onset of symptoms, and the history was unfortunately vague because her covid-19 was incidentally found at admission 9 days ago. She then had a covid-19 rapid test, that remains positive at this time. Objective: Vitals: HDS, afebrile, on 1L NC this AM General: Sitting up in bed, no acute distress with NC in place, is awake, alert and oriented 3 HEENT: NC, AT CVS: RRR, +S1S2 Lungs: Air entry bilaterally fair, trace bibasilar crackles continue to be appreciated. No rhonchi or wheezing Abdomen: Soft without any distention or tenderness. Obese Extremities: No LE edema appreciated, WWP Labs: Reviewed. See below for details Imaging: CXR 1/2: There is a pulmonary parenchymal calcification consistent with remote granulomatous organism exposure. Slightly increased interstitial and airspace opacities, correlate for infection or edema. CXR 1/2: Stable chronic changes. Subtle basilar atelectasis cannot be excluded. CXR 1/3: Superimposed airspace disease and possible small right pleural effusion cannot be excluded. CXR 1/4: Increased bilateral perihilar and lower lobe infiltrates. Assessment and plan: Acute hypoxic respiratory failure - possibly 2/2 fluid overload as well as 2/2 COVID19 PNA - Nocturnal CPAP and now on 1L nasal cannula while awake - Patient was incidentally found to be COVID19 positive while in the ER (Positive date of 05/17/2020) - Inflammatory markers continue to downtrend - f/u Procalcitonin - Imaging noted above - Strict ins/outs, daily weights, fluid restriction - no DVTs per LE doppler US - DVT prophylaxis to weight based prophylaxis given high Ddimer >4000 -f/u covid labs Suspected history of COPD - c/w inhaled therapy as ordered Weakness / Debility - Patient reported that she had slid out of her recliner and couldnt get up because she was weak - Patient denied any trauma or loss of consciousness - c/w PT and OT as tolerated, otherwise at this time is medically stable for potential discharge with some supplemental O2 likely for the next few weeks --> per PFS rounds, likely to be discharged to [facility] on 05/27/2020 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 HTN - BP elevated this morning - s/p Hydralazine IV - c/w Losartan / Furosemide DLP - c/w Atorvastatin IDDM2 with Hyperglycemia - likely 2/2 corticosteroids - c/w NPH insulin and ISS Hypothyroidism - c/w Levothyroxine MITCH on CPAP - May allow home CPAP use while inpatient Gout - c/w Allopurinol CKD3 - Cr baseline of 1.3-1.5 - Cr remains at baseline - Will monitor closely with diuretic therapy Neuropathy - c/w Gabapentin Cholelithiasis Overactive bladder - c/w Oxybutynin - Has Miranda Catheter in place now for critical monitoring Obesity - BMI of 45.8 - Complicating medical care GERD - c/w Omeprazole from outpatient setting DVT prophylaxis - weight based Lovenox prophylactic dosing R ankle pain: -s/p ankle and foot XRs that showed osteopenia and degenerative changes without evidence of acute fractures. -pain management Disposition: c/w PT and OT as tolerated, otherwise at this time is medically stable for potential discharge with some supplemental O2 likely for the next few weeks --> per PFS rounds, likely to be discharged to [facility] on 05/28/2020 -Will make ALC with plan for discharge to [place] on Thursday05/28/2020 VS,Alcira, I+O VS, Fishbone, I+O Vital Signs Date Time Temp Pulse Resp B/P (MAP) Pulse Ox O2 Delivery O2 Flow Rate FiO2 05/26/20 06:37 148/70 (96) 05/26/20 06:00 92 Nasal Cannula 1.0 05/26/20 05:00 96.9 77 18 I&O- Last 24 Hours up to 6 AM 05/26/20 06:00 Intake Total 1500 ml Output Total 1600 ml Balance -100 ml SHANTAL GOMEZ MD May 26, 2020 08:07
[2020-05-26] MEDS: VITAMIN D 1,000 INTERNATIONAL UNITS TABLET PO SCH (20:43)
[2020-05-26] MEDS: FOLIC ACID 1 MG TAB PO SCH (20:44)
[2020-05-26] MEDS: MAGNESIUM OXIDE 400 MG TAB (MAG-OX) PO SCH (20:44)
[2020-05-26] MEDS: VITAMIN A 10,000 INTERNATIONAL UNITS CAP PO SCH (20:45)
[2020-05-26] MEDS: CYANOCOBALAMIN 500 MCG TAB PO SCH (20:45)
[2020-05-26] MEDS: LATANOPROST 0.005% OPHTH SOLN 2.5 ML OU SCH (20:46)
[2020-05-26 21:00] VITALS: O2SAT 96
[2020-05-27] VITALS: O2SAT 94
[2020-05-27 04:00] VITALS: O2SAT 96
[2020-05-27] MEDS: LEVOTHYROXINE 137MCG TABLET (0.137MG) PO SCH (05:48)
[2020-05-27 06:00] VITALS: BP 144/66
[2020-05-27 06:16] LABS: BASO % 0.2 % (0.0-1.0); EOS % 0.2 % (0.0-3.0); HEMATOCRIT 33.6 % (36.0-47.0); LYMPH # 0.8 10^3/uL (1.5-5.0); LYMPH % 7.5 % (24.0-44.0); MEAN CORPUSCULAR HEMOGLOBIN 34.6 pg (27.0-33.0); MEAN CORPUSCULAR HGB CONC 32.7 g/dl (32.0-36.5); MEAN CORPUSCULAR VOLUME 105.7 fl (80.0-96.0); MONO # 0.3 10^3/uL (0.0-0.8); MONO % 3.1 % (0.0-5.0); NEUTROPHILS # 9.5 10^3/uL (1.5-8.5); NEUTROPHILS % 85.3 % (36.0-66.0); PLATELET COUNT, AUTOMATED 234 10^3/uL (150-450); RED BLOOD COUNT 3.18 10^6/uL (4.00-5.40); WHITE BLOOD COUNT 11.1 10^3/uL (4.0-10.0)
[2020-05-27 06:27] LABS: INR 1.04; PROTHROMBIN TIME 13.9 SECONDS (12.5-14.3)
[2020-05-27 06:28] LABS: PARTIAL THROMBOPLASTIN TIME 27.1 SECONDS (24.2-38.5)
[2020-05-27 06:31] LABS: D-DIMER QUANT 1256.84 ng/ml (<500)
[2020-05-27 06:51] LABS: ALBUMIN 2.3 GM/DL (3.2-5.2); BILIRUBIN,DIRECT 0.1 MG/DL (0.0-0.2); BILIRUBIN,TOTAL 0.5 MG/DL (0.2-1.0); C REACTIVE PROTEIN QUANTITATIV 2.03 MG/DL (0.00-0.30); CALCIUM LEVEL 8.7 MG/DL (8.8-10.2); CREATININE FOR GFR 1.07 MG/DL (0.55-1.30); GLOMERULAR FILTRATION RATE 51.4 (>32); MAGNESIUM LEVEL 2.2 MG/DL (1.8-2.4); POTASSIUM SERUM 5.1 MEQ/L (3.5-5.1); TOTAL PROTEIN 6.4 GM/DL (6.4-8.2)
[2020-05-27] MEDS: ALBUTEROL 90 MCG/ACT 8GM HFA INHALER INH SCH ×4 (06:59→19:28)
[2020-05-27] MEDS: dexameTHASONE 4 MG/ML 1ML VIAL (J1100 PER 1MG) IV SCH (08:06)
[2020-05-27] MEDS: ENOXAPARIN 60MG/0.6ML SYRINGE (J1650 PER 10MG) SC SCH ×2 (08:07→21:08)
[2020-05-27] MEDS: HumaLOG INSULIN (NovoLOG) PER UNIT SC SCH ×4 (08:08→21:04)
[2020-05-27] MEDS: ASPIRIN 81 MG ENTERIC TAB PO SCH (08:08)
[2020-05-27] MEDS: oxyBUTYnin 5 MG TAB PO SCH (08:08)
[2020-05-27] MEDS: HumuLIN N INSULIN (NovoLIN N) PER UNIT SC SCH ×2 (08:08→17:50)
[2020-05-27] MEDS: ATORVASTATIN 20 MG TAB PO SCH (08:08)
[2020-05-27] MEDS: TIMOLOL MALEATE 0.5% OPHTH SOLN 5 ML OU SCH ×2 (08:09→21:03)
[2020-05-27] MEDS: METAMUCIL (PSYLLIUM) PACKET PO SCH (08:09)
[2020-05-27] MEDS: OMEPRAZOLE 20 MG CAP PO SCH (08:09)
[2020-05-27] MEDS: BRIMONIDINE 0.15% OPHTH SOLN 5 ML OU SCH ×2 (08:09→21:02)
[2020-05-27] MEDS: LORATADINE 10 MG TAB PO SCH (08:09)
[2020-05-27] MEDS: allopurinoL 300 MG TAB PO SCH (08:09)
[2020-05-27] MEDS: ACETAMINOPHEN 650MG ER TAB (TYLENOL ARTHRITIS) PO SCH ×2 (08:09→21:06)
[2020-05-27] MEDS: GABAPENTIN 400 MG CAP PO SCH ×2 (08:09→21:04)
[2020-05-27] MEDS: MULTIVITAMINS/MINERALS THERAP 1 TAB PO SCH (08:09)
[2020-05-27] MEDS: LOSARTAN 25 MG TAB PO SCH (08:11)
[2020-05-27 21:00] VITALS: O2SAT 95
[2020-05-27] MEDS: LATANOPROST 0.005% OPHTH SOLN 2.5 ML OU SCH (21:02)
[2020-05-27] MEDS: VITAMIN A 10,000 INTERNATIONAL UNITS CAP PO SCH (21:05)
[2020-05-27] MEDS: VITAMIN D 1,000 INTERNATIONAL UNITS TABLET PO SCH (21:05)
[2020-05-27] MEDS: MAGNESIUM OXIDE 400 MG TAB (MAG-OX) PO SCH (21:06)
[2020-05-27] MEDS: FOLIC ACID 1 MG TAB PO SCH (21:06)
[2020-05-27] MEDS: CYANOCOBALAMIN 500 MCG TAB PO SCH (21:07)
[2020-05-28] VITALS: O2SAT 96
[2020-05-28 04:00] VITALS: BP 157/58; O2SAT 96
[2020-05-28] MEDS: LEVOTHYROXINE 137MCG TABLET (0.137MG) PO SCH (05:36)
[2020-05-28 05:58] LABS: BASO % 0.2 % (0.0-1.0); EOS % 0.2 % (0.0-3.0); HEMATOCRIT 32.7 % (36.0-47.0); HEMOGLOBIN 10.8 g/dl (12.0-15.5); LYMPH % 8.2 % (24.0-44.0); MEAN CORPUSCULAR VOLUME 105.8 fl (80.0-96.0); MONO # 0.4 10^3/uL (0.0-0.8); MONO % 3.3 % (0.0-5.0); NEUTROPHILS # 10.1 10^3/uL (1.5-8.5); NEUTROPHILS % 84.6 % (36.0-66.0); PLATELET COUNT, AUTOMATED 223 10^3/uL (150-450); RED BLOOD COUNT 3.09 10^6/uL (4.00-5.40); WHITE BLOOD COUNT 11.9 10^3/uL (4.0-10.0)
[2020-05-28 06:27] LABS: ALBUMIN 2.3 GM/DL (3.2-5.2); BILIRUBIN,DIRECT 0.1 MG/DL (0.0-0.2); BILIRUBIN,TOTAL 0.4 MG/DL (0.2-1.0); C REACTIVE PROTEIN QUANTITATIV 1.4 MG/DL (0.00-0.30); CALCIUM LEVEL 8.5 MG/DL (8.8-10.2); CREATININE FOR GFR 1.17 MG/DL (0.55-1.30); GLOMERULAR FILTRATION RATE 46.4 (>32); MAGNESIUM LEVEL 2.2 MG/DL (1.8-2.4); POTASSIUM SERUM 4.9 MEQ/L (3.5-5.1); TOTAL PROTEIN 6.1 GM/DL (6.4-8.2)
[2020-05-28 06:39] LABS: INR 1.04; PROTHROMBIN TIME 13.8 SECONDS (12.5-14.3)
[2020-05-28 06:40] LABS: PARTIAL THROMBOPLASTIN TIME 30.4 SECONDS (24.2-38.5)
[2020-05-28 06:42] LABS: D-DIMER QUANT 946.94 ng/ml (<500)
[2020-05-28] MEDS: ALBUTEROL 90 MCG/ACT 8GM HFA INHALER INH SCH ×2 (07:09→10:59)
[2020-05-28 07:10] VITALS: O2SAT 94
[2020-05-28] MEDS: HumaLOG INSULIN (NovoLOG) PER UNIT SC SCH ×2 (08:49→11:44)
[2020-05-28] MEDS: HumuLIN N INSULIN (NovoLIN N) PER UNIT SC SCH (08:49)
[2020-05-28 08:50] VITALS: BP 140/49
[2020-05-28] MEDS: oxyBUTYnin 5 MG TAB PO SCH (08:50)
[2020-05-28] MEDS: CALCITRIOL 0.25 MCG CAP (S0169) PO SCH (08:50)
[2020-05-28] MEDS: GABAPENTIN 400 MG CAP PO SCH (08:50)
[2020-05-28] MEDS: METAMUCIL (PSYLLIUM) PACKET PO SCH (08:50)
[2020-05-28] MEDS: ATORVASTATIN 20 MG TAB PO SCH (08:50)
[2020-05-28] MEDS: allopurinoL 300 MG TAB PO SCH (08:50)
[2020-05-28] MEDS: LOSARTAN 25 MG TAB PO SCH (08:50)
[2020-05-28] MEDS: ASPIRIN 81 MG ENTERIC TAB PO SCH (08:50)
[2020-05-28] MEDS: OMEPRAZOLE 20 MG CAP PO SCH (08:50)
[2020-05-28] MEDS: ACETAMINOPHEN 650MG ER TAB (TYLENOL ARTHRITIS) PO SCH (08:50)
[2020-05-28] MEDS: LORATADINE 10 MG TAB PO SCH (08:50)
[2020-05-28] MEDS: MULTIVITAMINS/MINERALS THERAP 1 TAB PO SCH (08:50)
[2020-05-28] MEDS: dexameTHASONE 4 MG/ML 1ML VIAL (J1100 PER 1MG) IV SCH (08:51)
[2020-05-28] MEDS: BRIMONIDINE 0.15% OPHTH SOLN 5 ML OU SCH (08:51)
[2020-05-28] MEDS: TIMOLOL MALEATE 0.5% OPHTH SOLN 5 ML OU SCH (08:51)
[2020-05-28] MEDS: ENOXAPARIN 60MG/0.6ML SYRINGE (J1650 PER 10MG) SC SCH (08:52)
[2020-05-28 09:00] VITALS: O2SAT 94
--- NOTE | 2020-05-28 20:11 | DS.PDOC ---
Discharge Summary General Date of Admission May 17, 2020 at 12:06 Date of Discharge 05/28/20 Discharge Summary PROCEDURES PERFORMED DURING STAY: [None]. 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 HISTORY OF PRESENT ILLNESS: Patient is an 89-year-old female who presented to the emergency room brought in by EMS after she had slipped off her recliner and couldnt get up. Patient remain on the ground for proximally 2 hours until she was able to call 911. Patient denies any chest pain, shortness breath or palpitations. Does report a cough thats been going on for about 1 week. Reports some phlegm production described as clear, with some streaky blood. Patient has reported fevers at home. She noted that hi low truck driver had measured her temperature at 101F. Patient was admitted to the hospital service for further evaluation and treatment. 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 HTN - BP elevated this morning - s/p Hydralazine IV - c/w Losartan / Furosemide DLP - c/w Atorvastatin IDDM2 with Hyperglycemia - likely 2/2 corticosteroids - c/w NPH insulin and ISS Hypothyroidism - c/w Levothyroxine MITCH on CPAP - May allow home CPAP use while inpatient Gout - c/w Allopurinol CKD3 - Cr baseline of 1.3-1.5 - Cr remains at baseline - Will monitor closely with diuretic therapy Neuropathy - c/w Gabapentin Cholelithiasis Overactive bladder - c/w Oxybutynin - Has Miranda Catheter in place now for critical monitoring Obesity - BMI of 45.8 - Complicating medical care GERD - c/w Omeprazole from outpatient setting DVT prophylaxis - weight based Lovenox prophylactic dosing R ankle pain: -s/p ankle and foot XRs that showed osteopenia and degenerative changes without evidence of acute fractures. -pain management Disposition: c/w PT and OT as tolerated, otherwise at this time is medically stable for potential discharge with some supplemental O2 likely for the next few weeks --> per PFS rounds, likely to be discharged to [facility] on 05/28/2020 DISCHARGE MEDICATIONS: Please see below. ALLERGIES: Please see below. PHYSICAL EXAMINATION ON DISCHARGE: VITAL SIGNS: Please see below. General: Sitting up in bed, no acute distress with NC in place, is awake, alert and oriented 3 HEENT: NC, AT CVS: RRR, +S1S2 Lungs: Air entry bilaterally fair, trace bibasilar crackles continue to be appreciated. No rhonchi or wheezing Abdomen: Soft without any distention or tenderness. Obese Extremities: No LE edema appreciated, WWP LABORATORY DATA: Please see below. IMAGING: Portable AP view of the chest FINDINGS: Mediastinum and cardiac silhouette are stable. Lung nieto demonstrate chronic changes and suspected subtle superimposed bilateral airspace disease. No discrete consolidation small right effusion cannot be excluded. No pneumothorax. Skeletal structures intact. IMPRESSION: Superimposed airspace disease and possible small right pleural effusion cannot be excluded. PROGNOSIS: fair ACTIVITY: [As tolerated]. DIET: cardiac DISPOSITION: 62 D/T Rehab Facility. ITEMS TO FOLLOWUP ON ON OUTPATIENT: Follow-up with PCP in 3-5 days DISCHARGE CONDITION: [Stable]. TIME SPENT ON DISCHARGE: Greater than 40 minutes. Vital Signs/I&Os Vital Signs Date Time Temp Pulse Resp B/P (MAP) Pulse Ox O2 Delivery O2 Flow Rate FiO2 05/28/20 09:00 1.0 05/28/20 09:00 94 Nasal Cannula 05/28/20 08:50 140/49 05/28/20 04:00 96.7 61 20 I&O- Last 24 Hours up to 6 AM 05/28/20 06:00 Intake Total 1290 ml Output Total 0 ml Balance 1290 ml Laboratory Data Labs 24H Laboratory Tests 2 05/27/20 20:38: Bedside Glucose (Misc Panel) 349H 05/28/20 05:30: Immature Granulocyte % (Auto) 3.5H, Neutrophils (%) (Auto) 84.6H, Lymphocytes (%) (Auto) 8.2L, Monocytes (%) (Auto) 3.3, Eosinophils (%) (Auto) 0.2, Basophils (%) (Auto) 0.2, Neutrophils # (Auto) 10.1H, Lymphocytes # (Auto) 1.0L, Monocytes # (Auto) 0.4, Eosinophils # (Auto) 0.0, Basophils # (Auto) 0.0, Nucleated Red Blood Cells % (auto) 0.0, Prothrombin Time 13.8, Prothromb Time International Ratio 1.04, Activated Partial Thromboplast Time 30.4, Fibrinogen 454H, D-Dimer, Quantitative 946.94H, Anion Gap 5L, Glomerular Filtration Rate 46.4, Calcium Level 8.5L, Magnesium Level 2.2, Ferritin 869H, Total Bilirubin 0.4, Direct Bilirubin 0.1, Aspartate Amino Transf (AST/SGOT) 48H, Alanine Aminotransferase (ALT/SGPT) 93H, Alkaline Phosphatase 86, C-Reactive Protein, Quantitative 1.40H, UN-Qaz-S-Type Natriuretic Peptide 1332H, Total Protein 6.1L, Albumin 2.3L, Albumin/Globulin Ratio 0.6L, Procalcitonin <0.05 05/28/20 06:26: Bedside Glucose (Misc Panel) 216H 05/28/20 11:14: Bedside Glucose (Misc Panel) 264H CBC/BMP Laboratory Tests 05/28/20 05:30 FSBS Laboratory Tests Test 05/27/20 20:38 05/28/20 06:26 05/28/20 11:14 Range/Units Bedside Glucose (Misc Panel) 349 216 264 83-110 MG/DL Discharge Medications Scheduled Acetaminophen (Tylenol Arthritis) 650 Mg Tablet.er, 650 MG PO BID, (Reported) Allopurinol (Zyloprim) 300 Mg Tablet, 300 MG PO DAILY, (Reported) Aspirin (Aspirin EC) 81 Mg Tablet.dr, 81 MG PO DAILY, (Reported) Atorvastatin Calcium (Atorvastatin Calcium) 20 Mg Tablet, 20 MG PO DAILY, (Reported) Brimonidine Tartrate/Timolol (Combigan 0.2%-0.5% Eye Drops) 5 Ml Drops, 1 DROP OU BID, (Reported) Calcitriol (Calcitriol) 0.25 Mcg Capsule, 0.25 MCG PO 5XW, (Reported) MON//THU//THU Cholecalciferol (Vitamin D3) (Vitamin D3) 1,000 Unit Tablet, 1,000 UNITS PO QPM, (Reported) TAKES AT 1600 Cyanocobalamin (Vitamin B-12) (Vitamin B-12) 1,000 Mcg Tablet, 1,000 MCG PO QPM, (Reported) TAKES AT 1600 Folic Acid (Folic Acid) 0.4 Mg Tablet, 400 MCG PO QPM, (Reported) TAKES AT 1600 Furosemide (Furosemide) 40 Mg Tablet, 60 MG PO DAILY, (Reported) Furosemide (Furosemide) 20 Mg Tablet, 20 MG PO QHS, (Reported) Gabapentin (Gabapentin) 400 Mg Capsule, 400 MG PO BID, (Reported) Insulin Human NPH (Humulin N) 100 Unit/1 Ml Vial, 20 UNITS SC QHS, (Reported) Insulin Human NPH (Humulin N) 100 Unit/1 Ml Vial, 50 UNITS SC DAILY Latanoprost (Xalatan) 0.005% 2.5ML Drops, 1 DROP OU QHS, (Reported) Levothyroxine Sodium (Levothyroxine Sodium) 137 Mcg Tablet, 137 MCG PO DAILY, (Reported) Loratadine (Loratadine) 10 Mg Tablet, 10 MG PO DAILY, (Reported) Losartan Potassium (Losartan Potassium) 50 Mg Tablet, 25 MG PO DAILY, (Reported) Magnesium Oxide (Magnesium Oxide) 400 Mg Tablet, 400 MG PO QPM, (Reported) TAKES AT 1600 Multivitamin (Multivitamin) 1 Each Tablet, 1 TAB PO QPM, (Reported) TAKES AT 1600 Omeprazole (Omeprazole) 40 Mg Capsule.dr, 40 MG PO DAILY, (Reported) Oxybutynin Chloride (Oxybutynin Chloride) 5 Mg Tablet, 5 MG PO DAILY, (Reported) Psyllium Husk/Aspartame (Metamucil Fiber Singles Packet) 3.4 Gm Powd.pack, 1 PKT PO DAILY Vitamin A (Vitamin A) 10,000 Unit Capsule, 10,000 UNIT PO QPM, (Reported) TAKES AT 1600 Scheduled PRN Albuterol Sulfate (Proair Hfa) 8.5 Gm Hfa.aer.ad, 2 PUFFS INH Q4H PRN for SHORTNESS OF BREATH, (Reported) Diclofenac Epolamine (Diclofenac Epolamine) 1 Each Patch.td12, 2 EACH TD Q12H PRN for PAIN, (Reported) Fluticasone Propionate (Flonase Allergy Relief) 9.9 Ml [place].susp, 1 SPRAY NA QHS PRN for NASAL CONGESTION, (Reported) Phenylephrine HCl (Phenylephrine HCl) 10 Mg Tablet, 10 MG PO BID PRN for RUNNY NOSE, (Reported) Allergies Coded Allergies: butorphanol (Verified Allergy, Unknown, 03/07/20) KHADIJAH CARTY DO May 28, 2020 20:11
== END 2020-05-28 12:47 | DRG 177 ==
LOC: M ED 08:45 → EDBD 08:45 → M ED INP 12:06 → M 4MAIN 14:00 → M MSPAV 05-26 12:21
PROVIDERS: ADMIT Internal Medicine; ATTEND Internal Medicine
DX: U07.1 COVID-19 (principal); J96.01 Acute respiratory failure with hypoxia; J12.89 Other viral pneumonia; Z68.42 Body mass index [BMI] 45.0-49.9, adult; I12.9 Hypertensive chronic kidney disease with stage 1 through stage 4 chronic kidney disease, or unspecified chronic kidney disease; E66.9 Obesity, unspecified; E03.9 Hypothyroidism, unspecified; G47.33 Obstructive sleep apnea (adult) (pediatric); M10.9 Gout, unspecified; N18.30 Chronic kidney disease, stage 3 unspecified; E11.65 Type 2 diabetes mellitus with hyperglycemia; E11.40 Type 2 diabetes mellitus with diabetic neuropathy, unspecified; Z79.899 Other long term (current) drug therapy; Z79.82 Long term (current) use of aspirin; Z79.4 Long term (current) use of insulin; Z88.8 Allergy status to other drugs, medicaments and biological substances; K21.9 Gastro-esophageal reflux disease without esophagitis

== ENCOUNTER 2020-09-16 21:07 | Observation (INO) | payer MEDICARE ==
[~2020-09-16] VITALS: Ht 157.5 cm; Wt 110.9 kg
[~2020-09-16 21:07] MED LIST changes: +DICL1PAT6 TD; +FURO20TA2 PO; +LOSA50TA88 PO
--- NOTE | 2020-09-16 22:37 | REPVR ---
PROCEDURE INFORMATION: Exam: XR Right Knee Exam date and time: 09/16/2020 10:09 PM Age: 89 years old Clinical indication: Pain; Knee; Right; Additional info: Right knee pain; Twisting injury; ? Effusion TECHNIQUE: Imaging protocol: XR Right knee. Views: 4 or more views. COMPARISON: US Duplex, Ext LOWER veins, bilat 05/21/2020 8:06 PM FINDINGS: Bones/joints: Degenerative narrowing of the medial compartment of the joint with [id number] articulation. Degenerative spurring medially and to a lesser degree laterally. No fractures. Remodeling of the tibial spines. Mild joint effusion. Soft tissues: Normal. IMPRESSION: 1. Moderately severe degenerative osteoarthritis, greatest in the medial compartment with [id number]-[id number]-[id number] articulation. 2. Mild joint effusion. Electronically signed by: Lalo Devine On 09/16/2020 22:37:18 PM
[2020-09-16] MEDS ORDERED: traMADol 50 MG TAB PO ONE (22:55)
[2020-09-17 00:22] LABS: BASO # 0.1 10^3/uL (0.0-0.2); BASO % 0.6 % (0.0-1.0); EOS % 0.4 % (0.0-3.0); HEMATOCRIT 39.3 % (36.0-47.0); HEMOGLOBIN 12.9 g/dl (12.0-15.5); LYMPH # 2.3 10^3/uL (1.5-5.0); LYMPH % 21.6 % (24.0-44.0); MEAN CORPUSCULAR HGB CONC 32.8 g/dl (32.0-36.5); MEAN CORPUSCULAR VOLUME 103.7 fl (80.0-96.0); MONO # 1.1 10^3/uL (0.0-0.8); MONO % 10.2 % (2.0-8.0); NEUTROPHILS % 66.8 % (36.0-66.0); PLATELET COUNT, AUTOMATED 134 10^3/uL (150-450); RED BLOOD COUNT 3.79 10^6/uL (4.00-5.40); WHITE BLOOD COUNT 10.4 10^3/uL (4.0-10.0)
[2020-09-17 00:42] LABS: ERYTHROCYTE SEDIMENTATION RATE 63 mm/hr (0-30)
[2020-09-17 00:48] LABS: C REACTIVE PROTEIN QUANTITATIV 7.31 MG/DL (0.00-0.30); CALCIUM LEVEL 9.1 MG/DL (8.8-10.2); CREATININE FOR GFR 1.17 MG/DL (0.55-1.30); GLOMERULAR FILTRATION RATE 46.4 (>32); POTASSIUM SERUM 4.7 MEQ/L (3.5-5.1)
[2020-09-17 01:09] LABS: RSV AMPLIFICATION NEGATIVE (NEGATIVE)
[2020-09-17] MEDS ORDERED: MAALOX 30 ML SUSP *UDC PO PRN (02:50)
[2020-09-17] MEDS ORDERED: DEXTROSE 50% 50 ML SYRINGE IV PRN (02:50)
[2020-09-17] MEDS ORDERED: INSUNSD SC (02:50)
[2020-09-17] MEDS ORDERED: MOM 30ML SUSPENSION UDC PO PRN (02:50)
[2020-09-17] MEDS ORDERED: OXYB10TA23 PO (02:50)
[2020-09-17] MEDS ORDERED: GLUCAGON INJ 1MG VIAL SC PRN (02:50)
[2020-09-17] MEDS ORDERED: ACETAMINOPHEN TAB 650MG DOSE (2X325MG) PO PRN (02:50)
[2020-09-17] MEDS ORDERED: GLUCOSE 4GM CHEW TABLET PO PRN (02:50)
[2020-09-17] MEDS ORDERED: HORSE TAIL PO (02:56)
[2020-09-17] MEDS ORDERED: LIDO5DIS41 TD (02:56)
[2020-09-17] MEDS ORDERED: REFR0.5D8 OU (02:56)
[2020-09-17] MEDS ORDERED: PREDOPD OU (02:56)
[2020-09-17] MEDS ORDERED: BOSWELIA PO (02:56)
[2020-09-17] MEDS ORDERED: TIMO0.2529 OU (02:56)
--- NOTE | 2020-09-17 03:11 | HPEPDOC ---
[facility] Medical History & Physical Date of Admission September 17, 2020 Date of Service: September 17, 2020 Attending Physician: JUAN JOSE DAVIES MD History and Physical CHIEF COMPLAINT: [This is an 89 y/o female with a cc of right knee pain x4 days] HISTORY OF PRESENT ILLNESS: [This is an 89 y/o female with a pmh of morbid obesity, IDDM2, TAVR, MITCH, HTN, HLD, CKD3, hypothyroidism, arthritis who presents to the ed with daughter with a cc of right knee pain x4 days. Patient states that four days ago she was trying to climb some stairs when her knees buckled and she went down. Patient states that she was cherry her grandson was behind her and caught her from her fall. Patient never actually struck ground with the fall. Patient states that since this event, she has had increasing knee pain in the right knee. Patient states that the pain sometimes radiates to her groin and sometimes radiates to the ankle. Patient states that she presents to the ED because she can no longer bear weight and is concerned because she lives alone. At baseline, patient ambulates with a walker. Patient admits to associated weakness. Patient denies paresthesias, joint swelling, joint erythema, headaches, confusion, slurred speech, chest pain, sob, fevers, abd pain, n/v/d/c. ] PAST MEDICAL HISTORY: 1. [See HPI PAST SURGICAL HISTORY: 1. [B/L cataract removal 2. [Hysterectomy]. 3. [Uterine prolapse repair x2 4. Right sided carpal tunnel repair]. SOCIAL HISTORY: Resides in: [Home alone] Tobacco use:[Former, approx 20 pack years] ETOH: [Denies] Illicit drug use: [Denies] FAMILY HISTORY: Reviewed - none pertinent ALLERGIES: Please see below. REVIEW OF SYSTEMS: CONSTITUTIONAL: [Admits to occasional chills]. HEENT: [Denies uri sx]. CARDIOVASCULAR: [Denies cp, palpitations]. RESPIRATORY: [Denies sob, wheezing]. GASTROINTESTINAL: [See HPI]. GENITOURINARY: [Denies dysuria]. SKIN: [See HPI]. MUSCULOSKELETAL: [See HPI]. NEUROLOGICAL: [See HPI]. ENDOCRINE: [Hx of DM]. HEMATOLOGIC/LYMPHATIC: [Denies easy bruising]. HOME MEDICATIONS: Please see below. PHYSICAL EXAMINATION: VITAL SIGNS: Please see below. GENERAL APPEARANCE: [This is an obese 89 y/o female. She is laying in bed and appears uncomfortable.]. HEENT: [No mass or lesion. EOMI. No scleral icterus. Nares patent. Oral mucosa moist.]. CARDIOVASCULAR: [Regular rate, rhythm. 3/6 murmur appreciated. No rubs, gallops]. LUNGS: [Decreased breath sounds d/t body habitus. No wheezing, rales, rhonchi.]. ABDOMEN: [Soft, non-tender]. MUSCULOSKELETAL: [Tenderness to palpation of lateral right knee. No joint deformity, swelling, erythema.]. EXTREMITIES: [Petechiae noted on b/l wrists, left worse than right. Peripheral edema noted to b/l lower ankles. Non pitting. No overlying skin changes. Pulses palpable.]. NEUROLOGICAL: [Sensation intact. Speech clear. A+Ox3. No focal deficits]. PSYCHIATRIC: [Mood and affect appear appropriate]. LABORATORY DATA: See below. IMAGING: [FINDINGS: Bones/joints: Degenerative narrowing of the medial compartment of the joint with wobx-hd-[id number] articulation. Degenerative spurring medially and to a lesser degree laterally. No fractures. Remodeling of the tibial spines. Mild joint effusion. Soft tissues: Normal. IMPRESSION: 1. Moderately severe degenerative osteoarthritis, greatest in the medial compartment with zbrf-pb-[id number] articulation. 2. Mild joint effusion. ] MICROBIOLOGY: Please see below. ASSESSMENT: [This is an 89 y/o female with a pmh of morbid obesity, IDDM2, TAVR, MITCH, HTN, HLD, CKD3, hypothyroidism, arthritis who presents to the ED with complaint of increasing right knee pain 4 days after a fall that was intercepted. Patient presents as she has lost her mobility and was living independently. Patient had knee x-ray in the ED which revealed severe osteoarthritis with mild effusion, no fracture.]. . PLAN: 1. [Right knee pain - Likely sprain or strain on top of chronic severe osteoarthritis - arthritis likely cause of mildly elevated inflammatory markers - wbc of 10, esr 60, crp 7 - Will initiate pain control - ice, heat, lidocaine patch, tylenol, tramadol - Will consult pt/ot, patient likely a good candidate for acute rehab - Patient's degree of arthritis makes her a candidate for knee arthroplasty, however her weight and multiple chronic conditions should be considered before deciding this route of treatment. Day team can consider orthopedic consult for evaluation - Admit to med surg under obs 2. IDDM2 - Continue at home basal insulin, nph 60 units in the morning, 20 at night - Sliding scale, hypoglycemic protocol - continue gabapentin 3. CKD - cr at baseline. will monitor 4. HTN - continue furosemide 5. HLD - continue atorvastatin 6. s/p TAVR - continue asa 7. Glaucoma - continue timolol, prednisolone, latanoprost ophthalmic 8. Overactive bladder - Continue oxybutynin 9. Allergies - continue claritin, flonase 10. Gout - continue allopurinol 11. Hypothyroidism - Continue levothyroxine 12. Obesity - Unfortunately complicates care DVT prophylaxis - Lovenox, teds]. Vital Signs Vital Signs Date Time Temp Pulse Resp B/P (MAP) Pulse Ox O2 Delivery O2 Flow Rate FiO2 09/17/20 00:09 Room Air 09/16/20 23:02 18 09/16/20 21:37 75 96 09/16/20 21:23 98.8 162/70 (100) Laboratory Data Labs 24H Laboratory Tests 2 09/16/20 23:56: Coronavirus (COVID-19)(PCR) NEGATIVE, Influenza Type A (RT-PCR) NEGATIVE, Infl uenza Type B (RT-PCR) NEGATIVE, Respiratory Syncytial Virus (PCR) NEGATIVE 09/17/20 00:08: Immature Granulocyte % (Auto) 0.4, Neutrophils (%) (Auto) 66.8H, Lymphocytes (%) (Auto) 21.6L, Monocytes (%) (Auto) 10.2H, Eosinophils (%) (Auto) 0.4, Basophils (%) (Auto) 0.6, Neutrophils # (Auto) 7.0, Lymphocytes # (Auto) 2.3, Monocytes # (Auto) 1.1H, Eosinophils # (Auto) 0.0, Basophils # (Auto) 0.1, Nucleated Red Blood Cells % (auto) 0.0, Erythrocyte Sedimentation Rate 63H, Anion Gap 4L, Glomerular Filtration Rate 46.4, Calcium Level 9.1, C-Reactive Protein, Quantitative 7.31H CBC/BMP Laboratory Tests 09/17/20 00:08 Home Medications Scheduled Acetaminophen (Tylenol Arthritis) 650 Mg Tablet.er, 650 MG PO BID Allopurinol (Zyloprim) 300 Mg Tablet, 300 MG PO DAILY Aspirin (Aspirin EC) 81 Mg Tablet.dr, 81 MG PO DAILY Atorvastatin Calcium (Atorvastatin Calcium) 20 Mg Tablet, 20 MG PO DAILY Calcitriol (Calcitriol) 0.25 Mcg Capsule, 0.25 MCG PO 5XW MON/TU/THU/TH/FRI Cholecalciferol (Vitamin D3) (Vitamin D3) 1,000 Unit Tablet, 1,000 UNITS PO QPM TAKES AT 1600 Cyanocobalamin (Vitamin B-12) (Vitamin B-12) 1,000 Mcg Tablet, 1,000 MCG PO QPM TAKES AT 1600 Folic Acid (Folic Acid) 0.4 Mg Tablet, 400 MCG PO QPM TAKES AT 1600 Furosemide (Furosemide) 40 Mg Tablet, 60 MG PO DAILY Gabapentin (Gabapentin) 400 Mg Capsule, 400 MG PO BID Insulin Human NPH (Humulin N) 100 Unit/1 Ml Vial, 25 UNITS SC QHS Insulin Human NPH (Humulin N) 100 Unit/1 Ml Vial, 60 UNITS SC QAM Latanoprost (Xalatan) 0.005% 2.5ML Drops, 1 DROP OU QHS Levothyroxine Sodium (Levothyroxine Sodium) 137 Mcg Tablet, 137 MCG PO QAM Loratadine (Loratadine) 10 Mg Tablet, 10 MG PO DAILY Magnesium Oxide (Magnesium Oxide) 400 Mg Tablet, 400 MG PO QPM TAKES AT 1600 Multivitamin (Multivitamin) 1 Each Tablet, 1 TAB PO QPM TAKES AT 1600 Omeprazole (Omeprazole) 40 Mg Capsule.dr, 40 MG PO DAILY Oxybutynin Chloride (Oxybutynin Chloride ER) 10 Mg Tab.er.24, 10 MG PO DAILY Prednisolone Acetate (Prednisolone Acetate 1% Opth Susp) 5 Ml Drops.susp, 1 DROP OU DAILY Timolol Maleate (Timoptic) 0.25% 5ML Drops, 1 DROP OU BID Vitamin A (Vitamin A) 10,000 Unit Capsule, 10,000 UNIT PO QPM TAKES AT 1600 [boswelia] , 250 MG PO DAILY [horse tail] , 440 MG PO DAILY Scheduled PRN Albuterol Sulfate (Proair Hfa) 8.5 Gm Hfa.aer.ad, 2 PUFFS INH Q4H PRN for SHORTNESS OF BREATH Carboxymethylcellulose Sodium (Refresh Tears) 15 Ml Drops, 1 DROP OU TID PRN for DRY EYES Fluticasone Propionate (Flonase Allergy Relief) 9.9 Ml [place].susp, 1 SPRAY NA QHS PRN for NASAL CONGESTION Lidocaine (Lidoderm) 5% Adh..patch, 1 PATCH TD DAILY PRN for PAIN Apply to knees, Remove patch after 12 hours Phenylephrine HCl (Phenylephrine HCl) 10 Mg Tablet, 10 MG PO BID PRN for RUNNY NOSE Allergies Coded Allergies: butorphanol (Verified Allergy, Unknown, 03/07/20) A-FIB/CHADSVASC A-FIB History Current/History of A-Fib/PAF?: No LAUREN CHAVEZ September 17, 2020 03:11
[2020-09-17] MEDS ORDERED: POLYVINYL ALCOHOL OPHTH SOLN 15 ML(LIQUITEARS) OU PRN (03:15)
[2020-09-17] MEDS ORDERED: LIDOCAINE 5% (LIDODERM) PATCH TD PRN (03:15)
[2020-09-17] MEDS ORDERED: FLUTICASONE PROP 0.05% NASAL SPRAY 16 GM (FLONASE) PRN (03:15)
[2020-09-17] MEDS ORDERED: ALBUTEROL 90 MCG/ACT 8GM HFA INHALER INH PRN (03:15)
[2020-09-17] MEDS: traMADol 50 MG TAB PO PRN ×2 (04:47→21:40)
[2020-09-17] MEDS: LEVOTHYROXINE 137MCG TABLET (0.137MG) PO SCH (05:47)
[2020-09-17 06:35] LABS: BASO # 0.1 10^3/uL (0.0-0.2); BASO % 0.6 % (0.0-1.0); EOS # 0.1 10^3/uL (0.0-0.5); EOS % 1.2 % (0.0-3.0); HEMATOCRIT 36.6 % (36.0-47.0); HEMOGLOBIN 12.3 g/dl (12.0-15.5); LYMPH # 2.4 10^3/uL (1.5-5.0); MEAN CORPUSCULAR HEMOGLOBIN 35.3 pg (27.0-33.0); MEAN CORPUSCULAR HGB CONC 33.6 g/dl (32.0-36.5); MEAN CORPUSCULAR VOLUME 105.2 fl (80.0-96.0); MONO # 0.9 10^3/uL (0.0-0.8); MONO % 10.4 % (2.0-8.0); NEUTROPHILS # 5.4 10^3/uL (1.5-8.5); NEUTROPHILS % 60.5 % (36.0-66.0); PLATELET COUNT, AUTOMATED 137 10^3/uL (150-450); RED BLOOD COUNT 3.48 10^6/uL (4.00-5.40); WHITE BLOOD COUNT 8.9 10^3/uL (4.0-10.0)
[2020-09-17 06:38] LABS: ALBUMIN 3.1 GM/DL (3.2-5.2); BILIRUBIN,TOTAL 0.7 MG/DL (0.2-1.0); CALCIUM LEVEL 9.4 MG/DL (8.8-10.2); CREATININE FOR GFR 1.13 MG/DL (0.55-1.30); GLOMERULAR FILTRATION RATE 48.3 (>32); POTASSIUM SERUM 4.1 MEQ/L (3.5-5.1); TOTAL PROTEIN 7.7 GM/DL (6.4-8.2)
[2020-09-17 06:39] LABS: MAGNESIUM LEVEL 2.2 MG/DL (1.8-2.4)
[2020-09-17] MEDS ORDERED: ENOXAPARIN 30MG/0.3ML SYRINGE (J1650 PER 10MG) SC SCH (09:00)
[2020-09-17] MEDS: HumuLIN N INSULIN (NovoLIN N) PER UNIT SC SCH (09:00)
[2020-09-17] MEDS: prednisoLONE ACET 1% OPHTH SUSP 5ML OU SCH (09:00)
[2020-09-17] MEDS: TIMOLOL MALEATE 0.25% OPHTH SOLN 5 ML OU SCH ×2 (09:00→21:36)
[2020-09-17] MEDS: OMEPRAZOLE 20 MG CAP PO SCH (11:41)
[2020-09-17] MEDS: CALCITRIOL 0.25 MCG CAP (S0169) PO SCH (11:41)
[2020-09-17] MEDS: oxyBUTYnin *DITROPAN XL* 5 MG TABCR PO SCH (11:41)
[2020-09-17] MEDS: ATORVASTATIN 20 MG TAB PO SCH (11:41)
[2020-09-17] MEDS: FUROSEMIDE 20 MG TAB PO SCH (11:42)
[2020-09-17] MEDS: allopurinoL 300 MG TAB PO SCH (11:42)
[2020-09-17] MEDS: DOCUSATE SODIUM 100MG CAPSULE PO SCH ×2 (11:42→21:36)
[2020-09-17] MEDS: GABAPENTIN 400MG CAP PO SCH ×2 (11:42→21:36)
[2020-09-17] MEDS: HumaLOG INSULIN (NovoLOG) PER UNIT SC SCH ×3 (11:43→17:39)
[2020-09-17] MEDS: ASPIRIN 81MG ENTERIC TABLET PO SCH (11:43)
[2020-09-17] MEDS: LORATADINE 10 MG TAB PO SCH (11:43)
--- NOTE | 2020-09-17 13:56 | IPNPDOC ---
Text Note Date of Service The patient was seen on 09/17/20. NOTE S Patient reported pain is controlled at 2/10 now. Continues to be localized to R knee and described as sharp and worsens with movement, with occasional radiation up to the groin and down to R heel. She denied associated fever, N/V/D, abd pain, SAUNDERS and constipation. O VITAL SIGNS: See below GENERAL APPEARANCE: Revealed 89 y/o F obese, laying supine on ED cot, alert & oriented x3, in no Acute Distress. HEENT Exam: Normocephalic and atraumatic, PERRL, EOMI, without sclera icteric, mucous membr. moist/pink, pharynx normal, nares patent. NECK: Supple without lymphadenopathy, JVD, thyromegaly LUNGS: Clear to auscultation bilaterally with full breath sounds without rales, wheezing, and crackles. CARDIOVASCULAR: Regular rate and rhythm, normal S1 & S2 without gallops, rubs, 3/6 systolic murmur noted. ABDOMEN: Obese abd, soft, non-tender, non-distended with normal bowel sounds. No masses or ecchymosis or hepatosplenomegaly. EXTREMITIES: 2+ pulses in all extremities. No clubbing, cyanosis, edema. R knee tenderness on palpation. SKIN: Normal turgor and temperature. No rash, lesion MUSCULOSKELETAL: Strength +5/5 in all other extremities without tenderness except 4/5 strength with limited ROM on R knee flexion and R hip flexion. NEUROLOGICAL: Normal speech with intact sensation, No signs of gross focal neurological deficit. 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 Patient lives alone at home and has lost mobility since she has not been able to bear weight on her R k nee. Patient had knee x-ray in the ED which revealed severe osteoarthritis with mild effusion, no fracture. She has been followed by Dr. Gil (orthopedic surgery) for her arthritis. Her pain is now controlled at 2/10 and will need PT/OT eval and ARU screen for disposition to acute/subacute rehab. PLAN: 1. Right knee pain - Likely sprain or strain on top of chronic severe osteoarthritis - R knee XR negative for acute fracture, showed moderately severe degenerative OA, greatest in medial compartment with bone on bone articulation. - arthritis likely cause of mildly elevated inflammatory markers - wbc of 10, esr 60, crp 7 - Cont pain regimen - ice, heat, lidocaine patch, tylenol, tramadol - for pt's loss of mobility, pt/ot eval and treat and ARU screen for disposition - Patient's degree of arthritis makes her a candidate for knee arthroplasty, patient already followed by Dr. Gil (orthopedic surgery) outpatient and will pursue surgery with him. - F/u vitamin D level 2. IDDM2 - Continue at home basal insulin, nph 60 units in the morning, 20 at night - Sliding scale, hypoglycemic protocol - continue gabapentin 3. CKD - cr at baseline. will monitor 4. HTN - continue furosemide 5. HLD - continue atorvastatin 6. s/p TAVR - continue asa 7. Glaucoma - continue timolol, prednisolone, latanoprost ophthalmic 8. Overactive bladder - Continue oxybutynin 9. Allergies - continue claritin, flonase 10. Gout - continue allopurinol 11. Hypothyroidism - Continue levothyroxine 12. Obesity - Unfortunately complicates care DVT prophylaxis - Lovenox, increased dose to 40mg QD, CrCl of 61. teds. Disposition: will need PT/OT eval and ARU screen for disposition to acute/subac [facility]. VS,Fishbone, I+O VS, Fishbone, I+O Laboratory Tests 09/17/20 00:08 09/17/20 05:38 Vital Signs Date Time Temp Pulse Resp B/P (MAP) Pulse Ox O2 Delivery O2 Flow Rate FiO2 09/17/20 05:17 16 09/17/20 04:50 99.0 69 148/66 (93) 96 Room Air GME ATTESTATION GME ATTESTATION My faculty preceptor for this patient encounter was physically present during the encounter and was fully available. All aspects of the patient interview, examination, medical decision making process, and medical care plan development were reviewed and approved by the faculty preceptor. The faculty preceptor is aware and concurs with the plan as stated in the body of this note and will attest to such by his/her cosignature. ATTENDING NOTE I, Dajuan Alegria MD, have independently examined this patient and performed my own physical exam, as well as reviewed the documentation and edited where vic mccormack. I have discussed in detail with the resident / student the findings and plan of treatment as documented by the resident / student and edited their note. I agree with their findings and treatment plan and have edited their documentation. VIKAS WOLFE OMS-3 September 17, 2020 11:31 DAJUAN ALEGRIA MD September 18, 2020 12:41
[2020-09-17 14:30] VITALS: BP 140/58
[2020-09-17] MEDS: CYANOCOBALAMIN 500 MCG TAB PO SCH (17:39)
[2020-09-17] MEDS: MULTIVITAMINS/MINERALS THERAP 1 TAB PO SCH (17:39)
[2020-09-17] MEDS: VITAMIN D 1,000 INTERNATIONAL UNITS TABLET PO SCH (17:39)
[2020-09-17] MEDS: MAGNESIUM OXIDE 400MG TAB (MAG-OX) PO SCH (17:40)
[2020-09-17] MEDS: FOLIC ACID 1 MG TAB PO SCH (17:40)
[2020-09-17] MEDS: VITAMIN A 10,000 INTERNATIONAL UNITS CAP PO SCH (17:40)
[2020-09-17 20:17] VITALS: BP 142/88
[2020-09-17] MEDS ORDERED: **NOTE PATIENT COMMENT** MISC XX SCH (21:00)
[2020-09-17] MEDS ORDERED: HumuLIN N INSULIN (NovoLIN N) PER UNIT SC SCH (21:00)
[2020-09-17] MEDS ORDERED: HumaLOG INSULIN (NovoLOG) PER UNIT SC SCH (21:00)
[2020-09-17] MEDS ORDERED: LATANOPROST 0.005% OPHTH SOLN 2.5 ML OU SCH (21:00)
[2020-09-18] MEDS: LEVOTHYROXINE 137MCG TABLET (0.137MG) PO SCH (05:26)
[2020-09-18 05:27] VITALS: BP 169/77
[2020-09-18] MEDS: traMADol 50 MG TAB PO PRN ×2 (05:27→18:01)
[2020-09-18 06:33] LABS: HEMATOCRIT 38.9 % (36.0-47.0); HEMOGLOBIN 12.8 g/dl (12.0-15.5); MEAN CORPUSCULAR HEMOGLOBIN 34.2 pg (27.0-33.0); MEAN CORPUSCULAR HGB CONC 32.9 g/dl (32.0-36.5); PLATELET COUNT, AUTOMATED 148 10^3/uL (150-450); RED BLOOD COUNT 3.74 10^6/uL (4.00-5.40); WHITE BLOOD COUNT 8.6 10^3/uL (4.0-10.0)
[2020-09-18 07:00] LABS: CALCIUM LEVEL 9.7 MG/DL (8.8-10.2); CREATININE FOR GFR 1.2 MG/DL (0.55-1.30); POTASSIUM SERUM 4.1 MEQ/L (3.5-5.1)
[2020-09-18] MEDS: HumuLIN N INSULIN (NovoLIN N) PER UNIT SC SCH (08:30)
[2020-09-18] MEDS: HumaLOG INSULIN (NovoLOG) PER UNIT SC SCH ×3 (08:30→18:02)
[2020-09-18] MEDS: TIMOLOL MALEATE 0.25% OPHTH SOLN 5 ML OU SCH (08:31)
[2020-09-18] MEDS: ASPIRIN 81MG ENTERIC TABLET PO SCH (08:31)
[2020-09-18] MEDS: GABAPENTIN 400MG CAP PO SCH (08:32)
[2020-09-18] MEDS: FUROSEMIDE 20 MG TAB PO SCH (08:32)
[2020-09-18] MEDS: DOCUSATE SODIUM 100MG CAPSULE PO SCH (08:32)
[2020-09-18] MEDS: OMEPRAZOLE 20 MG CAP PO SCH (08:32)
[2020-09-18] MEDS: ATORVASTATIN 20 MG TAB PO SCH (08:32)
[2020-09-18] MEDS: LORATADINE 10 MG TAB PO SCH (08:32)
[2020-09-18] MEDS: CALCITRIOL 0.25 MCG CAP (S0169) PO SCH (08:32)
[2020-09-18] MEDS: allopurinoL 300 MG TAB PO SCH (08:32)
[2020-09-18] MEDS: oxyBUTYnin *DITROPAN XL* 5 MG TABCR PO SCH (08:33)
[2020-09-18] MEDS ORDERED: ENOXAPARIN 40MG/0.4ML SYRINGE (J1650 PER 10MG) SC SCH (09:00)
[2020-09-18] MEDS ORDERED: BISACODYL 5 MG TAB PO SCH (09:00)
[2020-09-18] MEDS: prednisoLONE ACET 1% OPHTH SUSP 5ML OU SCH (12:26)
[2020-09-18 14:00] VITALS: BP 144/86
--- NOTE | 2020-09-18 15:17 | DS.PDOC ---
Discharge Summary General Date of Admission September 16, 2020 at 21:08 Date of Discharge 09/18/20 Specialist/Consultants Involve Primary Care Provider: Igor Devine Discharge Summary PROCEDURES PERFORMED DURING STAY: [None]. ADMITTING DIAGNOSES: 1. Right Knee Pain 2. Chronic Kidney Disease 3. Hypertension 4. Diabetes Mellitus Type 2 DISCHARGE DIAGNOSES: 1. Right Knee Pain 2/2 osteoarthritis 2. Chronic Kidney Disease 3. Hypertension 4. Diabetes Mellitus Type 2 COMPLICATIONS/CHIEF COMPLAINT: Knee Pain. HISTORY OF PRESENT ILLNESS: Patient is an 89-year-old female with a past medical history significant for morbid obesity, type 2 diabetes mellitus hypertension, obstructive sleep apnea, chronic kidney disease and severe osteoarthritis of the knees who presented to the [facility] emergency department originally on 09/17/2020 with a complaint of severe pain in her right knee as well as inability to bear weight. Patient states that 4 days prior to her presentation to the emergency department. She had worsening right knee pain. She states that she had extreme difficulty getting up from a sitting to standing position. Patient denies any history of trauma. She denies any fall recently. She states that the pain does radiate sometimes down her leg into her ankle. Patient is followed outpatient with [facility]. She was planned to follow-up with them for possible knee arthroscopy, however, the surgery has not been scheduled. Patient stated that she presented to the emergency department as she was unable to ablate around her house as she lives alone. On presentation to the emergency department the patient was vitally stable. X- ray of the knee obtained did not demonstrate any acute process but rather demonstrated moderately severe osteoarthritis greatest in the medial compartment with [id number] articulation as well as mild joint effusion. HOSPITAL COURSE: On admission, the patient was given pain medication for adequate pain control.. She was seen by physical therapy with recommendations for continued rehabilitation at the acute rehabilitation unit. Her also say was rather uneventful. She did complain of some dysuria at one point however, urinalysis was negative. Patient was discharged to the acute rehabilitation unit. She is instructed to follow-up with orthopedic surgery outpatient for consideration for knee arthroscopy. DISCHARGE MEDICATIONS: Please see below. ALLERGIES: Please see below. PHYSICAL EXAMINATION ON DISCHARGE: VITAL SIGNS: Please see below. GENERAL: Awake, alert, oriented, appears in no acute distress, lying comfortably in bed HEENT: Atraumatic, normocephalic. Eyes nonicteric. Trachea is midline. Mucous membranes pink and moist NECK: No palpable cervical, axillary or subclavicular lymphadenopathy. Neck is méndez. No JVD CARDIOVASCULAR EXAMINATION: Normal S1, S2. Regular rate and rhythm, 2\6 systolic ejection murmur. No clicks or rubs RESPIRATORY EXAMINATION: Clear vesicular breath sounds bilaterally. Good respiratory effort. No wheezes rhonchi or rales. Symmetric chest expansion ABDOMINAL EXAMINATION: Morbidly obese, soft, nondistended, nontender. Normoactive bowel sounds throughout EXTREMITIES: No edema. Full equal pulses bilateral upper and lower extremities. Right knee with tenderness and flexion, extension, otherwise normal range of motion slightly decreased due to pain. SKIN: No rashes or lesions NEUROLOGICAL EXAMINATION:. No focal neurological deficits PSYCHIATRIC EXAMINATION: Mood and affect appear appropriate LABORATORY DATA: Please see below. IMAGING: PROCEDURE INFORMATION: Exam: XR Right Knee Exam date and time: 09/16/2020 10:09 PM Age: 89 years old Clinical indication: Pain; Knee; Right; Additional info: Right knee pain; Twisting injury; ? Effusion TECHNIQUE: Imaging protocol: XR Right knee. Views: 4 or more views. COMPARISON: US Duplex, Ext LOWER veins, bilat 05/21/2020 8:06 PM FINDINGS: Bones/joints: Degenerative narrowing of the medial compartment of the joint with [id number] articulation. Degenerative spurring medially and to a lesser degree laterally. No fractures. Remodeling of the tibial spines. Mild joint effusion. Soft tissues: Normal. IMPRESSION: 1. Moderately severe degenerative osteoarthritis, greatest in the medial compartment with [id number] articulation. 2. Mild joint effusion. Electronically signed by: Lalo Devine On 09/16/2020 22:37:18 PM PROGNOSIS: Fair ACTIVITY: [As tolerated]. DIET: Consistent carbohydrate, low-calorie DISCHARGE PLAN: Plan to discharge to acute rehabilitation unit for ongoing physical therapy and rehabilitation. Patient will need to follow up with her orthopedic surgeon for consideration of possible knee arthroscopy. DISPOSITION: Patient presenting with severe right knee osteoarthritis. She is followed outpatient with orthopedic surgery. Plan is to discharge to acute rehabilitation unit for ongoing therapy. Once discharged from acute rehabilitation unit. Patient will need to follow up with her orthopedic surgeon for consideration of possible knee arthroscopy. DISCHARGE CONDITION: [Stable]. TIME SPENT ON DISCHARGE: Greater than 35 minutes. Vital Signs/I&Os Vital Signs Date Time Temp Pulse Resp B/P (MAP) Pulse Ox O2 Delivery O2 Flow Rate FiO2 09/18/20 14:00 97.8 81 18 144/86 (105) 94 Room Air I&O- Last 24 Hours up to 6 AM 09/18/20 06:00 Intake Total 750 ml Output Total 1200 ml Balance -450 ml Laboratory Data Labs 24H Laboratory Tests 2 09/17/20 17:19: Bedside Glucose (Misc Panel) 204H 09/17/20 21:31: Bedside Glucose (Misc Panel) 210H 09/18/20 06:15: Nucleated Red Blood Cells % (auto) 0.0, Anion Gap 5L, Glomerular Filtration Rate 45.0, Calcium Level 9.7 09/18/20 10:06: Urine Color YELLOW, Urine Appearance HAZY, Urine pH 5.0, Urine Specific [place] 1.012, Urine Protein 1+H, Urine Glucose (UA) NEGATIVE, Urine Ketones NEGATIVE, Urine Blood 3+H, Urine Nitrite NEGATIVE, Urine Bilirubin NEGATIVE, Urine Urobilinogen 0.2, Urine Leukocyte Esterase NEGATIVE, Urine WBC (Auto) 1, Urine RBC (Auto) 138H, Urine Hyaline Casts (Auto) 1, Urine Bacteria (Auto) NEGATIVE, Urine Squamous Epithelial Cells 1, Urine Sperm (Auto) 09/18/20 11:20: Bedside Glucose (Misc Panel) 247H CBC/BMP Laboratory Tests 09/18/20 06:15 FSBS Laboratory Tests Test 09/17/20 17:19 09/17/20 21:31 09/18/20 11:20 Range/Units Bedside Glucose (Misc Panel) 204 210 247 83-110 MG/DL Discharge Medications Scheduled Acetaminophen (Tylenol Arthritis) 650 Mg Tablet.er, 650 MG PO BID, (Reported) Allopurinol (Zyloprim) 300 Mg Tablet, 300 MG PO DAILY, (Reported) Aspirin (Aspirin EC) 81 Mg Tablet.dr, 81 MG PO DAILY, (Reported) Atorvastatin Calcium (Atorvastatin Calcium) 20 Mg Tablet, 20 MG PO DAILY, (Reported) Calcitriol (Calcitriol) 0.25 Mcg Capsule, 0.25 MCG PO 5XW, (Reported) MON/TUES/WED/THURS/FRI Cholecalciferol (Vitamin D3) (Vitamin D3) 1,000 Unit Tablet, 1,000 UNITS PO QPM, (Reported) TAKES AT 1600 Cyanocobalamin (Vitamin B-12) (Vitamin B-12) 1,000 Mcg Tablet, 1,000 MCG PO QPM, (Reported) TAKES AT 1600 Folic Acid (Folic Acid) 0.4 Mg Tablet, 400 MCG PO QPM, (Reported) TAKES AT 1600 Furosemide (Furosemide) 40 Mg Tablet, 60 MG PO DAILY, (Reported) Gabapentin (Gabapentin) 400 Mg Capsule, 400 MG PO BID, (Reported) Insulin Human NPH (Humulin N) 100 Unit/1 Ml Vial, 25 UNITS SC QHS, (Reported) Insulin Human NPH (Humulin N) 100 Unit/1 Ml Vial, 60 UNITS SC QAM, (Reported) Latanoprost (Xalatan) 0.005% 2.5ML Drops, 1 DROP OU QHS, (Reported) Levothyroxine Sodium (Levothyroxine Sodium) 137 Mcg Tablet, 137 MCG PO QAM, (Reported) Loratadine (Loratadine) 10 Mg Tablet, 10 MG PO DAILY, (Reported) Magnesium Oxide (Magnesium Oxide) 400 Mg Tablet, 400 MG PO QPM, (Reported) TAKES AT 1600 Multivitamin (Multivitamin) 1 Each Tablet, 1 TAB PO QPM, (Reported) TAKES AT 1600 Omeprazole (Omeprazole) 40 Mg Capsule.dr, 40 MG PO DAILY, (Reported) Oxybutynin Chloride (Oxybutynin Chloride ER) 10 Mg Tab.er.24, 10 MG PO DAILY, (Reported) Prednisolone Acetate (Prednisolone Acetate 1% Opth Susp) 5 Ml Drops.susp, 1 DROP OU DAILY, (Reported) Timolol Maleate (Timoptic) 0.25% 5ML Drops, 1 DROP OU BID, (Reported) Vitamin A (Vitamin A) 10,000 Unit Capsule, 10,000 UNIT PO QPM, (Reported) TAKES AT 1600 [boswelia] , 250 MG PO DAILY, (Reported) [horse tail] , 440 MG PO DAILY, (Reported) Scheduled PRN Albuterol Sulfate (Proair Hfa) 8.5 Gm Hfa.aer.ad, 2 PUFFS INH Q4H PRN for SHORTNESS OF BREATH, (Reported) Carboxymethylcellulose Sodium (Refresh Tears) 15 Ml Drops, 1 DROP OU TID PRN for DRY EYES, (Reported) Fluticasone Propionate (Flonase Allergy Relief) 9.9 Ml [place].susp, 1 SPRAY NA QHS PRN for NASAL CONGESTION, (Reported) Lidocaine (Lidoderm) 5% Adh..patch, 1 PATCH TD DAILY PRN for PAIN, (Reported) Apply to knees, Remove patch after 12 hours Allergies Coded Allergies: butorphanol (Verified Allergy, Unknown, 03/07/20) HAWA CUENCA DO September 18, 2020 15:17
[2020-09-18] MEDS: MAGNESIUM OXIDE 400MG TAB (MAG-OX) PO SCH (16:06)
[2020-09-18] MEDS: VITAMIN A 10,000 INTERNATIONAL UNITS CAP PO SCH (16:06)
[2020-09-18] MEDS: FOLIC ACID 1 MG TAB PO SCH (16:07)
[2020-09-18] MEDS: VITAMIN D 1,000 INTERNATIONAL UNITS TABLET PO SCH (16:07)
[2020-09-18] MEDS: MULTIVITAMINS/MINERALS THERAP 1 TAB PO SCH (16:07)
[2020-09-18] MEDS: CYANOCOBALAMIN 500 MCG TAB PO SCH (16:07)
--- NOTE | 2020-09-19 14:07 | IPNPDOC ---
Text Note Date of Service The patient was seen on 09/19/20. NOTE Subjective: No any acute events overnight. Patient complains of mild right knee pain. Objective VITAL SIGNS: See below GENERAL APPEARANCE: NAD HEENT Exam: Normocephalic and atraumatic, PERRL, EOMI, without sclera icteric, mucous membr. moist/pink, pharynx normal, nares patent. NECK: Supple without lymphadenopathy, JVD, thyromegaly LUNGS: Clear to auscultation bilaterally with full breath sounds without rales, wheezing, and crackles. CARDIOVASCULAR: S1-S2 ABDOMEN: Obese abd, soft, non-tender, non-distended EXTREMITIES: 2+ pulses in all extremities. No clubbing, cyanosis, edema. R knee tenderness on palpation. SKIN: Normal turgor and temperature. No rash, lesion MUSCULOSKELETAL: Strength +5/5 in all other extremities without tenderness except 4/5 strength with limited ROM on R knee flexion and R hip flexion. NEUROLOGICAL: Normal speech with intact sensation, No signs of gross focal neurological deficit. 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 Right knee osteoarthritis Continue PT OT Follow-up with orthopedics surgical team in the outpatient settings IDDM2 Insulin sliding scale Labs diet CKD - cr at baseline Continue to monitor HTN Continue home cardioprotective medications HLD continue atorvastatin s/p TAVR continue asa Glaucoma - continue timolol, prednisolone, latanoprost ophthalmic Overactive bladder - Continue oxybutynin Allergies - continue claritin, flonase Gout continue allopurinol Hypothyroidism - Continue levothyroxine Obesity -complicates care VS,Fishbone, I+O VS, Fishbone, I+O Vital Signs Date Time Temp Pulse Resp B/P (MAP) Pulse Ox O2 Delivery O2 Flow Rate FiO2 09/18/20 18:01 18 09/18/20 14:00 97.8 81 144/86 (105) 94 Room Air I&O- Last 24 Hours up to 6 AM 09/19/20 06:00 Intake Total 450 ml Output Total 900 ml Balance -450 ml KHADIJAH CARTY DO September 19, 2020 14:07
== END 2020-09-18 17:55 | disposition other institution (70) ==
LOC: M ED 21:07 → M ED INP 21:08 → ENRESERV 09-17 12:46 → M MS5PR 09-17 14:30
PROVIDERS: ADMIT Family Medicine; ATTEND Internal Medicine
DX: M25.561 Pain in right knee (principal); M17.11 Unilateral primary osteoarthritis, right knee; N18.9 Chronic kidney disease, unspecified; I10 Essential (primary) hypertension; E11.9 Type 2 diabetes mellitus without complications; E66.01 Morbid (severe) obesity due to excess calories; G47.33 Obstructive sleep apnea (adult) (pediatric); Z95.2 Presence of prosthetic heart valve; E78.49 Other hyperlipidemia; M10.9 Gout, unspecified; N32.81 Overactive bladder; E03.9 Hypothyroidism, unspecified; Z79.82 Long term (current) use of aspirin; Z79.899 Other long term (current) drug therapy; Z88.8 Allergy status to other drugs, medicaments and biological substances
CPT/HCPCS: 73564; 80053; 82652; 83735; 85025; 85652; 86140; 87631; 96372; 97161; 99285; G0378; J1650

== ENCOUNTER 2020-09-18 11:51 | Inpatient (IN) | payer MEDICARE ==
[~2020-09-18] VITALS: Ht 157.5 cm; Wt 110.9 kg
[~2020-09-18 11:51] MED LIST changes: +BOSWELIA PO; +GABA-283 PO; -GABA-845 PO; +HORSE TAIL PO; +OXYB10TA23 PO; +REFR0.5D8 OU; +TIMO0.2529 OU
[2020-09-18] MEDS ORDERED: MIRALAX *UNIT DOSE* 17GM PACKET PO PRN (17:05)
[2020-09-18] MEDS ORDERED: BISACODYL 10 MG SUPP PR PRN (17:05)
[2020-09-18] MEDS ORDERED: traMADol 50 MG TAB PO PRN (17:05)
[2020-09-18] MEDS ORDERED: DEXTROSE 50% 50 ML SYRINGE IV PRN (17:05)
[2020-09-18] MEDS ORDERED: GLUCAGON INJ 1MG VIAL SC PRN (17:05)
[2020-09-18] MEDS ORDERED: GLUCOSE 4GM CHEW TABLET PO PRN (17:05)
--- NOTE | 2020-09-18 17:33 | HPEPDOC ---
Pharmacist Assistant Note DATE OF ADMISSION: 09-18-20 DATE OF SERVICE: 09-19-20 TIME OF ADMISSION: Please refer to physician's admission order. SOURCE OF ADMISSION INFORMATION: [facility] record and patient CHIEF COMPLAINT: right knee OA HISTORY OF PRESENT ILLNESS: 89F pmh morbid obesity, DM with peripheral polyneuropathy, aortic stenosis s/p TAVR, MITCH, HLD, CKD, hypothyroidism, osteoarthritis s/p fall with worsening right knee pain, presented to [facility] ED on 09-17-20 complaining of difficulty walking and worsening pain. Xray of knee showed, Moderately severe degenerative osteoarthritis, greatest in the medial compartment with [id number] articulation joint effusion. She was noted to have leukocytosis, low grade temperature, and difficulty ranging her knee. Discussion was had about future knee arthroplasty, but given patients poor mobility, multiple co-morbidities including elevated BPs, and new mobility impairments patient was deemed medically appropriate for discharge to ARU on 09-18-20. REVIEW OF SYSTEMS: The following is a completed review of systems and has been reviewed. Review of systems otherwise unremarkable. PAIN: Patient self reports bilat knee stringer and right groin pain EYES: No recent vision changes EARS, NOSE, & THROAT: No throat pain, or dysphagia, or rhinorrhea CARDIOVASCULAR: Denies chest pain or palpitations PULMONARY: Denies shortness of breath GASTROINTESTINAL: +constipation GENITOURINARY: +dysuria MUSCULOSKELETAL: bilat knee pain and right hip pain NEUROLOGICAL:+ peripheral polyneuropathy HEMATOLOGICAL: denies easy bruising SKIN: denies rash PSYCHIATRIC: Unremarkable All other review of systems found to be negative. PAST MEDICAL HISTORY: as per HPI PAST SURGICAL HISTORY: Right sided carpal tunnel, uterine prolapse s/p 2 surgeries, hysterectomy, bilat cataract removal ALLERGIES: Please see below. MEDICATIONS: Please see below. SOCIAL HISTORY: Former smoker, no etoh/illicit drugs DIET: consistent carb PHYSICAL EXAMINATION: VITAL SIGNS: Please see below. GENERAL: Pleasant and cooperative. No acute distress. HEENT: PERRL. Extraocular movements intact. Clear conjunctiva CARDIOVASCULAR: Regular rate and rhythm. No murmurs, rubs, or gallops LUNGS: Clear to auscultation bilaterally. No wheezes. No rhonchi ABDOMEN: Soft, nontender, nondistended. Positive bowel sounds. Normal active bowel sounds NEUROLOGICAL: Alert and oriented times three. Cranial nerves II through XII grossly intact. Sensation diminished o light touch in stocking/glove pattern EXTREMITIES: 5\5 strength bilateral upper extremities. 4\5 strength right lower extremity. 4/5 strength in left lower extremity. right knee- no varus/valgus instability, mild medial joint line tenderness, +mild effusion LABORATORY DATA: Please see below. IMAGING:Imaging documentation personally reviewed by record FUNCTIONAL STATUS: Premorbid: Independent with all activities of daily life as well as mobility On Admission: Min assist for ambulation, functional transfers, bed mobility, dressing, toileting GOALS: Mod-I for bed mobility, functional transfers, ambulation, dressing, toileting ASSESSMENT:89-year-old F with past medical history of obesity, DM who presents status post fall with right knee OA PLAN: 1. Rehab- PT/OT advance mobility and ADLs- strengthen/stretch/maintain ROM all 4 limbs 2. Neuro- hx of DM with peripheral polyneuropathy contributing to overall mobility impairments- c/u gabapentin 3. Ortho- s/p fall with severe right knee OA, c/u inpatient rehab, will w/u OA for left knee and right hips given complaints of pain 4. Cardiac- hx of HTN c/u PB meds and monitor 5. Resp- hx of MITCH, nocturnal 02, incentive spirometry -patient can use own cpap when brought up to unit 6. Endo- hx of DM c/u Insulin and ISS -hypothyroidism c/u synthroid 7. Renal- hx of CKD monitor, c/u calcitriol 8. Pain- tylenol, gabapentin, tramadol 9. dvt ppx- lovenox 10. GI ppx- prilosec -patient reporting hemorrhoids, will order preparation H suppository 11. - overactive bladder c/u oxybutynin -+dysuria- UA ordered 12. Dispo- TBD POST ADMISSION PHYSICIAN EVALUATION: Medical and functional status: Description of medical status, medical assessment: As above. Rehabilitation diagnosis and current and prior cold morbid medical conditions as above. Risk of complications and plans to mitigate them as above. Description of functional status current status is as above. Prior status as above. Status compared to preadmission: There are no clinically significant differences between the patient's current status and the information described on the preadmission screening document. Treatment plan anticipated: Treatment plan is as described above. Required disciplines including physical therapy, occupational therapy, others as noted above. Intensity of services: 3 hours a day, 6 days a week. Special considerations: There are no specific special or safety considerations that would likely preclude immediate implementation of an intensive rehabilitation program or subsequently influence the plan of care. ATTESTATION: Considering all the information above, it is my best judgment that this patient requires intensive rehabilitation therapy as described above and an inpatient hospital environment due to the complexity of nursing, medical, and rehabilitation needs required by the patient. Furthermore, this patient can reasonably be expected to participate in an benefit from an inpatient rehabilitation stay with an interdisciplinary team approach to the delivery of rehabilitation care under the direction and supervision of rehabilitation physician. PROGNOSIS: good ESTIMATED LENGTH OF STAY:10-14 days. PROJECTED DISCHARGE DESTINATION: Home with family support and any durable medical equipment required to increase functional safety and mobility. TIME SPENT COUNSELING AND COORDINATING INITIAL CARE: Greater than 70 minutes. Vital Signs Vital Signs Date Time Temp Pulse Resp B/P (MAP) Pulse Ox O2 Delivery O2 Flow Rate FiO2 09/18/20 18:10 98.6 73 22 143/67 (92) 95 Room Air Home Medications Scheduled Acetaminophen (Tylenol Arthritis) 650 Mg Tablet.er, 650 MG PO BID, (Reported) Allopurinol (Zyloprim) 300 Mg Tablet, 300 MG PO DAILY, (Reported) Aspirin (Aspirin EC) 81 Mg Tablet.dr, 81 MG PO DAILY, (Reported) Atorvastatin Calcium (Atorvastatin Calcium) 20 Mg Tablet, 20 MG PO DAILY, (Reported) Calcitriol (Calcitriol) 0.25 Mcg Capsule, 0.25 MCG PO 5XW, (Reported) MON//THU//FRI Cholecalciferol (Vitamin D3) (Vitamin D3) 1,000 Unit Tablet, 1,000 UNITS PO QPM, (Reported) TAKES AT 1600 Cyanocobalamin (Vitamin B-12) (Vitamin B-12) 1,000 Mcg Tablet, 1,000 MCG PO QPM, (Reported) TAKES AT 1600 Folic Acid (Folic Acid) 0.4 Mg Tablet, 400 MCG PO QPM, (Reported) TAKES AT 1600 Furosemide (Furosemide) 40 Mg Tablet, 60 MG PO DAILY, (Reported) Gabapentin (Gabapentin) 400 Mg Capsule, 400 MG PO BID, (Reported) Insulin Human NPH (Humulin N) 100 Unit/1 Ml Vial, 25 UNITS SC QHS, (Reported) Insulin Human NPH (Humulin N) 100 Unit/1 Ml Vial, 60 UNITS SC QAM, (Reported) Latanoprost (Xalatan) 0.005% 2.5ML Drops, 1 DROP OU QHS, (Reported) Levothyroxine Sodium (Levothyroxine Sodium) 137 Mcg Tablet, 137 MCG PO QAM, (Reported) Loratadine (Loratadine) 10 Mg Tablet, 10 MG PO DAILY, (Reported) Magnesium Oxide (Magnesium Oxide) 400 Mg Tablet, 400 MG PO QPM, (Reported) TAKES AT 1600 Multivitamin (Multivitamin) 1 Each Tablet, 1 TAB PO QPM, (Reported) TAKES AT 1600 Omeprazole (Omeprazole) 40 Mg Capsule.dr, 40 MG PO DAILY, (Reported) Oxybutynin Chloride (Oxybutynin Chloride ER) 10 Mg Tab.er.24, 10 MG PO DAILY, (Reported) Prednisolone Acetate (Prednisolone Acetate 1% Opth Susp) 5 Ml Drops.susp, 1 DROP OU DAILY, (Reported) Timolol Maleate (Timoptic) 0.25% 5ML Drops, 1 DROP OU BID, (Reported) Vitamin A (Vitamin A) 10,000 Unit Capsule, 10,000 UNIT PO QPM, (Reported) TAKES AT 1600 [boswelia] , 250 MG PO DAILY, (Reported) [horse tail] , 440 MG PO DAILY, (Reported) Scheduled PRN Albuterol Sulfate (Proair Hfa) 8.5 Gm Hfa.aer.ad, 2 PUFFS INH Q4H PRN for SHORTNESS OF BREATH, (Reported) Carboxymethylcellulose Sodium (Refresh Tears) 15 Ml Drops, 1 DROP OU TID PRN for DRY EYES, (Reported) Fluticasone Propionate (Flonase Allergy Relief) 9.9 Ml [place].susp, 1 SPRAY NA QHS PRN for NASAL CONGESTION, (Reported) Lidocaine (Lidoderm) 5% Adh..patch, 1 PATCH TD DAILY PRN for PAIN, (Reported) Apply to knees, Remove patch after 12 hours Allergies Coded Allergies: butorphanol (Verified Allergy, Unknown, 03/07/20) A-FIB/CHADSVASC A-FIB History Current/History of A-Fib/PAF?: No Current PO Anticoag Therapy: No ERROL SANDOVAL MD September 18, 2020 17:33
[2020-09-18 18:10] VITALS: BP 143/67
[2020-09-18 20:00] VITALS: BP 170/66
[2020-09-18] MEDS: HumaLOG INSULIN (NovoLOG) PER UNIT SC SCH (20:01)
[2020-09-18] MEDS: ACETAMINOPHEN 500 MG TAB PO SCH (20:18)
[2020-09-18] MEDS: POLYVINYL ALCOHOL OPHTH SOLN 15 ML(LIQUITEARS) OU SCH (20:18)
[2020-09-18] MEDS: FLUTICASONE PROP 0.05% NASAL SPRAY 16 GM (FLONASE) NARES SCH (20:18)
[2020-09-18] MEDS: GABAPENTIN 400MG CAP PO SCH (20:18)
[2020-09-18] MEDS: SENNA 8.6 MG TAB (SENOKOT) PO SCH (20:18)
[2020-09-18] MEDS: DOCUSATE SODIUM 100MG CAPSULE PO SCH (20:18)
[2020-09-18] MEDS: REMEDY PHYTOPLEX Z-GUARD PASTE 113GM TUBE (FROM STOREROOM PRODUCT) TOP SCH (20:22)
[2020-09-18] MEDS: **NOTE PATIENT COMMENT** MISC XX SCH (21:00)
[2020-09-18] MEDS: HumuLIN N INSULIN (NovoLIN N) PER UNIT SC SCH (22:17)
[2020-09-18] MEDS: TIMOLOL MALEATE 0.25% OPHTH SOLN 5 ML OU SCH (22:17)
[2020-09-18] MEDS: LATANOPROST 0.005% OPHTH SOLN 2.5 ML OU SCH (22:18)
[2020-09-19] MEDS: LEVOTHYROXINE 137MCG TABLET (0.137MG) PO SCH (05:18)
[2020-09-19 05:41] VITALS: BP 142/60
[2020-09-19 06:56] LABS: BASO # 0.1 10^3/uL (0.0-0.2); BASO % 0.5 % (0.0-1.0); EOS # 0.2 10^3/uL (0.0-0.5); EOS % 2.5 % (0.0-3.0); HEMATOCRIT 38.5 % (36.0-47.0); HEMOGLOBIN 12.6 g/dl (12.0-15.5); LYMPH # 2.6 10^3/uL (1.5-5.0); LYMPH % 27.5 % (24.0-44.0); MEAN CORPUSCULAR HEMOGLOBIN 33.8 pg (27.0-33.0); MEAN CORPUSCULAR HGB CONC 32.7 g/dl (32.0-36.5); MEAN CORPUSCULAR VOLUME 103.2 fl (80.0-96.0); MONO # 0.8 10^3/uL (0.0-0.8); NEUTROPHILS # 5.6 10^3/uL (1.5-8.5); NEUTROPHILS % 60.2 % (36.0-66.0); PLATELET COUNT, AUTOMATED 155 10^3/uL (150-450); RED BLOOD COUNT 3.73 10^6/uL (4.00-5.40); WHITE BLOOD COUNT 9.4 10^3/uL (4.0-10.0)
[2020-09-19 07:26] LABS: ALBUMIN 2.7 GM/DL (3.2-5.2); BILIRUBIN,TOTAL 0.4 MG/DL (0.2-1.0); CALCIUM LEVEL 9.3 MG/DL (8.8-10.2); CREATININE FOR GFR 1.21 MG/DL (0.55-1.30); GLOMERULAR FILTRATION RATE 44.6 (>32); POTASSIUM SERUM 3.9 MEQ/L (3.5-5.1); TOTAL PROTEIN 7.1 GM/DL (6.4-8.2)
[2020-09-19] MEDS: REMEDY PHYTOPLEX Z-GUARD PASTE 113GM TUBE (FROM STOREROOM PRODUCT) TOP SCH ×3 (09:00→21:59)
[2020-09-19] MEDS: LIDOCAINE 5% (LIDODERM) PATCH TD SCH (09:08)
[2020-09-19] MEDS: HumuLIN N INSULIN (NovoLIN N) PER UNIT SC SCH ×2 (09:08→21:57)
[2020-09-19] MEDS: ENOXAPARIN 40MG/0.4ML SYRINGE (J1650 PER 10MG) SC SCH (09:09)
[2020-09-19] MEDS: MAGNESIUM OXIDE 400MG TAB (MAG-OX) PO SCH (09:09)
[2020-09-19] MEDS: GABAPENTIN 400MG CAP PO SCH ×2 (09:09→21:56)
[2020-09-19] MEDS: HumaLOG INSULIN (NovoLOG) PER UNIT SC SCH ×4 (09:09→21:00)
[2020-09-19] MEDS: LORATADINE 10 MG TAB PO SCH (09:10)
[2020-09-19] MEDS: OMEPRAZOLE 20 MG CAP PO SCH (09:10)
[2020-09-19] MEDS: ASPIRIN 81MG ENTERIC TABLET PO SCH (09:10)
[2020-09-19] MEDS: oxyBUTYnin *DITROPAN XL* 5 MG TABCR PO SCH (09:10)
[2020-09-19] MEDS: ATORVASTATIN 20 MG TAB PO SCH (09:10)
[2020-09-19] MEDS: DOCUSATE SODIUM 100MG CAPSULE PO SCH ×2 (09:10→21:56)
[2020-09-19] MEDS: CALCITRIOL 0.25 MCG CAP (S0169) PO SCH (09:10)
[2020-09-19] MEDS: FUROSEMIDE 20 MG TAB PO SCH (09:11)
[2020-09-19] MEDS: prednisoLONE ACET 1% OPHTH SUSP 5ML OU SCH (09:11)
[2020-09-19] MEDS: ACETAMINOPHEN 500 MG TAB PO SCH ×3 (09:11→21:56)
[2020-09-19] MEDS: allopurinoL 300 MG TAB PO SCH (09:11)
[2020-09-19] MEDS: FLUTICASONE PROP 0.05% NASAL SPRAY 16 GM (FLONASE) NARES SCH ×2 (09:12→21:57)
[2020-09-19] MEDS: POLYVINYL ALCOHOL OPHTH SOLN 15 ML(LIQUITEARS) OU SCH ×3 (09:12→21:58)
[2020-09-19] MEDS: TIMOLOL MALEATE 0.25% OPHTH SOLN 5 ML OU SCH ×2 (09:13→21:58)
[2020-09-19 14:00] VITALS: BP 164/70
--- NOTE | 2020-09-19 14:09 | IPNPDOC ---
Text Note Date of Service The patient was seen on 09/19/20. NOTE Subjective: No any acute events overnight. Patient complains of mild right knee pain. Objective VITAL SIGNS: See below GENERAL APPEARANCE: NAD HEENT Exam: Normocephalic and atraumatic, PERRL, EOMI, without sclera icteric, mucous membr. moist/pink, pharynx normal, nares patent. NECK: Supple without lymphadenopathy, JVD, thyromegaly LUNGS: Clear to auscultation bilaterally with full breath sounds without rales, wheezing, and crackles. CARDIOVASCULAR: S1-S2 ABDOMEN: Obese abd, soft, non-tender, non-distended EXTREMITIES: 2+ pulses in all extremities. No clubbing, cyanosis, edema. R knee tenderness on palpation. SKIN: Normal turgor and temperature. No rash, lesion MUSCULOSKELETAL: Strength +5/5 in all other extremities without tenderness except 4/5 strength with limited ROM on R knee flexion and R hip flexion. NEUROLOGICAL: Normal speech with intact sensation, No signs of gross focal neurological deficit. 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 Right knee osteoarthritis Continue PT OT Follow-up with orthopedics surgical team in the outpatient settings IDDM2 Insulin sliding scale Labs diet CKD - cr at baseline Continue to monitor HTN Continue home cardioprotective medications HLD continue atorvastatin s/p TAVR continue asa Glaucoma - continue timolol, prednisolone, latanoprost ophthalmic Overactive bladder - Continue oxybutynin Allergies - continue claritin, flonase Gout continue allopurinol Hypothyroidism - Continue levothyroxine Obesity -complicates care VS,Fishbone, I+O VS, Fishbone, I+O Laboratory Tests 09/19/20 06:32 Vital Signs Date Time Temp Pulse Resp B/P (MAP) Pulse Ox O2 Delivery O2 Flow Rate FiO2 09/19/20 05:41 97.3 55 19 142/60 (87) 90 Room Air I&O- Last 24 Hours up to 6 AM 09/19/20 06:00 Intake Total 150 ml Balance 150 ml KHADIJAH CARTY DO September 19, 2020 14:09
--- NOTE | 2020-09-19 15:39 | REP ---
INDICATION: groin pain. COMPARISON: None. TECHNIQUE: AP and frogleg views of the right hip are provided. FINDINGS: There is diffuse osteopenia. Right femoral head is smooth and rounded hip joint space is preserved. There is minimal femoroacetabular spurring. No erosive changes seen. Periarticular soft tissues are unremarkable. IMPRESSION: Minimal right hip spurring. Diffuse osteopenia. No acute bony abnormality. <Electronically signed by Braulio Galarza > 09/19/20 [id number]
--- NOTE | 2020-09-19 15:40 | REP ---
INDICATION: left knee pain. COMPARISON: None. TECHNIQUE: Four views of the left knee are provided. No sunrise view. FINDINGS: Four views of the left knee demonstrate moderate 3 compartment osteoarthritis. There is joint space narrowing in the medial compartment. Patellofemoral, medial, and lateral compartment spurring is seen. There is diffuse osteopenia. There is no evidence of joint effusion. There is non articular spurring at the superior pole the patella at the quadriceps tendon insertion site as well. No erosive changes seen.. . . IMPRESSION: Moderate 3 compartment osteoarthritis. Diffuse osteopenia.. <Electronically signed by Braulio Galarza > 09/19/20 [id number]
[2020-09-19] MEDS: SALIVA SUBSTITUTE(MOUTHKOTE) BTL MT SCH ×2 (17:29→21:58)
[2020-09-19] MEDS: VITAMIN A 10,000 INTERNATIONAL UNITS CAP PO SCH (17:29)
[2020-09-19] MEDS: VITAMIN D 1,000 INTERNATIONAL UNITS TABLET PO SCH (17:29)
[2020-09-19] MEDS: FOLIC ACID 1 MG TAB PO SCH (17:29)
[2020-09-19] MEDS: CYANOCOBALAMIN 500 MCG TAB PO SCH (17:29)
[2020-09-19] MEDS: MULTIVITAMINS/MINERALS THERAP 1 TAB PO SCH (17:29)
[2020-09-19 20:15] VITALS: BP 145/66
[2020-09-19] MEDS: SENNA 8.6 MG TAB (SENOKOT) PO SCH (21:56)
[2020-09-19] MEDS: LATANOPROST 0.005% OPHTH SOLN 2.5 ML OU SCH (21:57)
[2020-09-19] MEDS: PREPARATION H SUPP (HEMORRHOID) PR SCH (21:59)
[2020-09-19] MEDS: **NOTE PATIENT COMMENT** MISC XX SCH (22:00)
[2020-09-20] MEDS: LEVOTHYROXINE 137MCG TABLET (0.137MG) PO SCH (05:43)
[2020-09-20 05:53] VITALS: BP 156/80
[2020-09-20] MEDS: HumuLIN N INSULIN (NovoLIN N) PER UNIT SC SCH ×2 (07:04→20:16)
[2020-09-20] MEDS: SALIVA SUBSTITUTE(MOUTHKOTE) BTL MT SCH ×4 (07:34→20:18)
[2020-09-20] MEDS: HumaLOG INSULIN (NovoLOG) PER UNIT SC SCH ×4 (07:34→20:17)
[2020-09-20] MEDS: MAGNESIUM OXIDE 400MG TAB (MAG-OX) PO SCH (07:35)
[2020-09-20] MEDS: LORATADINE 10 MG TAB PO SCH (07:35)
[2020-09-20] MEDS: CALCITRIOL 0.25 MCG CAP (S0169) PO SCH (07:35)
[2020-09-20] MEDS: ASPIRIN 81MG ENTERIC TABLET PO SCH (07:35)
[2020-09-20] MEDS: oxyBUTYnin *DITROPAN XL* 5 MG TABCR PO SCH (07:35)
[2020-09-20] MEDS: GABAPENTIN 400MG CAP PO SCH ×2 (07:35→20:17)
[2020-09-20] MEDS: OMEPRAZOLE 20 MG CAP PO SCH (07:36)
[2020-09-20] MEDS: allopurinoL 300 MG TAB PO SCH (07:36)
[2020-09-20] MEDS: ATORVASTATIN 20 MG TAB PO SCH (07:37)
[2020-09-20] MEDS: ACETAMINOPHEN 500 MG TAB PO SCH ×3 (07:37→20:17)
[2020-09-20] MEDS: DOCUSATE SODIUM 100MG CAPSULE PO SCH ×2 (07:37→20:17)
[2020-09-20] MEDS: FLUTICASONE PROP 0.05% NASAL SPRAY 16 GM (FLONASE) NARES SCH ×2 (07:38→20:17)
[2020-09-20] MEDS: ENOXAPARIN 40MG/0.4ML SYRINGE (J1650 PER 10MG) SC SCH (07:38)
[2020-09-20] MEDS: POLYVINYL ALCOHOL OPHTH SOLN 15 ML(LIQUITEARS) OU SCH ×3 (07:39→20:18)
[2020-09-20] MEDS: prednisoLONE ACET 1% OPHTH SUSP 5ML OU SCH (07:40)
[2020-09-20] MEDS: TIMOLOL MALEATE 0.25% OPHTH SOLN 5 ML OU SCH ×2 (07:40→20:14)
[2020-09-20] MEDS: LIDOCAINE 5% (LIDODERM) PATCH TD SCH (07:40)
[2020-09-20] MEDS: REMEDY PHYTOPLEX Z-GUARD PASTE 113GM TUBE (FROM STOREROOM PRODUCT) TOP SCH ×3 (07:41→20:15)
[2020-09-20] MEDS: PREPARATION H SUPP (HEMORRHOID) PR SCH ×2 (07:41→20:15)
[2020-09-20] MEDS: FUROSEMIDE 20 MG TAB PO SCH (07:42)
[2020-09-20 14:00] VITALS: BP 130/71
[2020-09-20] MEDS: VITAMIN A 10,000 INTERNATIONAL UNITS CAP PO SCH (16:31)
[2020-09-20] MEDS: CYANOCOBALAMIN 500 MCG TAB PO SCH (16:31)
[2020-09-20] MEDS: MULTIVITAMINS/MINERALS THERAP 1 TAB PO SCH (16:31)
[2020-09-20] MEDS: FOLIC ACID 1 MG TAB PO SCH (16:32)
[2020-09-20] MEDS: VITAMIN D 1,000 INTERNATIONAL UNITS TABLET PO SCH (16:32)
--- NOTE | 2020-09-20 18:01 | IPNPDOC ---
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 Denies fevers, chills, flank pain. REVIEW OF SYSTEMS: The following is a completed review of systems and has been reviewed. Review of systems otherwise unremarkable. PAIN: Patient self reports bilat knee stringer and right groin pain EYES: No recent vision changes EARS, NOSE, & THROAT: No throat pain, or dysphagia, or rhinorrhea CARDIOVASCULAR: Denies chest pain or palpitations PULMONARY: Denies shortness of breath GASTROINTESTINAL: +constipation GENITOURINARY: +dysuria MUSCULOSKELETAL: bilat knee pain and right hip pain NEUROLOGICAL:+ peripheral polyneuropathy HEMATOLOGICAL: denies easy bruising SKIN: denies rash PSYCHIATRIC: Unremarkable All other review of systems found to be negative. PHYSICAL EXAMINATION: VITAL SIGNS: Please see below. GENERAL: Pleasant and cooperative. No acute distress. HEENT: PERRL. Extraocular movements intact. Clear conjunctiva CARDIOVASCULAR: Regular rate and rhythm. No murmurs, rubs, or gallops LUNGS: Clear to auscultation bilaterally. No wheezes. No rhonchi ABDOMEN: Soft, nontender, nondistended. Positive bowel sounds. Normal active bowel sounds NEUROLOGICAL: Alert and oriented times three. Cranial nerves II through XII grossly intact. Sensation diminished o light touch in stocking/glove pattern EXTREMITIES: 5\5 strength bilateral upper extremities. 4\5 strength right lower extremity. 4/5 strength in left lower extremity. right knee- no varus/valgus instability, mild medial joint line tenderness, +mild effusion ASSESSMENT:89-year-old F with past medical history of obesity, DM who presents status post fall with right knee OA PLAN: 1. Rehab- PT/OT advance mobility and ADLs- strengthen/stretch/maintain ROM all 4 limbs- ambulating with RW 2. Neuro- hx of DM with peripheral polyneuropathy contributing to overall mo bility impairments- c/u gabapentin 3. Ortho- s/p fall with severe right knee OA, c/u inpatient rehab -left knee pain- Xray + tricompartmental OA -right Hip no significant joint space narrowing 4. Cardiac- hx of HTN c/u BP meds and monitor 5. Resp- hx of MITCH on cpap, incentive spirometry 6. Endo- hx of DM c/u Insulin and ISS -hypothyroidism c/u synthroid 7. Renal- hx of CKD monitor, c/u calcitriol 8. Pain- tylenol, gabapentin, tramadol 9. dvt ppx- lovenox 10. GI ppx- prilosec -patient reporting hemorrhoids, will order preparation H suppository 11. - overactive bladder c/u oxybutynin -+dysuria- UA negative, will start monistat-7 for possible yeast infection 12. Dispo- TBD Allergies Coded Allergies: butorphanol (Verified Allergy, Unknown, 03/07/20) Vital Signs Vital Signs Date Time Temp Pulse Resp B/P (MAP) Pulse Ox O2 Delivery O2 Flow Rate FiO2 09/20/20 14:00 97.0 77 16 130/71 (90) 95 Room Air Laboratory Data Labs 24H Laboratory Tests 2 09/19/20 20:09: Bedside Glucose (Misc Panel) 211H 09/19/20 22:25: Urine Color YELLOW, Urine Appearance CLEAR, Urine pH 5.0, Urine Specific [place] 1.011, Urine Protein NEGATIVE, Urine Glucose (UA) NEGATIVE, Urine Ketones NEGATIVE, Urine Blood NEGATIVE, Urine Nitrite NEGATIVE, Urine Bilirubin NEGATIVE, Urine Urobilinogen 0.2, Urine Leukocyte Esterase NEGATIVE, Urine WBC (Auto) 0, Urine RBC (Auto) 1, Urine Hyaline Casts (Auto) 0, Urine Bacteria (Auto) NEGATIVE, Urine Squamous Epithelial Cells 1, Urine Mucus (Auto) SMALL, Urine Sperm (Auto) 09/20/20 05:34: Bedside Glucose (Misc Panel) 110 09/20/20 11:35: Bedside Glucose (Misc Panel) 166H 09/20/20 16:28: Bedside Glucose (Misc Panel) 216H Current Medications Current Medications Current Medications Medications (Trade) Dose Ordered Sig/Salo Route PRN Reason Start Time Stop Time Status Last Admin Dose Admin Acetaminophen (Tylenol Tab) 1,000 mg TID PO 09/18/20 21:00 09/20/20 16:32 Allopurinol (Zyloprim) 300 mg DAILY PO 09/19/20 09:00 09/20/20 07:36 Artificial Tears (Akwa Tears) 2 drop TID OU 09/18/20 21:00 09/20/20 16:32 Aspirin (Ecotrin) 81 mg DAILY PO 09/19/20 09:00 09/20/20 07:35 Atorvastatin Calcium (Lipitor) 20 mg DAILY PO 09/19/20 09:00 09/20/20 07:37 Bisacodyl (Dulcolax Suppository) 10 mg DAILYPRN PRN [place] CONSTIPATION 09/18/20 17:05 Calcitriol (Rocaltrol) 0.25 mcg MoTuWeThFr@0900 PO 09/19/20 09:00 09/20/20 07:35 Cyanocobalamin (Vitamin B12) 1,000 mcg DAILY@1600 PO 09/19/20 16:00 09/20/20 16:31 Dextrose (Dextrose 50%) 25 ml ASDIRECTED PRN IV SEE LABEL COMMENTS 09/18/20 17:05 Docusate Sodium (Colace) 100 mg BID PO 09/18/20 21:00 09/20/20 07:37 Enoxaparin Sodium (Lovenox) 40 mg DAILY SC 09/19/20 09:00 09/20/20 07:38 Fluticasone Propionate (Flonase 0.05% Nasal [place]) 1 spray BID NARES 09/18/20 21:00 09/20/20 07:38 Folic Acid (Folic Acid) 1 mg DAILY@1600 PO 09/19/20 16:00 09/20/20 16:32 Furosemide (Lasix) 60 mg DAILY PO 09/19/20 09:00 09/20/20 07:42 Gabapentin (Neurontin) 400 mg BID PO 09/18/20 21:00 09/20/20 07:35 Glucagon (Glucagon) 1 mg ASDIRECTED PRN SC SEE LABEL COMMENTS 09/18/20 17:05 Glucose (Glucose) 16 GM ASDIRECTED PRN PO SEE LABEL COMMENTS 09/18/20 17:05 Home Med (Med Rec Complete!) ASDIRECTED XX 09/18/20 18:20 09/18/20 18:32 DC Insulin Human Lispro (HumaLOG INSULIN) SEE PROTOCOL TABLE AC SC 09/19/20 07:30 09/20/20 17:18 Insulin Human Lispro (HumaLOG INSULIN) SEE PROTOCOL TABLE QHS SC 09/18/20 21:00 Insulin Human NPH (HumuLIN NPH INSULIN) 15 units QHS SC 09/18/20 21:00 09/19/20 21:57 Insulin Human NPH (HumuLIN NPH INSULIN) 60 units DAILY@0730 SC 09/19/20 07:30 09/19/20 09:08 Latanoprost (Xalatan 0.005% Op Soln) 1 drop QHS OU 09/18/20 21:00 09/19/20 21:57 Levothyroxine Sodium (Synthroid) 137 mcg DAILY@06 PO 09/19/20 06:00 09/20/20 05:43 Lidocaine (Lidoderm Patch) 2 patch DAILY TD 09/19/20 09:00 09/20/20 07:40 Loratadine (Claritin) 10 mg DAILY PO 09/19/20 09:00 09/20/20 07:35 Magnesium Oxide (Mag-Ox) 400 mg DAILY PO 09/19/20 09:00 09/20/20 07:35 Miconazole Nitrate (Monistat-7) 7 dose QHS PV 09/20/20 21:00 Multivitamins (Theragram-M) 1 tab DAILY@1600 PO 09/19/20 16:00 09/20/20 16:31 Non-Formulary Medication ( See Comment Field Below ) REMOVE LIDODERM PATCH DAILY@21 XX 09/18/20 21:00 09/19/20 22:00 Omeprazole (PriLOSEC) 40 mg DAILY PO 09/19/20 09:00 09/20/20 07:36 Oxybutynin Chloride (Ditropan Xl) 10 mg DAILY PO 09/19/20 09:00 09/20/20 07:35 Phenylephrine HCl (Preparation H Supp) 1 sup BID TN 09/19/20 21:00 09/20/20 07:41 Polyethylene Glycol (Miralax) 1 pkt DAILY PRN PO CONSTIPATION 09/18/20 17:05 Prednisolone Acetate (Predforte 1% Ophth Susp) 1 drop DAILY OU 09/19/20 09:00 09/20/20 07:40 Saliva Substitute (Mouthkote) 2 sprays QID MT 09/19/20 17:00 09/20/20 16:33 Senna (Senokot) 1 tab QHS PO 09/18/20 21:00 09/19/20 21:56 Timolol Maleate (Timoptic 0.25% Ophth [place]) 1 drop BID OU 09/18/20 21:00 09/20/20 07:40 Tramadol HCl (Ultram) 50 mg Q4HP PRN PO MODERATE PAIN (PS 5-7) 09/18/20 17:05 09/20/20 07:37 Vitamin A (Vitamin A) 10,000 units DAILY@1600 PO 09/19/20 16:00 09/20/20 16:31 Vitamin D (Vitamin D) 1,000 units DAILY@1600 PO 09/19/20 16:00 09/20/20 16:32 ERROL SANDOVAL MD September 20, 2020 18:01
[2020-09-20 20:14] VITALS: BP 150/69
[2020-09-20] MEDS: LATANOPROST 0.005% OPHTH SOLN 2.5 ML OU SCH (20:14)
[2020-09-20] MEDS: SENNA 8.6 MG TAB (SENOKOT) PO SCH (20:16)
[2020-09-20] MEDS: MICONAZOLE-7 VAGINAL 2% CREAM 47.7 GM PV SCH (20:16)
[2020-09-20] MEDS: **NOTE PATIENT COMMENT** MISC XX SCH (20:57)
[2020-09-21] MEDS: LEVOTHYROXINE 137MCG TABLET (0.137MG) PO SCH (05:51)
[2020-09-21 06:02] VITALS: BP 149/75
[2020-09-21] MEDS: PREPARATION H SUPP (HEMORRHOID) PR SCH ×2 (09:00→21:38)
[2020-09-21] MEDS: DOCUSATE SODIUM 100MG CAPSULE PO SCH ×2 (09:00→21:36)
[2020-09-21] MEDS: GABAPENTIN 400MG CAP PO SCH ×2 (09:29→21:36)
[2020-09-21] MEDS: HumuLIN N INSULIN (NovoLIN N) PER UNIT SC SCH ×2 (09:29→21:38)
[2020-09-21] MEDS: HumaLOG INSULIN (NovoLOG) PER UNIT SC SCH ×4 (09:29→21:00)
[2020-09-21] MEDS: ASPIRIN 81MG ENTERIC TABLET PO SCH (09:30)
[2020-09-21] MEDS: oxyBUTYnin *DITROPAN XL* 5 MG TABCR PO SCH (09:30)
[2020-09-21] MEDS: MAGNESIUM OXIDE 400MG TAB (MAG-OX) PO SCH (09:30)
[2020-09-21] MEDS: allopurinoL 300 MG TAB PO SCH (09:31)
[2020-09-21] MEDS: ACETAMINOPHEN 500 MG TAB PO SCH ×3 (09:31→21:36)
[2020-09-21] MEDS: FLUTICASONE PROP 0.05% NASAL SPRAY 16 GM (FLONASE) NARES SCH ×2 (09:32→21:39)
[2020-09-21] MEDS: SALIVA SUBSTITUTE(MOUTHKOTE) BTL MT SCH ×4 (09:32→21:37)
[2020-09-21] MEDS: ENOXAPARIN 40MG/0.4ML SYRINGE (J1650 PER 10MG) SC SCH (09:32)
[2020-09-21] MEDS: TIMOLOL MALEATE 0.25% OPHTH SOLN 5 ML OU SCH ×2 (09:33→21:39)
[2020-09-21] MEDS: prednisoLONE ACET 1% OPHTH SUSP 5ML OU SCH (09:33)
[2020-09-21] MEDS: ATORVASTATIN 20 MG TAB PO SCH (09:34)
[2020-09-21] MEDS: FUROSEMIDE 20 MG TAB PO SCH (09:34)
[2020-09-21] MEDS: POLYVINYL ALCOHOL OPHTH SOLN 15 ML(LIQUITEARS) OU SCH ×3 (09:34→21:40)
[2020-09-21] MEDS: OMEPRAZOLE 20 MG CAP PO SCH (09:34)
[2020-09-21] MEDS: CALCITRIOL 0.25 MCG CAP (S0169) PO SCH (09:34)
[2020-09-21] MEDS: LORATADINE 10 MG TAB PO SCH (09:35)
[2020-09-21] MEDS: REMEDY PHYTOPLEX Z-GUARD PASTE 113GM TUBE (FROM STOREROOM PRODUCT) TOP SCH ×3 (09:36→21:38)
[2020-09-21 09:38] LABS: BASO # 0.1 10^3/uL (0.0-0.2); BASO % 0.8 % (0.0-1.0); EOS # 0.3 10^3/uL (0.0-0.5); EOS % 5.2 % (0.0-3.0); HEMOGLOBIN 13.7 g/dl (12.0-15.5); LYMPH # 1.8 10^3/uL (1.5-5.0); LYMPH % 27.3 % (24.0-44.0); MEAN CORPUSCULAR HEMOGLOBIN 34.4 pg (27.0-33.0); MEAN CORPUSCULAR HGB CONC 32.6 g/dl (32.0-36.5); MEAN CORPUSCULAR VOLUME 105.5 fl (80.0-96.0); MONO # 0.5 10^3/uL (0.0-0.8); MONO % 7.8 % (2.0-8.0); NEUTROPHILS # 3.8 10^3/uL (1.5-8.5); NEUTROPHILS % 58.6 % (36.0-66.0); PLATELET COUNT, AUTOMATED 201 10^3/uL (150-450); RED BLOOD COUNT 3.98 10^6/uL (4.00-5.40); WHITE BLOOD COUNT 6.5 10^3/uL (4.0-10.0)
[2020-09-21] MEDS: LIDOCAINE 5% (LIDODERM) PATCH TD SCH (09:38)
[2020-09-21 10:12] LABS: CALCIUM LEVEL 9.7 MG/DL (8.8-10.2); CREATININE FOR GFR 1.57 MG/DL (0.55-1.30); POTASSIUM SERUM 4.6 MEQ/L (3.5-5.1)
[2020-09-21 13:07] VITALS: BP 149/75
[2020-09-21 14:00] VITALS: BP 144/70
[2020-09-21] MEDS: COMBIVENT RESPIMAT 100-20MCG INHALER 4GM INH SCH ×2 (16:18→20:27)
--- NOTE | 2020-09-21 16:27 | REP ---
INDICATION: cough with wheeze. COMPARISON: 03/15/2020. TECHNIQUE: CT chest performed without the use of intravenous contrast. Sagittal and coronal reconstruction images are performed. FINDINGS: Lungs: Clear, no infiltrate or nodule. A calcified granuloma in the left lower lobe. There are scattered interstitial fibrotic changes bilaterally. Mediastinum: No gross adenopathy. There is a calcified subcarinal lymph node. Riddhi: No gross adenopathy. Axilla: No gross adenopathy. Pleura: No effusion. Heart: Not enlarged. Thoracic aorta: No aneurysm. 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 Upper abdominal structures: There is a small hiatal hernia. The partially visualized cyst in the upper pole the right kidney 5.3 cm in diameter. Visualized osseous structures: There are degenerative changes of the spine without compression deformity. IMPRESSION: No acute abnormalities as discussed above. <Electronically signed by Josue Rooney > 09/21/20 0010
[2020-09-21] MEDS: MULTIVITAMINS/MINERALS THERAP 1 TAB PO SCH (17:05)
[2020-09-21] MEDS: FOLIC ACID 1 MG TAB PO SCH (17:05)
[2020-09-21] MEDS: guaiFENesin 200 MG TAB PO SCH ×2 (17:05→21:37)
[2020-09-21] MEDS: VITAMIN D 1,000 INTERNATIONAL UNITS TABLET PO SCH (17:05)
[2020-09-21] MEDS: VITAMIN A 10,000 INTERNATIONAL UNITS CAP PO SCH (17:05)
[2020-09-21] MEDS: CYANOCOBALAMIN 500 MCG TAB PO SCH (17:06)
[2020-09-21] MEDS: SODIUM CHLORIDE NASAL 0.65% SPRAY BTL (OCEAN) SCH ×2 (17:07→21:37)
[2020-09-21 20:00] VITALS: BP 125/57
[2020-09-21] MEDS: SENNA 8.6 MG TAB (SENOKOT) PO SCH (21:36)
[2020-09-21] MEDS: MICONAZOLE-7 VAGINAL 2% CREAM 47.7 GM PV SCH (21:38)
[2020-09-21] MEDS: LATANOPROST 0.005% OPHTH SOLN 2.5 ML OU SCH (21:39)
[2020-09-21] MEDS: **NOTE PATIENT COMMENT** MISC XX SCH (21:40)
[2020-09-22] MEDS: LEVOTHYROXINE 137MCG TABLET (0.137MG) PO SCH (05:38)
[2020-09-22 05:39] VITALS: BP 158/60
[2020-09-22 06:58] LABS: BASO # 0.1 10^3/uL (0.0-0.2); EOS # 0.4 10^3/uL (0.0-0.5); EOS % 6.6 % (0.0-3.0); HEMATOCRIT 38.7 % (36.0-47.0); HEMOGLOBIN 12.6 g/dl (12.0-15.5); LYMPH # 2.2 10^3/uL (1.5-5.0); LYMPH % 35.9 % (24.0-44.0); MEAN CORPUSCULAR HEMOGLOBIN 34.4 pg (27.0-33.0); MEAN CORPUSCULAR HGB CONC 32.6 g/dl (32.0-36.5); MEAN CORPUSCULAR VOLUME 105.7 fl (80.0-96.0); MONO # 0.5 10^3/uL (0.0-0.8); MONO % 8.3 % (2.0-8.0); NEUTROPHILS # 2.9 10^3/uL (1.5-8.5); NEUTROPHILS % 47.9 % (36.0-66.0); PLATELET COUNT, AUTOMATED 199 10^3/uL (150-450); RED BLOOD COUNT 3.66 10^6/uL (4.00-5.40); WHITE BLOOD COUNT 6.1 10^3/uL (4.0-10.0)
[2020-09-22] MEDS: HumuLIN N INSULIN (NovoLIN N) PER UNIT SC SCH ×2 (07:18→20:18)
[2020-09-22] MEDS: COMBIVENT RESPIMAT 100-20MCG INHALER 4GM INH SCH ×3 (08:17→20:33)
[2020-09-22] MEDS: LIDOCAINE 5% (LIDODERM) PATCH TD SCH (08:59)
[2020-09-22] MEDS: guaiFENesin 200 MG TAB PO SCH ×3 (08:59→20:16)
[2020-09-22] MEDS: HumaLOG INSULIN (NovoLOG) PER UNIT SC SCH ×4 (09:00→20:17)
[2020-09-22] MEDS: PREPARATION H SUPP (HEMORRHOID) PR SCH ×2 (09:00→20:19)
[2020-09-22] MEDS: LORATADINE 10 MG TAB PO SCH (09:01)
[2020-09-22] MEDS: OMEPRAZOLE 20 MG CAP PO SCH (09:01)
[2020-09-22] MEDS: ASPIRIN 81MG ENTERIC TABLET PO SCH (09:01)
[2020-09-22] MEDS: ATORVASTATIN 20 MG TAB PO SCH (09:01)
[2020-09-22] MEDS: GABAPENTIN 400MG CAP PO SCH ×2 (09:01→20:16)
[2020-09-22] MEDS: MAGNESIUM OXIDE 400MG TAB (MAG-OX) PO SCH (09:01)
[2020-09-22] MEDS: allopurinoL 300 MG TAB PO SCH (09:01)
[2020-09-22] MEDS: DOCUSATE SODIUM 100MG CAPSULE PO SCH ×2 (09:01→20:16)
[2020-09-22] MEDS: FUROSEMIDE 40 MG TAB PO SCH (09:02)
[2020-09-22] MEDS: oxyBUTYnin *DITROPAN XL* 5 MG TABCR PO SCH (09:02)
[2020-09-22] MEDS: ACETAMINOPHEN 500 MG TAB PO SCH ×3 (09:03→20:18)
[2020-09-22] MEDS: SALIVA SUBSTITUTE(MOUTHKOTE) BTL MT SCH ×4 (09:03→20:15)
[2020-09-22] MEDS: REMEDY PHYTOPLEX Z-GUARD PASTE 113GM TUBE (FROM STOREROOM PRODUCT) TOP SCH ×3 (09:04→20:19)
[2020-09-22] MEDS: FLUTICASONE PROP 0.05% NASAL SPRAY 16 GM (FLONASE) NARES SCH ×2 (09:04→20:18)
[2020-09-22] MEDS: SODIUM CHLORIDE NASAL 0.65% SPRAY BTL (OCEAN) SCH ×3 (09:04→20:15)
[2020-09-22] MEDS: prednisoLONE ACET 1% OPHTH SUSP 5ML OU SCH (09:05)
[2020-09-22] MEDS: POLYVINYL ALCOHOL OPHTH SOLN 15 ML(LIQUITEARS) OU SCH ×3 (09:05→20:15)
[2020-09-22] MEDS: TIMOLOL MALEATE 0.25% OPHTH SOLN 5 ML OU SCH ×2 (09:06→20:19)
[2020-09-22 14:00] VITALS: BP 143/65
[2020-09-22] MEDS: CYANOCOBALAMIN 500 MCG TAB PO SCH (17:13)
[2020-09-22] MEDS: FOLIC ACID 1 MG TAB PO SCH (17:13)
[2020-09-22] MEDS: VITAMIN D 1,000 INTERNATIONAL UNITS TABLET PO SCH (17:13)
[2020-09-22] MEDS: MULTIVITAMINS/MINERALS THERAP 1 TAB PO SCH (17:13)
[2020-09-22] MEDS: VITAMIN A 10,000 INTERNATIONAL UNITS CAP PO SCH (17:13)
[2020-09-22 20:00] VITALS: BP 157/63
[2020-09-22] MEDS: SENNA 8.6 MG TAB (SENOKOT) PO SCH (20:17)
[2020-09-22] MEDS: MICONAZOLE-7 VAGINAL 2% CREAM 47.7 GM PV SCH (20:19)
[2020-09-22] MEDS: **NOTE PATIENT COMMENT** MISC XX SCH (20:19)
[2020-09-22] MEDS: LATANOPROST 0.005% OPHTH SOLN 2.5 ML OU SCH (20:19)
[2020-09-23 05:23] VITALS: BP 150/70
[2020-09-23] MEDS: LEVOTHYROXINE 137MCG TABLET (0.137MG) PO SCH (05:42)
[2020-09-23] MEDS: COMBIVENT RESPIMAT 100-20MCG INHALER 4GM INH SCH ×3 (08:00→18:14)
[2020-09-23] MEDS: DOCUSATE SODIUM 100MG CAPSULE PO SCH ×2 (09:00→21:00)
[2020-09-23] MEDS: HumuLIN N INSULIN (NovoLIN N) PER UNIT SC SCH ×2 (09:13→21:27)
[2020-09-23] MEDS: HumaLOG INSULIN (NovoLOG) PER UNIT SC SCH ×4 (09:13→21:00)
[2020-09-23] MEDS: PREPARATION H SUPP (HEMORRHOID) PR SCH ×2 (09:14→21:00)
[2020-09-23] MEDS: LIDOCAINE 5% (LIDODERM) PATCH TD SCH (09:14)
[2020-09-23] MEDS: ASPIRIN 81MG ENTERIC TABLET PO SCH (09:15)
[2020-09-23] MEDS: guaiFENesin 200 MG TAB PO SCH ×3 (09:15→21:26)
[2020-09-23] MEDS: OMEPRAZOLE 20 MG CAP PO SCH (09:16)
[2020-09-23] MEDS: allopurinoL 300 MG TAB PO SCH (09:16)
[2020-09-23] MEDS: oxyBUTYnin *DITROPAN XL* 5 MG TABCR PO SCH (09:16)
[2020-09-23] MEDS: GABAPENTIN 400MG CAP PO SCH ×2 (09:16→21:26)
[2020-09-23] MEDS: LORATADINE 10 MG TAB PO SCH (09:16)
[2020-09-23] MEDS: MAGNESIUM OXIDE 400MG TAB (MAG-OX) PO SCH (09:16)
[2020-09-23] MEDS: ATORVASTATIN 20 MG TAB PO SCH (09:17)
[2020-09-23] MEDS: ACETAMINOPHEN 500 MG TAB PO SCH ×3 (09:17→21:26)
[2020-09-23] MEDS: FUROSEMIDE 40 MG TAB PO SCH (09:17)
[2020-09-23] MEDS: FLUTICASONE PROP 0.05% NASAL SPRAY 16 GM (FLONASE) NARES SCH ×2 (09:18→21:28)
[2020-09-23] MEDS: SALIVA SUBSTITUTE(MOUTHKOTE) BTL MT SCH ×4 (09:18→21:28)
[2020-09-23] MEDS: SODIUM CHLORIDE NASAL 0.65% SPRAY BTL (OCEAN) SCH ×3 (09:18→21:27)
[2020-09-23] MEDS: REMEDY PHYTOPLEX Z-GUARD PASTE 113GM TUBE (FROM STOREROOM PRODUCT) TOP SCH ×3 (09:18→21:28)
[2020-09-23] MEDS: prednisoLONE ACET 1% OPHTH SUSP 5ML OU SCH (09:19)
[2020-09-23] MEDS: TIMOLOL MALEATE 0.25% OPHTH SOLN 5 ML OU SCH ×2 (09:19→21:28)
[2020-09-23] MEDS: POLYVINYL ALCOHOL OPHTH SOLN 15 ML(LIQUITEARS) OU SCH ×3 (09:19→21:27)
[2020-09-23 14:00] VITALS: BP 119/62
[2020-09-23] MEDS: VITAMIN D 1,000 INTERNATIONAL UNITS TABLET PO SCH (16:25)
[2020-09-23] MEDS: CYANOCOBALAMIN 500 MCG TAB PO SCH (16:25)
[2020-09-23] MEDS: FOLIC ACID 1 MG TAB PO SCH (16:25)
[2020-09-23] MEDS: VITAMIN A 10,000 INTERNATIONAL UNITS CAP PO SCH (16:25)
[2020-09-23] MEDS: MULTIVITAMINS/MINERALS THERAP 1 TAB PO SCH (16:26)
[2020-09-23 20:30] VITALS: BP 128/63
[2020-09-23] MEDS: SENNA 8.6 MG TAB (SENOKOT) PO SCH (21:00)
[2020-09-23] MEDS: LATANOPROST 0.005% OPHTH SOLN 2.5 ML OU SCH (21:28)
[2020-09-23] MEDS: MICONAZOLE-7 VAGINAL 2% CREAM 47.7 GM PV SCH (21:28)
[2020-09-23] MEDS: **NOTE PATIENT COMMENT** MISC XX SCH (21:29)
[2020-09-24 06:29] VITALS: BP 160/80
[2020-09-24] MEDS: LEVOTHYROXINE 137MCG TABLET (0.137MG) PO SCH (06:46)
[2020-09-24] MEDS: COMBIVENT RESPIMAT 100-20MCG INHALER 4GM INH SCH ×3 (07:16→19:22)
[2020-09-24 07:50] LABS: BASO # 0.1 10^3/uL (0.0-0.2); BASO % 0.8 % (0.0-1.0); EOS # 0.3 10^3/uL (0.0-0.5); HEMATOCRIT 39.7 % (36.0-47.0); HEMOGLOBIN 12.7 g/dl (12.0-15.5); LYMPH % 27.1 % (24.0-44.0); MEAN CORPUSCULAR HEMOGLOBIN 33.9 pg (27.0-33.0); MEAN CORPUSCULAR VOLUME 105.9 fl (80.0-96.0); MONO # 0.6 10^3/uL (0.0-0.8); MONO % 7.7 % (2.0-8.0); NEUTROPHILS # 4.5 10^3/uL (1.5-8.5); NEUTROPHILS % 60.1 % (36.0-66.0); PLATELET COUNT, AUTOMATED 203 10^3/uL (150-450); RED BLOOD COUNT 3.75 10^6/uL (4.00-5.40); WHITE BLOOD COUNT 7.5 10^3/uL (4.0-10.0)
[2020-09-24 08:07] LABS: CALCIUM LEVEL 9.9 MG/DL (8.8-10.2); CREATININE FOR GFR 1.26 MG/DL (0.55-1.30); GLOMERULAR FILTRATION RATE 42.6 (>32); POTASSIUM SERUM 4.5 MEQ/L (3.5-5.1)
[2020-09-24] MEDS: PREPARATION H SUPP (HEMORRHOID) PR SCH ×2 (09:00→21:00)
[2020-09-24] MEDS: DOCUSATE SODIUM 100MG CAPSULE PO SCH ×2 (10:28→22:02)
[2020-09-24] MEDS: OMEPRAZOLE 20 MG CAP PO SCH (10:28)
[2020-09-24] MEDS: ATORVASTATIN 20 MG TAB PO SCH (10:28)
[2020-09-24] MEDS: LORATADINE 10 MG TAB PO SCH (10:28)
[2020-09-24] MEDS: GABAPENTIN 400MG CAP PO SCH ×2 (10:28→22:01)
[2020-09-24] MEDS: guaiFENesin 200 MG TAB PO SCH ×3 (10:28→22:48)
[2020-09-24] MEDS: MAGNESIUM OXIDE 400MG TAB (MAG-OX) PO SCH (10:29)
[2020-09-24] MEDS: allopurinoL 300 MG TAB PO SCH (10:29)
[2020-09-24] MEDS: oxyBUTYnin *DITROPAN XL* 5 MG TABCR PO SCH (10:29)
[2020-09-24] MEDS: CALCITRIOL 0.25 MCG CAP (S0169) PO SCH (10:29)
[2020-09-24] MEDS: FUROSEMIDE 40 MG TAB PO SCH (10:29)
[2020-09-24] MEDS: ASPIRIN 81MG ENTERIC TABLET PO SCH (10:29)
[2020-09-24] MEDS: HumaLOG INSULIN (NovoLOG) PER UNIT SC SCH ×4 (10:30→21:00)
[2020-09-24] MEDS: ACETAMINOPHEN 500 MG TAB PO SCH ×4 (10:31→22:01)
[2020-09-24] MEDS: VITAMIN A 10,000 INTERNATIONAL UNITS CAP PO SCH (10:32)
[2020-09-24] MEDS: LIDOCAINE 5% (LIDODERM) PATCH TD SCH (10:33)
[2020-09-24] MEDS: HumuLIN N INSULIN (NovoLIN N) PER UNIT SC SCH ×2 (10:34→21:00)
[2020-09-24] MEDS: FLUTICASONE PROP 0.05% NASAL SPRAY 16 GM (FLONASE) NARES SCH ×2 (10:44→22:02)
[2020-09-24] MEDS: SALIVA SUBSTITUTE(MOUTHKOTE) BTL MT SCH ×4 (10:44→21:00)
[2020-09-24] MEDS: REMEDY PHYTOPLEX Z-GUARD PASTE 113GM TUBE (FROM STOREROOM PRODUCT) TOP SCH ×3 (10:44→22:04)
[2020-09-24] MEDS: POLYVINYL ALCOHOL OPHTH SOLN 15 ML(LIQUITEARS) OU SCH ×3 (10:45→21:00)
[2020-09-24] MEDS: prednisoLONE ACET 1% OPHTH SUSP 5ML OU SCH ×2 (10:45→22:02)
[2020-09-24] MEDS: TIMOLOL MALEATE 0.25% OPHTH SOLN 5 ML OU SCH ×2 (10:45→22:02)
[2020-09-24] MEDS: SODIUM CHLORIDE NASAL 0.65% SPRAY BTL (OCEAN) SCH ×3 (10:46→21:00)
[2020-09-24 14:00] VITALS: BP 141/67
[2020-09-24] MEDS: VITAMIN D 1,000 INTERNATIONAL UNITS TABLET PO SCH (17:15)
[2020-09-24] MEDS: FOLIC ACID 1 MG TAB PO SCH (17:15)
[2020-09-24] MEDS: MULTIVITAMINS/MINERALS THERAP 1 TAB PO SCH (17:15)
[2020-09-24] MEDS: CYANOCOBALAMIN 500 MCG TAB PO SCH (17:15)
[2020-09-24 20:30] VITALS: BP 147/70
[2020-09-24] MEDS: **NOTE PATIENT COMMENT** MISC XX SCH (21:00)
[2020-09-24] MEDS: SENNA 8.6 MG TAB (SENOKOT) PO SCH (22:02)
[2020-09-24] MEDS: LATANOPROST 0.005% OPHTH SOLN 2.5 ML OU SCH (22:03)
[2020-09-24] MEDS: MICONAZOLE-7 VAGINAL 2% CREAM 47.7 GM PV SCH (22:04)
--- NOTE | 2020-09-24 22:08 | IPNPDOC ---
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 She denies fever, shortness of breath or chest pain. REVIEW OF SYSTEMS: The following is a completed review of systems and has been reviewed. Review of systems otherwise unremarkable. PAIN: Patient self reports bilat knee stringer and right groin pain EYES: No recent vision changes EARS, NOSE, & THROAT: No throat pain, or dysphagia, or rhinorrhea CARDIOVASCULAR: Denies chest pain or palpitations PULMONARY: Denies shortness of breath, +cough GASTROINTESTINAL: +constipation (improved) GENITOURINARY: +dysuria MUSCULOSKELETAL: bilat knee pain and right hip pain NEUROLOGICAL:+ peripheral polyneuropathy HEMATOLOGICAL: denies easy bruising SKIN: denies rash PSYCHIATRIC: Unremarkable All other review of systems found to be negative. PHYSICAL EXAMINATION: VITAL SIGNS: Please see below. GENERAL: Pleasant and cooperative. No acute distress. HEENT: PERRL. Extraocular movements intact. Clear conjunctiva CARDIOVASCULAR: Regular rate and rhythm. No murmurs, rubs, or gallops LUNGS: scattered wheezes. No rhonchi ABDOMEN: Soft, nontender, nondistended. Positive bowel sounds. Normal active bowel sounds NEUROLOGICAL: Alert and oriented times three. Cranial nerves II through XII grossly intact. Sensation diminished o light touch in stocking/glove pattern EXTREMITIES: 5\5 strength bilateral upper extremities. 4\5 strength right lower extremity. 4/5 strength in left lower extremity. right knee- no varus/valgus instability, mild medial joint line tenderness, +mild effusion ASSESSMENT:89-year-old F with past medical history of obesity, DM who presents status post fall with right knee OA PLAN: 1. Rehab- PT/OT advance mobility and ADLs- strengthen/stretch/maintain ROM all 4 limbs- ambulating with RW 2. Neuro- hx of DM with peripheral polyneuropathy contributing to overall mobility impairments- c/u gabapentin 3. Ortho- s/p fall with severe right knee OA, c/u inpatient rehab -left knee pain- Xray + tricompartmental OA -right Hip no significant joint space narrowing 4. Cardiac- hx of HTN c/u BP meds and monitor 5. Resp- hx of MITCH on cpap, incentive spirometry -patient reporting productive cough, will order chest CT, start guaifenasin and Combivent, sputum cx- patient afebrile, with no leukocytosis .breathing comfortably -MRSA screen 6. Endo- hx of DM c/u Insulin and ISS -hypothyroidism c/u synthroid 7. Renal- hx of CKD monitor, c/u calcitriol -mild TOBI, will lower dose of lasix from 60mg to 40mg and monitor 8. Pain- tylenol, gabapentin, tramadol 9. dvt ppx- lovenox 10. GI ppx- prilosec -patient reporting hemorrhoids, c/u preparation H suppository 11. - overactive bladder c/u oxybutynin -+dysuria- UA negative, c/u monistat-7 for possible yeast infection 12. Dispo- TBD Allergies Coded Allergies: butorphanol (Verified Allergy, Unknown, 03/07/20) Vital Signs Vital Signs Date Time Temp Pulse Resp B/P (MAP) Pulse Ox O2 Delivery O2 Flow Rate FiO2 09/24/20 14:00 97.3 62 18 141/67 (91) 94 Room Air Laboratory Data CBC/BMP Laboratory Tests 09/24/20 06:52 Labs 24H Laboratory Tests 2 09/24/20 06:52: Immature Granulocyte % (Auto) 0.3, Neutrophils (%) (Auto) 60.1, Lymphocytes (%) (Auto) 27.1, Monocytes (%) (Auto) 7.7, Eosinophils (%) (Auto) 4.0H, Basophils (%) (Auto) 0.8, Neutrophils # (Auto) 4.5, Lymphocytes # (Auto) 2.0, Monocytes # (Auto) 0.6, Eosinophils # (Auto) 0.3, Basophils # (Auto) 0.1, Nucleated Red Blood Cells % (auto) 0.0, Anion Gap 2L, Glomerular Filtration Rate 42.6, Calcium Level 9.9 09/24/20 06:57: Bedside Glucose (Misc Panel) 143H 09/24/20 11:19: Bedside Glucose (Misc Panel) 273H 09/24/20 16:27: Bedside Glucose (Misc Panel) 114H 09/24/20 20:05: Bedside Glucose (Misc Panel) 147H Microbiology Microbiology 09/23/20 Gram Stain - Final, Resulted 09/23/20 Sputum Culture, Resulted Pending Current Medications Current Medications Current Medications Medications (Trade) Dose Ordered Sig/Salo Route PRN Reason Start Time Stop Time Status Last Admin Dose Admin Acetaminophen (Tylenol Tab) 1,000 mg TID PO 09/18/20 21:00 09/24/20 17:16 Albuterol/ Ipratropium (Combivent Respimat 100-20mcg) 1 puff RTID INH 09/21/20 14:00 09/24/20 19:22 Allopurinol (Zyloprim) 300 mg DAILY PO 09/19/20 09:00 09/24/20 10:29 Artificial Tears (Akwa Tears) 2 drop TID OU 09/18/20 21:00 09/24/20 17:19 Aspirin (Ecotrin) 81 mg DAILY PO 09/19/20 09:00 09/24/20 10:29 Atorvastatin Calcium (Lipitor) 20 mg DAILY PO 09/19/20 09:00 09/24/20 10:28 Bisacodyl (Dulcolax Suppository) 10 mg DAILYPRN PRN ID CONSTIPATION 09/18/20 17:05 Calcitriol (Rocaltrol) 0.25 mcg MoTuWeThFr@0900 PO 09/19/20 09:00 09/24/20 10:29 Cyanocobalamin (Vitamin B12) 1,000 mcg DAILY@1600 PO 09/19/20 16:00 09/24/20 17:15 Dextrose (Dextrose 50%) 25 ml ASDIRECTED PRN IV SEE LABEL COMMENTS 09/18/20 17:05 Docusate Sodium (Colace) 100 mg BID PO 09/18/20 21:00 09/24/20 10:28 Enoxaparin Sodium (Lovenox) 40 mg DAILY SC 09/19/20 09:00 09/21/20 11:43 DC 09/21/20 09:32 Fluticasone Propionate (Flonase 0.05% Nasal [place]) 1 spray BID NARES 09/18/20 21:00 09/24/20 10:44 Folic Acid (Folic Acid) 1 mg DAILY@1600 PO 09/19/20 16:00 09/24/20 17:15 Furosemide (Lasix) 40 mg DAILY PO 09/22/20 09:00 09/24/20 10:29 Furosemide (Lasix) 60 mg DAILY PO 09/19/20 09:00 09/21/20 11:43 DC 09/21/20 09:34 Gabapentin (Neurontin) 400 mg BID PO 09/18/20 21:00 09/24/20 10:28 Glucagon (Glucagon) 1 mg ASDIRECTED PRN SC SEE LABEL COMMENTS 09/18/20 17:05 Glucose (Glucose) 16 GM ASDIRECTED PRN PO SEE LABEL COMMENTS 09/18/20 17:05 Guaifenesin (Robitussin Tab) 400 mg TID PO 09/21/20 16:00 09/24/20 17:16 Home Med (Med Rec Complete!) ASDIRECTED XX 09/18/20 18:20 09/18/20 18:32 DC Insulin Human Lispro (HumaLOG INSULIN) SEE PROTOCOL TABLE AC SC 09/19/20 07:30 09/24/20 17:18 Insulin Human Lispro (HumaLOG INSULIN) SEE PROTOCOL TABLE QHS SC 09/18/20 21:00 Insulin Human NPH (HumuLIN NPH INSULIN) 15 units QHS SC 09/18/20 21:00 09/21/20 07:55 DC 09/20/20 20:16 Insulin Human NPH (HumuLIN NPH INSULIN) 18 units QHS SC 09/21/20 21:00 09/23/20 21:27 Insulin Human NPH (HumuLIN NPH INSULIN) 60 units DAILY@0730 SC 09/19/20 07:30 09/24/20 10:34 Latanoprost (Xalatan 0.005% Op Soln) 1 drop QHS OU 09/18/20 21:00 09/23/20 21:28 Levothyroxine Sodium (Synthroid) 137 mcg DAILY@06 PO 09/19/20 06:00 09/24/20 06:46 Lidocaine (Lidoderm Patch) 2 patch DAILY TD 09/19/20 09:00 09/24/20 10:33 Loratadine (Claritin) 10 mg DAILY PO 09/19/20 09:00 09/24/20 10:28 Magnesium Oxide (Mag-Ox) 400 mg DAILY PO 09/19/20 09:00 09/24/20 10:29 Miconazole Nitrate (Monistat-7) 7 dose QHS PV 09/20/20 21:00 09/23/20 21:28 Multivitamins (Theragram-M) 1 tab DAILY@1600 PO 09/19/20 16:00 09/24/20 17:15 Non-Formulary Medication ( See Comment Field Below ) REMOVE LIDODERM PATCH DAILY@21 XX 09/18/20 21:00 09/23/20 21:29 Omeprazole (PriLOSEC) 40 mg DAILY PO 09/19/20 09:00 09/24/20 10:28 Oxybutynin Chloride (Ditropan Xl) 10 mg DAILY PO 09/19/20 09:00 09/24/20 10:29 Phenylephrine HCl (Preparation H Supp) 1 sup BID ID 09/19/20 21:00 09/23/20 09:14 Polyethylene Glycol (Miralax) 1 pkt DAILY PRN PO CONSTIPATION 09/18/20 17:05 Prednisolone Acetate (Predforte 1% Ophth Susp) 1 drop DAILY OU 09/19/20 09:00 09/24/20 10:45 Saliva Substitute (Mouthkote) 2 sprays QID MT 09/19/20 17:00 09/24/20 17:18 Senna (Senokot) 1 tab QHS PO 09/18/20 21:00 09/21/20 21:36 Sodium Chloride ([place] Nasal [place]) 2 spray TID NA 09/21/20 16:00 09/24/20 10:46 Timolol Maleate (Timoptic 0.25% Ophth [place]) 1 drop BID OU 09/18/20 21:00 09/24/20 10:45 Tramadol HCl (Ultram) 50 mg Q4HP PRN PO MODERATE PAIN (PS 5-7) 09/18/20 17:05 09/20/20 07:37 Vitamin A (Vitamin A) 10,000 units DAILY@1600 PO 09/19/20 16:00 09/24/20 10:32 Vitamin D (Vitamin D) 1,000 units DAILY@1600 PO 09/19/20 16:00 09/24/20 17:15 ERROL SANDOVAL MD September 24, 2020 22:08
--- NOTE | 2020-09-24 22:12 | IPNPDOC ---
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 She denies fever, shortness of breath or chest pain. REVIEW OF SYSTEMS: The following is a completed review of systems and has been reviewed. Review of systems otherwise unremarkable. PAIN: Patient self reports bilat knee stringer and right groin pain EYES: No recent vision changes EARS, NOSE, & THROAT: No throat pain, or dysphagia, or rhinorrhea CARDIOVASCULAR: Denies chest pain or palpitations PULMONARY: Denies shortness of breath, +cough GASTROINTESTINAL: +constipation (improved) GENITOURINARY: +dysuria MUSCULOSKELETAL: bilat knee pain and right hip pain NEUROLOGICAL:+ peripheral polyneuropathy HEMATOLOGICAL: denies easy bruising SKIN: denies rash PSYCHIATRIC: Unremarkable All other review of systems found to be negative. PHYSICAL EXAMINATION: VITAL SIGNS: Please see below. GENERAL: Pleasant and cooperative. No acute distress. HEENT: PERRL. Extraocular movements intact. Clear conjunctiva CARDIOVASCULAR: Regular rate and rhythm. No murmurs, rubs, or gallops LUNGS: scattered wheezes. No rhonchi ABDOMEN: Soft, nontender, nondistended. Positive bowel sounds. Normal active bowel sounds NEUROLOGICAL: Alert and oriented times three. Cranial nerves II through XII grossly intact. Sensation diminished o light touch in stocking/glove pattern EXTREMITIES: 5\5 strength bilateral upper extremities. 4\5 strength right lower extremity. 4/5 strength in left lower extremity. right knee- no varus/valgus instability, mild medial joint line tenderness, +mild effusion ASSESSMENT:89-year-old F with past medical history of obesity, DM who presents status post fall with right knee OA PLAN: 1. Rehab- PT/OT advance mobility and ADLs- strengthen/stretch/maintain ROM all 4 limbs- ambulating with RW 2. Neuro- hx of DM with peripheral polyneuropathy contributing to overall mobility impairments- c/u gabapentin 3. Ortho- s/p fall with severe right knee OA, c/u inpatient rehab -left knee pain- Xray + tricompartmental OA -right Hip no significant joint space narrowing 4. Cardiac- hx of HTN c/u BP meds and monitor 5. 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 Endo- hx of DM c/u Insulin and ISS -hypothyroidism c/u synthroid 7. Renal- hx of CKD monitor, c/u calcitriol -mild TOBI improved after lowering dose of lasix from 60mg to 40mg, c/u to monitor 8. Pain- tylenol, gabapentin, tramadol 9. dvt ppx- lovenox 10. GI ppx- prilosec -patient reporting hemorrhoids, c/u preparation H suppository 11. - overactive bladder c/u oxybutynin -+dysuria- UA negative, c/u monistat-7 for possible yeast infection- symptoms improving 12. Dispo- TBD Allergies Coded Allergies: butorphanol (Verified Allergy, Unknown, 03/07/20) Vital Signs Vital Signs Date Time Temp Pulse Resp B/P (MAP) Pulse Ox O2 Delivery O2 Flow Rate FiO2 09/24/20 14:00 97.3 62 18 141/67 (91) 94 Room Air Laboratory Data CBC/BMP Laboratory Tests 09/24/20 06:52 Labs 24H Laboratory Tests 2 09/24/20 06:52: Immature Granulocyte % (Auto) 0.3, Neutrophils (%) (Auto) 60.1, Lymphocytes (%) (Auto) 27.1, Monocytes (%) (Auto) 7.7, Eosinophils (%) (Auto) 4.0H, Basophils (%) (Auto) 0.8, Neutrophils # (Auto) 4.5, Lymphocytes # (Auto) 2.0, Monocytes # (Auto) 0.6, Eosinophils # (Auto) 0.3, Basophils # (Auto) 0.1, Nucleated Red Blood Cells % (auto) 0.0, Anion Gap 2L, Glomerular Filtration Rate 42.6, Calcium Level 9.9 09/24/20 06:57: Bedside Glucose (Misc Panel) 143H 09/24/20 11:19: Bedside Glucose (Misc Panel) 273H 09/24/20 16:27: Bedside Glucose (Misc Panel) 114H 09/24/20 20:05: Bedside Glucose (Misc Panel) 147H Microbiology Microbiology 09/23/20 Gram Stain - Final, Resulted 09/23/20 Sputum Culture, Resulted Pending Current Medications Current Medications Current Medications Medications (Trade) Dose Ordered Sig/Salo Route PRN Reason Start Time Stop Time Status Last Admin Dose Admin Acetaminophen (Tylenol Tab) 1,000 mg TID PO 09/18/20 21:00 09/24/20 17:16 Albuterol/ Ipratropium (Combivent Respimat 100-20mcg) 1 puff RTID INH 09/21/20 14:00 09/24/20 19:22 Allopurinol (Zyloprim) 300 mg DAILY PO 09/19/20 09:00 09/24/20 10:29 Artificial Tears (Akwa Tears) 2 drop TID OU 09/18/20 21:00 09/24/20 17:19 Aspirin (Ecotrin) 81 mg DAILY PO 09/19/20 09:00 09/24/20 10:29 Atorvastatin Calcium (Lipitor) 20 mg DAILY PO 09/19/20 09:00 09/24/20 10:28 Bisacodyl (Dulcolax Suppository) 10 mg DAILYPRN PRN IN CONSTIPATION 09/18/20 17:05 Calcitriol (Rocaltrol) 0.25 mcg MoTuWeThFr@0900 PO 09/19/20 09:00 09/24/20 10:29 Cyanocobalamin (Vitamin B12) 1,000 mcg DAILY@1600 PO 09/19/20 16:00 09/24/20 17:15 Dextrose (Dextrose 50%) 25 ml ASDIRECTED PRN IV SEE LABEL COMMENTS 09/18/20 17:05 Docusate Sodium (Colace) 100 mg BID PO 09/18/20 21:00 09/24/20 10:28 Enoxaparin Sodium (Lovenox) 40 mg DAILY SC 09/19/20 09:00 09/21/20 11:43 DC 09/21/20 09:32 Fluticasone Propionate (Flonase 0.05% Nasal [place]) 1 spray BID NARES 09/18/20 21:00 09/24/20 10:44 Folic Acid (Folic Acid) 1 mg DAILY@1600 PO 09/19/20 16:00 09/24/20 17:15 Furosemide (Lasix) 40 mg DAILY PO 09/22/20 09:00 09/24/20 10:29 Furosemide (Lasix) 60 mg DAILY PO 09/19/20 09:00 09/21/20 11:43 DC 09/21/20 09:34 Gabapentin (Neurontin) 400 mg BID PO 09/18/20 21:00 09/24/20 10:28 Glucagon (Glucagon) 1 mg ASDIRECTED PRN SC SEE LABEL COMMENTS 09/18/20 17:05 Glucose (Glucose) 16 GM ASDIRECTED PRN PO SEE LABEL COMMENTS 09/18/20 17:05 Guaifenesin (Robitussin Tab) 400 mg TID PO 09/21/20 16:00 09/24/20 17:16 Home Med (Med Rec Complete!) ASDIRECTED XX 09/18/20 18:20 09/18/20 18:32 DC Insulin Human Lispro (HumaLOG INSULIN) SEE PROTOCOL TABLE AC SC 09/19/20 07:30 09/24/20 17:18 Insulin Human Lispro (HumaLOG INSULIN) SEE PROTOCOL TABLE QHS SC 09/18/20 21:00 Insulin Human NPH (HumuLIN NPH INSULIN) 15 units QHS SC 09/18/20 21:00 09/21/20 07:55 DC 09/20/20 20:16 Insulin Human NPH (HumuLIN NPH INSULIN) 18 units QHS SC 09/21/20 21:00 09/23/20 21:27 Insulin Human NPH (HumuLIN NPH INSULIN) 60 units DAILY@0730 SC 09/19/20 07:30 09/24/20 10:34 Latanoprost (Xalatan 0.005% Op Soln) 1 drop QHS OU 09/18/20 21:00 09/23/20 21:28 Levothyroxine Sodium (Synthroid) 137 mcg DAILY@06 PO 09/19/20 06:00 09/24/20 06:46 Lidocaine (Lidoderm Patch) 2 patch DAILY TD 09/19/20 09:00 09/24/20 10:33 Loratadine (Claritin) 10 mg DAILY PO 09/19/20 09:00 09/24/20 10:28 Magnesium Oxide (Mag-Ox) 400 mg DAILY PO 09/19/20 09:00 09/24/20 10:29 Miconazole Nitrate (Monistat-7) 7 dose QHS PV 09/20/20 21:00 09/23/20 21:28 Multivitamins (Theragram-M) 1 tab DAILY@1600 PO 09/19/20 16:00 09/24/20 17:15 Non-Formulary Medication ( See Comment Field Below ) REMOVE LIDODERM PATCH DAILY@21 XX 09/18/20 21:00 09/23/20 21:29 Omeprazole (PriLOSEC) 40 mg DAILY PO 09/19/20 09:00 09/24/20 10:28 Oxybutynin Chloride (Ditropan Xl) 10 mg DAILY PO 09/19/20 09:00 09/24/20 10:29 Phenylephrine HCl (Preparation H Supp) 1 sup BID IN 09/19/20 21:00 09/23/20 09:14 Polyethylene Glycol (Miralax) 1 pkt DAILY PRN PO CONSTIPATION 09/18/20 17:05 Prednisolone Acetate (Predforte 1% Ophth Susp) 1 drop DAILY OU 09/19/20 09:00 09/24/20 10:45 Saliva Substitute (Mouthkote) 2 sprays QID MT 09/19/20 17:00 09/24/20 17:18 Senna (Senokot) 1 tab QHS PO 09/18/20 21:00 09/21/20 21:36 Sodium Chloride ([place] Nasal [place]) 2 spray TID NA 09/21/20 16:00 09/24/20 10:46 Timolol Maleate (Timoptic 0.25% Ophth [place]) 1 drop BID OU 09/18/20 21:00 09/24/20 10:45 Tramadol HCl (Ultram) 50 mg Q4HP PRN PO MODERATE PAIN (PS 5-7) 09/18/20 17:05 09/20/20 07:37 Vitamin A (Vitamin A) 10,000 units DAILY@1600 PO 09/19/20 16:00 09/24/20 10:32 Vitamin D (Vitamin D) 1,000 units DAILY@1600 PO 09/19/20 16:00 09/24/20 17:15 ERROL SANDOVAL MD September 24, 2020 22:12
[2020-09-25] MEDS: LEVOTHYROXINE 137MCG TABLET (0.137MG) PO SCH (05:43)
[2020-09-25 06:30] VITALS: BP 147/71
[2020-09-25] MEDS: COMBIVENT RESPIMAT 100-20MCG INHALER 4GM INH SCH ×3 (07:43→19:42)
[2020-09-25] MEDS: HumaLOG INSULIN (NovoLOG) PER UNIT SC SCH ×4 (08:43→20:24)
[2020-09-25] MEDS: HumuLIN N INSULIN (NovoLIN N) PER UNIT SC SCH ×2 (08:44→20:21)
[2020-09-25] MEDS: LIDOCAINE 5% (LIDODERM) PATCH TD SCH (08:46)
[2020-09-25] MEDS: PREPARATION H SUPP (HEMORRHOID) PR SCH (08:47)
[2020-09-25] MEDS: guaiFENesin 200 MG TAB PO SCH ×3 (08:47→20:22)
[2020-09-25] MEDS: oxyBUTYnin *DITROPAN XL* 5 MG TABCR PO SCH (08:50)
[2020-09-25] MEDS: allopurinoL 300 MG TAB PO SCH (08:50)
[2020-09-25] MEDS: OMEPRAZOLE 20 MG CAP PO SCH (08:50)
[2020-09-25] MEDS: CALCITRIOL 0.25 MCG CAP (S0169) PO SCH (08:50)
[2020-09-25] MEDS: ASPIRIN 81MG ENTERIC TABLET PO SCH (08:51)
[2020-09-25] MEDS: ACETAMINOPHEN 500 MG TAB PO SCH ×3 (08:51→20:23)
[2020-09-25] MEDS: MAGNESIUM OXIDE 400MG TAB (MAG-OX) PO SCH (08:51)
[2020-09-25] MEDS: GABAPENTIN 400MG CAP PO SCH ×2 (08:51→20:23)
[2020-09-25] MEDS: LORATADINE 10 MG TAB PO SCH (08:51)
[2020-09-25] MEDS: FUROSEMIDE 40 MG TAB PO SCH (08:51)
[2020-09-25] MEDS: DOCUSATE SODIUM 100MG CAPSULE PO SCH ×2 (08:52→20:23)
[2020-09-25] MEDS: SALIVA SUBSTITUTE(MOUTHKOTE) BTL MT SCH ×4 (08:52→20:23)
[2020-09-25] MEDS: ATORVASTATIN 20 MG TAB PO SCH (08:53)
[2020-09-25] MEDS: SODIUM CHLORIDE NASAL 0.65% SPRAY BTL (OCEAN) SCH ×3 (08:53→20:23)
[2020-09-25] MEDS: POLYVINYL ALCOHOL OPHTH SOLN 15 ML(LIQUITEARS) OU SCH ×3 (08:53→20:24)
[2020-09-25] MEDS: FLUTICASONE PROP 0.05% NASAL SPRAY 16 GM (FLONASE) NARES SCH ×2 (08:53→20:24)
[2020-09-25] MEDS: REMEDY PHYTOPLEX Z-GUARD PASTE 113GM TUBE (FROM STOREROOM PRODUCT) TOP SCH ×3 (08:54→20:26)
[2020-09-25] MEDS: TIMOLOL MALEATE 0.25% OPHTH SOLN 5 ML OU SCH ×2 (08:54→20:25)
[2020-09-25] MEDS: prednisoLONE ACET 1% OPHTH SUSP 5ML OU SCH (08:55)
--- NOTE | 2020-09-25 10:15 | IPNPDOC ---
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 REVIEW OF SYSTEMS: The following is a completed review of systems and has been reviewed. Review of systems otherwise unremarkable. PAIN: Patient self reports bilat knee stringer and right groin pain EYES: No recent vision changes EARS, NOSE, & THROAT: No throat pain, or dysphagia, or rhinorrhea CARDIOVASCULAR: Denies chest pain or palpitations PULMONARY: Denies shortness of breath, +cough GASTROINTESTINAL: +constipation (improved) GENITOURINARY: +dysuria MUSCULOSKELETAL: bilat knee pain and right hip pain NEUROLOGICAL:+ peripheral polyneuropathy HEMATOLOGICAL: denies easy bruising SKIN: denies rash PSYCHIATRIC: Unremarkable All other review of systems found to be negative. PHYSICAL EXAMINATION: VITAL SIGNS: Please see below. GENERAL: Pleasant and cooperative. No acute distress. HEENT: PERRL. Extraocular movements intact. Clear conjunctiva CARDIOVASCULAR: Regular rate and rhythm. No murmurs, rubs, or gallops LUNGS: scattered wheezes. No rhonchi ABDOMEN: Soft, nontender, nondistended. Positive bowel sounds. Normal active bowel sounds NEUROLOGICAL: Alert and oriented times three. Cranial nerves II through XII grossly intact. Sensation diminished o light touch in stocking/glove pattern EXTREMITIES: 5\5 strength bilateral upper extremities. 4\5 strength right lower extremity. 4/5 strength in left lower extremity. right knee- no varus/valgus instability, mild medial joint line tenderness, +mild effusion ASSESSMENT:89-year-old F with past medical history of obesity, DM who presents status post fall with right knee OA PLAN: 1. Rehab- PT/OT advance mobility and ADLs- strengthen/stretch/maintain ROM all 4 limbs- ambulating with RW 2. Neuro- hx of DM with peripheral polyneuropathy contributing to overall mobility impairments- c/u gabapentin 3. Ortho- s/p fall with severe right knee OA, c/u inpatient rehab -left knee pain- Xray + tricompartmental OA -right Hip no significant joint space narrowing 4. Cardiac- hx of HTN c/u BP meds and monitor 5. 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 Endo- hx of DM c/u Insulin and ISS -hypothyroidism c/u synthroid 7. Renal- hx of CKD monitor, c/u calcitriol -mild TOBI improved after lowering dose of lasix from 60mg to 40mg, c/u to monitor 8. Pain- tylenol, gabapentin, tramadol 9. dvt ppx- lovenox 10. GI ppx- prilosec -patient reporting hemorrhoids, s/p course of preparation H suppository 11. - overactive bladder c/u oxybutynin -+dysuria- UA negative, c/u monistat-7 for possible yeast infection- symptoms i mproving 12. Dispo- 09-27-20 to home Allergies Coded Allergies: butorphanol (Verified Allergy, Unknown, 03/07/20) Vital Signs Vital Signs Date Time Temp Pulse Resp B/P (MAP) Pulse Ox O2 Delivery O2 Flow Rate FiO2 09/25/20 06:30 97.6 61 18 147/71 (96) 96 Room Air Laboratory Data Labs 24H Laboratory Tests 2 09/24/20 11:19: Bedside Glucose (Misc Panel) 273H 09/24/20 16:27: Bedside Glucose (Misc Panel) 114H 09/24/20 20:05: Bedside Glucose (Misc Panel) 147H 09/25/20 06:05: Bedside Glucose (Misc Panel) 147H Microbiology Microbiology 09/23/20 Gram Stain - Final, Resulted 09/23/20 Sputum Culture - Preliminary, Resulted Staphylococcus Aureus Current Medications Current Medications Current Medications Medications (Trade) Dose Ordered Sig/Salo Route PRN Reason Start Time Stop Time Status Last Admin Dose Admin Acetaminophen (Tylenol Tab) 1,000 mg TID PO 09/18/20 21:00 09/25/20 08:51 Albuterol/ Ipratropium (Combivent Respimat 100-20mcg) 1 puff RTID INH 09/21/20 14:00 09/25/20 07:43 Allopurinol (Zyloprim) 300 mg DAILY PO 09/19/20 09:00 09/25/20 08:50 Artificial Tears (Akwa Tears) 2 drop TID OU 09/18/20 21:00 09/25/20 08:53 Aspirin (Ecotrin) 81 mg DAILY PO 09/19/20 09:00 09/25/20 08:51 Atorvastatin Calcium (Lipitor) 20 mg DAILY PO 09/19/20 09:00 09/25/20 08:53 Bisacodyl (Dulcolax Suppository) 10 mg DAILYPRN PRN [place] CONSTIPATION 09/18/20 17:05 Calcitriol (Rocaltrol) 0.25 mcg MoTuWeThFr@0900 PO 09/19/20 09:00 09/25/20 08:50 Cyanocobalamin (Vitamin B12) 1,000 mcg DAILY@1600 PO 09/19/20 16:00 09/24/20 17:15 Dextrose (Dextrose 50%) 25 ml ASDIRECTED PRN IV SEE LABEL COMMENTS 09/18/20 17:05 Docusate Sodium (Colace) 100 mg BID PO 09/18/20 21:00 09/24/20 22:02 Enoxaparin Sodium (Lovenox) 40 mg DAILY SC 09/19/20 09:00 09/21/20 11:43 DC 09/21/20 09:32 Fluticasone Propionate (Flonase 0.05% Nasal [place]) 1 spray BID NARES 09/18/20 21:00 09/25/20 08:53 Folic Acid (Folic Acid) 1 mg DAILY@1600 PO 09/19/20 16:00 09/24/20 17:15 Furosemide (Lasix) 40 mg DAILY PO 09/22/20 09:00 09/25/20 08:51 Furosemide (Lasix) 60 mg DAILY PO 09/19/20 09:00 09/21/20 11:43 DC 09/21/20 09:34 Gabapentin (Neurontin) 400 mg BID PO 09/18/20 21:00 09/25/20 08:51 Glucagon (Glucagon) 1 mg ASDIRECTED PRN SC SEE LABEL COMMENTS 09/18/20 17:05 Glucose (Glucose) 16 GM ASDIRECTED PRN PO SEE LABEL COMMENTS 09/18/20 17:05 Guaifenesin (Robitussin Tab) 400 mg TID PO 09/21/20 16:00 09/25/20 08:47 Home Med (Med Rec Complete!) ASDIRECTED XX 09/18/20 18:20 09/18/20 18:32 DC Insulin Human Lispro (HumaLOG INSULIN) SEE PROTOCOL TABLE AC SC 09/19/20 07:30 09/25/20 08:43 Insulin Human Lispro (HumaLOG INSULIN) SEE PROTOCOL TABLE QHS SC 09/18/20 21:00 Insulin Human NPH (HumuLIN NPH INSULIN) 15 units QHS SC 09/18/20 21:00 09/21/20 07:55 DC 09/20/20 20:16 Insulin Human NPH (HumuLIN NPH INSULIN) 18 units QHS SC 09/21/20 21:00 09/24/20 21:00 Insulin Human NPH (HumuLIN NPH INSULIN) 60 units DAILY@0730 SC 09/19/20 07:30 09/25/20 08:44 Latanoprost (Xalatan 0.005% Op Soln) 1 drop QHS OU 09/18/20 21:00 09/24/20 22:03 Levothyroxine Sodium (Synthroid) 137 mcg DAILY@06 PO 09/19/20 06:00 09/25/20 05:43 Lidocaine (Lidoderm Patch) 2 patch DAILY TD 09/19/20 09:00 09/25/20 08:46 Linezolid (Zyvox) 600 mg BID PO 09/25/20 21:00 UNV Loratadine (Claritin) 10 mg DAILY PO 09/19/20 09:00 09/25/20 08:51 Magnesium Oxide (Mag-Ox) 400 mg DAILY PO 09/19/20 09:00 09/25/20 08:51 Miconazole Nitrate (Monistat-7) 7 dose QHS PV 09/20/20 21:00 09/24/20 22:04 Multivitamins (Theragram-M) 1 tab DAILY@1600 PO 09/19/20 16:00 09/24/20 17:15 Non-Formulary Medication ( See Comment Field Below ) REMOVE LIDODERM PATCH DAILY@21 XX 09/18/20 21:00 09/24/20 21:00 Omeprazole (PriLOSEC) 40 mg DAILY PO 09/19/20 09:00 09/25/20 08:50 Oxybutynin Chloride (Ditropan Xl) 10 mg DAILY PO 09/19/20 09:00 09/25/20 08:50 Phenylephrine HCl (Preparation H Supp) 1 sup BID [place] 09/19/20 21:00 09/25/20 08:47 Polyethylene Glycol (Miralax) 1 pkt DAILY PRN PO CONSTIPATION 09/18/20 17:05 Prednisolone Acetate (Predforte 1% Ophth Susp) 1 drop DAILY OU 09/19/20 09:00 09/25/20 08:55 Saliva Substitute (Mouthkote) 2 sprays QID MT 09/19/20 17:00 09/25/20 08:52 Senna (Senokot) 1 tab QHS PO 09/18/20 21:00 09/24/20 22:02 Sodium Chloride ([place] Nasal [place]) 2 spray TID NA 09/21/20 16:00 09/25/20 08:53 Timolol Maleate (Timoptic 0.25% Ophth [place]) 1 drop BID OU 09/18/20 21:00 09/25/20 08:54 Tramadol HCl (Ultram) 50 mg Q4HP PRN PO MODERATE PAIN (PS 5-7) 09/18/20 17:05 09/25/20 10:14 DC 09/20/20 07:37 Vitamin A (Vitamin A) 10,000 units DAILY@1600 PO 09/19/20 16:00 09/24/20 10:32 Vitamin D (Vitamin D) 1,000 units DAILY@1600 PO 09/19/20 16:00 09/24/20 17:15 ERROL SANDOVAL MD September 25, 2020 10:15
[2020-09-25 14:00] VITALS: BP 144/65
[2020-09-25] MEDS: FOLIC ACID 1 MG TAB PO SCH (16:38)
[2020-09-25] MEDS: CYANOCOBALAMIN 500 MCG TAB PO SCH (16:38)
[2020-09-25] MEDS: LINEZOLID 600MG TABLET (ZYVOX) PO SCH (16:38)
[2020-09-25] MEDS: MULTIVITAMINS/MINERALS THERAP 1 TAB PO SCH (16:38)
[2020-09-25] MEDS: VITAMIN D 1,000 INTERNATIONAL UNITS TABLET PO SCH (16:38)
[2020-09-25] MEDS: VITAMIN A 10,000 INTERNATIONAL UNITS CAP PO SCH (16:52)
[2020-09-25 20:00] VITALS: BP 137/60
[2020-09-25] MEDS: SENNA 8.6 MG TAB (SENOKOT) PO SCH (20:22)
[2020-09-25] MEDS: LATANOPROST 0.005% OPHTH SOLN 2.5 ML OU SCH (20:25)
[2020-09-25] MEDS: MICONAZOLE-7 VAGINAL 2% CREAM 47.7 GM PV SCH (20:26)
[2020-09-25] MEDS: **NOTE PATIENT COMMENT** MISC XX SCH (20:40)
[2020-09-26] MEDS: LINEZOLID 600MG TABLET (ZYVOX) PO SCH ×3 (00:31→20:56)
[2020-09-26] MEDS: LEVOTHYROXINE 137MCG TABLET (0.137MG) PO SCH (05:20)
[2020-09-26 06:24] VITALS: BP 158/68
[2020-09-26] MEDS: COMBIVENT RESPIMAT 100-20MCG INHALER 4GM INH SCH ×3 (07:01→19:41)
[2020-09-26] MEDS: HumuLIN N INSULIN (NovoLIN N) PER UNIT SC SCH ×2 (08:56→20:57)
[2020-09-26] MEDS: HumaLOG INSULIN (NovoLOG) PER UNIT SC SCH ×4 (08:56→20:57)
[2020-09-26] MEDS: OMEPRAZOLE 20 MG CAP PO SCH (08:56)
[2020-09-26] MEDS: MAGNESIUM OXIDE 400MG TAB (MAG-OX) PO SCH (08:57)
[2020-09-26] MEDS: GABAPENTIN 400MG CAP PO SCH ×2 (08:57→20:56)
[2020-09-26] MEDS: oxyBUTYnin *DITROPAN XL* 5 MG TABCR PO SCH (08:57)
[2020-09-26] MEDS: CALCITRIOL 0.25 MCG CAP (S0169) PO SCH (08:57)
[2020-09-26] MEDS: ASPIRIN 81MG ENTERIC TABLET PO SCH (08:57)
[2020-09-26] MEDS: guaiFENesin 200 MG TAB PO SCH ×3 (08:57→20:56)
[2020-09-26] MEDS: FUROSEMIDE 40 MG TAB PO SCH (08:58)
[2020-09-26] MEDS: ACETAMINOPHEN 500 MG TAB PO SCH ×3 (08:58→20:56)
[2020-09-26] MEDS: LORATADINE 10 MG TAB PO SCH (08:58)
[2020-09-26] MEDS: allopurinoL 300 MG TAB PO SCH (08:58)
[2020-09-26] MEDS: ATORVASTATIN 20 MG TAB PO SCH (08:58)
[2020-09-26] MEDS: SODIUM CHLORIDE NASAL 0.65% SPRAY BTL (OCEAN) SCH ×3 (08:59→20:59)
[2020-09-26] MEDS: LIDOCAINE 5% (LIDODERM) PATCH TD SCH (08:59)
[2020-09-26] MEDS: SALIVA SUBSTITUTE(MOUTHKOTE) BTL MT SCH ×4 (08:59→20:55)
[2020-09-26] MEDS: POLYVINYL ALCOHOL OPHTH SOLN 15 ML(LIQUITEARS) OU SCH ×3 (08:59→21:00)
[2020-09-26] MEDS: REMEDY PHYTOPLEX Z-GUARD PASTE 113GM TUBE (FROM STOREROOM PRODUCT) TOP SCH ×3 (09:00→20:58)
[2020-09-26] MEDS: DOCUSATE SODIUM 100MG CAPSULE PO SCH ×2 (09:00→20:56)
[2020-09-26] MEDS: FLUTICASONE PROP 0.05% NASAL SPRAY 16 GM (FLONASE) NARES SCH ×2 (09:00→20:57)
[2020-09-26] MEDS: prednisoLONE ACET 1% OPHTH SUSP 5ML OU SCH (09:00)
[2020-09-26] MEDS: TIMOLOL MALEATE 0.25% OPHTH SOLN 5 ML OU SCH ×2 (09:00→20:57)
--- NOTE | 2020-09-26 09:06 | IPNPDOC ---
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 REVIEW OF SYSTEMS: The following is a completed review of systems and has been reviewed. Review of systems otherwise unremarkable. PAIN: Patient self reports bilat knee stringer and right groin pain EYES: No recent vision changes EARS, NOSE, & THROAT: No throat pain, or dysphagia, or rhinorrhea CARDIOVASCULAR: Denies chest pain or palpitations PULMONARY: Denies shortness of breath, +cough (improving) GASTROINTESTINAL: +constipation (improved) GENITOURINARY: +dysuria MUSCULOSKELETAL: bilat knee pain and right hip pain NEUROLOGICAL:+ peripheral polyneuropathy HEMATOLOGICAL: denies easy bruising SKIN: denies rash PSYCHIATRIC: Unremarkable All other review of systems found to be negative. PHYSICAL EXAMINATION: VITAL SIGNS: Please see below. GENERAL: Pleasant and cooperative. No acute distress. HEENT: PERRL. Extraocular movements intact. Clear conjunctiva CARDIOVASCULAR: Regular rate and rhythm. No murmurs, rubs, or gallops LUNGS: scattered wheezes. No rhonchi ABDOMEN: Soft, nontender, nondistended. Positive bowel sounds. Normal active bowel sounds NEUROLOGICAL: Alert and oriented times three. Cranial nerves II through XII grossly intact. Sensation diminished o light touch in stocking/glove pattern EXTREMITIES: 5\5 strength bilateral upper extremities. 4\5 strength right lower extremity. 4/5 strength in left lower extremity. right knee- no varus/valgus instability, mild medial joint line tenderness, +mild effusion ASSESSMENT:89-year-old F with past medical history of obesity, DM who presents status post fall with right knee OA PLAN: 1. Rehab- PT/OT advance mobility and ADLs- strengthen/stretch/maintain ROM all 4 limbs- ambulating with RW 2. Neuro- hx of DM with peripheral polyneuropathy contributing to overall mobility impairments- c/u gabapentin 3. Ortho- s/p fall with severe right knee OA, c/u inpatient rehab -left knee pain- Xray + tricompartmental OA -right Hip no significant joint space narrowing 4. Cardiac- hx of HTN c/u BP meds and monitor 5. 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 Endo- hx of DM c/u Insulin and ISS -hypothyroidism c/u synthroid 7. Renal- hx of CKD monitor, c/u calcitriol -mild TOBI improved after lowering dose of lasix from 60mg to 40mg, c/u to monitor 8. Pain- tylenol, gabapentin, tramadol 9. dvt ppx- lovenox 10. GI ppx- prilosec -patient reporting hemorrhoids, s/p course of preparation H suppository 11. - overactive bladder c/u oxybutynin -+dysuria- UA negative, c/u monistat-7 for possible yeast infection- symptoms improving 12. Dispo- 09-27-20 to home, will initiate MRSA decolonization regimen with mupirocin and chlorhexidine mouthwash/body cleanse on d/c to reduce incidence of future MRSA infectio Allergies Coded Allergies: butorphanol (Verified Allergy, Unknown, 03/07/20) Vital Signs Vital Signs Date Time Temp Pulse Resp B/P (MAP) Pulse Ox O2 Delivery O2 Flow Rate FiO2 09/26/20 06:24 97.4 58 18 158/68 (98) 96 NIPPV (BIPAP/CPAP) Laboratory Data Labs 24H Laboratory Tests 2 09/25/20 12:09: Bedside Glucose (Misc Panel) 124H 09/25/20 16:38: Bedside Glucose (Misc Panel) 205H 09/25/20 20:06: Bedside Glucose (Misc Panel) 151H 09/26/20 05:17: Bedside Glucose (Misc Panel) 124H Microbiology Microbiology 09/23/20 Gram Stain - Final, Resulted 09/23/20 Sputum Culture - Preliminary, Resulted Staphylococcus Aureus Current Medications Current Medications Current Medications Medications (Trade) Dose Ordered Sig/Salo Route PRN Reason Start Time Stop Time Status Last Admin Dose Admin Acetaminophen (Tylenol Tab) 1,000 mg TID PO 09/18/20 21:00 09/26/20 08:58 Albuterol/ Ipratropium (Combivent Respimat 100-20mcg) 1 puff RTID INH 09/21/20 14:00 09/26/20 07:01 Allopurinol (Zyloprim) 300 mg DAILY PO 09/19/20 09:00 09/26/20 08:58 Artificial Tears (Akwa Tears) 2 drop TID OU 09/18/20 21:00 09/26/20 08:59 Aspirin (Ecotrin) 81 mg DAILY PO 09/19/20 09:00 09/26/20 08:57 Atorvastatin Calcium (Lipitor) 20 mg DAILY PO 09/19/20 09:00 09/26/20 08:58 Bisacodyl (Dulcolax Suppository) 10 mg DAILYPRN PRN [place] CONSTIPATION 09/18/20 17:05 Calcitriol (Rocaltrol) 0.25 mcg MoTuWeThFr@0900 PO 09/19/20 09:00 09/26/20 08:57 Cyanocobalamin (Vitamin B12) 1,000 mcg DAILY@1600 PO 09/19/20 16:00 09/25/20 16:38 Dextrose (Dextrose 50%) 25 ml ASDIRECTED PRN IV SEE LABEL COMMENTS 09/18/20 17:05 Docusate Sodium (Colace) 100 mg BID PO 09/18/20 21:00 09/25/20 20:23 Enoxaparin Sodium (Lovenox) 40 mg DAILY SC 09/19/20 09:00 09/21/20 11:43 DC 09/21/20 09:32 Fluticasone Propionate (Flonase 0.05% Nasal [place]) 1 spray BID NARES 09/18/20 21:00 09/26/20 09:00 Folic Acid (Folic Acid) 1 mg DAILY@1600 PO 09/19/20 16:00 09/25/20 16:38 Furosemide (Lasix) 40 mg DAILY PO 09/22/20 09:00 09/26/20 08:58 Furosemide (Lasix) 60 mg DAILY PO 09/19/20 09:00 09/21/20 11:43 DC 09/21/20 09:34 Gabapentin (Neurontin) 400 mg BID PO 09/18/20 21:00 09/26/20 08:57 Glucagon (Glucagon) 1 mg ASDIRECTED PRN SC SEE LABEL COMMENTS 09/18/20 17:05 Glucose (Glucose) 16 GM ASDIRECTED PRN PO SEE LABEL COMMENTS 09/18/20 17:05 Guaifenesin (Robitussin Tab) 400 mg TID PO 09/21/20 16:00 09/26/20 08:57 Home Med (Med Rec Complete!) ASDIRECTED XX 09/18/20 18:20 09/18/20 18:32 DC Insulin Human Lispro (HumaLOG INSULIN) SEE PROTOCOL TABLE AC SC 09/19/20 07:30 09/26/20 08:56 Insulin Human Lispro (HumaLOG INSULIN) SEE PROTOCOL TABLE QHS SC 09/18/20 21:00 Insulin Human NPH (HumuLIN NPH INSULIN) 15 units QHS SC 09/18/20 21:00 09/21/20 07:55 DC 09/20/20 20:16 Insulin Human NPH (HumuLIN NPH INSULIN) 18 units QHS SC 09/21/20 21:00 09/25/20 20:21 Insulin Human NPH (HumuLIN NPH INSULIN) 60 units DAILY@0730 SC 09/19/20 07:30 09/26/20 08:56 Latanoprost (Xalatan 0.005% Op Soln) 1 drop QHS OU 09/18/20 21:00 09/25/20 20:25 Levothyroxine Sodium (Synthroid) 137 mcg DAILY@06 PO 09/19/20 06:00 09/26/20 05:20 Lidocaine (Lidoderm Patch) 2 patch DAILY TD 09/19/20 09:00 09/26/20 08:59 Linezolid (Zyvox) 600 mg BID PO 09/26/20 09:00 10/01/20 21:01 09/26/20 08:58 Linezolid (Zyvox) 600 mg BID@0000,1600 PO 09/25/20 16:00 09/26/20 00:01 DC 09/26/20 00:31 Loratadine (Claritin) 10 mg DAILY PO 09/19/20 09:00 09/26/20 08:58 Magnesium Oxide (Mag-Ox) 400 mg DAILY PO 09/19/20 09:00 09/26/20 08:57 Miconazole Nitrate (Monistat-7) 7 dose QHS PV 09/20/20 21:00 09/25/20 20:26 Multivitamins (Theragram-M) 1 tab DAILY@1600 PO 09/19/20 16:00 09/25/20 16:38 Non-Formulary Medication ( See Comment Field Below ) REMOVE LIDODERM PATCH DAILY@21 XX 09/18/20 21:00 09/25/20 20:40 Omeprazole (PriLOSEC) 40 mg DAILY PO 09/19/20 09:00 09/26/20 08:56 Oxybutynin Chloride (Ditropan Xl) 10 mg DAILY PO 09/19/20 09:00 09/26/20 08:57 Phenylephrine HCl (Preparation H Supp) 1 sup BID CA 09/19/20 21:00 09/25/20 10:50 DC 09/25/20 08:47 Polyethylene Glycol (Miralax) 1 pkt DAILY PRN PO CONSTIPATION 09/18/20 17:05 Prednisolone Acetate (Predforte 1% Ophth Susp) 1 drop DAILY OU 09/19/20 09:00 09/26/20 09:00 Saliva Substitute (Mouthkote) 2 sprays QID MT 09/19/20 17:00 09/26/20 08:59 Senna (Senokot) 1 tab QHS PO 09/18/20 21:00 09/25/20 20:22 Sodium Chloride ([place] Nasal [place]) 2 spray TID NA 09/21/20 16:00 09/26/20 08:59 Timolol Maleate (Timoptic 0.25% Ophth [place]) 1 drop BID OU 09/18/20 21:00 09/26/20 09:00 Tramadol HCl (Ultram) 50 mg Q4HP PRN PO MODERATE PAIN (PS 5-7) 09/18/20 17:05 09/25/20 10:14 DC 09/20/20 07:37 Vitamin A (Vitamin A) 10,000 units DAILY@1600 PO 09/19/20 16:00 09/25/20 16:52 Vitamin D (Vitamin D) 1,000 units DAILY@1600 PO 09/19/20 16:00 09/25/20 16:38 ERROL SANDOVAL MD September 26, 2020 09:06
[2020-09-26] MEDS ORDERED: FOLI1TAB11 PO (09:30)
[2020-09-26] MEDS ORDERED: SYNT137T7 PO (09:30)
[2020-09-26] MEDS ORDERED: [UNRECOGNIZED DRUG - CODE] EX (09:30)
[2020-09-26] MEDS ORDERED: VITA500T40 PO (09:30)
[2020-09-26] MEDS ORDERED: ASPI-551 PO (09:30)
[2020-09-26] MEDS ORDERED: CALC1CAP31 PO (09:30)
[2020-09-26] MEDS ORDERED: GABA-283 PO (09:30)
[2020-09-26] MEDS ORDERED: CLAR10TA7 PO (09:30)
[2020-09-26] MEDS ORDERED: ZYLO300T6 PO (09:30)
[2020-09-26] MEDS ORDERED: CHLO0.124 MT (09:30)
[2020-09-26] MEDS ORDERED: PROAAER10 INH (09:30)
[2020-09-26] MEDS ORDERED: MUPI2OI EXT (09:30)
[2020-09-26] MEDS ORDERED: INSUNSD SC ×2 (09:30)
[2020-09-26] MEDS ORDERED: GUAI20TA PO (09:30)
[2020-09-26] MEDS ORDERED: ATOR1TAB21 PO (09:30)
[2020-09-26] MEDS ORDERED: LINE1TAB6 PO (09:30)
[2020-09-26] MEDS ORDERED: VITAD1000T PO (09:30)
[2020-09-26] MEDS ORDERED: MAGN400T2 PO (09:30)
[2020-09-26] MEDS ORDERED: FLUTISP NARES (09:30)
[2020-09-26] MEDS ORDERED: FURO40TA2 PO (09:30)
[2020-09-26] MEDS ORDERED: OMEP-218 PO (09:30)
[2020-09-26] MEDS ORDERED: DITR5TAB PO (09:30)
[2020-09-26] MEDS ORDERED: [UNRECOGNIZED DRUG - CODE] PO (09:30)
[2020-09-26] MEDS: MUPIROCIN 2% OINT 22 GM TUBE TOP SCH ×2 (11:20→20:59)
[2020-09-26] MEDS ORDERED: LIDO5TD TD (12:52)
[2020-09-26 14:00] VITALS: BP 143/67
[2020-09-26] MEDS: VITAMIN D 1,000 INTERNATIONAL UNITS TABLET PO SCH (16:20)
[2020-09-26] MEDS: MULTIVITAMINS/MINERALS THERAP 1 TAB PO SCH (16:20)
[2020-09-26] MEDS: VITAMIN A 10,000 INTERNATIONAL UNITS CAP PO SCH (16:20)
[2020-09-26] MEDS: CYANOCOBALAMIN 500 MCG TAB PO SCH (16:20)
[2020-09-26] MEDS: FOLIC ACID 1 MG TAB PO SCH (16:20)
[2020-09-26 20:00] VITALS: BP 127/65
[2020-09-26] MEDS: SENNA 8.6 MG TAB (SENOKOT) PO SCH (20:56)
[2020-09-26] MEDS: LATANOPROST 0.005% OPHTH SOLN 2.5 ML OU SCH (20:58)
[2020-09-26] MEDS: MICONAZOLE-7 VAGINAL 2% CREAM 47.7 GM PV SCH (20:59)
[2020-09-26] MEDS: **NOTE PATIENT COMMENT** MISC XX SCH (20:59)
[2020-09-27 05:04] VITALS: BP 162/70
[2020-09-27] MEDS: LEVOTHYROXINE 137MCG TABLET (0.137MG) PO SCH (05:32)
[2020-09-27 05:35] VITALS: BP 136/62
[2020-09-27] MEDS: COMBIVENT RESPIMAT 100-20MCG INHALER 4GM INH SCH (07:19)
[2020-09-27] MEDS: HumaLOG INSULIN (NovoLOG) PER UNIT SC SCH ×2 (08:43→12:15)
[2020-09-27] MEDS: GABAPENTIN 400MG CAP PO SCH (08:43)
[2020-09-27] MEDS: LINEZOLID 600MG TABLET (ZYVOX) PO SCH (08:43)
[2020-09-27] MEDS: HumuLIN N INSULIN (NovoLIN N) PER UNIT SC SCH (08:43)
[2020-09-27] MEDS: allopurinoL 300 MG TAB PO SCH (08:44)
[2020-09-27] MEDS: CALCITRIOL 0.25 MCG CAP (S0169) PO SCH (08:44)
[2020-09-27] MEDS: DOCUSATE SODIUM 100MG CAPSULE PO SCH (08:44)
[2020-09-27] MEDS: guaiFENesin 200 MG TAB PO SCH (08:44)
[2020-09-27] MEDS: oxyBUTYnin *DITROPAN XL* 5 MG TABCR PO SCH (08:44)
[2020-09-27] MEDS: OMEPRAZOLE 20 MG CAP PO SCH (08:44)
[2020-09-27] MEDS: FUROSEMIDE 40 MG TAB PO SCH (08:44)
[2020-09-27] MEDS: LORATADINE 10 MG TAB PO SCH (08:45)
[2020-09-27] MEDS: ATORVASTATIN 20 MG TAB PO SCH (08:45)
[2020-09-27] MEDS: ASPIRIN 81MG ENTERIC TABLET PO SCH (08:45)
[2020-09-27] MEDS: LIDOCAINE 5% (LIDODERM) PATCH TD SCH (08:45)
[2020-09-27] MEDS: ACETAMINOPHEN 500 MG TAB PO SCH (08:45)
[2020-09-27] MEDS: MAGNESIUM OXIDE 400MG TAB (MAG-OX) PO SCH (08:45)
[2020-09-27] MEDS: SALIVA SUBSTITUTE(MOUTHKOTE) BTL MT SCH ×2 (08:46→12:16)
[2020-09-27] MEDS: MUPIROCIN 2% OINT 22 GM TUBE TOP SCH (08:46)
[2020-09-27] MEDS: FLUTICASONE PROP 0.05% NASAL SPRAY 16 GM (FLONASE) NARES SCH (08:47)
[2020-09-27] MEDS: SODIUM CHLORIDE NASAL 0.65% SPRAY BTL (OCEAN) SCH (08:47)
[2020-09-27] MEDS: TIMOLOL MALEATE 0.25% OPHTH SOLN 5 ML OU SCH (08:48)
[2020-09-27] MEDS: prednisoLONE ACET 1% OPHTH SUSP 5ML OU SCH (08:48)
[2020-09-27] MEDS: POLYVINYL ALCOHOL OPHTH SOLN 15 ML(LIQUITEARS) OU SCH (08:48)
[2020-09-27] MEDS: REMEDY PHYTOPLEX Z-GUARD PASTE 113GM TUBE (FROM STOREROOM PRODUCT) TOP SCH (08:48)
--- NOTE | 2020-09-27 10:52 | PMRDS ---
DISCHARGE SUMMARY DATE OF ADMISSION: 09/18/2020 DATE OF DISCHARGE: 09/27/2020 CHIEF COMPLAINT/DISCHARGE DIAGNOSIS: Right knee osteoarthritis and Methicillin-resistant staph aureus (MRSA) bronchitis. HISTORY OF PRESENT ILLNESS: An 89-year-old female with a past medical history of morbid obesity, diabetes, peripheral polyneuropathy, aortic stenosis status post transcatheter aortic valve replacement (TAVR), obstructive sleep apnea (MITCH), hyperlipidemia, chronic kidney disease (CKD), hypothyroidism, osteoarthritis status post fall with worsening right knee pain presented to [facility] Department [facility] on 09/17/2020 complaining of difficulty walking and worsening pain. X-rays of the knee showed "moderately severe degenerative osteoarthritis greatest in the medial compartment with [id number] articulation joint effusion." She was noted to have leukocytosis, low-grade temperature and difficulty ranging her knee. Discussion was had about future knee arthroplasty but given the patient's poor mobility, multiple comorbidities including elevated blood pressures (BPs) and new mobility impairment, the patient was deemed medically appropriate for discharge to acute rehabilitation unit (ARU) on 09/18/2020. PAST MEDICAL HISTORY: As per history of present illness (HPI). HOSPITAL COURSE: The patient was admitted and enrolled in a comprehensive physical therapy/occupational therapy (PT/OT) program. She received 24-hour nursing supervision; weekly team meetings were held to discuss her progress. On initial presentation, the patient complained of bilateral knee pain mostly on the right side, and right hip pain. Imaging was performed of her left knee which also showed tricompartmental osteoarthritis and right hip did not show significant arthritis. She complained of cough with congestion with initial CT of chest on 09/21/2020 negative for infiltrate. Sputum culture did grow Methicillin-resistant staph aureus (MRSA) and she was started on linezolid for a Methicillin-resistant staph aureus (MRSA) bronchitis. Additionally, she was initiated on a Methicillin-resistant staph aureus (MRSA) decolonization regimen with mupirocin intranasal application and patient was educated on going home with chlorhexidine mouthwash and body cleanse. She complained of dysuria. Urinalysis (UA) was negative and she was initiated on Monistat 7 for possible yeast infection with overall symptom improvement. She had mild acute kidney injury (TOBI) while on Lasix and her dosing was decreased from 60 mg to 40 mg with improvement. She made steady and significant gains in therapy and was deemed medically and functionally stable to return home. DISCHARGE MEDICATIONS: As per instructions. FUNCTIONAL HISTORY ON DISCHARGE: The patient was modified independent for ambulation, bed mobility, dressing, toileting. Thank you for this referral.
== END 2020-09-27 13:10 | disposition home health service (06) | DRG 560 ==
LOC: M PM&R 16:10
PROVIDERS: ADMIT Physical Medicine & Rehabilitation; ATTEND Physical Medicine & Rehabilitation
DX: Z47.1 Aftercare following joint replacement surgery (principal); Z68.42 Body mass index [BMI] 45.0-49.9, adult; Z96.651 Presence of right artificial knee joint; E66.01 Morbid (severe) obesity due to excess calories; E11.42 Type 2 diabetes mellitus with diabetic polyneuropathy; G47.33 Obstructive sleep apnea (adult) (pediatric); E78.5 Hyperlipidemia, unspecified; N18.9 Chronic kidney disease, unspecified; E03.9 Hypothyroidism, unspecified; E11.22 Type 2 diabetes mellitus with diabetic chronic kidney disease; Z74.09 Other reduced mobility; K59.00 Constipation, unspecified; R30.0 Dysuria; Z95.2 Presence of prosthetic heart valve; Z98.41 Cataract extraction status, right eye; Z98.42 Cataract extraction status, left eye; Z87.891 Personal history of nicotine dependence; Z74.1 Need for assistance with personal care; I12.9 Hypertensive chronic kidney disease with stage 1 through stage 4 chronic kidney disease, or unspecified chronic kidney disease; M17.12 Unilateral primary osteoarthritis, left knee; M16.0 Bilateral primary osteoarthritis of hip; Z79.82 Long term (current) use of aspirin; Z79.4 Long term (current) use of insulin; Z79.899 Other long term (current) drug therapy; Z88.8 Allergy status to other drugs, medicaments and biological substances; M10.9 Gout, unspecified; H40.9 Unspecified glaucoma

== ENCOUNTER → 2020-11-21 | Outpatient (CLI) | payer MEDICARE ==
[~2020-11-21] MED LIST changes: +ASPI-551 PO; +CHLO0.124 MT; +CLAR10TA7 PO; +DITR5TAB PO; +FLUTISP NARES; +FOLI1TAB11 PO; +GUAI20TA PO; +LIDO5TD TD; +LINE1TAB6 PO; +MAGN400T2 PO; +MUPI2OI EXT; +OMEP-218 PO; +SYNT137T7 PO; +VITA500T40 PO; +VITAD1000T PO; +[UNRECOGNIZED DRUG - CODE] EX; +[UNRECOGNIZED DRUG - CODE] PO
--- NOTE | 2020-11-21 14:27 | REPMRS ---
Patient History The patient states she had a clinical breast exam in November 2020. Patient has history of other cancer at age 79. Family history of breast cancer at age 50 or over in daughter. Patient states no breast complaints today. Patient has signed MRS History Sheet. Digital Woman Screen Mammo: November 21, 2020 - Exam #: [id number] Bilateral CC and MLO view(s) were taken. Technologist: Nlia Bailey, Technologist Prior study comparison: November 21, 2019, bilateral digital woman screen mammo performed at [facility]. August 25, 2018, bilateral digital woman screen mammo performed at [facility]. August 24, 2017, digital woman screen mammo performed at [facility]. FINDINGS: There are scattered fibroglandular densities. The Volpara volumetric breast density category is:B. There has been no change in the appearance of the mammogram from the prior studies. There is a mild amount of scattered fibroglandular density which is fairly symmetric. There is no interval development of dominant mass, architectural distortion, or grouped microcalcification suggestive of malignancy. 3-D tomosynthesis shows no additional findings. Assessment: BI-RADS/ACR category 1 mammogram. Negative Mammogram. Recommendation Routine screening mammogram of both breasts in 1 year (for women over age 40). This mammogram was interpreted with the aid of an FDA-approved computer-aided dectection system. Electronically Signed By: Braulio Galarza MD 11/21/20 [id number]
== END ==
LOC: M WHC 12:44
PROVIDERS: ATTEND Advanced Practice Midwife
DX: Z01.419 Encounter for gynecological examination (general) (routine) without abnormal findings (principal); Z12.31 Encounter for screening mammogram for malignant neoplasm of breast; Z85.89 Personal history of malignant neoplasm of other organs and systems; Z80.3 Family history of malignant neoplasm of breast
CPT/HCPCS: 77063; 77067; G0101

== ENCOUNTER → 2021-02-06 | Outpatient (CLI) | payer MEDICARE ==
[~2021-02-06] MED LIST changes: +[UNRECOGNIZED DRUG - CODE] PO; -[UNRECOGNIZED DRUG - CODE] PO
--- NOTE | 2021-02-06 16:26 | REP ---
INDICATION: PNEUMONIA. COMPARISON: Comparison chest x-ray May 21, 2020. TECHNIQUE: Two views.. FINDINGS: The lungs are symmetrically somewhat hyperinflated. No acute infiltrate is seen. Pleural angles are sharp. And aortic valve replacement is noted in place as before. Mild cardiac enlargement is seen. Cardiothoracic ratio measures 52.4%. The thoracic aorta is slightly tortuous. Pulmonary vasculature is slightly cephalized. IMPRESSION: Hyperinflation, cardiomegaly, status post aortic valve replacement. No acute filtrate seen. <Electronically signed by Braulio Galarza > 02/06/21 [id number]
== END ==
LOC: M WUC 15:57
PROVIDERS: ATTEND Internal Medicine
DX: I51.7 Cardiomegaly (principal); Z95.2 Presence of prosthetic heart valve